=== PATIENT | male | born 1955 | race Caucasian/White ===

== ENCOUNTER → 2019-11-27 13:52 | Outpatient (BNVA) | payer MEDICARE, MEDICAID, SELFPAY | PROVIDERS: PCP Internal Medicine; Referring Provider Internal Medicine; Visit Provider Student in an Organized Health Care Education/Training Program | DX: M70.62 Trochanteric bursitis, left hip (principal); M70.61 Trochanteric bursitis, right hip; M47.812 Spondylosis without myelopathy or radiculopathy, cervical region; Z79.899 Other long term (current) drug therapy | CPT/HCPCS: 20610; 99213 ==

== ENCOUNTER 2019-11-30 10:07 | Outpatient (REF) | payer MEDICARE, MEDICAID, SELFPAY ==
--- NOTE | 2019-11-30 10:01 | XR_ITS ---
EXAMINATION: XR CERVICAL SPINE CLINICAL INFORMATION: Spondylosis COMPARISON: None TECHNIQUE: 3 views of the cervical spine were obtained. FINDINGS: Bone alignment is normal. No fracture or dislocation is seen. There is multilevel degenerative spondylosis from C3-C4 to C6-C7. There is a disc space narrowing at C6-C7. The C7-T1 disc space is not well visualized. There is evidence of bilateral facet arthritis, left greater than right. Prevertebral soft tissues are normal. IMPRESSION: Multilevel degenerative changes.
--- NOTE | 2019-11-30 10:15 | CT_ITS ---
EXAMINATION: CT CHEST WITHOUT CONTRAST CLINICAL INFORMATION: Follow-up pulmonary nodules COMPARISON: Previous chest CT scans most recent November 2018 TECHNIQUE: Multidetector volumetric CT imaging of the chest was done. Axial MIP volume rendering provided. Sagittal and coronal reformatted images were obtained. This CT examination was performed using dose optimization techniques as appropriate, variously including the following: *Automated exposure control *Adjustment of mA and/or kV according to patient size (this includes techniques or standardized protocols for targeted exams where dose is matched to indication/reason for exam; i.e. extremities or head) *Use of iterative reconstruction technique DLP: 242 mGy-cm FINDINGS: LUNGS: There is evidence of paraseptal emphysema. There is biapical pleural and parenchymal scarring, right greater than left, which is unchanged. There is a curvilinear pleural thickening and calcification along the lateral left upper lobe for example axial image 23 series 4 that is unchanged. There are small calcified and noncalcified pulmonary nodules that are unchanged. No new pulmonary nodule is seen.. MEDIASTINUM: There are are small mediastinal lymph nodes. No enlarged lymph nodes are seen. The heart does not appear enlarged. There is no pericardial effusion. There is mild coronary artery calcification. The thoracic aorta is normal in caliber. The visualized thyroid gland is unremarkable. PLEURA: There is no pleural effusion. No pleural mass or thickening. AXILLA: No lymphadenopathy. UPPER ABDOMEN: There is fatty infiltration of the liver. OSSEOUS STRUCTURES: There are degenerative changes of the spine. IMPRESSION: Emphysema. Stable biapical pleural parenchymal scarring, right greater than left and small calcified and noncalcified pulmonary nodules.
== END 2019-11-30 10:08 | disposition home or self-care (01) ==
LOC: HO.CT 10:07
PROVIDERS: PCP Internal Medicine; Visit Provider Internal Medicine
DX: M47.812 Spondylosis without myelopathy or radiculopathy, cervical region (principal)
CPT/HCPCS: 71250; 72040

== ENCOUNTER 2019-12-04 12:01 | Outpatient (REF) | payer MEDICARE, MEDICAID, SELFPAY ==
[2019-12-04 13:28] LABS: Anion Gap 13 (12-20); Carbon Dioxide 27 mmol/L (22-29); Chloride 106 mmol/L (96-108); Potassium 4.3 mmol/l (3.3-5.1); Sodium 142 mmol/L (135-145)
== END 2019-12-04 12:02 | disposition home or self-care (01) ==
LOC: HO.LAB 12:01
PROVIDERS: PCP Internal Medicine; Visit Provider Internal Medicine
DX: E87.6 Hypokalemia (principal)
CPT/HCPCS: 80051

== ENCOUNTER → 2019-12-14 09:35 | Outpatient (BNVA) | payer MEDICARE, MEDICAID, SELFPAY | PROVIDERS: PCP Internal Medicine; Visit Provider Internal Medicine | DX: I26.99 Other pulmonary embolism without acute cor pulmonale (principal); Z51.81 Encounter for therapeutic drug level monitoring; Z79.01 Long term (current) use of anticoagulants | CPT/HCPCS: 85610; 99211 ==

== ENCOUNTER 2020-01-02 13:18 | Outpatient (REF) | payer MEDICARE, MEDICAID, SELFPAY | END 2020-01-02 13:19 | disposition home or self-care (01) | LOC: HO.LAB 13:18 | PROVIDERS: Visit Provider Internal Medicine | DX: Z20.828 Contact with and (suspected) exposure to other viral communicable diseases (principal) | CPT/HCPCS: C9803; U0003 ==

== ENCOUNTER → 2020-01-11 09:04 | Outpatient (BNVA) | payer MEDICARE, MEDICAID, SELFPAY | PROVIDERS: PCP Internal Medicine; Visit Provider Internal Medicine | DX: I26.99 Other pulmonary embolism without acute cor pulmonale (principal); Z51.81 Encounter for therapeutic drug level monitoring; Z79.01 Long term (current) use of anticoagulants | CPT/HCPCS: 85610; 99211 ==

== ENCOUNTER 2020-01-21 09:42 | Emergency (ER) | payer MEDICARE, MEDICAID, SELFPAY ==
[2020-01-21 10:05] VITALS: BP 130/89; PULSE 96; RESP 16; TEMP 37.2; O2SAT 95; BMI 37.6
--- NOTE | 2020-01-21 10:11 | ED.GENADULT ---
HPI - General Adult General Chief complaint: General Medical Stated complaint: DIARRHEA, SORETHROAT Time Seen by Provider: 01/21/20 10:11 Source: patient Mode of arrival: ambulatory Limitations: no limitations History of Present Illness HPI narrative: patient having diarrhea for last 10 days 4-5 bowel movements loose every day last night patient was sweating and today he woke up with sore throat feels lump in his throat able to eat no stridor Related Data Home Medications Medication Instructions Recorded Confirmed acetaminophen 650 mg 650 mg PO Q12H 11/24/19 12/28/19 tablet,extended release albuterol sulfate 90 mcg/actuation 2 puff INHALATION Q4-6H PRN 11/24/19 12/28/19 aerosol inhaler atorvastatin 40 mg tablet 40 mg PO DAILY 11/24/19 12/28/19 brimonidine 0.2 % eye drops 1 drp OPHTHALMIC (EYE) TID 11/24/19 12/28/19 budesonide-formoterol HFA 160 2 puff INHALATION BID 11/24/19 12/28/19 mcg-4.5 mcg/actuation aerosol inhaler docusate sodium 100 mg capsule 100 mg PO DAILY 11/24/19 12/14/19 finasteride 5 mg tablet 5 mg PO DAILY 11/24/19 12/28/19 latanoprost 0.005 % eye drops 1 drp OPHTHALMIC (EYE) DAILY 11/24/19 12/28/19 meclizine 25 mg tablet 25 mg PO DAILY 11/24/19 12/28/19 modafinil 100 mg tablet 100 mg PO DAILY 11/24/19 12/14/19 modafinil 100 mg tablet 100 mg PO DAILY 11/24/19 12/28/19 montelukast 10 mg tablet 10 mg PO DAILY 11/24/19 12/28/19 omeprazole 20 mg capsule,delayed 20 mg PO DAILY 11/24/19 12/28/19 release potassium citrate 15 mEq (1,620 15 meq PO BID 11/24/19 12/28/19 mg) tablet,extended release sertraline 25 mg tablet 25 mg PO DAILY 11/24/19 12/28/19 tamsulosin 0.4 mg capsule 0.4 mg PO DAILY 11/24/19 12/28/19 tiotropium bromide 2.5 2 puff INHALATION DAILY 11/24/19 12/28/19 mcg/actuation mist for inhalation tizanidine 2 mg tablet 2 mg PO BEDTIME 11/24/19 12/28/19 warfarin 3 mg tablet 3 mg PO DAILY 11/24/19 01/11/20 gabapentin 100 mg capsule 200 mg PO BID cap 11/27/19 12/28/19 gabapentin 300 mg capsule 600 mg PO BEDTIME cap 11/27/19 12/28/19 Previous Rx's Medication Instructions Recorded ipratropium 0.5 mg-albuterol 3 mg 3 ml INHALATION QID #120 ml 12/21/19 (2.5 mg base)/3 mL nebulization soln fluticasone propionate 50 2 spray INTRANASAL DAILY #16 g 12/28/19 mcg/actuation nasal spray,suspension dexamethasone [Decadron] 4 mg PO BID #14 tab 01/21/20 diltiazem HCl 300 mg 300 mg PO DAILY #30 cap 01/21/20 capsule,extended release 24 hr Allergies Allergy/AdvReac Type Severity Reaction Status Date / Time bupropion [From WELLBUTRIN] Allergy Unknown HALLUCINATI Verified 12/28/19 11:15 ONS pseudoephedrine Allergy Unknown JITTERY Verified 12/28/19 11:15 [From SUDAFED] Review of Systems Review of Systems: REVIEW OF SYSTEMS: Pertinent positives and negatives are stated above in the history. GEN: no fevers, chills, fatigue HEENT: no nasal congestion, sore throat, ear pain feeling of the throat mass++ NEURO: no headache, dizziness, focal weakness PULM: no cough, shortness of breath CV: no chest pain, palpitations, LE edema ABD: no abdominal pain, nausea, vomiting, : no dysuria, urgency, frequency SKIN: no rash ROS otherwise negative x 10 PMFSH Past Medical History Medical History COPD (chronic obstructive pulmonary disease) Social History Social History Alcohol intake: never Smoking Status: Former smoker Use of substances other than those prescribed or required for medical reasons: No Advance Directives: Yes Advance Directives on File: Yes Advance Directives Date on File: 11/30/19 Physical Exam Vital Signs: Vital Signs: Last Vital Signs Temp 98.9 F 01/21/20 10:05 Pulse 90 01/21/20 13:46 Resp 16 01/21/20 13:46 BP 127/77 01/21/20 13:46 Pulse Ox 94 01/21/20 13:46 Body Mass Index 37.6 Appearance: Alert. Oriented X3. No acute distress. Eyes: Pupils equal, round and reactive to light. ENT: Pharynx normal. Neck: slight swollen neck? mass especially on the right side no stridor Neck supple. CVS: Normal heart rate and rhythm. Pulses normal. Respiratory: No respiratory distress. Breath sounds normal. Abdomen: Soft and nontender. no hepatosplenomegaly bowel sounds present no mass palpable Skin: Skin warm and dry. Normal skin color. Normal skin turgor. Extremities: No lower extremity edema. Good range of movement Neuro: Oriented X 3. No motor deficit. No sensory deficit. Medical Decision Making MDM Narrative Medical decision making narrative: patient with diarrhea which is stable complaining of feeling a mass in the throat for last [address] scan of the neck done which showed a mass is pressing on glottis area but is still open and patient is able to eat and breathe IV Decadron was given case discussed with Dr. wick the ENT specialist advised to refer to [facility] ENT at this time there is no airway compromise significant enough for acute intervention Lab Data Result diagrams: 01/21/20 10:27 01/21/20 10:27 Labs: Lab Results 01/21/20 01/21/20 01/21/20 Range/Units 10:27 10:27 10:27 WBC 10.4 (4.8-10.8) X10*3/uL RBC 5.09 (4.60-5.80) X10*6/uL Hgb 14.7 (14.0-18.0) g/dl Hct 44.9 (42-52) % MCV 88.2 (80-98) fL MCH 28.9 (27.0-33.0) pg MCHC 32.7 (31.0-36.0) g/dl RDW 13.8 (11.0-16.0) % Plt Count 216 (160-400) X10*3/uL MPV 9.8 (9.4-12.4) fL Immature Gran % (Auto) 1.2 H (0.0-0.4) % Neut % (Auto) 69.7 (45-73) % Lymph % (Auto) 17.4 L (20-40) % [place] % (Auto) 9.7 (2-11) % Eos % (Auto) 1.6 (0-4) % Baso % (Auto) 0.4 (0-2) % Lymph # (Auto) 1.8 (1.2-4.9) X10*3/uL [place] # (Auto) 1.0 (0.1-1.2) X10*3/uL Eos # (Auto) 0.2 (0.0-0.4) X10*3/uL Baso # (Auto) 0.0 (0.0-0.2) X10*3/uL Abs Immat Gran (auto) 0.13 H (0.00-0.03) X10*3/uL Absolute Neuts (auto) 7.3 (2.0-8.3) X10*3/uL Absolute Nucleated RBC 0.000 (0.0-0.012) X10*3/uL Nucleated RBC % (auto) 0.0 (0.0-0.2) /100WBC PT 27.9 H (10.8-13.0) SEC INR 2.3 H (0.9-1.1) Sodium 142 (135-145) mmol/L Potassium 4.2 (3.3-5.1) mmol/l Chloride 107 (96-108) mmol/L Carbon Dioxide 24 (22-29) mmol/L Anion Gap 15 (12-20) BUN 15 (9-16) mg/dL Creatinine 1.15 (0.5-1.4) mg/dL Estim Creat Clear Calc 80.3 Estimated GFR > 60 Random Glucose 107 (60-115) mg/dL Calcium 8.5 (8.4-10.2) mg/dL Total Bilirubin 0.7 (0.0-1.0) mg/dL AST 22 (5-37) U/L ALT 28 (0-40) U/L Alkaline Phosphatase 94 (39-117) U/L Total Protein 6.4 L (6.5-8.0) g/dL Albumin 3.9 (3.5-5.0) g/dL Lipase 13 (8-78) U/L COVID-19 ([facility]) (Negative) COVID-19 Clin Com 01/21/20 Range/Units 10:27 WBC (4.8-10.8) X10*3/uL RBC (4.60-5.80) X10*6/uL Hgb (14.0-18.0) g/dl Hct (42-52) % MCV (80-98) fL MCH (27.0-33.0) pg MCHC (31.0-36.0) g/dl RDW (11.0-16.0) % Plt Count (160-400) X10*3/uL MPV (9.4-12.4) fL Immature Gran % (Auto) (0.0-0.4) % Neut % (Auto) (45-73) % Lymph % (Auto) (20-40) % Huntington % (Auto) (2-11) % Eos % (Auto) (0-4) % Baso % (Auto) (0-2) % Lymph # (Auto) (1.2-4.9) X10*3/uL Huntington # (Auto) (0.1-1.2) X10*3/uL Eos # (Auto) (0.0-0.4) X10*3/uL Baso # (Auto) (0.0-0.2) X10*3/uL Abs Immat Gran (auto) (0.00-0.03) X10*3/uL Absolute Neuts (auto) (2.0-8.3) X10*3/uL Absolute Nucleated RBC (0.0-0.012) X10*3/uL Nucleated RBC % (auto) (0.0-0.2) /100WBC PT (10.8-13.0) SEC INR (0.9-1.1) Sodium (135-145) mmol/L Potassium (3.3-5.1) mmol/l Chloride (96-108) mmol/L Carbon Dioxide (22-29) mmol/L Anion Gap (12-20) BUN (9-16) mg/dL Creatinine (0.5-1.4) mg/dL Estim Creat Clear Calc Estimated GFR Random Glucose (60-115) mg/dL Calcium (8.4-10.2) mg/dL Total Bilirubin (0.0-1.0) mg/dL AST (5-37) U/L ALT (0-40) U/L Alkaline Phosphatase (39-117) U/L Total Protein (6.5-8.0) g/dL Albumin (3.5-5.0) g/dL Lipase (8-78) U/L COVID-19 ([facility]) Negative (Negative) COVID-19 Clin Com See Note Discharge Plan Discharge Clinical Impression: Cancer of neck Patient Disposition: Home, Self-Care Instructions: Mouth Cancer (DC) Additional Instructions: Dr. Aaron Vaughn MD [facility] N[facility], [facility] [address] [address] Make an Appointment Kendrick Falk MD [facility] [address] [place] [id number] ([facility]) [phone] [facility], [address] [place] [address], [facility] [address], [place] [address] ([facility]) [phone] DRINK PLENTY OF FLUIDS. REPORT TO THE ER IF DIFFICULTY BREATHING. FOLLOW-UP WITH ENT SPECIALIST ADVISED Prescriptions: New dexamethasone [Decadron] 4 mg tablet 4 mg PO BID Qty: 14 RF: 0 No Action ipratropium-albuterol 0.5 mg-3 mg(2.5 mg base)/3 mL solution for nebulization 3 ml inhalation QID Qty: 120 RF: 11 fluticasone propionate 50 mcg/actuation spray,suspension 2 spray intranasal DAILY Qty: 16 RF: 0 diltiazem HCl [Cartia XT] 300 mg capsule,extended release 24hr 300 mg PO DAILY Qty: 30 RF: 0 modafinil 100 mg tablet 100 mg PO DAILY RF: 0 modafinil [Provigil] 100 mg tablet 100 mg PO DAILY RF: 0 Spiriva Respimat 2.5 mcg/actuation mist 2 puff inhalation DAILY RF: 0 albuterol sulfate [ProAir HFA] 90 mcg/actuation HFA aerosol inhaler 2 puff inhalation Q4-6H PRNRF: 0 montelukast 10 mg tablet 10 mg PO DAILY RF: 0 potassium citrate 15 mEq tablet extended release 15 meq PO BID RF: 0 tizanidine 2 mg tablet 2 mg PO BEDTIME RF: 0 budesonide-formoterol [Symbicort] 160-4.5 mcg/actuation HFA aerosol inhaler 2 puff inhalation BID RF: 0 atorvastatin 40 mg tablet 40 mg PO DAILY RF: 0 finasteride 5 mg tablet 5 mg PO DAILY RF: 0 acetaminophen [Tylenol 8 Hour] 650 mg tablet extended release 650 mg PO Q12H RF: 0 sertraline 25 mg tablet 25 mg PO DAILY RF: 0 warfarin 3 mg tablet 3 mg PO DAILY RF: 0 latanoprost 0.005 % drops 1 drp ophthalmic (eye) DAILY RF: 0 brimonidine 0.2 % drops 1 drp ophthalmic (eye) TID RF: 0 tamsulosin 0.4 mg capsule 0.4 mg PO DAILY RF: 0 omeprazole 20 mg capsule,delayed release(DR/EC) 20 mg PO DAILY RF: 0 docusate sodium [Colace] 100 mg capsule 100 mg PO DAILY RF: 0 meclizine 25 mg tablet 25 mg PO DAILY RF: 0 gabapentin 300 mg capsule 600 mg PO BEDTIME RF: 0 gabapentin 100 mg capsule 200 mg PO BID RF: 0 Interventions: ED Discharge Assessment Last Done: 01/21/20 15:35 Discharge Date/Time: 01/21/20 15:36
--- NOTE | 2020-01-21 10:20 | XR_ITS ---
EXAMINATION: XR CHEST CLINICAL INFORMATION: Cough COMPARISON: Chest radiographs 11/20/2018, 11/13/2013 TECHNIQUE: Portable upright AP view of the chest was obtained. FINDINGS: The lungs are clear. The vascularity is normal. The heart is normal in size. There is no airspace consolidation or definite groundglass opacity. The costophrenic sulci are clear. The hilar and mediastinal contours are normal. There are mild degenerative changes again noted thoracic spine and acromioclavicular joints. XR/XR chest 1V IMPRESSION: Unremarkable examination.
[2020-01-21] MEDS: 0.9 % Sodium Chloride 1,000 ML 999 ML IVCONT (10:34)
[2020-01-21] MEDS: ondansetron HCL 4 MG/2 ML VIAL IVPUSH (10:34)
[2020-01-21 10:35] LABS: Basophils Percent Auto 0.4 % (0-2); Eosinophils Absolute Auto 0.2 X10*3/uL (0.0-0.4); Eosinophils Percent Auto 1.6 % (0-4); Hematocrit 44.9 % (42-52); Hemoglobin 14.7 g/dl (14.0-18.0); Imm Gran Abs Auto 0.13 X10*3/uL (0.00-0.03); Imm Gran Pct Auto 1.2 % (0.0-0.4); Lymphocytes Absolute Auto 1.8 X10*3/uL (1.2-4.9); Lymphocytes Percent Auto 17.4 % (20-40); MANUAL DIFF FLAG NO; Mean Corpuscular HGB Conc 32.7 g/dl (31.0-36.0); Mean Corpuscular Hemoglobin 28.9 pg (27.0-33.0); Mean Corpuscular Volume 88.2 fL (80-98); Mean Platelet Volume 9.8 fL (9.4-12.4); Monocytes Percent Auto 9.7 % (2-11); Neutrophils Absolute Auto 7.3 X10*3/uL (2.0-8.3); Neutrophils Percent Auto 69.7 % (45-73); Platelet Count 216 X10*3/uL (160-400); Red Blood Count 5.09 X10*6/uL (4.60-5.80); Red Cell Distribution Width 13.8 % (11.0-16.0); White Blood Count 10.4 X10*3/uL (4.8-10.8)
[2020-01-21 10:51] LABS: INTERNATIONAL NORM RATIO 2.3 (0.9-1.1); Prothrombin Time 27.9 SEC (10.8-13.0)
[2020-01-21 10:58] LABS: Alanine Aminotransferase 28 U/L (0-40); Albumin Level 3.9 g/dL (3.5-5.0); Alkaline Phosphatase 94 U/L (39-117); Anion Gap 15 (12-20); Aspartate Amino Transferase 22 U/L (5-37); Bilirubin Total 0.7 mg/dL (0.0-1.0); Blood Urea Nitrogen 15 mg/dL (9-16); Calcium 8.5 mg/dL (8.4-10.2); Carbon Dioxide 24 mmol/L (22-29); Chloride 107 mmol/L (96-108); Creatinine Clr Calc Pharmacy 80.3; Estimated Glomerular Filt Rate > 60; Glucose Random 107 mg/dL (60-115); Lipase 13 U/L (8-78); Potassium 4.2 mmol/l (3.3-5.1); Sodium 142 mmol/L (135-145); Total Protein 6.4 g/dL (6.5-8.0)
[2020-01-21 11:02] LABS: COVID-19 Test Negative (Negative); IDNOW Serial# 9DD0AD1C
[2020-01-21 12:00] VITALS: BP 115/99; PULSE 93; RESP 18; O2SAT 92
--- NOTE | 2020-01-21 12:17 | PC.NURSE ---
Pt reports feeling in throat is worse, sore and difficult to swallow. No visual periorbital edema noted, managing secretions, no visual SOB/distress. Dr Martinez notified.
--- NOTE | 2020-01-21 12:28 | CT_ITS ---
EXAMINATION: CT SOFT TISSUE NECK WITH CONTRAST CLINICAL INFORMATION: Throat pain COMPARISON: None TECHNIQUE: Following the intravenous administration of 100 mL of Omnipaque 350 intravenous contrast, helical imaging was performed in the axial plane with generation of coronal and sagittal reformatted images. This CT examination was performed using dose optimization techniques as appropriate, variously including the following: *Automated exposure control *Adjustment of mA and/or kV according to patient size (this includes techniques or standardized protocols for targeted exams where dose is matched to indication/reason for exam; i.e. extremities or head) *Use of iterative reconstruction technique DLP: 753 mGy-cm FINDINGS: There are small shotty lymph nodes in the neck and left para-aortic region and middle mediastinum with a short axis dimension of 6 mm and less in the middle mediastinum The parotid glands are homogeneous in attenuation. The submandibular glands are normal. No contour abnormality or pathologic enhancement is seen within the oral cavity or pharyngeal mucosal space. There is a soft tissue mass extending from the supraglottic, glottic and subglottic region and deviating the laryngeal airway to left of midline. It measures approximately 5.9 cm in craniocaudad length on sagittal image 34/5 and involves the aryepiglottic fold. In the widest section the mass is approximately 2.2 cm on axial image 91/2 an approximately 2.9 cm in AP dimension. Bilateral laryngeal ventricles are visualized. The preepiglottic, the left laryngeal wall is normal. The parapharyngeal fat is preserved. The carotid sheath vasculature opacify normally. No extra mucosal soft tissue mass or fluid collection is seen. No retropharyngeal fluid collection is seen. The thyroid gland is normal. The superior mediastinum is unremarkable. There is centrilobular and paraseptal emphysema with bilateral apical pleural thickening and parenchymal scarring and bullous changes in both lung apices. The mastoid air cells and visualized portions of the paranasal sinuses are well-aerated. The temporomandibular joints are normal. No periapical disease is identified. No osseous abnormalities are seen. The imaged portions of the brain parenchyma are unremarkable. CT/CT soft tissue neck w con IMPRESSION: Large soft tissue mass likely centered in the right glottic region into of the lateral laryngeal wall extending superiorly into the supraglottic space and inferiorly and the infraglottic space. Moderately deviates laryngeal elevated the left of midline.. There are small shotty lymph nodes in para-aortic space and the neck. Recommend MRI neck with contrast and ENT consult Emphysema with bilateral apical pleural and parenchymal thickening and scarring.
[2020-01-21] MEDS: iohexoL 350 MG/ML 100 ML INFUS..BTL 60 ML IV (12:58)
[2020-01-21 13:46] VITALS: BP 127/77; PULSE 90; RESP 16; O2SAT 94
[2020-01-21] MEDS: dexAMETHasone sod phosphate 4 MG/ML VIAL 10 MG IVPUSH (14:08)
--- NOTE | 2020-01-21 14:11 | PC.NURSE ---
Dr Martinez to bedside discussing CT of neck results and plan for potential outpatient treatment after consult with ENT Pt mediated with waqas as charted, will continue to monitor
--- NOTE | 2020-01-21 14:56 | PC.NURSE ---
Pt given jello for PO challenge, toelrating well at this time
--- NOTE | 2020-01-21 15:35 | PC.NURSE ---
Pt feeling better s/p decadron, able to tolerate jello. No diff breathing, less flushed than prior.
== END 2020-01-21 15:36 | disposition home or self-care (01) ==
PROVIDERS: Emergency Provider Internal Medicine; PCP Internal Medicine
DX: C76.0 Malignant neoplasm of head, face and neck (principal); R19.7 Diarrhea, unspecified; Z87.891 Personal history of nicotine dependence; Z20.828 Contact with and (suspected) exposure to other viral communicable diseases; Z79.899 Other long term (current) drug therapy
CPT/HCPCS: 36415; 70491; 71045; 80053; 83690; 85025; 85610; 87071; 87635; 87880; 96361; 96374; 96375; 99284; J1100; J2405; Q9967

== ENCOUNTER → 2020-01-25 09:36 | Outpatient (BNVA) | payer MEDICARE, MEDICAID, SELFPAY | PROVIDERS: PCP Internal Medicine; Visit Provider Internal Medicine | DX: I26.99 Other pulmonary embolism without acute cor pulmonale (principal); Z51.81 Encounter for therapeutic drug level monitoring; Z79.01 Long term (current) use of anticoagulants | CPT/HCPCS: 85610; 99211 ==

== ENCOUNTER 2020-01-25 10:00 | Outpatient (RCR) | payer MEDICARE, MEDICAID, SELFPAY ==
--- NOTE | 2019-12-21 12:30 | MHC.PT.EP ---
[facility] [place] Office [place] Office [place] Office [address] Paxton Carver [address] [phone] F: [phone] F: [phone] F: [phone] F: [phone] Physical Therapy Plan of Care Date of Evaluation: 12/21/19 Date of Surgery: NA Diagnosis: SPONDYLOSIS WITHOUT MYELOPATHY OR RADICULOPATHY CERVICAL REGION Assessment: Pt IS 64 YO M REFERRED TO PT FROM RHEUMATOLOGY WITH CERVICAL SPONDYLOSIS. PRESENTS WITH POOR POSTURE, UPPER BODY WEAKNESS AND LIMITED CERVICAL AND SHLDER ROM. Pt REPORTS INCREASE IN UPPER BACK PAIN WITH VACUUMING AND WASHING DISHES. REPORTS SOME TROUBLE WITH RUBBER TUBING BACKER. Pt WITH DIFFICULTY SHLDER MVMNT AND NECK MOVEMENT WITH UT COMPENSATION NOTED. REPORTS SOME L FOREARM AND R THUMB PARESTHESIA AT TIMES (NOT CONSISTENT). SHOULD BENEFIT FROM PT TO ADDRESS THESE ISSUES Frequency and Duration: The patient will be seen [id number] Short Term Goals: 1. INCREASED POSTURE AWARENESS AND AWARENESS NECK CARE 2. IMPROVED ABILITY TO WASH DISHES/VACUUM WITH LESS UPPER BACK PAIN Senior Care Goals: 1. I HEP WITH DC EX PLAN 2.IMPROVED NPDI 3. DECREASED NECK PAIN AT LEAST 50% WITH ADLS Treatment Plan: Modalities to reduce pain, spasms and effusion. Manual therapy to restore motion and function. Therapeutic exercise to improve strength and flexibility. Neuromuscular re-education for posture and balance. Therapeutic activities to return to functional activities of daily living. Please sign and return to therapist. Thank you for your referral.
--- NOTE | 2020-03-19 10:07 | MHC.PT.DC ---
[facility] Office [place] Office [place] Office [address] Paxton Carver [address] [phone] F: [phone] F: [phone] F: [phone] F: [phone] Physical Therapy Discharge Report Diagnosis: SPONDYLOSIS WITHOUT MYELOPATHY OR RADICULOPATHY CERVICAL REGION Date of Surgery: NA Date of Evaluation: 12/21/19 Date of Discharge: Treatments to Date: 7 Cancellations to Date: 3 No Shows to Date: 0 Discharge Status: Discharge Summary: WILL DC Pt AT THIS TIME WITH HOME PROGRAM HE DEALS WITH NEW DX OF THROAT CA. REPORTS OVERALL R UT FEELING BETTER BUT ANT NECK STILL SORE. GOOD PERF HOME PROG WITH MIN CUES (ED RE PAINFREE STRETCH VANI IF GOING THROUGH SURGERY/RX, ED TO LET US KNOW WHEN WOULD LIKE TO RETURN TO PT (DEPENDING ON TIME FRAME, MAY NEED TO GET A NEW SCRIPT) Electronically signed by: SUSANA HOLLIS PT Please sign and return to therapist. Thank you for your referral.
== END 2020-03-19 10:10 | disposition other institution (70) ==
LOC: HO.PT 10:00
PROVIDERS: Visit Provider Student in an Organized Health Care Education/Training Program
DX: M47.812 Spondylosis without myelopathy or radiculopathy, cervical region (principal)
CPT/HCPCS: 85610; 97110; 97162

== ENCOUNTER 2020-01-28 08:19 | Outpatient (REF) | payer MEDICARE, MEDICAID, SELFPAY ==
[2020-01-28 10:23] LABS: Hematocrit 47.8 % (42-52); Hemoglobin 15.8 g/dl (14.0-18.0); Mean Corpuscular HGB Conc 33.1 g/dl (31.0-36.0); Mean Corpuscular Hemoglobin 29.3 pg (27.0-33.0); Mean Corpuscular Volume 88.5 fL (80-98); Mean Platelet Volume 10.5 fL (9.4-12.4); Platelet Count 287 X10*3/uL (160-400); Red Cell Distribution Width 13.9 % (11.0-16.0)
[2020-01-28 10:27] LABS: Glucose Urine UA NEG (NEG); Leukocyte Esterase Urine NEG (NEG); Nitrite Urine NEG (NEG); Specific Gravity - Urine 1.015 (1.005-1.025); Urine Blood NEG (NEG); Urine Ketones NEG (NEG); Urine Protein NEG (NEG-TRACE)
[2020-01-28 10:28] LABS: Alanine Aminotransferase 56 U/L (0-40); Albumin Level 3.8 g/dL (3.5-5.0); Alkaline Phosphatase 74 U/L (39-117); Anion Gap 19 (12-20); Aspartate Amino Transferase 29 U/L (5-37); Bilirubin Total 0.6 mg/dL (0.0-1.0); Blood Urea Nitrogen 36 mg/dL (9-16); Calcium 8.6 mg/dL (8.4-10.2); Carbon Dioxide 25 mmol/L (22-29); Chloride 100 mmol/L (96-108); Cholesterol 162 mg/dL; Estimated Glomerular Filt Rate 52; Glucose Fasting 136 mg/dL (60-99); HDL Cholesterol 51 mg/dL; LDL Cholesterol Calculated 74 mg/dl; Potassium 4.7 mmol/l (3.3-5.1); Sodium 139 mmol/L (135-145); Total Protein 6.3 g/dL (6.5-8.0); Triglycerides 185 mg/dL
[2020-01-28 10:29] LABS: Appearance Urine CLEAR; Color Urine STRAW
[2020-01-28 10:45] LABS: WBC ABN SCTR FOR CBC 1
[2020-01-28 11:25] LABS: Band Neutrophils Percent 9 % (3-5); Lymphocytes Percent Manual 11 % (20-40); Metamyelocytes Percent 4 %; Monocytes Percent Manual 5 % (2-11); Myelocytes Percent 2 %; Neutrophils Percent Manual 69 % (45-73); Platelet Estimate NORMAL (NORMAL); Platelet Morphology Comment NORMAL; RBC Morphology NORMAL
[2020-01-28 11:26] LABS: Lymphocytes Absolute Manual 2.3 X10*3/uL (0.6-4.8); Metamyelocytes Absolute 0.9 X10*3/uL; Monocytes Absolute Manual 1.1 X10*3/uL (0.0-1.2); Myelocytes Absolute 0.4 X10*/uL; Neutrophils Absolute Manual 16.6 X10*3/uL (2.2-7.9); White Blood Count 21.3 X10*3/uL (4.8-10.8)
== END 2020-01-28 08:20 | disposition home or self-care (01) ==
LOC: HO.LAB 08:19
PROVIDERS: PCP Internal Medicine; Visit Provider Internal Medicine
DX: J43.1 Panlobular emphysema (principal); E78.00 Pure hypercholesterolemia, unspecified; N40.0 Benign prostatic hyperplasia without lower urinary tract symptoms; K21.00 Gastro-esophageal reflux disease with esophagitis, without bleeding; N20.0 Calculus of kidney; R79.9 Abnormal finding of blood chemistry, unspecified
CPT/HCPCS: 36415; 80053; 80061; 81003; 84153; 85007; 85025; 85027

== ENCOUNTER 2020-02-08 11:35 | Outpatient (REF) | payer MEDICARE, MEDICAID, SELFPAY ==
[2020-02-08 10:50] LABS: Prothrombin Time 62.3 SEC (10.8-13.0)
[2020-02-08 10:52] LABS: INTERNATIONAL NORM RATIO 5.2 (0.9-1.1)
--- NOTE | 2020-02-08 11:37 | MR_ITS ---
EXAMINATION: MRI NECK WITHOUT AND WITH CONTRAST CLINICAL INFORMATION: Neck mass. COMPARISON: CT neck from 01/21/2020. TECHNIQUE: MRI of the neck was obtained using routine sequences without and with contrast. Intravenous contrast: Gadavist 10 mL. FINDINGS: Normal mucosal contours of the pharynx and larynx without abnormal enhancement. Specifically, the previously demonstrated soft tissue thickening of the right supraglottic/gliotic mucosa appears to have resolved without abnormal enhancement. The prelaryngeal adipose tissue is maintained. There is a nonenhancing, ovoid T2 hyperintense nodule along the left glossotonsillar sulcus suggestive of a small benign cyst. Otherwise, no demonstrated focal lesion or abnormal enhancement within the floor of mouth. Normal appearance of the parotid, submandibular, and thyroid glands. Scattered subcentimeter lymph nodes bilaterally, none of which are pathologically enlarged or abnormally enhancing. The parapharyngeal adipose tissue is maintained. No significant cutaneous thickening or subcutaneous inflammation. No discrete fluid collection within the deep tissues of the neck. Left dominant vertebral artery. Otherwise, the major vascular flow voids of the neck are maintained. MR/MR orbits face neck wo/w con IMPRESSION: 1. Apparent interval resolution of the right supraglottic/glottic mucosa. Findings are suggestive of resolved laryngeal edema. This may be further evaluated with endoscopic visualization if clinically indicated. 2. There is a 1 cm ovoid nonenhancing cyst along the glossotonsillar sulcus that is likely benign in nature. This may also be examined with direct visualization. 3. No cervical lymphadenopathy.
== END 2020-02-08 11:36 | disposition home or self-care (01) ==
LOC: HO.MRI 11:35
PROVIDERS: Visit Provider Internal Medicine
DX: Z51.81 Encounter for therapeutic drug level monitoring (principal); Z79.01 Long term (current) use of anticoagulants; R22.1 Localized swelling, mass and lump, neck
CPT/HCPCS: 36415; 70543; 85610; 99212; A9585

== ENCOUNTER → 2020-02-12 08:18 | Outpatient (BNVA) | payer MEDICARE, MEDICAID, SELFPAY | PROVIDERS: PCP Internal Medicine; Visit Provider Internal Medicine | DX: I26.99 Other pulmonary embolism without acute cor pulmonale (principal); Z79.01 Long term (current) use of anticoagulants; Z51.81 Encounter for therapeutic drug level monitoring | CPT/HCPCS: 85610; 99211 ==

== ENCOUNTER 2020-02-18 08:52 | Outpatient (REF) | payer MEDICARE, MEDICAID, SELFPAY ==
[2020-02-18 10:02] LABS: Hematocrit 46.5 % (42-52); Hemoglobin 15.1 g/dl (14.0-18.0); Mean Corpuscular HGB Conc 32.5 g/dl (31.0-36.0); Mean Corpuscular Hemoglobin 28.8 pg (27.0-33.0); Mean Corpuscular Volume 88.7 fL (80-98); Mean Platelet Volume 9.2 fL (9.4-12.4); Platelet Count 300 X10*3/uL (160-400); Red Blood Count 5.24 X10*6/uL (4.60-5.80); Red Cell Distribution Width 14.6 % (11.0-16.0); White Blood Count 7.8 X10*3/uL (4.8-10.8)
[2020-02-18 10:30] LABS: Blood Urea Nitrogen 16 mg/dL (9-16); Estimated Glomerular Filt Rate 55
[2020-02-18 11:43] LABS: Band Neutrophils Percent 0 % (3-5); Eosinophils Absolute Manual 0.1 X10*3/UL (0.0-0.8); Eosinophils Percent Manual 1 % (0-4); Lymphocytes Absolute Manual 2.3 X10*3/uL (0.6-4.8); Lymphocytes Percent Manual 29 % (20-40); Monocytes Absolute Manual 0.9 X10*3/uL (0.0-1.2); Monocytes Percent Manual 12 % (2-11); Neutrophils Absolute Manual 4.5 X10*3/uL (2.2-7.9); Neutrophils Percent Manual 58 % (45-73); RBC Morphology NORMAL
[2020-02-18 11:44] LABS: Platelet Estimate NORMAL (NORMAL); Platelet Morphology Comment NORMAL
== END 2020-02-18 08:53 | disposition home or self-care (01) ==
LOC: HO.LAB 08:52
PROVIDERS: PCP Internal Medicine; Visit Provider Internal Medicine
DX: R79.9 Abnormal finding of blood chemistry, unspecified (principal); D72.825 Bandemia
CPT/HCPCS: 36415; 82565; 84520; 85007; 85025; 85027; 99212

== ENCOUNTER → 2020-02-26 10:32 | Outpatient (BNVA) | payer MEDICARE, MEDICAID, SELFPAY | PROVIDERS: PCP Internal Medicine; Visit Provider Internal Medicine | DX: I26.99 Other pulmonary embolism without acute cor pulmonale (principal); Z51.81 Encounter for therapeutic drug level monitoring; Z79.01 Long term (current) use of anticoagulants | CPT/HCPCS: 85610; 99211 ==

== ENCOUNTER 2020-03-04 10:42 | Outpatient (REF) | payer MEDICARE, MEDICAID, SELFPAY ==
--- NOTE | 2020-03-04 11:46 | XR_ITS ---
EXAMINATION: XR HIP, RIGHT CLINICAL INFORMATION: Avascular necrosis hip. COMPARISON: CT pelvis 05/13/2019, 04/08/2016. TECHNIQUE: Frontal view pelvis is performed along with AP and frog-lateral projections of the right hip. FINDINGS: The right hip shows no fracture or dislocation. There is mild hip joint narrowing. Some spurring is also noted greater tuberosity both proximal and distally. There are no visible erosive changes or periostitis or chondrocalcinosis. The bony pelvis shows no fracture or destructive process. There are degenerative changes also seen contralateral left hip. There is a stable sclerotic bone island at the superior medial right acetabulum similar to prior CT studies dating back to 2017. Some contrast is present in left colon diverticula and the appendix. Bowel gas unremarkable. XR/XR hip RT min 2V IMPRESSION: 1. Mild bilateral hip osteoarthritis. 2. If there is concern for underlying avascular necrosis, then MRI hip with be recommended for further assessment.
== END 2020-03-04 10:43 | disposition home or self-care (01) ==
LOC: HO.LAB 10:42
PROVIDERS: Absent Provider Internal Medicine; PCP Internal Medicine; Visit Provider Hospitalist
DX: G47.33 Obstructive sleep apnea (adult) (pediatric) (principal); J04.0 Acute laryngitis; J44.9 Chronic obstructive pulmonary disease, unspecified; Z99.89 Dependence on other enabling machines and devices; M87.052 Idiopathic aseptic necrosis of left femur
CPT/HCPCS: 73502; 99212

== ENCOUNTER 2020-03-07 18:28 | Outpatient (REF) | payer MEDICARE, MEDICAID, SELFPAY ==
--- NOTE | 2020-03-07 18:30 | MR_ITS ---
EXAMINATION: MR HIP WITHOUT CONTRAST, RIGHT CLINICAL INFORMATION: Avascular necrosis of bone. Patient reports lumbosacral pain radiating to right gluteal done to groin with symptoms for one week. COMPARISON: XR right hip 03/04/2020. TECHNIQUE: MRI of the right hip was obtained using routine sequences on a high-field strength magnet. FINDINGS: ACETABULAR LABRUM: Limited evaluation. Grossly intact. ARTICULAR CARTILAGE/BONE: There is a subtle curvilinear region of low T1 and low T2 signal intensity in the superior aspect of the right femoral head suspicious for subtle low-grade avascular necrosis. There is minor patchy bone marrow edema. There is no evidence of femoral head collapse. There is narrowing of the right hip joints, likely representing infarct cartilage thinning. There is a smaller more subtle curvilinear region of low T1 signal in the left femoral head on the T1 coronal sequence which includes both hips, suspicious for low-grade avascular necrosis. MUSCLES/TENDONS: Intact. JOINT FLUID/BURSA: Within normal limits. INTRAPELVIC STRUCTURES: Unremarkable. MR/MR hip RT wo con IMPRESSION: 1. 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 2. Mild arthrosis of the right hip joint.
== END 2020-03-07 18:29 | disposition home or self-care (01) ==
LOC: HO.MRI 18:28
PROVIDERS: Visit Provider Internal Medicine
DX: M87.051 Idiopathic aseptic necrosis of right femur (principal)
CPT/HCPCS: 73721

== ENCOUNTER → 2020-03-11 14:48 | Outpatient (BNVA) | payer MEDICARE, MEDICAID, SELFPAY | PROVIDERS: PCP Internal Medicine; Visit Provider Internal Medicine | DX: I26.99 Other pulmonary embolism without acute cor pulmonale (principal); Z51.81 Encounter for therapeutic drug level monitoring; Z79.01 Long term (current) use of anticoagulants | CPT/HCPCS: 85610; 99211 ==

== ENCOUNTER 2020-03-20 08:15 | Outpatient (REF) | payer MEDICARE, MEDICAID, SELFPAY ==
[2020-03-20 09:05] LABS: MANUAL DIFF FLAG NO
[2020-03-20 09:10] LABS: Basophils Absolute Auto 0.1 X10*3/uL (0.0-0.2); Basophils Percent Auto 0.5 % (0-2); Eosinophils Absolute Auto 0.2 X10*3/uL (0.0-0.4); Hematocrit 45.4 % (42-52); Hemoglobin 14.5 g/dl (14.0-18.0); Imm Gran Abs Auto 0.25 X10*3/uL (0.00-0.03); Imm Gran Pct Auto 2.3 % (0.0-0.4); Lymphocytes Absolute Auto 2.7 X10*3/uL (1.2-4.9); Mean Corpuscular HGB Conc 31.9 g/dl (31.0-36.0); Mean Corpuscular Hemoglobin 28.7 pg (27.0-33.0); Mean Corpuscular Volume 89.7 fL (80-98); Mean Platelet Volume 10.3 fL (9.4-12.4); Monocytes Absolute Auto 0.9 X10*3/uL (0.1-1.2); Monocytes Percent Auto 8.7 % (2-11); Neutrophils Absolute Auto 6.6 X10*3/uL (2.0-8.3); Neutrophils Percent Auto 61.5 % (45-73); Platelet Count 230 X10*3/uL (160-400); Red Blood Count 5.06 X10*6/uL (4.60-5.80); Red Cell Distribution Width 14.8 % (11.0-16.0); White Blood Count 10.8 X10*3/uL (4.8-10.8)
[2020-03-20 09:17] LABS: Glucose Urine UA NEG (NEG); Leukocyte Esterase Urine NEG (NEG); Nitrite Urine NEG (NEG); PH 8.5 (5.0-8.0); Specific Gravity - Urine 1.015 (1.005-1.025); Urine Blood NEG (NEG); Urine Ketones NEG (NEG); Urine Protein NEG (NEG-TRACE)
[2020-03-20 09:19] LABS: Appearance Urine HAZY; Color Urine YELLOW
[2020-03-20 09:20] LABS: Renal w Reflex-LAB USE ONLY Order Verified
[2020-03-20 09:38] LABS: Mucus Urine TRACE /LPF; RBC Urine 0 /HPF (0); Squamous Epithelial Cell Urine TRACE /LPF; UACC CULT YES
[2020-03-20 09:44] LABS: Anion Gap 13 (12-20); Blood Urea Nitrogen 17 mg/dL (9-16); Carbon Dioxide 26 mmol/L (22-29); Chloride 110 mmol/L (96-108); Estimated Glomerular Filt Rate 59; Phosphorus 2.9 mg/dL (2.7-4.5); Potassium 4.7 mmol/l (3.3-5.1); Sodium 144 mmol/L (135-145)
[2020-03-20 10:01] LABS: Creatinine Urine 170.54 mg/dL; Microalbum/Creatinine Ratio Ur 27.5 ug/mg cr
[2020-03-20 10:06] LABS: Vitamin D 25-OH Total 15.6 ng/mL (>30)
[2020-03-20 10:39] LABS: Protein/Creatinine Ratio, Ur 0.12 (<0.2); Total Protein Urine Random 21 mg/dL (<12)
[2020-03-20 11:18] LABS: Renal w Reflex Lab Use Only Order verified
[2020-03-21 15:42] LABS: Calcium (PTHI) 9.4 mg/dL (8.6-10.3); PTHI 77 pg/mL (14-64)
[2020-03-21 18:08] LABS: Calcium, Random Urine 5.7 mg/dL
== END 2020-03-20 08:16 | disposition home or self-care (01) ==
LOC: HO.LAB 08:15
PROVIDERS: PCP Internal Medicine; Visit Provider Internal Medicine Nephrology
DX: R79.9 Abnormal finding of blood chemistry, unspecified (principal); N20.0 Calculus of kidney; I48.0 Paroxysmal atrial fibrillation; F41.9 Anxiety disorder, unspecified
CPT/HCPCS: 36415; 80051; 81001; 82040; 82043; 82306; 82310; 82565; 83970; 84100; 84156; 84520; 85025; 87086

== ENCOUNTER → 2020-04-08 10:04 | Outpatient (BNVA) | payer MEDICARE, MEDICAID, SELFPAY | PROVIDERS: PCP Internal Medicine; Visit Provider Internal Medicine | DX: I26.99 Other pulmonary embolism without acute cor pulmonale (principal); Z51.81 Encounter for therapeutic drug level monitoring; Z79.01 Long term (current) use of anticoagulants | CPT/HCPCS: 85610; 99211 ==

== ENCOUNTER → 2020-05-06 10:46 | Outpatient (BNVA) | payer MEDICARE, MEDICAID, SELFPAY | PROVIDERS: PCP Internal Medicine; Visit Provider Internal Medicine | DX: I26.99 Other pulmonary embolism without acute cor pulmonale (principal); Z51.81 Encounter for therapeutic drug level monitoring; Z79.01 Long term (current) use of anticoagulants | CPT/HCPCS: 85610; 99211 ==

== ENCOUNTER 2020-05-16 15:36 | Outpatient (REF) | payer MEDICARE, MEDICAID, SELFPAY ==
--- NOTE | ~2020-05-16 | MR_ITS ---
EXAMINATION: MR ABDOMEN WITHOUT AND WITH CONTRAST CLINICAL INFORMATION: Liver lesion COMPARISON: Previous CT of the abdomen and pelvis April 2019 abdominal ultrasound February 2017 and renal ultrasound May 2018 TECHNIQUE: MR abdomen was performed without and with use of 10 mL intravenous Gadavist gadolinium contrast. Postcontrast images are performed in multiphase dynamic sequences. Imaging was performed in 3 planes. FINDINGS: LUNG BASES: The visualized lung bases are unremarkable. LIVER, GALLBLADDER, AND BILIARY TREE: The liver is slightly enlarged, right lobe measuring 18 cm in length. The liver is normal in contour. The liver is low in attenuation suggestive of fatty infiltration. There is a 1.6 x 1.4 cm lesion in the posterior segment of the right lobe of the liver. This does is low signal on T1-weighted sequences, high signal on T2-weighted sequences and demonstrates delayed peripheral puddling enhancement suggestive of a benign hemangioma. No suspicious liver lesion is seen. The gallbladder is normal-appearing. There is no biliary duct dilatation. PANCREAS: Unremarkable. SPLEEN: There is a small 5 mm lesion in the spleen probably representing a small cyst. ADRENAL GLANDS: Normal. KIDNEYS AND URETERS: There are bilateral renal cysts. Some cysts are high attenuation on T1-weighted and low attenuation on T2 weighted sequences and demonstrate fluid fluid levels suggestive of complex cysts. There is an area of irregularly shaped abnormal signal exophytic to the medial upper pole of the left kidney. This is heterogeneous in signal on T1 and T2-weighted sequences and demonstrates no evidence of enhancement. This is likely related to previous large exophytic cyst seen on previous exams, and probably represents post surgical change/resection versus spontaneous cyst rupture. Axial images following contrast do not extend completely through the kidneys. There is no evidence of hydronephrosis. GASTROINTESTINAL TRACT: There is diverticulosis of the colon. No bowel obstruction. No ascites or fluid collection. ABDOMINAL WALL: No significant hernia is appreciated. LYMPH NODES: There are small retroperitoneal lymph nodes. No enlarged lymph nodes are seen. VASCULAR: Unremarkable. OSSEOUS STRUCTURES: Marrow signal normal. There are degenerative changes of the spine. MR/MR abdomen wo/w con IMPRESSION: Fatty liver. 1.4 x 1.6 cm hemangioma in the liver. Probable small cyst in the spleen. The previously identified large complex cyst exophytic to the upper pole of the left kidney is no longer seen. There is heterogeneous irregularly-shaped nonenhancing signal seen in this region probably representing postsurgical change. There are bilateral simple and complex renal cysts. Kidneys are not completely evaluated on this exam. Diverticulosis of the colon.
[2020-05-16 16:18] LABS: Blood Urea Nitrogen 23 mg/dL (9-16); Estimated Glomerular Filt Rate 50
== END 2020-05-16 15:37 | disposition home or self-care (01) ==
LOC: HO.MRI 15:36
PROVIDERS: Visit Provider Internal Medicine
DX: K76.9 Liver disease, unspecified (principal)
CPT/HCPCS: 36415; 74183; 82565; 84520; A9585

== ENCOUNTER → 2020-05-19 09:59 | Outpatient (BNVA) | payer MEDICARE, MEDICAID, SELFPAY | PROVIDERS: PCP Internal Medicine; Visit Provider Internal Medicine | DX: I26.99 Other pulmonary embolism without acute cor pulmonale (principal); Z51.81 Encounter for therapeutic drug level monitoring; Z79.01 Long term (current) use of anticoagulants | CPT/HCPCS: 85610; 99211 ==

== ENCOUNTER → 2020-06-16 09:43 | Outpatient (BNVA) | payer MEDICARE, MEDICAID, SELFPAY | PROVIDERS: PCP Internal Medicine; Visit Provider Internal Medicine | DX: I26.99 Other pulmonary embolism without acute cor pulmonale (principal); Z79.01 Long term (current) use of anticoagulants; Z51.81 Encounter for therapeutic drug level monitoring | CPT/HCPCS: 85610; 99211 ==

== ENCOUNTER 2020-06-24 13:56 | Outpatient (REF) | payer MEDICARE, MEDICAID, SELFPAY ==
[2020-06-24 15:31] LABS: Anion Gap 14 (12-20); Blood Urea Nitrogen 22 mg/dL (9-16); Calcium 9.2 mg/dL (8.4-10.2); Carbon Dioxide 29 mmol/L (22-29); Chloride 100 mmol/L (96-108); Estimated Glomerular Filt Rate 59; Magnesium 1.5 mg/dL (1.6-2.6); Phosphorus 2.5 mg/dL (2.7-4.5); Potassium 3.3 mmol/L (3.3-5.1); Sodium 140 mmol/L (135-145)
[2020-06-24 15:59] LABS: Renal w Reflex Lab Use Only Order verified
== END 2020-06-24 13:57 | disposition home or self-care (01) ==
LOC: HO.LAB 13:56
PROVIDERS: PCP Internal Medicine; Visit Provider Internal Medicine Nephrology
DX: N20.0 Calculus of kidney (principal); I48.0 Paroxysmal atrial fibrillation; F41.9 Anxiety disorder, unspecified; R79.89 Other specified abnormal findings of blood chemistry
CPT/HCPCS: 36415; 80051; 82040; 82310; 82565; 83735; 84100; 84520

== ENCOUNTER → 2020-07-14 10:14 | Outpatient (BNVA) | payer MEDICARE, MEDICAID, SELFPAY | PROVIDERS: PCP Internal Medicine; Visit Provider Internal Medicine | DX: I26.99 Other pulmonary embolism without acute cor pulmonale (principal); Z51.81 Encounter for therapeutic drug level monitoring; Z79.01 Long term (current) use of anticoagulants | CPT/HCPCS: 85610; 99211 ==

== ENCOUNTER → 2020-08-11 09:45 | Outpatient (BNVA) | payer MEDICARE, MEDICAID, SELFPAY | PROVIDERS: PCP Internal Medicine; Visit Provider Internal Medicine | DX: I26.99 Other pulmonary embolism without acute cor pulmonale (principal); Z51.81 Encounter for therapeutic drug level monitoring; Z79.01 Long term (current) use of anticoagulants | CPT/HCPCS: 85610; 99211 ==

== ENCOUNTER → 2020-09-03 09:16 | Outpatient (BNVA) | payer MEDICARE, MEDICAID, SELFPAY | PROVIDERS: PCP Internal Medicine; Visit Provider Internal Medicine | DX: J41.0 Simple chronic bronchitis (principal); G47.33 Obstructive sleep apnea (adult) (pediatric); I27.82 Chronic pulmonary embolism; Z79.899 Other long term (current) drug therapy; Z99.89 Dependence on other enabling machines and devices; Z51.81 Encounter for therapeutic drug level monitoring; Z79.01 Long term (current) use of anticoagulants | CPT/HCPCS: 85610; 99211; 99212 ==

== ENCOUNTER → 2020-10-01 09:35 | Outpatient (BNVA) | payer MEDICARE, MEDICAID, SELFPAY | PROVIDERS: PCP Internal Medicine; Visit Provider Internal Medicine | DX: I26.99 Other pulmonary embolism without acute cor pulmonale (principal); Z51.81 Encounter for therapeutic drug level monitoring; Z79.01 Long term (current) use of anticoagulants | CPT/HCPCS: 85610; 99211 ==

== ENCOUNTER 2020-10-17 09:13 | Outpatient (REF) | payer MEDICARE, MEDICAID, SELFPAY ==
[2020-10-17 09:45] LABS: MANUAL DIFF FLAG NO
[2020-10-17 09:50] LABS: Basophils Percent Auto 0.3 % (0-2); Eosinophils Absolute Auto 0.2 X10*3/uL (0.0-0.4); Eosinophils Percent Auto 1.7 % (0-4); Hematocrit 44.3 % (42-52); Hemoglobin 15.2 g/dl (14.0-18.0); Imm Gran Abs Auto 0.15 X10*3/uL (0.00-0.03); Imm Gran Pct Auto 1.3 % (0.0-0.4); Lymphocytes Absolute Auto 2.2 X10*3/uL (1.2-4.9); Lymphocytes Percent Auto 19.2 % (20-40); Mean Corpuscular HGB Conc 34.3 g/dl (31.0-36.0); Mean Corpuscular Hemoglobin 29.2 pg (27.0-33.0); Monocytes Absolute Auto 1.2 X10*3/uL (0.1-1.2); Monocytes Percent Auto 10.1 % (2-11); Neutrophils Absolute Auto 7.7 X10*3/uL (2.0-8.3); Neutrophils Percent Auto 67.4 % (45-73); Platelet Count 260 X10*3/uL (160-400); Red Blood Count 5.21 X10*6/uL (4.60-5.80); Red Cell Distribution Width 13.6 % (11.0-16.0); White Blood Count 11.4 X10*3/uL (4.8-10.8)
[2020-10-17 10:26] LABS: Total Volume 24 Hour Urine 1850 mL
[2020-10-17 10:31] LABS: Albumin Level 4.1 g/dL (3.5-5.0); Anion Gap 13 (12-20); Blood Urea Nitrogen 21 mg/dL (9-16); Calcium 9.7 mg/dL (8.4-10.2); Carbon Dioxide 28 mmol/L (22-29); Chloride 102 mmol/L (96-108); Estimated Glomerular Filt Rate > 60; Magnesium 1.6 mg/dL (1.6-2.6); Phosphorus 2.5 mg/dL (2.7-4.5); Potassium 3.1 mmol/L (3.3-5.1); Sodium 140 mmol/L (135-145)
[2020-10-17 10:35] LABS: Appearance Urine CLEAR; Color Urine YELLOW; Glucose Urine UA NEG (NEG); Leukocyte Esterase Urine NEG (NEG); Nitrite Urine NEG (NEG); PH 7.5 (5.0-8.0); Urine Blood NEG (NEG); Urine Ketones NEG (NEG); Urine Protein TRACE MG/DL (NEG-TRACE)
[2020-10-17 10:51] LABS: Vitamin D 25-OH Total 26.5 ng/mL (>30)
[2020-10-17 10:55] LABS: Creatinine Urine 198.95 mg/dL; Protein/Creatinine Ratio, Ur 0.09 (<0.2); Total Protein Urine Random 17 mg/dL (<12)
[2020-10-17 10:55] LABS: Creatinine, mg/dL 93.57; Phosphorus mg/dL 49.9 mg/dL
[2020-10-17 11:04] LABS: Creatinine, 24Hr Urine 1.7 G/Day (1.0-2.0); Uric Acid, 24 Hr Urine 691.9 mg/Day (250-750); Uric Acid, mg/dL 37.4 mg/dL
[2020-10-17 11:39] LABS: Creatinine, 24Hr Urine 1.7 G/Day (1.0-2.0); Phosphorus, 24 Hr Urine 0.9 G/Day (0.4-1.3); Sodium 24 Hr Urine 266.4 mmol/Day (40-220); Total Volume 24 Hour Urine 1850 mL
[2020-10-20 13:12] LABS: Calcium (PTHI) 9.7 mg/dL (8.6-10.3); PTHI 52 pg/mL (14-64)
[2020-10-22 07:12] LABS: 24hr Urine Total Volume 1850 mL/24 h; Oxalic Acid 24 Urine 27.8 mg/24 h (3.6-38.0)
[2020-10-22 09:31] LABS: Citric Acid, 24hr Urine 142 mg/24 h (100-1300); Citric Acid/Creat Ratio 24U 84 mg/g creat (60-660); Creatinine, 24U 1.71 g/24 h (0.50-2.15)
[2020-10-23 23:21] LABS: Cystine 24Hr Urine - Cystine 160 umol/24 h (24-184)
[2020-10-24 12:55] LABS: Cystine 24Hr Urine - Total Vol 1850
== END 2020-10-17 09:14 | disposition home or self-care (01) ==
LOC: HO.LAB 09:13
PROVIDERS: PCP Internal Medicine; Visit Provider Internal Medicine Nephrology
DX: N18.31 Chronic kidney disease, stage 3a (principal); N20.0 Calculus of kidney; N25.0 Renal osteodystrophy; I26.99 Other pulmonary embolism without acute cor pulmonale; Z51.81 Encounter for therapeutic drug level monitoring; Z79.01 Long term (current) use of anticoagulants
CPT/HCPCS: 36415; 80051; 81003; 82040; 82043; 82131; 82306; 82310; 82507; 82565; 83735; 83945; 83970; 84100; 84105; 84156; 84300; 84520; 84560; 85025; 85610; 87086; 87147; 99211

== ENCOUNTER → 2020-11-14 09:35 | Outpatient (BNVA) | payer MEDICARE, MEDICAID, SELFPAY | PROVIDERS: PCP Internal Medicine; Visit Provider Internal Medicine | DX: I26.99 Other pulmonary embolism without acute cor pulmonale (principal); Z51.81 Encounter for therapeutic drug level monitoring; Z79.01 Long term (current) use of anticoagulants | CPT/HCPCS: 85610; 99211 ==

== ENCOUNTER 2020-12-04 09:28 | Outpatient (REF) | payer MEDICARE, MEDICAID, SELFPAY ==
--- NOTE | ~2020-12-04 | CT_ITS ---
EXAMINATION: CT CHEST WITHOUT CONTRAST CLINICAL INFORMATION: Pulmonary nodule. COMPARISON: Chest radiograph dated 01/21/2020. CT chest dated 11/30/2019. TECHNIQUE: Multidetector volumetric CT imaging of the chest was done. Axial MIP volume rendering provided. Sagittal and coronal reformatted images were obtained. This CT examination was performed using dose optimization techniques as appropriate, variously including the following: *Automated exposure control *Adjustment of mA and/or kV according to patient size (this includes techniques or standardized protocols for targeted exams where dose is matched to indication/reason for exam; i.e. 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 LUNGS: Prominent emphysematous changes. Biapical subpleural nodular thickening, most prominent on the right with adjacent ground-glass airspace opacity, unchanged when compared to the prior examination. Focal pleural thickening and calcification along the lateral aspect of the left upper lobe is unchanged. Stable tiny bilateral calcified granulomas. No new pulmonary nodule, mass, or airspace consolidation. MEDIASTINUM: No cardiomegaly. No pericardial effusion. No thoracic aortic dilatation. Atherosclerotic calcifications. No superior mediastinal or hilar lymphadenopathy. Atrophic thyroid. PLEURA: No pleural effusion or pneumothorax. AXILLA: No lymphadenopathy. UPPER ABDOMEN: Hepatic steatosis. Otherwise, the visualized upper abdominal structures are unremarkable. OSSEOUS STRUCTURES: Unremarkable. CT/CT chest wo con IMPRESSION: 1. Prominent emphysematous changes are redemonstrated with biapical nodular pleural thickening, similar when compared to the prior examination. Pleural thickening and calcification along the lateral aspect of the left upper lobe is unchanged. 2. No new pulmonary nodule, mass, or airspace consolidation. 3. No new lymphadenopathy.
== END 2020-12-04 09:29 | disposition home or self-care (01) ==
LOC: HO.CT 09:28
PROVIDERS: Visit Provider Internal Medicine
DX: R91.1 Solitary pulmonary nodule (principal)
CPT/HCPCS: 71250

== ENCOUNTER 2020-12-08 10:55 | Outpatient (REF) | payer MEDICARE, MEDICAID, SELFPAY ==
[2020-12-08 12:20] LABS: Anion Gap 14 (12-20); Blood Urea Nitrogen 20 mg/dL (9-16); Calcium 9.4 mg/dL (8.4-10.2); Carbon Dioxide 28 mmol/L (22-29); Chloride 101 mmol/L (96-108); Estimated Glomerular Filt Rate 59; Potassium 3.9 mmol/L (3.3-5.1); Sodium 139 mmol/L (135-145)
[2020-12-08 13:21] LABS: Appearance Urine CLEAR; Color Urine YELLOW; Glucose Urine UA NEG (NEG); Leukocyte Esterase Urine NEG (NEG); Nitrite Urine NEG (NEG); PH 8.5 (5.0-8.0); Urine Blood NEG (NEG); Urine Ketones NEG (NEG); Urine Protein NEG (NEG-TRACE)
[2020-12-08 13:53] LABS: Creatinine Urine 150.33 mg/dL; Total Protein Urine Random 15 mg/dL (<12)
[2020-12-08 14:35] LABS: RBC Urine 0-2 /HPF (0); WBC Urine 0-2 /HPF (0-4)
[2020-12-08 14:36] LABS: Amorphous Sediment Urine 2+ /LPF; Mucus Urine 2+ /LPF
== END 2020-12-08 10:56 | disposition home or self-care (01) ==
LOC: HO.LAB 10:55
PROVIDERS: PCP Internal Medicine; Visit Provider Internal Medicine Nephrology
DX: N20.0 Calculus of kidney (principal); N25.0 Renal osteodystrophy
CPT/HCPCS: 36415; 80051; 81001; 82310; 82565; 84156; 84520

== ENCOUNTER → 2020-12-12 09:52 | Outpatient (BNVA) | payer MEDICARE, MEDICAID, SELFPAY | PROVIDERS: PCP Internal Medicine; Visit Provider Internal Medicine | DX: I26.99 Other pulmonary embolism without acute cor pulmonale (principal); Z51.81 Encounter for therapeutic drug level monitoring; Z79.01 Long term (current) use of anticoagulants | CPT/HCPCS: 85610; 99211 ==

== ENCOUNTER → 2020-12-26 09:54 | Outpatient (BNVA) | payer MEDICARE, MEDICAID, SELFPAY | PROVIDERS: PCP Internal Medicine; Visit Provider Internal Medicine | DX: I26.99 Other pulmonary embolism without acute cor pulmonale (principal); Z51.81 Encounter for therapeutic drug level monitoring; Z79.01 Long term (current) use of anticoagulants | CPT/HCPCS: 85610; 99211 ==

== ENCOUNTER → 2021-01-09 10:14 | Outpatient (BNVA) | payer MEDICARE, MEDICAID, SELFPAY | PROVIDERS: PCP Internal Medicine; Visit Provider Internal Medicine | DX: I26.99 Other pulmonary embolism without acute cor pulmonale (principal); Z51.81 Encounter for therapeutic drug level monitoring; Z79.01 Long term (current) use of anticoagulants | CPT/HCPCS: 85610; 99211; 99212 ==

== ENCOUNTER → 2021-02-02 13:24 | Outpatient (BNVA) | payer MEDICARE, MEDICAID, SELFPAY | PROVIDERS: PCP Internal Medicine; Referring Provider Internal Medicine; Visit Provider Internal Medicine Cardiovascular Disease | DX: I48.0 Paroxysmal atrial fibrillation (principal); R07.9 Chest pain, unspecified | CPT/HCPCS: 93005; 99212 ==

== ENCOUNTER → 2021-02-03 07:43 | Outpatient (REF) | payer MEDICARE, MEDICAID, SELFPAY ==
--- NOTE | ~2021-02-03 | NM_ITS ---
Myocardial perfusion study Indication: Chest pain to evaluate for myocardial ischemia Technique: The patient was brought in for a Lexiscan perfusion study on 02/03/2021. Patient performed low-level exercise and was injected 0.4 mg of Lexiscan intravenously. Within a minute of injection, 30 mCi of sestamibi was given intravenously. Images were obtained using the SPECT gamma camera interlaced with the gating device. Images were obtained in supine position. Resting perfusion study was performed on 02/04/2021. Patient was administered 30 mCi of sestamibi intravenously at rest. Images were then obtained in supine position. Images obtained with and without CT attenuation. Total DLP 98 mGy-cm. Images were processed with the software and compared side to side in short axis, horizontal long axis and vertical long axis views. Findings: The stress perfusion study showed non attenuated images show some thinning of the inferolateral wall of the LV myocardium otherwise normal uptake. Attenuation corrected images show normal uptake of radiotracer in all segments of LV myocardium.. The gated study shows normal LV systolic function with calculated LVEF of 57%. LV cavity is normal in size. The gated study shows normal systolic wall thickening and contraction of segments. Resting study shows no change in perfusion pattern compared to stress perfusion study. Gating at rest reveals normal systolic wall motion with ejection fraction at 72%. The findings are consistent with normal myocardial perfusion. NM/NM cardiolite stress test Impression: 1. Myocardial perfusion imaging study shows normal myocardial perfusion 2. Gated LVEF is 57% 3. Transient ischemic dilatation not present EKG is nondiagnostic for ischemia
--- NOTE | 2021-02-03 07:51 | CA_ITS ---
Acquisition Time: 2021-02-03 08:02:26 Total Exercise Time: 00:01:53 Test Indications: Dyspnea Medications: SEE H Protocol: NICHOLE Max HR: 129 BPM 83% of Pred: 154 BPM Max BP: 110/058 mmHG Max Work Load: 4.3 METS Exercise stress test with exercise 1 min 53 sec of Nichole protocol with moderate shortness of breath, no chest discomfort, with hip pains and request to stop exercise. Treadmill placed in recovery and patient assisted to sitting position. Once breathing normalized test was changed to a pharmacological stress test with Lexiscan injection, while sitting and kicking his legs, without anginal symptoms, with isolated PACs, with mild hypotension at baseline and post injection, with nondiagnostic EKG for ischemia. In recovery he was treated with Aminophylline 75mg IVP to reverse Lexiscan with improvement in BP to baseline. Nuclear images pending. Test reviewed with Dr Hutton. Referred By: Jagjit Hutton Overread By: SAMANTA FUENTES
== END ==
LOC: HO.CARD 07:43
PROVIDERS: Visit Provider Internal Medicine Cardiovascular Disease
DX: R07.9 Chest pain, unspecified (principal)
CPT/HCPCS: 78452; 93017; A9500; J0280; J2785

== ENCOUNTER → 2021-02-04 08:41 | Outpatient (BNVA) | payer MEDICARE, MEDICAID, SELFPAY | PROVIDERS: PCP Internal Medicine; Visit Provider Internal Medicine | DX: I26.99 Other pulmonary embolism without acute cor pulmonale (principal); Z51.81 Encounter for therapeutic drug level monitoring; Z79.01 Long term (current) use of anticoagulants | CPT/HCPCS: 85610; 99211 ==

== ENCOUNTER 2021-02-10 10:24 | Outpatient (REF) | payer MEDICARE, MEDICAID, SELFPAY ==
[2021-02-10 10:27] LABS: MANUAL DIFF FLAG NO
[2021-02-10 10:40] LABS: Basophils Percent Auto 0.4 % (0-2); Eosinophils Absolute Auto 0.3 X10*3/uL (0.0-0.4); Eosinophils Percent Auto 2.5 % (0-4); Hematocrit 47.1 % (42.0-52.0); Hemoglobin 15.7 g/dl (14.0-18.0); Imm Gran Abs Auto 0.07 X10*3/uL (0.00-0.03); Imm Gran Pct Auto 0.7 % (0.0-0.4); Lymphocytes Absolute Auto 2.8 X10*3/uL (1.2-4.9); Lymphocytes Percent Auto 27.7 % (20-40); Mean Corpuscular HGB Conc 33.3 g/dl (31.0-36.0); Mean Corpuscular Hemoglobin 28.4 pg (27.0-33.0); Mean Corpuscular Volume 85.3 fL (80.0-98.0); Mean Platelet Volume 10.3 fL (9.4-12.4); Monocytes Absolute Auto 1.2 X10*3/uL (0.1-1.2); Monocytes Percent Auto 11.7 % (2-11); Neutrophils Absolute Auto 5.7 x10*3/uL (2.0-8.3); Platelet Count 307 X10*3/uL (160-400); Red Blood Count 5.52 X10*6/uL (4.60-5.80); Red Cell Distribution Width 13.2 % (11.0-16.0)
[2021-02-10 11:01] LABS: Alanine Aminotransferase 28 U/L (0-40); Albumin Level 4.1 g/dL (3.5-5.0); Alkaline Phosphatase 90 U/L (39-117); Anion Gap 13 (12-20); Aspartate Amino Transferase 26 U/L (5-37); Bilirubin Total 0.7 mg/dL (0.0-1.0); Blood Urea Nitrogen 21 mg/dL (9-16); Calcium 9.5 mg/dL (8.4-10.2); Carbon Dioxide 31 mmol/L (22-29); Chloride 100 mmol/L (96-108); Cholesterol 143 mg/dL; Estimated Glomerular Filt Rate 55; Glucose Fasting 110 mg/dL (60-99); HDL Cholesterol 33 mg/dL; LDL Cholesterol Calculated 78 mg/dl; Sodium 140 mmol/L (135-145); Total Protein 7.2 g/dL (6.5-8.0); Triglycerides 161 mg/dL
[2021-02-10 11:07] LABS: Appearance Urine CLOUDY; Color Urine YELLOW; Glucose Urine UA NEG (NEG); Leukocyte Esterase Urine NEG (NEG); Nitrite Urine POS (NEG); PH 7.5 (5.0-8.0); Urine Blood NEG (NEG); Urine Ketones NEG (NEG); Urine Protein TRACE MG/DL (NEG-TRACE)
[2021-02-10 11:21] LABS: Reflex LDLD? No
[2021-02-10 11:23] LABS: PSA,Total (Free>4and<10) 0.35 ng/mL (0.00-4.00)
[2021-02-10 11:25] LABS: Amorphous Sediment Urine 2+ /LPF; Bacteria Urine 2+ /LPF
== END 2021-02-10 10:25 | disposition home or self-care (01) ==
LOC: HO.LNP 10:24
PROVIDERS: Visit Provider Internal Medicine
DX: Z12.5 Encounter for screening for malignant neoplasm of prostate (principal); E78.00 Pure hypercholesterolemia, unspecified; R79.9 Abnormal finding of blood chemistry, unspecified; N40.0 Benign prostatic hyperplasia without lower urinary tract symptoms; E87.6 Hypokalemia; R97.20 Elevated prostate specific antigen [PSA]
CPT/HCPCS: 80053; 80061; 81001; 81003; 84153; 85025

== ENCOUNTER → 2021-03-06 10:06 | Outpatient (BNVA) | payer MEDICARE, MEDICAID, SELFPAY | PROVIDERS: PCP Internal Medicine; Visit Provider Internal Medicine | DX: I26.99 Other pulmonary embolism without acute cor pulmonale (principal); Z51.81 Encounter for therapeutic drug level monitoring; Z79.01 Long term (current) use of anticoagulants | CPT/HCPCS: 85610; 99211 ==

== ENCOUNTER → 2021-03-18 09:47 | Outpatient (REF) | payer MEDICARE, MEDICAID, SELFPAY ==
--- NOTE | 2021-03-18 09:56 | CA_ITS ---
Transthoracic Echocardiogram Patient (Last, First, Middle): Shakeel Flores K Gender: Male Date of : 1955 Age: 65 Procedure Date: 03/18/2021 Procedure Type: Transthoracic Echocardiogram Location: OP Height: 175.26 cm Weight: 96.16 kg BSA: 2.12 m2 Heart Rate: bpm BP: 104 / 65 mmHg Pumper Gager: NAIDA Referring MD: Jagjit Hutton MD Press Room Supervisor: Jagjit Hutton MD Symptoms: I48.0 - Paroxysmal atrial fibrillation Study Quality: Technically Difficult ECG Rhythm: Sinus Conclusions: - 1. Normal LV systolic function with grade 1 diastolic dysfunction 2. Limited visualization of cardiac valves with normal cardiac valvular Doppler 3. Normal RV systolic pressure 4. No gross pericardial effusion Findings Left Ventricle Normal left ventricular size, thickness, and systolic function. The visually estimated ejection fraction is between 55-60%. Spectral Doppler is indicative of an impaired relaxation filling pattern. E/E prime ratio is <8, consistent with normal filling pressures. Evidence suggests grade I (mild) diastolic dysfunction. Right Ventricle Normal right ventricular cavity size and systolic function. Atria The left atrium is normal in size. Interatrial shunt cannot be excluded. The right atrium is normal in size. Aortic Valve The aortic valve was not well visualized. There is no aortic valve stenosis. There is no aortic valve regurgitation. Mitral Valve The mitral valve was not well visualized. There is trace mitral valve regurgitation. There is no mitral valve stenosis. Pulmonic Valve The pulmonic valve was not well visualized. Tricuspid Valve Likely normal tricuspid valve structure and function. There is trace tricuspid valve regurgitation. The right ventricular systolic pressure is normal. There is no evidence of pulmonary hypertension. Great Vessels All visible segments of the aorta are normal in size. The pulmonary artery was not well visualized. Venous The inferior vena cava is normal in size and collapses greater than 50% with inspiration. Pericardium/Pleural There is no evidence of pericardial effusion. Prior Study Comparison No significant change compared to prior study dated: 05/14/2019. Measurements 2D Linear Measurements IVSd: 1.18 0.6-0.9/0.6-1.0 cm LVIDd: 4.65 3.9-5.3/4.2-5.9 cm LVIDd Index: 2.19 2.4-3.2/2.2-3.1 cm/m2 LVIDs: 3.50 2.0-3.6 cm LVPWd: 0.79 0.7-1.1 cm Ao Root: 3.70 2.1-3.5 cm LA Diam: 3.30 2.7-3.8/3.0-4.0 cm LAIDs Index: 1.56 1.5-2.3 cm/m2 LV Mass: 196.88 67-162/88-224 g LV Mass Index: 92.87 43-95/49-115 g/m2 LVOT Diam: 2.20 3.0+(-)1.3 cm 2D Systolic Function EF 4C: 51.40 >55% EF 2C: 61.10 >55% EF BiP: 56.60 >55% Mitral Valve MV Pk E: 0.49 MV PK A: 0.64 MV Decel Time: 271.00 E/A: 0.80 E'Lateral: 8.16 E'Medial: 5.55 E/E' Med: 8.80 E/E' Lat: 6.00 PHT: 79.00 MVA PHT: 2.78 Decel Castro: 1.81 Aortic Valve AoV Pk Jamin: 1.12 AoV Mn Jamin: 0.79 AoV VTI: 0.19 AoV Pk Grad: 5.00 Aov Mn Grad: 3.00 TRUMAN Cont.VTI: 3.45 LVOT LVOT Pk Jamin: 0.97 LVOT Mn Jamin: 0.68 LVOT VTI: 0.18 LVOT Pk Grad: 4.00 LVOT Mn Grad: 2.00 LVOT Diam: 2.20 LVOT Area: 3.80 Diastolic Function MV Pk E: 0.49 MV Pk A: 0.64 E/A: 0.80 E'Medial: 5.55 E/E' Med: 8.80 E' Laterial: 8.16 E/E' Lat: 6.00 Right Ventricle TAPSE (mm): 17.80 TVS' Jamin: 13.80 Tricuspid Valve TR Pk Jamin: 2.25 TR Pk Grad: 20.00 RA Press: 3.00 RVSP: 23.00 Great Vessels Aorta Ao Root-2D: 3.70 2.0-3.7 cm Ao Asc: 3.60 2.1-3.4 cm Ao Arch: 3.30 Updated in Other Vendor System with Status of Final Jagjit Anni MD electronically signed on 03/19/2021 5:09:04 PM with status of Final
== END ==
LOC: HO.CARD 09:47
PROVIDERS: Visit Provider Internal Medicine Cardiovascular Disease
DX: R07.9 Chest pain, unspecified (principal); I48.0 Paroxysmal atrial fibrillation
CPT/HCPCS: 93306

== ENCOUNTER → 2021-04-03 10:00 | Outpatient (BNVA) | payer MEDICARE, MEDICAID, SELFPAY | PROVIDERS: PCP Internal Medicine; Visit Provider Internal Medicine | DX: I26.99 Other pulmonary embolism without acute cor pulmonale (principal); Z51.81 Encounter for therapeutic drug level monitoring; Z79.01 Long term (current) use of anticoagulants | CPT/HCPCS: 85610; 99211 ==

== ENCOUNTER → 2021-04-08 09:27 | Outpatient (BNVA) | payer MEDICARE, MEDICAID, SELFPAY | PROVIDERS: PCP Internal Medicine; Visit Provider Hospitalist | DX: G47.33 Obstructive sleep apnea (adult) (pediatric) (principal); J41.0 Simple chronic bronchitis; I27.82 Chronic pulmonary embolism; Z99.89 Dependence on other enabling machines and devices | CPT/HCPCS: 99212 ==

== ENCOUNTER → 2021-04-09 13:40 | Outpatient (BNVA) | payer MEDICARE, MEDICAID, SELFPAY | PROVIDERS: PCP Internal Medicine; Referring Provider Internal Medicine; Visit Provider Nurse Practitioner Family | DX: Z13.89 Encounter for screening for other disorder (principal) ==

== ENCOUNTER → 2021-04-14 09:46 | Outpatient (BNVA) | payer MEDICARE, MEDICAID, SELFPAY | PROVIDERS: PCP Internal Medicine; Visit Provider Internal Medicine | DX: I26.99 Other pulmonary embolism without acute cor pulmonale (principal); Z51.81 Encounter for therapeutic drug level monitoring; Z79.01 Long term (current) use of anticoagulants | CPT/HCPCS: 85610; 99211 ==

== ENCOUNTER → 2021-05-12 09:43 | Outpatient (BNVA) | payer MEDICARE, MEDICAID, SELFPAY | PROVIDERS: PCP Internal Medicine; Visit Provider Internal Medicine | DX: I26.99 Other pulmonary embolism without acute cor pulmonale (principal); Z51.81 Encounter for therapeutic drug level monitoring; Z79.01 Long term (current) use of anticoagulants | CPT/HCPCS: 85610; 99211 ==

== ENCOUNTER → 2021-06-15 09:46 | Outpatient (BNVA) | payer MEDICARE, MEDICAID, SELFPAY | PROVIDERS: PCP Internal Medicine; Visit Provider Internal Medicine | DX: I26.99 Other pulmonary embolism without acute cor pulmonale (principal); Z79.01 Long term (current) use of anticoagulants; Z51.81 Encounter for therapeutic drug level monitoring | CPT/HCPCS: 85610; 99211 ==

== ENCOUNTER → 2021-06-24 13:12 | Outpatient (BNVA) | payer MEDICARE, MEDICAID, SELFPAY | PROVIDERS: PCP Internal Medicine; Referring Provider Internal Medicine; Visit Provider Nurse Practitioner Family | DX: I48.0 Paroxysmal atrial fibrillation (principal); M79.622 Pain in left upper arm; G47.33 Obstructive sleep apnea (adult) (pediatric); R63.4 Abnormal weight loss; R25.1 Tremor, unspecified; Z99.89 Dependence on other enabling machines and devices; Z79.01 Long term (current) use of anticoagulants | CPT/HCPCS: 93005; Q3014 ==

== ENCOUNTER 2021-06-30 11:08 | Outpatient (REF) | payer MEDICARE, MEDICAID, SELFPAY ==
[2021-06-30 12:02] LABS: TSH reflex Free T4 5.66 uIU/mL (0.32-4.0)
[2021-06-30 12:39] LABS: Free T4 (Free Thyroxine) 1.01 ng/dL (0.71-1.85)
== END 2021-06-30 11:09 | disposition home or self-care (01) ==
LOC: HO.LNP 11:08
PROVIDERS: Visit Provider Internal Medicine
DX: Z13.89 Encounter for screening for other disorder (principal)
CPT/HCPCS: 84439; 84443

== ENCOUNTER 2021-07-09 13:16 | Outpatient (REF) | payer MEDICARE, MEDICAID, SELFPAY ==
--- NOTE | ~2021-07-09 | US_ITS ---
EXAMINATION: US RETROPERITONEAL LIMITED (RENAL ONLY) CLINICAL INFORMATION: Complex renal cyst. COMPARISON: MR abdomen without and with contrast 05/16/2020. CT abdomen and pelvis without contrast 05/13/2019. US retroperitoneal limited (renal only) 06/08/2018. Ultrasound abdomen complete 03/14/2017. TECHNIQUE: Real-time imaging of the kidneys. FINDINGS: RIGHT KIDNEY: 11.2 x 5.3 x 4.2 cm (SAG x AP x TRV). The kidney is normal in size, contour, and echogenicity. Renal cortical thickness is normal. There are multiple small cysts. Some cysts appear to represent either a milk of calcium cysts or cyst with wall calcification. Largest cyst measures 1 cm. No renal calculi or hydronephrosis. LEFT KIDNEY: 10.4 x 6.7 x 4.0 cm (SAG x AP x TRV). The kidney is normal in size, contour, and echogenicity. Renal cortical thickness is normal. There are multiple small cysts. Some cysts appear to have echogenic wall or milk of calcium. There is a 1 x 0.8 x 0.9 cm hypoechoic lesion in the upper pole probably representing the complex cyst that was decreased in size on previous MRI. There is mild caliectasis/pelviectasis in the lower pole. No renal calculi or hydronephrosis. US/US renal BI IMPRESSION: Bilateral renal cysts. Many cysts demonstrate echogenic wall questionable for no of calcium cysts. 1 cm hypoechoic lesion in the upper pole of the left kidney, question corresponding to residual complex cyst that was decreased in size on previous MRI. Mild pelviectasis/caliectasis in the lower pole of the left kidney.
== END 2021-07-09 13:17 | disposition home or self-care (01) ==
LOC: HO.US 13:16
PROVIDERS: PCP Internal Medicine; Visit Provider Internal Medicine
DX: N28.1 Cyst of kidney, acquired (principal)
CPT/HCPCS: 76775

== ENCOUNTER → 2021-07-13 09:41 | Outpatient (BNVA) | payer MEDICARE, MEDICAID, SELFPAY | PROVIDERS: PCP Internal Medicine; Visit Provider Internal Medicine | DX: I26.99 Other pulmonary embolism without acute cor pulmonale (principal); Z79.01 Long term (current) use of anticoagulants; Z51.81 Encounter for therapeutic drug level monitoring | CPT/HCPCS: 85610; 99211 ==

== ENCOUNTER → 2021-07-17 09:56 | Outpatient (BNVA) | payer MEDICARE, MEDICAID, SELFPAY | PROVIDERS: PCP Internal Medicine; Visit Provider Internal Medicine | DX: I26.99 Other pulmonary embolism without acute cor pulmonale (principal); Z79.01 Long term (current) use of anticoagulants; Z51.81 Encounter for therapeutic drug level monitoring | CPT/HCPCS: 85610; 99211 ==

== ENCOUNTER → 2021-07-31 09:56 | Outpatient (BNVA) | payer MEDICARE, MEDICAID, SELFPAY | PROVIDERS: PCP Internal Medicine; Visit Provider Internal Medicine | DX: I26.99 Other pulmonary embolism without acute cor pulmonale (principal); Z79.01 Long term (current) use of anticoagulants; Z51.81 Encounter for therapeutic drug level monitoring | CPT/HCPCS: 85610; 99211 ==

== ENCOUNTER → 2021-08-21 09:34 | Outpatient (BNVA) | payer MEDICARE, MEDICAID, SELFPAY | PROVIDERS: PCP Internal Medicine; Visit Provider Internal Medicine | DX: I26.99 Other pulmonary embolism without acute cor pulmonale (principal); Z51.81 Encounter for therapeutic drug level monitoring; Z79.01 Long term (current) use of anticoagulants | CPT/HCPCS: 85610; 99211 ==

== ENCOUNTER → 2021-09-11 09:50 | Outpatient (BNVA) | payer MEDICARE, MEDICAID, SELFPAY | PROVIDERS: PCP Internal Medicine; Visit Provider Internal Medicine | DX: I26.99 Other pulmonary embolism without acute cor pulmonale (principal); Z51.81 Encounter for therapeutic drug level monitoring; Z79.01 Long term (current) use of anticoagulants | CPT/HCPCS: 85610; 99211 ==

== ENCOUNTER → 2021-09-16 08:44 | Outpatient (BNVA) | payer MEDICARE, MEDICAID, SELFPAY | PROVIDERS: PCP Internal Medicine; Visit Provider Internal Medicine | DX: Z79.01 Long term (current) use of anticoagulants (principal) | CPT/HCPCS: 85610; 99211 ==

== ENCOUNTER 2021-09-16 13:56 | Emergency (ER) | payer MEDICARE, MEDICAID, SELFPAY ==
[2021-09-16] VITALS (7 sets, daily range): BP systolic 90–118; BP diastolic 48–76; PULSE 75–93; RESP 22; TEMP 36.7; O2SAT 95–99; BMI 31.5
--- NOTE | 2021-09-16 13:56 | ED.SYNCOPE ---
HPI - Syncope General Chief Complaint: General Medical Stated Complaint: Near syncope Time Seen by Provider: 09/16/21 14:10 Source: patient and EMS Mode of arrival: EMS Limitations: no limitations History of Present Illness HPI narrative: Patient is 65 years old with history of paroxysmal AFib, on Coumadin, COPD, DANNY on CPAP had normal nuclear stress test on 02/10 with normal echocardiogram comes here as while coming home from groceries while walking he fell lightheaded almost passed out but did not lose his consciousness no chest pain or palpitation patient states he does not feel AFib about palpitations even if it is there. EMS noticed drop in blood pressure on standing with lightheadedness. Related Data Home Medications Medication Instructions Recorded Confirmed acetaminophen 650 mg 650 mg PO Q12H 11/24/19 07/31/21 tablet,extended release (Tylenol 8 Hour) brimonidine 0.2 % eye drops 1 drp ophthalmic (eye) TID 11/24/19 07/31/21 docusate sodium 100 mg capsule 100 mg PO DAILY 11/24/19 07/31/21 (Colace) finasteride 5 mg tablet 5 mg PO DAILY 11/24/19 07/31/21 latanoprost 0.005 % eye drops 1 drp ophthalmic (eye) DAILY 11/24/19 07/31/21 meclizine 25 mg tablet 25 mg PO DAILY 11/24/19 07/31/21 modafinil 100 mg tablet (Provigil) 100 mg PO DAILY 11/24/19 07/31/21 montelukast 10 mg tablet 10 mg PO DAILY 11/24/19 07/31/21 omeprazole 20 mg capsule,delayed 20 mg PO DAILY 11/24/19 07/31/21 release potassium citrate 15 mEq (1,620 15 meq PO BID 11/24/19 07/31/21 mg) tablet,extended release tamsulosin 0.4 mg capsule 0.4 mg PO DAILY 11/24/19 07/31/21 tiotropium bromide 2.5 2 puff inhalation DAILY 11/24/19 07/31/21 mcg/actuation mist for inhalation (Spiriva Respimat) warfarin 3 mg tablet 3 mg PO DAILY 11/24/19 09/16/21 gabapentin 100 mg capsule 200 mg PO BID 11/27/19 07/31/21 furosemide 40 mg tablet 40 mg PO DAILY 02/18/20 07/31/21 sertraline 100 mg tablet 100 mg PO DAILY 02/18/20 07/31/21 gabapentin 600 mg tablet 600 mg PO BEDTIME 05/19/20 07/31/21 levocetirizine 5 mg tablet (Xyzal) 5 mg PO DAILY 10/17/20 07/31/21 sertraline 25 mg tablet 25 mg PO DAILY 12/26/20 07/31/21 oxybutynin chloride 10 mg 20 mg PO DAILY 04/08/21 07/31/21 tablet,extended release 24 hr chlorthalidone 25 mg tablet 25 mg PO DAILY 06/24/21 07/31/21 Previous Rx's Medication Instructions Recorded budesonide 160 mcg-glycopyr 9 2 inh inhalation BID 30 days #10.7 03/04/20 mcg-formot 4.8 mcg/actuation HFA grams inhaler (Breztri Aerosphere) albuterol sulfate 90 mcg/actuation 2 puff inhalation Q4-6H PRN 03/05/20 aerosol inhaler (ProAir HFA) shortness of breath or wheezing #8.5 grams albuterol sulfate 2.5 mg/3 mL 2.5 mg (3 mL) inhalation QID 30 09/03/20 (0.083 %) solution for nebulization days #360 mL sodium chloride 0.9 % for 3 ml inhalation BID 30 days #300 mL 09/05/20 nebulization fluticasone propionate 50 2 spray intranasal DAILY #16 grams 11/04/20 mcg/actuation nasal spray,suspension diltiazem HCl 300 mg 300 mg PO DAILY #90 caps 02/02/21 capsule,extended release 24 hr armodafinil 150 mg tablet 150 mg PO DAILY 30 days #30 tabs 08/10/21 atorvastatin 40 mg tablet 40 mg PO DAILY #90 tabs 09/02/21 Allergies Allergy/AdvReac Type Severity Reaction Status Date / Time bupropion [From WELLBUTRIN] Allergy Severe HALLUCINATI Verified 09/16/21 08:50 ON pseudoephedrine Allergy Severe JITTERY Verified 09/16/21 08:50 [From SUDAFED] Review of Systems Review of Systems: Yes all other systems are reviewed and are negative PMFSH Past Medical History Medical History COPD (chronic obstructive pulmonary disease) Laryngitis DANNY on CPAP Paroxysmal atrial fibrillation Surgical History History of ankle surgery Hx of colonoscopy Hx of elbow surgery Family History Family History Father No problems noted. Mother CVD (cardiovascular disease) Social History Social History Alcohol intake: never Patient Tobacco Use Status: Former Tobacco user Tobacco use type: Cigarette Years Smoked: 20 years Use of substances other than those prescribed or required for medical reasons: No Advance Directives: No Advance Directives Information Provided: No Advance Directives Date on File: 11/30/19 Physical Exam Vital Signs: Vital Signs: Last Vital Signs Temp 98.1 F 09/16/21 14:16 Pulse 93 09/16/21 17:48 Resp 22 H 09/16/21 17:45 BP 100/65 09/16/21 17:48 Pulse Ox 99 09/16/21 17:45 O2 Del Method 09/16/21 17:45 BMI result Body Mass Index 31.5 Appearance: Alert. Oriented X3. No acute distress. Eyes: PERRLA, No Nystagmus ENT: Pharynx normal. Oral Mucosa moist Neck: Normal inspection. Neck supple. CVS: Normal heart rate and rhythm. Pulses normal. Respiratory: No respiratory distress. Equal air entry bilateral, no wheezing/rales/rhonchi Abdomen: Soft and nontender. Bowel sounds are present, no mass palpable, no CVA tenderness Skin: Skin warm and dry. Normal skin color. Normal skin turgor. Extremities: No lower extremity edema. No calf tenderness Neuro: Oriented X 3. No motor deficit. No sensory deficit.No cerebellar signs , cranial nerves II-XII intact MDM - Syncope MDM Narrative Medical decision making narrative: Patient with orthostatic hypotension with dizziness on furosemide chlorthalidone diltiazem likely the cause for transient hypotension before he came during stay in the ER patient continued to be orthostatic hypotension was given IV fluids and improved will advise patient to stop chlorthalidone and furosemide for now and follow with embedded firmware developer Medical Records Attestation: I reviewed the patient's medical records. Lab Data Attestation: I reviewed the patient's lab results. Result diagrams: 09/16/21 14:33 09/16/21 14:34 Labs: Lab Results 09/16/21 09/16/21 09/16/21 Range/Units 14:33 14:34 14:34 WBC 8.6 (4.8-10.8) X10*3/uL RBC 4.78 (4.60-5.80) X10*6/uL Hgb 13.7 L (14.0-18.0) g/dl Hct 40.0 L (42.0-52.0) % MCV 83.7 (80.0-98.0) fL MCH 28.7 (27.0-33.0) pg MCHC 34.3 (31.0-36.0) g/dl RDW 13.3 (11.0-16.0) % Plt Count 215 D (160-400) X10*3/uL MPV 9.9 (9.4-12.4) fL Immature Gran % (Auto) 1.0 H (0.0-0.4) % Neut % (Auto) 59.2 (45-73) % Lymph % (Auto) 26.2 (20-40) % Dade % (Auto) 11.4 H (2-11) % Eos % (Auto) 2.0 (0-4) % Baso % (Auto) 0.2 (0-2) % Lymph # (Auto) 2.3 (1.2-4.9) X10*3/uL Dade # (Auto) 1.0 (0.1-1.2) X10*3/uL Eos # (Auto) 0.2 (0.0-0.4) X10*3/uL Baso # (Auto) 0.0 (0.0-0.2) X10*3/uL Abs Immat Gran (auto) 0.09 H (0.00-0.03) X10*3/uL Absolute Neuts (auto) 5.1 (2.0-8.3) x10*3/uL Absolute Nucleated RBC 0.000 (0.0-0.012) X10*3/uL Nucleated RBC % (auto) 0.0 (0.0-0.2) /100WBC PT 30.6 H (10.0-13.1) SEC INR 2.6 H (0.9-1.1) Sodium 142 (135-145) mmol/L Potassium 3.5 (3.3-5.1) mmol/L Chloride 107 (96-108) mmol/L Carbon Dioxide 26 (22-29) mmol/L Anion Gap 13 (12-20) BUN 21 H (9-16) mg/dL Creatinine 1.18 (0.5-1.4) mg/dL Estim Creat Clear Calc 72.8 Estimated GFR > 60 Random Glucose 115 (60-115) mg/dL Calcium 8.5 D (8.4-10.2) mg/dL Total Bilirubin 0.4 (0.0-1.0) mg/dL AST 20 (5-37) U/L ALT 22 (0-40) U/L Alkaline Phosphatase 85 (39-117) U/L Troponin I High Sens (<3.5-35.0) ng/L Total Protein 6.5 (6.5-8.0) g/dL Albumin 3.8 (3.5-5.0) g/dL COVID-19 ([facility]) (Negative) COVID-19 Clin Com 09/16/21 09/16/21 Range/Units 14:34 14:34 WBC (4.8-10.8) X10*3/uL RBC (4.60-5.80) X10*6/uL Hgb (14.0-18.0) g/dl Hct (42.0-52.0) % MCV (80.0-98.0) fL MCH (27.0-33.0) pg MCHC (31.0-36.0) g/dl RDW (11.0-16.0) % Plt Count (160-400) X10*3/uL MPV (9.4-12.4) fL Immature Gran % (Auto) (0.0-0.4) % Neut % (Auto) (45-73) % Lymph % (Auto) (20-40) % Dade % (Auto) (2-11) % Eos % (Auto) (0-4) % Baso % (Auto) (0-2) % Lymph # (Auto) (1.2-4.9) X10*3/uL Dade # (Auto) (0.1-1.2) X10*3/uL Eos # (Auto) (0.0-0.4) X10*3/uL Baso # (Auto) (0.0-0.2) X10*3/uL Abs Immat Gran (auto) (0.00-0.03) X10*3/uL Absolute Neuts (auto) (2.0-8.3) x10*3/uL Absolute Nucleated RBC (0.0-0.012) X10*3/uL Nucleated RBC % (auto) (0.0-0.2) /100WBC PT (10.0-13.1) SEC INR (0.9-1.1) Sodium (135-145) mmol/L Potassium (3.3-5.1) mmol/L Chloride (96-108) mmol/L Carbon Dioxide (22-29) mmol/L Anion Gap (12-20) BUN (9-16) mg/dL Creatinine (0.5-1.4) mg/dL Estim Creat Clear Calc Estimated GFR Random Glucose (60-115) mg/dL Calcium (8.4-10.2) mg/dL Total Bilirubin (0.0-1.0) mg/dL AST (5-37) U/L ALT (0-40) U/L Alkaline Phosphatase (39-117) U/L Troponin I High Sens < 3.5 (<3.5-35.0) ng/L Total Protein (6.5-8.0) g/dL Albumin (3.5-5.0) g/dL COVID-19 ([facility]) Negative (Negative) COVID-19 Clin Com See Note ECG Data Attestation: I personally reviewed and interpreted this ECG as follows: Interpretation: Normal sinus rhythm heart rate 76 beats per minute normal interval normal axis no acute ST-T changes no acute ischemia Discharge Plan Discharge Clinical Impression: Orthostatic hypotension Patient Disposition: Home, Self-Care Instructions: Hypotension (ED) Additional Instructions: Do not take chlorthalidone and furosemide for now check blood pressure daily Follow-up with your embedded firmware developer/PCP for further management Prescriptions: No Action sodium chloride 0.9 % solution for nebulization 3 ml inhalation BID 30 Days Qty: 300 11RF fluticasone propionate 50 mcg/actuation spray,suspension 2 spray intranasal DAILY Qty: 16 3RF diltiazem HCl 300 mg capsule,extended release 24hr 300 mg PO DAILY Qty: 90 3RF armodafinil 150 mg tablet 150 mg PO DAILY 30 Days Qty: 30 3RF atorvastatin 40 mg tablet 40 mg PO DAILY Qty: 90 0RF modafinil [Provigil] 100 mg tablet 100 mg PO DAILY Spiriva Respimat 2.5 mcg/actuation mist 2 puff inhalation DAILY montelukast 10 mg tablet 10 mg PO DAILY potassium citrate 15 mEq tablet extended release 15 meq PO BID finasteride 5 mg tablet 5 mg PO DAILY acetaminophen [Tylenol 8 Hour] 650 mg tablet extended release 650 mg PO Q12H warfarin 3 mg tablet 3 mg PO DAILY Protocol: Dose Management Condition: Tuesday (Week One) Dose/Route: 3 mg Instruction: 1 x 3 mg tablet Condition: Tuesday Dose/Route: 3 mg Instruction: 1 x 3 mg tablet Condition: Tuesday Dose/Route: 1.5 mg Instruction: 0.5 x 3 mg tablets Condition: Tuesday Dose/Route: 3 mg Instruction: 1 x 3 mg tablet Condition: Dose/Route: 3 mg Instruction: 1 x 3 mg tablet Condition: Tuesday Dose/Route: 1.5 mg Instruction: 0.5 x 3 mg tablets Condition: Tuesday Dose/Route: 3 mg Instruction: 1 x 3 mg tablet Condition: Tuesday (Week Two) Dose/Route: 3 mg Instruction: 1 x 3 mg tablet Condition: Tuesday Dose/Route: 3 mg Instruction: 1 x 3 mg tablet Condition: Tuesday Dose/Route: 1.5 mg Instruction: 0.5 x 3 mg tablets Condition: Tuesday Dose/Route: 3 mg Instruction: 1 x 3 mg tablet Condition: Dose/Route: 3 mg Instruction: 1 x 3 mg tablet Condition: Tuesday Dose/Route: 1.5 mg Instruction: 0.5 x 3 mg tablets Condition: Tuesday Dose/Route: 3 mg Instruction: 1 x 3 mg tablet Protocol Text: Adjustment Start Date: Tuesday09/16/21 INR Value: 2.4 INR Date: 09/16/21 Recheck Date: 10/14/21 latanoprost 0.005 % drops 1 drp ophthalmic (eye) DAILY brimonidine 0.2 % drops 1 drp ophthalmic (eye) TID Rx Instructions: administer approximately 8 hours apart tamsulosin 0.4 mg capsule 0.4 mg PO DAILY omeprazole 20 mg capsule,delayed release(DR/EC) 20 mg PO DAILY docusate sodium [Colace] 100 mg capsule 100 mg PO DAILY meclizine 25 mg tablet 25 mg PO DAILY furosemide 40 mg tablet 40 mg PO DAILY sertraline 100 mg tablet 100 mg PO DAILY Breztri Aerosphere 160-9-4.8 mcg/actuation HFA aerosol inhaler 2 inh inhalation BID 30 Days Qty: 10.7 11RF albuterol sulfate [ProAir HFA] 90 mcg/actuation HFA aerosol inhaler 2 puff inhalation Q4-6H PRN (Reason: shortness of breath or wheezing) Qty: 8.5 2RF albuterol sulfate 2.5 mg /3 mL (0.083 %) solution for nebulization 2.5 mg inhalation QID 30 Days Qty: 360 6RF gabapentin 100 mg capsule 200 mg PO BID gabapentin 600 mg tablet 600 mg PO BEDTIME levocetirizine [Xyzal] 5 mg tablet 5 mg PO DAILY sertraline 25 mg tablet 25 mg PO DAILY oxybutynin chloride 10 mg tablet extended release 24hr 20 mg PO DAILY chlorthalidone 25 mg tablet 25 mg PO DAILY Interventions: ED Discharge Assessment Last Done: 09/16/21 19:02
--- NOTE | 2021-09-16 14:11 | ECG_ITS ---
Test Reason : syncope Blood Pressure : / mmHG Vent. Rate : 076 BPM Atrial Rate : 076 BPM P-R Int : 164 ms QRS Dur : 086 ms QT Int : 416 ms P-R-T Axes : 096 087 041 degrees QTc Int : 468 ms Normal sinus rhythm Normal ECG When compared with ECG of 14-MAY-2019 15:24, Nonspecific T wave abnormality no longer evident in Anterior leads Referred By: Herb Bob Electronically Signed By:ROSA BURDICK
[2021-09-16 14:39] LABS: MANUAL DIFF FLAG NO
[2021-09-16 14:46] LABS: Basophils Percent Auto 0.2 % (0-2); Eosinophils Absolute Auto 0.2 X10*3/uL (0.0-0.4); Hemoglobin 13.7 g/dl (14.0-18.0); Imm Gran Abs Auto 0.09 X10*3/uL (0.00-0.03); Lymphocytes Absolute Auto 2.3 X10*3/uL (1.2-4.9); Lymphocytes Percent Auto 26.2 % (20-40); Mean Corpuscular HGB Conc 34.3 g/dl (31.0-36.0); Mean Corpuscular Hemoglobin 28.7 pg (27.0-33.0); Mean Corpuscular Volume 83.7 fL (80.0-98.0); Mean Platelet Volume 9.9 fL (9.4-12.4); Monocytes Percent Auto 11.4 % (2-11); Neutrophils Absolute Auto 5.1 x10*3/uL (2.0-8.3); Neutrophils Percent Auto 59.2 % (45-73); Platelet Count 215 X10*3/uL (160-400); Red Blood Count 4.78 X10*6/uL (4.60-5.80); Red Cell Distribution Width 13.3 % (11.0-16.0); White Blood Count 8.6 X10*3/uL (4.8-10.8)
[2021-09-16 14:56] LABS: INTERNATIONAL NORM RATIO 2.6 (0.9-1.1); Prothrombin Time 30.6 SEC (10.0-13.1)
[2021-09-16 15:00] LABS: Alanine Aminotransferase 22 U/L (0-40); Albumin Level 3.8 g/dL (3.5-5.0); Alkaline Phosphatase 85 U/L (39-117); Anion Gap 13 (12-20); Aspartate Amino Transferase 20 U/L (5-37); Bilirubin Total 0.4 mg/dL (0.0-1.0); Blood Urea Nitrogen 21 mg/dL (9-16); Calcium 8.5 mg/dL (8.4-10.2); Carbon Dioxide 26 mmol/L (22-29); Chloride 107 mmol/L (96-108); Creatinine Clr Calc Pharmacy 72.8; Estimated Glomerular Filt Rate > 60; Glucose Random 115 mg/dL (60-115); Potassium 3.5 mmol/L (3.3-5.1); Sodium 142 mmol/L (135-145); Total Protein 6.5 g/dL (6.5-8.0)
[2021-09-16 15:01] LABS: Troponin-I High Sensitivity < 3.5 ng/L (<3.5-35.0)
[2021-09-16 15:05] LABS: COVID-19 Test Negative (Negative)
[2021-09-16] MEDS: 0.9 % Sodium Chloride 1,000 ML 999 ML IV (15:30)
== END 2021-09-16 19:02 | disposition home or self-care (01) ==
PROVIDERS: Emergency Provider Internal Medicine; PCP Internal Medicine
DX: I95.1 Orthostatic hypotension (principal); R42 Dizziness and giddiness; I48.0 Paroxysmal atrial fibrillation; Z79.01 Long term (current) use of anticoagulants; Z87.891 Personal history of nicotine dependence; Z20.822 Contact with and (suspected) exposure to COVID-19; Z79.02 Long term (current) use of antithrombotics/antiplatelets
CPT/HCPCS: 36415; 80053; 84484; 85025; 85610; 87635; 93005; 96360; 99211; 99284

== ENCOUNTER 2021-10-01 11:13 | Outpatient (REF) | payer MEDICARE, MEDICAID, SELFPAY ==
[2021-10-01 12:16] LABS: Alanine Aminotransferase 17 U/L (0-40); Albumin Level 3.8 g/dL (3.5-5.0); Alkaline Phosphatase 79 U/L (39-117); Aspartate Amino Transferase 19 U/L (5-37); Bilirubin Direct 0.2 mg/dL (0.0-0.5); Bilirubin Total 0.5 mg/dL (0.0-1.0); Cholesterol 157 mg/dL; HDL Cholesterol 32 mg/dL; LDL Cholesterol Calculated 77 mg/dl; Total Protein 6.5 g/dL (6.5-8.0); Triglycerides 240 mg/dL
== END 2021-10-01 11:14 | disposition home or self-care (01) ==
LOC: HO.LNP 11:13
PROVIDERS: Visit Provider Internal Medicine
DX: E78.00 Pure hypercholesterolemia, unspecified (principal)
CPT/HCPCS: 80061; 80076

== ENCOUNTER → 2021-10-07 09:44 | Outpatient (BNVA) | payer MEDICARE, MEDICAID, SELFPAY | PROVIDERS: PCP Internal Medicine; Referring Provider Internal Medicine; Visit Provider Internal Medicine Cardiovascular Disease | DX: R42 Dizziness and giddiness (principal); I48.0 Paroxysmal atrial fibrillation; Z79.01 Long term (current) use of anticoagulants; Z79.899 Other long term (current) drug therapy | CPT/HCPCS: 99212 ==

== ENCOUNTER → 2021-10-14 08:43 | Outpatient (BNVA) | payer MEDICARE, MEDICAID, SELFPAY | PROVIDERS: PCP Internal Medicine; Visit Provider Internal Medicine | DX: I26.99 Other pulmonary embolism without acute cor pulmonale (principal); Z79.01 Long term (current) use of anticoagulants; Z51.81 Encounter for therapeutic drug level monitoring | CPT/HCPCS: 85610; 99211 ==

== ENCOUNTER 2021-10-16 07:37 | Outpatient (REF) | payer MEDICARE, MEDICAID, SELFPAY ==
--- NOTE | 2021-10-16 07:42 | EEG_ITS ---
This is a 16-channel EEG with an EKG lead. The patient is reported awake during the tracing. Background EEG rhythm is 10 to 12 hertz 5 to 30 microvolt posteriorly, and lower amplitude fast anteriorly. Photic stimulation does not produce any significant abnormality. Hyperventilation is not performed. Cardiac lead does not reveal any significant abnormality. No definite sharp wave spikes or paroxysmal tendency noted. IMPRESSION: Unremarkable EEG. MD NILSON Garza/PRAMOD / [id number]
== END 2021-10-16 07:38 | disposition home or self-care (01) ==
LOC: HO.NEURO 07:37
PROVIDERS: PCP Internal Medicine; Visit Provider Internal Medicine
DX: R25.1 Tremor, unspecified (principal); G98.8 Other disorders of nervous system
CPT/HCPCS: 95816

== ENCOUNTER → 2021-10-20 15:42 | Outpatient (BNVA) | payer MEDICARE, MEDICAID, SELFPAY | PROVIDERS: PCP Internal Medicine; Visit Provider Internal Medicine | DX: I26.99 Other pulmonary embolism without acute cor pulmonale (principal); Z79.01 Long term (current) use of anticoagulants; Z51.81 Encounter for therapeutic drug level monitoring | CPT/HCPCS: Q3014 ==

== ENCOUNTER → 2021-10-30 09:48 | Outpatient (BNVA) | payer MEDICARE, MEDICAID, SELFPAY | PROVIDERS: PCP Internal Medicine; Visit Provider Internal Medicine | DX: I26.99 Other pulmonary embolism without acute cor pulmonale (principal); Z79.01 Long term (current) use of anticoagulants; Z51.81 Encounter for therapeutic drug level monitoring | CPT/HCPCS: 85610; 99211 ==

== ENCOUNTER → 2021-11-03 11:35 | Outpatient (BNVA) | payer MEDICARE, MEDICAID, SELFPAY | PROVIDERS: PCP Internal Medicine; Visit Provider Internal Medicine | DX: I26.99 Other pulmonary embolism without acute cor pulmonale (principal); Z79.01 Long term (current) use of anticoagulants; Z51.81 Encounter for therapeutic drug level monitoring | CPT/HCPCS: 85610; 99211 ==

== ENCOUNTER → 2021-11-09 08:48 | Outpatient (BNVA) | payer MEDICARE, MEDICAID, SELFPAY | PROVIDERS: PCP Internal Medicine; Visit Provider Internal Medicine | DX: I26.99 Other pulmonary embolism without acute cor pulmonale (principal); Z51.81 Encounter for therapeutic drug level monitoring; Z79.01 Long term (current) use of anticoagulants | CPT/HCPCS: 85610; 99211 ==

== ENCOUNTER → 2021-11-20 08:51 | Outpatient (BNVA) | payer MEDICARE, MEDICAID, SELFPAY | PROVIDERS: PCP Internal Medicine; Visit Provider Internal Medicine | DX: I26.99 Other pulmonary embolism without acute cor pulmonale (principal); Z79.01 Long term (current) use of anticoagulants; Z51.81 Encounter for therapeutic drug level monitoring | CPT/HCPCS: 85610; 99211 ==

== ENCOUNTER → 2021-12-04 08:32 | Outpatient (BNVA) | payer MEDICARE, MEDICAID, SELFPAY | PROVIDERS: PCP Internal Medicine; Visit Provider Internal Medicine | DX: I26.99 Other pulmonary embolism without acute cor pulmonale (principal); Z79.01 Long term (current) use of anticoagulants; Z51.81 Encounter for therapeutic drug level monitoring | CPT/HCPCS: 85610; 99211 ==

== ENCOUNTER → 2021-12-09 09:09 | Outpatient (BNVA) | payer MEDICARE, MEDICAID, SELFPAY | PROVIDERS: PCP Internal Medicine; Visit Provider Student in an Organized Health Care Education/Training Program | DX: M25.552 Pain in left hip (principal) | CPT/HCPCS: 99202 ==

== ENCOUNTER → 2021-12-18 09:27 | Outpatient (BNVA) | payer MEDICARE, MEDICAID, SELFPAY | PROVIDERS: PCP Internal Medicine; Visit Provider Internal Medicine | DX: I26.99 Other pulmonary embolism without acute cor pulmonale (principal); Z79.01 Long term (current) use of anticoagulants; Z51.81 Encounter for therapeutic drug level monitoring | CPT/HCPCS: 85610; 99211 ==

== ENCOUNTER 2022-01-06 10:54 | Outpatient (REF) | payer MEDICARE, MEDICAID, SELFPAY ==
[2022-01-06 11:20] LABS: MANUAL DIFF FLAG NO
[2022-01-06 12:05] LABS: Appearance Urine Clear; Color Urine Yellow; Glucose Urine UA Negative (Negative); Leukocyte Esterase Urine Negative (Negative); Nitrite Urine Negative (Negative); PH 5.5 (5.0-9.0); Specific Gravity - Urine 1.025 (1.005-1.025); Urine Blood Negative (Negative); Urine Ketones Negative (Negative); Urine Protein Trace mg/dL (Neg-Trace)
[2022-01-06 12:07] LABS: Basophils Absolute Auto 0.1 X10*3/uL (0.0-0.2); Basophils Percent Auto 0.6 % (0-2); Eosinophils Absolute Auto 0.2 X10*3/uL (0.0-0.4); Eosinophils Percent Auto 2.7 % (0-4); Hematocrit 47.5 % (42.0-52.0); Hemoglobin 15.7 g/dl (14.0-18.0); Imm Gran Abs Auto 0.07 X10*3/uL (0.00-0.03); Imm Gran Pct Auto 0.8 % (0.0-0.4); Lymphocytes Absolute Auto 2.3 X10*3/uL (1.2-4.9); Lymphocytes Percent Auto 25.7 % (20-40); Mean Corpuscular HGB Conc 33.1 g/dl (31.0-36.0); Mean Corpuscular Hemoglobin 28.3 pg (27.0-33.0); Mean Corpuscular Volume 85.6 fL (80.0-98.0); Mean Platelet Volume 10.2 fL (9.4-12.4); Monocytes Absolute Auto 0.9 X10*3/uL (0.1-1.2); Monocytes Percent Auto 9.9 % (2-11); Neutrophils Absolute Auto 5.3 x10*3/uL (2.0-8.3); Neutrophils Percent Auto 60.3 % (45-73); Platelet Count 218 X10*3/uL (160-400); Red Blood Count 5.55 X10*6/uL (4.60-5.80); Red Cell Distribution Width 13.5 % (11.0-16.0); White Blood Count 8.8 X10*3/uL (4.8-10.8)
[2022-01-06 12:09] LABS: Bacteria Urine None Seen (None Seen); Hyaline Casts Urine 0-2 /LPF (0-2); RBC Urine 0-2 /HPF (0-2); Squamous Epithelial Cell Urine 0-2 /HPF (0-2); WBC Urine 0-5 /HPF (0-5)
[2022-01-06 12:36] LABS: Creatinine Urine 189.05 mg/dL; Microalbum/Creatinine Ratio Ur 10.5 ug/mg cr; Protein/Creatinine Ratio, Ur 0.12 (<0.2); Total Protein Urine Random 23 mg/dL (<12)
[2022-01-06 13:02] LABS: Albumin Level 4.5 g/dL (3.5-5.0); Anion Gap 13 (12-20); Blood Urea Nitrogen 17 mg/dL (9-16); Calcium 9.4 mg/dL (8.4-10.2); Carbon Dioxide 25 mmol/L (22-29); Chloride 107 mmol/L (96-108); Estimated Glomerular Filt Rate > 60; Magnesium 2.2 mg/dL (1.6-2.6); Potassium 4.3 mmol/L (3.3-5.1); Sodium 141 mmol/L (135-145)
[2022-01-07 14:16] LABS: Calcium (PTHI) 9.1 mg/dL (8.6-10.3); PTHI 88 pg/mL (16-77)
== END 2022-01-06 10:55 | disposition home or self-care (01) ==
LOC: HO.LAB 10:54
PROVIDERS: PCP Internal Medicine; Visit Provider Internal Medicine Nephrology
DX: N18.31 Chronic kidney disease, stage 3a (principal); R82.71 Bacteriuria; B95.7 Other staphylococcus as the cause of diseases classified elsewhere
CPT/HCPCS: 36415; 80051; 81001; 82040; 82043; 82306; 82310; 82565; 83735; 83970; 84100; 84156; 84520; 85025; 87086; 87088

== ENCOUNTER → 2022-01-11 09:36 | Outpatient (BNVA) | payer MEDICARE, MEDICAID, SELFPAY | PROVIDERS: PCP Internal Medicine; Referring Provider Internal Medicine; Visit Provider Internal Medicine Cardiovascular Disease | DX: I48.0 Paroxysmal atrial fibrillation (principal); R42 Dizziness and giddiness | CPT/HCPCS: 99212 ==

== ENCOUNTER → 2022-01-12 10:28 | Outpatient (BNVA) | payer MEDICARE, MEDICAID, SELFPAY | PROVIDERS: PCP Internal Medicine; Visit Provider Internal Medicine | DX: I26.99 Other pulmonary embolism without acute cor pulmonale (principal); Z79.01 Long term (current) use of anticoagulants; Z51.81 Encounter for therapeutic drug level monitoring | CPT/HCPCS: 85610; 99211 ==

== ENCOUNTER 2022-01-19 11:36 | Outpatient (REF) | payer MEDICARE, MEDICAID, SELFPAY ==
--- NOTE | ~2022-01-19 | XR_ITS ---
EXAMINATION: XR CERVICAL SPINE CLINICAL INFORMATION: Radiculopathy COMPARISON: 07/15/2017 TECHNIQUE: 6 views of the cervical spine, inclusive of flexion and extension views, were obtained. FINDINGS: No acute fracture or traumatic malalignment. Vertebral body heights maintained. Endplate osteophytes present throughout the cervical spine. Mild loss of disc space height at C6-C7 and C7-T1. Facet arthropathy throughout cervical spine. Oblique views demonstrate at least mild osseous neural foraminal encroachment on the right at C4-C5 and mild narrowing of the left at C6-C7. Paraspinal soft tissues unremarkable. XR/XR cervical spine min 6V IMPRESSION: No acute findings. Cervical spondylosis as described.
== END 2022-01-19 11:37 | disposition home or self-care (01) ==
LOC: HO.XRAY 11:36
PROVIDERS: PCP Internal Medicine; Visit Provider Psychiatry & Neurology Neurology
DX: M54.12 Radiculopathy, cervical region (principal)
CPT/HCPCS: 72052

== ENCOUNTER → 2022-02-09 13:04 | Outpatient (BNVA) | payer MEDICARE, MEDICAID, SELFPAY | PROVIDERS: PCP Internal Medicine; Visit Provider Internal Medicine | DX: I26.99 Other pulmonary embolism without acute cor pulmonale (principal); Z79.01 Long term (current) use of anticoagulants; Z51.81 Encounter for therapeutic drug level monitoring | CPT/HCPCS: 85610; 99211 ==

== ENCOUNTER → 2022-02-11 14:17 | Outpatient (BNVA) | payer MEDICARE, MEDICAID, SELFPAY | PROVIDERS: PCP Internal Medicine; Visit Provider Internal Medicine | DX: I26.99 Other pulmonary embolism without acute cor pulmonale (principal); Z79.01 Long term (current) use of anticoagulants; Z51.81 Encounter for therapeutic drug level monitoring | CPT/HCPCS: 85610; 99211 ==

== ENCOUNTER → 2022-03-11 10:01 | Outpatient (BNVA) | payer MEDICARE, MEDICAID, SELFPAY | PROVIDERS: PCP Internal Medicine; Visit Provider Internal Medicine | DX: I26.99 Other pulmonary embolism without acute cor pulmonale (principal); Z79.01 Long term (current) use of anticoagulants; Z51.81 Encounter for therapeutic drug level monitoring | CPT/HCPCS: 85610; 99211 ==

== ENCOUNTER 2022-03-12 08:01 | Outpatient (REF) | payer MEDICARE, MEDICAID, SELFPAY ==
--- NOTE | ~2022-03-12 | CT_ITS ---
EXAMINATION: CT CHEST WITHOUT CONTRAST CLINICAL INFORMATION: Pulmonary nodule COMPARISON: 12/04/2020 TECHNIQUE: Multidetector volumetric CT imaging of the chest was done. Axial MIP volume rendering provided. Sagittal and coronal reformatted images were obtained. This CT examination was performed using dose optimization techniques as appropriate, variously including the following: *Automated exposure control *Adjustment of mA and/or kV according to patient size (this includes techniques or standardized protocols for targeted exams where dose is matched to indication/reason for exam; i.e. extremities or head) *Use of iterative reconstruction technique DLP: 214 FINDINGS: LUNGS: Moderate background emphysema. Biapical subpleural nodule is again noted upper lobes, prominent in the right upper lobe with adjacent groundglass airspace opacity. No new or enlarging pulmonary nodule. MEDIASTINUM: Coronary artery atherosclerotic calcifications. Subcentimeter mediastinal nodes are again noted. PLEURA: Focal pleural thickening with calcification along the lateral aspect of the left upper lobe is unchanged. AXILLA: No lymphadenopathy. UPPER ABDOMEN: Unremarkable. OSSEOUS STRUCTURES/SOFT TISSUES: There are mildly prominent paraesophageal node, unchanged from prior study, including one measuring 6 mm in short axis (3:48) degenerative changes of thoracic spine. CT/CT chest wo IV con IMPRESSION: 1. No new or enlarging pulmonary nodule. Redemonstration of biapical subpleural nodules, prominent in the right upper lobe with adjacent groundglass airspace opacity, unchanged. 2. Mildly prominent paraesophageal node, unchanged from prior study.
== END 2022-03-12 08:02 | disposition home or self-care (01) ==
LOC: HO.CT 08:01
PROVIDERS: PCP Internal Medicine; Visit Provider Internal Medicine
DX: R91.1 Solitary pulmonary nodule (principal)
CPT/HCPCS: 71250

== ENCOUNTER → 2022-03-31 11:01 | Outpatient (BNVA) | payer MEDICARE, MEDICAID, SELFPAY | PROVIDERS: PCP Internal Medicine; Visit Provider Hospitalist | DX: J41.0 Simple chronic bronchitis (principal); R91.8 Other nonspecific abnormal finding of lung field; I27.82 Chronic pulmonary embolism; G47.33 Obstructive sleep apnea (adult) (pediatric); Z99.89 Dependence on other enabling machines and devices | CPT/HCPCS: 99212 ==

== ENCOUNTER 2022-04-01 10:54 | Outpatient (REF) | payer MEDICARE, MEDICAID, SELFPAY ==
[2022-04-01 11:00] LABS: MANUAL DIFF FLAG NO
[2022-04-01 12:06] LABS: Basophils Percent Auto 0.5 % (0-2); Eosinophils Absolute Auto 0.2 X10*3/uL (0.0-0.4); Hemoglobin 14.9 g/dl (14.0-18.0); Imm Gran Abs Auto 0.06 X10*3/uL (0.00-0.03); Imm Gran Pct Auto 0.8 % (0.0-0.4); Lymphocytes Absolute Auto 2.4 X10*3/uL (1.2-4.9); Lymphocytes Percent Auto 31.2 % (20-40); Mean Corpuscular HGB Conc 33.1 g/dl (31.0-36.0); Mean Corpuscular Volume 87.7 fL (80.0-98.0); Mean Platelet Volume 10.3 fL (9.4-12.4); Monocytes Percent Auto 12.8 % (2-11); Neutrophils Absolute Auto 4.1 x10*3/uL (2.0-8.3); Neutrophils Percent Auto 52.7 % (45-73); Platelet Count 214 X10*3/uL (160-400); Red Blood Count 5.13 X10*6/uL (4.60-5.80); Red Cell Distribution Width 14.2 % (11.0-16.0); White Blood Count 7.8 X10*3/uL (4.8-10.8)
[2022-04-01 12:25] LABS: Alanine Aminotransferase 18 U/L (0-40); Albumin Level 3.8 g/dL (3.5-5.0); Alkaline Phosphatase 108 U/L (39-117); Anion Gap 11 (12-20); Aspartate Amino Transferase 22 U/L (5-37); Bilirubin Total 0.5 mg/dL (0.0-1.0); Blood Urea Nitrogen 15 mg/dL (9-16); Carbon Dioxide 26 mmol/L (22-29); Chloride 108 mmol/L (96-108); Cholesterol 149 mg/dL; Estimated Glomerular Filt Rate > 60; Glucose Fasting 93 mg/dL (60-99); HDL Cholesterol 29 mg/dL; LDL Cholesterol Calculated 75 mg/dl; Potassium 3.9 mmol/L (3.3-5.1); Sodium 141 mmol/L (135-145); Total Protein 6.3 g/dL (6.5-8.0); Triglycerides 226 mg/dL
[2022-04-01 12:40] LABS: PSA,Total (Free>4and<10) 0.32 ng/mL (0.00-4.00)
[2022-04-01 12:44] LABS: Appearance Urine Clear; Color Urine Yellow; Glucose Urine UA Negative (Negative); Leukocyte Esterase Urine Negative (Negative); Nitrite Urine Positive (Negative); Specific Gravity - Urine 1.025 (1.005-1.025); UMIC TRIGGER UACC YES; Urine Blood Negative (Negative); Urine Ketones Negative (Negative); Urine Protein Negative (Neg-Trace)
[2022-04-01 12:50] LABS: Bacteria Urine Trace (None Seen); Hyaline Casts Urine 0-2 /LPF (0-2); RBC Urine 0-2 /HPF (0-2); Squamous Epithelial Cell Urine 0-2 /HPF (0-2); UACC Culture Trigger YES; WBC Urine 0-5 /HPF (0-5)
== END 2022-04-01 10:55 | disposition home or self-care (01) ==
LOC: HO.LNP 10:54
PROVIDERS: Visit Provider Internal Medicine
DX: Z12.5 Encounter for screening for malignant neoplasm of prostate (principal); E78.00 Pure hypercholesterolemia, unspecified; N40.0 Benign prostatic hyperplasia without lower urinary tract symptoms; R79.9 Abnormal finding of blood chemistry, unspecified; K76.9 Liver disease, unspecified
CPT/HCPCS: 80053; 80061; 81001; 84153; 85025; 87086; 87088; 87186

== ENCOUNTER → 2022-04-08 09:53 | Outpatient (BNVA) | payer MEDICARE, MEDICAID, SELFPAY | PROVIDERS: PCP Internal Medicine; Visit Provider Internal Medicine | DX: I26.99 Other pulmonary embolism without acute cor pulmonale (principal); Z51.81 Encounter for therapeutic drug level monitoring; Z79.01 Long term (current) use of anticoagulants; N39.0 Urinary tract infection, site not specified | CPT/HCPCS: 81003; 85610; 99211 ==

== ENCOUNTER 2022-04-08 15:14 | Outpatient (REF) | payer MEDICARE, MEDICAID, SELFPAY ==
[2022-04-08 15:32] LABS: Appearance Urine Clear; Color Urine Yellow; Glucose Urine UA Negative (Negative); Leukocyte Esterase Urine Negative (Negative); Nitrite Urine Negative (Negative); PH 5.5 (5.0-9.0); Specific Gravity - Urine 1.025 (1.005-1.025); Urine Blood Negative (Negative); Urine Ketones Negative (Negative); Urine Protein Trace mg/dL (Neg-Trace)
== END 2022-04-08 15:15 | disposition home or self-care (01) ==
LOC: HO.LNP 15:14
PROVIDERS: Visit Provider Internal Medicine
DX: Z13.89 Encounter for screening for other disorder (principal)
CPT/HCPCS: 81003

== ENCOUNTER → 2022-04-22 09:47 | Outpatient (BNVA) | payer MEDICARE, MEDICAID, SELFPAY | PROVIDERS: PCP Internal Medicine; Visit Provider Internal Medicine | DX: I26.99 Other pulmonary embolism without acute cor pulmonale (principal); Z79.01 Long term (current) use of anticoagulants; Z51.81 Encounter for therapeutic drug level monitoring | CPT/HCPCS: 85610; 99211 ==

== ENCOUNTER → 2022-05-06 10:04 | Outpatient (BNVA) | payer MEDICARE, MEDICAID, SELFPAY | PROVIDERS: PCP Internal Medicine; Visit Provider Internal Medicine | DX: I26.99 Other pulmonary embolism without acute cor pulmonale (principal); Z51.81 Encounter for therapeutic drug level monitoring; Z79.01 Long term (current) use of anticoagulants | CPT/HCPCS: 85610; 99211 ==

== ENCOUNTER → 2022-05-24 09:09 | Outpatient (BNVA) | payer MEDICARE, MEDICAID, SELFPAY | PROVIDERS: PCP Internal Medicine; Visit Provider Internal Medicine | DX: I26.99 Other pulmonary embolism without acute cor pulmonale (principal); Z79.01 Long term (current) use of anticoagulants; Z51.81 Encounter for therapeutic drug level monitoring | CPT/HCPCS: 85610; 99211 ==

== ENCOUNTER → 2022-06-09 09:49 | Outpatient (BNVA) | payer MEDICARE, MEDICAID, SELFPAY | PROVIDERS: PCP Internal Medicine; Visit Provider Student in an Organized Health Care Education/Training Program | DX: M25.552 Pain in left hip (principal); M65.352 Trigger finger, left little finger | CPT/HCPCS: 20550; 99212 ==

== ENCOUNTER → 2022-06-21 09:14 | Outpatient (BNVA) | payer MEDICARE, MEDICAID, SELFPAY | PROVIDERS: PCP Internal Medicine; Visit Provider Internal Medicine | DX: I26.99 Other pulmonary embolism without acute cor pulmonale (principal); Z79.01 Long term (current) use of anticoagulants; Z51.81 Encounter for therapeutic drug level monitoring | CPT/HCPCS: 85610; 99211 ==

== ENCOUNTER 2022-06-30 07:20 | Outpatient (REF) | payer MEDICARE, MEDICAID, SELFPAY ==
--- NOTE | ~2022-06-30 | US_ITS ---
EXAMINATION: US RETROPERITONEAL LIMITED (RENAL ONLY) CLINICAL INFORMATION: Renal cyst. COMPARISON: Renal ultrasound 07/09/2021 and 06/08/2018. MRI abdomen 05/16/2020. CT abdomen and pelvis 05/13/2019. TECHNIQUE: Real-time imaging of the kidneys. FINDINGS: RIGHT KIDNEY: 11.8 x 4.7 x 5.9 cm (SAG x AP x TRV). The kidney is normal in size, contour, and echogenicity. Renal cortical thickness is normal. No renal calculi or hydronephrosis. There are 2 anechoic cysts. The largest midpole cyst with septation measures 1.4 x 1.6 x 1.8 cm. There is a linear calcification in the upper midpole. LEFT KIDNEY: 11.2 x 4.5 x 3.7 cm (SAG x AP x TRV). The kidney is normal in size, contour, and echogenicity. Renal cortical thickness is normal. No hydronephrosis. There are multiple small anechoic cysts with the largest cyst with calcification in upper pole measuring 1.8 x 1.4 x 1.6 cm. This is likely a remnant of larger cyst seen previously There is an echogenic stone upper pole without caliectasis measuring 0.6 x 0.4 x 0.4 cm. There is mild pelvic fullness. US/US renal BI IMPRESSION: 1. Simple and complex bilateral renal cysts without hydronephrosis. There is mild pelvic fullness left kidney. 2. Upper pole left renal cyst is slightly increased in size to 1.8 cm from previous ultrasound 07/09/2021 exam (1.0 cm) which had decreased in size from the previous MRI abdomen 05/16/2020. 3. There is an echogenic nonobstructive stone upper pole left kidney. There are echogenic calcifications seen bilaterally.
== END 2022-06-30 07:21 | disposition home or self-care (01) ==
LOC: HO.US 07:20
PROVIDERS: PCP Internal Medicine; Visit Provider Internal Medicine
DX: N28.1 Cyst of kidney, acquired (principal)
CPT/HCPCS: 76775

== ENCOUNTER → 2022-07-26 09:43 | Outpatient (BNVA) | payer MEDICARE, MEDICAID, SELFPAY | PROVIDERS: PCP Internal Medicine; Visit Provider Internal Medicine | DX: I26.99 Other pulmonary embolism without acute cor pulmonale (principal); Z79.01 Long term (current) use of anticoagulants; Z51.81 Encounter for therapeutic drug level monitoring | CPT/HCPCS: 85610; 99211 ==

== ENCOUNTER → 2022-08-23 09:49 | Outpatient (BNVA) | payer MEDICARE, MEDICAID, SELFPAY | PROVIDERS: PCP Internal Medicine; Visit Provider Internal Medicine | DX: I26.99 Other pulmonary embolism without acute cor pulmonale (principal); Z79.01 Long term (current) use of anticoagulants; Z51.81 Encounter for therapeutic drug level monitoring | CPT/HCPCS: 85610; 99211 ==

== ENCOUNTER 2022-09-03 10:14 | Outpatient (REF) | payer MEDICARE, MEDICAID, SELFPAY ==
--- NOTE | ~2022-09-03 | CT_ITS ---
EXAMINATION: CT LUMBAR SPINE WITHOUT CONTRAST CLINICAL INFORMATION: Lumbosacral disc disease. COMPARISON: CT abdomen and pelvis from 05/13/2019. TECHNIQUE: Multidetector helical imaging of the lumbar spine was obtained without intravenous contrast. Multiple axial reformats and coronal/sagittal reconstructions were created the technologist workstation for review. This CT examination was performed using dose optimization techniques as appropriate, variously including the following: *Automated exposure control. *Adjustment of mA and/or kV according to patient size (this includes techniques or standardized protocols for targeted exams where dose is matched to indication/reason for exam; i.e. extremities or head). *Use of iterative reconstruction technique. DLP: 757 mGy-cm FINDINGS: Minimal left convex curvature of the lumbar spine. Otherwise, normal anatomic alignment. No evidence of acute fracture or traumatic subluxation. The vertebral body heights are maintained. Moderate degenerative disc disease from L2-L5. Mild degenerative disc disease at all additional levels. No suspicious lytic or sclerotic osseous lesions. Moderate subcutaneous edema within the posterior soft tissues of the back. No additional significant abnormalities of the paraspinal musculature. Irregular, amorphous fat stranding/edema is noted within the central mesentery, new compared to prior exams. There is a 1.6 cm partially calcified structure extrinsic to the upper pole the left kidney at the site of previously demonstrated lesion (suggestive of postsurgical change or remnant of a previous hemorrhagic cyst). Otherwise, limited evaluation of the intra-abdominal structures without significant abnormalities. The abdominal aorta is of normal contour and caliber with moderate calcific atherosclerotic disease. AXIAL SPINAL LEVELS: L1-L2: Normal annular contour. There is mild bilateral facet joint arthropathy. There is no neural foraminal stenosis. There is no demonstrated spinal canal stenosis. L2-L3: Mild diffuse disc bulge with posterior osseous ridging. There is mild bilateral facet joint arthropathy. There is no neural foraminal stenosis. There is no demonstrated spinal canal stenosis. L3-L4: Mild diffuse disc bulge with posterior osseous ridging. There is moderate right and mild left facet joint arthropathy. There is moderate right and mild left neural foraminal stenosis. There appears to be mild spinal canal stenosis. L4-L5: Moderate diffuse disc bulge with posterior osseous ridging. There is moderate to severe bilateral facet joint arthropathy. There is moderate bilateral neural foraminal stenosis. There appears to be moderate to severe spinal canal stenosis. L5-S1: Mild diffuse disc bulge. There is severe right and mild left facet joint arthropathy. There is no neural foraminal stenosis. There is no demonstrated spinal canal stenosis. CT/CT lumbar spine wo IV con IMPRESSION: 1. No evidence of acute fracture or traumatic subluxation of the lumbar spine. 2. Moderate multilevel degenerative spondyloarthropathy of the lumbar spine as described in detail above. Most notably on this limited exam without intrathecal contrast, there appears to be moderate to severe spinal canal stenosis at L4-L5. Mild spinal canal stenosis at L3-L4. Moderate neural foraminal stenoses from L3-L5. 3. Moderate amorphous edema within the central mesentery is new compared to prior exams at remains of indeterminate etiology. This can be seen in the setting of mesenteric panniculitis; however, other underlying etiologies are not excluded. 4. There is a 1.6 cm partially calcified structure extrinsic to the upper pole the left kidney at the site of previously demonstrated lesion (suggestive of postsurgical change or remnant of a previous hemorrhagic cyst).
== END 2022-09-03 10:15 | disposition home or self-care (01) ==
LOC: HO.CT 10:14
PROVIDERS: Visit Provider Internal Medicine
DX: M51.9 Unspecified thoracic, thoracolumbar and lumbosacral intervertebral disc disorder (principal)
CPT/HCPCS: 72131

== ENCOUNTER 2022-09-20 09:52 | Outpatient (AMB) | payer MEDICARE, MEDICAID, SELFPAY ==
[2022-09-20 10:14] LABS: Prothrombin Time Whole Bld POC 32.1 sec (11.1-13.5); ~PT, ~INR - Anti Coag Clinic 2.7 (0.9-1.1)
--- NOTE | 2022-09-20 10:16 | MHC.OFFVISCO ---
Intake Intake Visit Reasons: Anticoagulation Allergies bupropion [From WELLBUTRIN] Allergy (Severe, Verified 09/20/22 10:08) HALLUCINATION pseudoephedrine [From SUDAFED] Allergy (Severe, Verified 09/20/22 10:08) JITTERY Medication List - Last Reconciled 09/20/22 by Tori Vang RN acetaminophen ER (Tylenol 8 Hour) 650 mg PO Q12H albuterol sulfate 90 mcg/actuation (ProAir HFA) 2 puffs inhalation Q4-6H PRN albuterol sulfate 2.5 mg (3 mL) inhalation QID 30 days armodafinil 150 mg PO DAILY atorvastatin 40 mg PO DAILY cyclobenzaprine 10 mg PO BID PRN diltiazem HCl 180 mg PO DAILY 90 days docusate sodium (Colace) 100 mg PO DAILY PRN donepezil 10 mg PO DAILY finasteride 5 mg PO DAILY fluticasone propionate 50 mcg/actuation 2 sprays intranasal DAILY gabapentin 600 mg PO BEDTIME gabapentin 200 mg PO BID levocetirizine (Xyzal) 5 mg PO DAILY meclizine 25 mg PO BID memantine 10 mg PO BID modafinil (Provigil) 100 mg PO DAILY montelukast 10 mg PO DAILY 90 days omeprazole 20 mg PO DAILY oxybutynin chloride ER 10 mg PO DAILY primidone 100 mg PO BEDTIME sertraline 150 mg PO DAILY sodium chloride 0.9% 3 mL inhalation BID 30 days tamsulosin 0.4 mg PO DAILY warfarin 3 mg See Protocol PO DAILY Nursing Note INR: 2.7 in therapeutic range Medications and supplements reviewed No changes in health, diet, medications, or supplements, Denies any signs and symptoms of bleeding or bruising or clotting. Bleeding, bruising, clotting discussed Nutritional guidance given Dose: KEEP SAME DOSE 3MG X 3 DAYS/ 1.5MG X 4 DAYS F/U INR: 4 WEEKS Patient verbalizes understanding of instructions given Anti-Coag Initial Assessment Social Hx Patient Tobacco Use Status: Former Tobacco user Tobacco use type: Cigarette alcohol intake: never Alcohol intake frequency: does not drink Coding Level of Care Code Est Patient Level 1 Diagnoses Current use of anticoagulant therapy Z79.01 Assessment & Plan Assessment & Plan (1) Current use of anticoagulant therapy: Code(s): Z79.01 - senior living (current) use of anticoagulants Category: Medical
== END 2022-09-20 10:29 | disposition home or self-care (01) ==
LOC: HO.ACS 09:52
PROVIDERS: PCP Internal Medicine; Visit Provider Internal Medicine
DX: Z79.01 Long term (current) use of anticoagulants (principal)

== ENCOUNTER → 2022-09-20 09:52 | Outpatient (BNVA) | payer MEDICARE, MEDICAID, SELFPAY | PROVIDERS: PCP Internal Medicine; Visit Provider Internal Medicine | DX: I26.99 Other pulmonary embolism without acute cor pulmonale (principal); Z79.01 Long term (current) use of anticoagulants; Z51.81 Encounter for therapeutic drug level monitoring | CPT/HCPCS: 85610; 99211 ==

== ENCOUNTER 2022-10-01 11:58 | Outpatient (REF) | payer MEDICARE, MEDICAID, SELFPAY ==
[2022-10-01 14:43] LABS: Alanine Aminotransferase 21 U/L (0-40); Albumin Level 3.7 g/dL (3.5-5.0); Alkaline Phosphatase 94 U/L (39-117); Aspartate Amino Transferase 21 U/L (5-37); Bilirubin Direct 0.2 mg/dL (0.0-0.5); Bilirubin Total 0.4 mg/dL (0.0-1.0); Blood Urea Nitrogen 15 mg/dL (9-16); Estimated Glomerular Filt Rate > 60; Total Protein 6.7 g/dL (6.5-8.0)
[2022-10-01 14:54] LABS: Cholesterol 141 mg/dL; HDL Cholesterol 35 mg/dL; LDL Cholesterol Calculated 74 mg/dl; Triglycerides 161 mg/dL
[2022-10-01 15:16] LABS: Reflex LDLD? No
== END 2022-10-01 11:59 | disposition home or self-care (01) ==
LOC: HO.LNP 11:58
PROVIDERS: Visit Provider Internal Medicine
DX: Z01.812 Encounter for preprocedural laboratory examination (principal); E78.00 Pure hypercholesterolemia, unspecified
CPT/HCPCS: 80061; 80076; 82565; 84520

== ENCOUNTER 2022-10-14 08:08 | Outpatient (REF) | payer MEDICARE, MEDICAID, SELFPAY ==
--- NOTE | ~2022-10-14 | CT_ITS ---
EXAMINATION: CT ABDOMEN AND PELVIS WITH CONTRAST CLINICAL INFORMATION: Peritonitis. COMPARISON: MRI abdomen dated 05/16/2020; CT abdomen and pelvis dated 05/13/2019.. TECHNIQUE: Multidetector volumetric images were obtained from the superior aspect of the liver through the pubic symphysis following administration 85 mL of Omnipaque 350 intravenous contrast. Sagittal and coronal reformatted images were obtained on the technologist's workstation. Oral contrast: No This CT examination was performed using dose optimization techniques as appropriate, variously including the following: *Automated exposure control *Adjustment of mA and/or kV according to patient size (this includes techniques or standardized protocols for targeted exams where dose is matched to indication/reason for exam; i.e. extremities or head) *Use of iterative reconstruction technique DLP: 660 mGy-cm FINDINGS: LUNG BASES: There is mild posterior bibasilar linear atelectasis. LIVER, GALLBLADDER, AND BILIARY TREE: The liver is normal in size, shape, and mildly diminished in attenuation, consistent with previously documented hepatic steatosis. A small benign hemangioma is redemonstrated within the posterior segment of the right hepatic lobe. No new focal hepatic lesion or biliary ductal dilatation is present. The gallbladder is unremarkable with no evidence of radiopaque gallstones, gallbladder wall thickening, or obvious pericholecystic inflammatory changes. PANCREAS: Unremarkable. SPLEEN: Benign cysts are redemonstrated. Otherwise, unremarkable. ADRENAL GLANDS: Unremarkable. KIDNEYS AND URETERS: The kidneys are normal in size, shape, and attenuation. No hydronephrosis, hydroureter, or calculi seen. Benign, simple cysts are redemonstrated, for which no imaging follow-up is recommended. No perinephric stranding. BLADDER: Unremarkable. GASTROINTESTINAL TRACT: There is mild diverticulosis, without acute diverticulitis. No bowel obstruction, free intraperitoneal air or abscess is seen. There is no focal bowel wall thickening. The vermiform appendix appears normal. Within the mesenteric root, there is abnormal soft tissue density (3:46). This is poorly defined, with approximate measurements of 8.2 x 3.0 cm. The finding is new from prior CT and MRI imaging. ABDOMINAL WALL: There is a fat-containing umbilical hernia defect with neck measuring 1.6 cm (3:61). A small fat-containing left inguinal hernia is seen. LYMPH NODES: There is no sizable abdominopelvic lymphadenopathy. VASCULAR: There is moderate aortoiliac atherosclerotic calcification. No abdominal aortic aneurysm or dissection is seen. PELVIC VISCERA: The prostate and seminal vesicles are unremarkable. OSSEOUS STRUCTURES: There is multi-level marked lower thoracic and mild lumbar spondylosis. No acute or aggressive osseous abnormality is seen. CT/CT abdomen pelvis w IV con IMPRESSION: 1. There is interim appearance of an irregular soft tissue density of the mesenteric root. Differential considerations include sclerosing mesenteritis, mesenteric desmoid tumor, confluent mesenteric lymphadenopathy due malignancy (including lymphoma) or inflammation, and mesenteric carcinoid tumor. Further workup may be indicated, possibly to include biopsy. 2. There is mild diverticulosis, without evidence of colitis. 3. Mild hepatic steatosis is redemonstrated. 4. There are fat-containing umbilical and left inguinal hernias. 5. There are degenerative changes of the thoracolumbar spine. Fleischner guidelines were followed.
[2022-10-14] MEDS: iohexoL 350 MG/ML 100 ML INFUS..BTL 85 ML IV (10:57)
[2022-10-14] MEDS: Barium Sulfate Oral (Vanilla) 450 ML ORAL.SUSP 900 ML PO (10:57)
== END 2022-10-14 08:09 | disposition home or self-care (01) ==
LOC: HO.CT 08:08
PROVIDERS: PCP Internal Medicine; Visit Provider Internal Medicine
DX: K65.8 Other peritonitis (principal)
CPT/HCPCS: 74177; Q9967

== ENCOUNTER 2022-10-18 09:48 | Outpatient (AMB) | payer MEDICARE, MEDICAID, SELFPAY ==
[2022-10-18 10:08] LABS: Prothrombin Time Whole Bld POC 33.8 sec (11.1-13.5); ~PT, ~INR - Anti Coag Clinic 2.8 (0.9-1.1)
--- NOTE | 2022-10-18 10:13 | MHC.OFFVISCO ---
Intake Intake Visit Reasons: Anticoagulation Allergies bupropion [From WELLBUTRIN] Allergy (Severe, Verified 10/18/22 10:01) HALLUCINATION pseudoephedrine [From SUDAFED] Allergy (Severe, Verified 10/18/22 10:01) JITTERY Medication List - Last Reconciled 10/18/22 by Tori Vang RN acetaminophen ER (Tylenol 8 Hour) 650 mg PO Q12H albuterol sulfate 90 mcg/actuation (ProAir HFA) 2 puffs inhalation Q4-6H PRN albuterol sulfate 2.5 mg (3 mL) inhalation QID 30 days armodafinil 150 mg PO DAILY atorvastatin 40 mg PO DAILY cyclobenzaprine 10 mg PO BID PRN diltiazem HCl 180 mg PO DAILY 90 days docusate sodium (Colace) 100 mg PO DAILY PRN donepezil 10 mg PO DAILY finasteride 5 mg PO DAILY fluticasone propionate 50 mcg/actuation 2 sprays intranasal DAILY gabapentin 600 mg PO BEDTIME gabapentin 200 mg PO BID levocetirizine (Xyzal) 5 mg PO DAILY meclizine 25 mg PO BID memantine 10 mg PO BID modafinil (Provigil) 100 mg PO DAILY montelukast 10 mg PO DAILY 90 days omeprazole 20 mg PO DAILY oxybutynin chloride ER 10 mg PO DAILY primidone 100 mg PO BEDTIME sertraline 150 mg PO DAILY sodium chloride 0.9% 3 mL inhalation BID 30 days tamsulosin 0.4 mg PO DAILY warfarin 3 mg See Protocol PO DAILY Nursing Note INR: 2.8 in therapeutic range Medications and supplements reviewed No changes in health, diet, medications, or supplements, Denies any signs and symptoms of bleeding or bruising or clotting. 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
== END 2022-10-18 10:17 | disposition home or self-care (01) ==
LOC: HO.ACS 09:48
PROVIDERS: PCP Internal Medicine; Visit Provider Internal Medicine
DX: Z79.01 Long term (current) use of anticoagulants (principal)

== ENCOUNTER → 2022-10-18 09:48 | Outpatient (BNVA) | payer MEDICARE, MEDICAID, SELFPAY | PROVIDERS: PCP Internal Medicine; Visit Provider Internal Medicine | DX: I26.99 Other pulmonary embolism without acute cor pulmonale (principal); Z79.01 Long term (current) use of anticoagulants; Z51.81 Encounter for therapeutic drug level monitoring | CPT/HCPCS: 85610; 99211 ==

== ENCOUNTER 2022-10-27 08:59 | Outpatient (AMB) | payer MEDICARE, MEDICAID, SELFPAY ==
[2022-10-27 09:04] VITALS: BP 131/75; PULSE 100; BMI 35.3
--- NOTE | 2022-10-27 09:04 | A.OFFVIS_ITS ---
Intake Vital Signs 10/27/22 09:04 Height 5 ft 9 in Weight 239 lb BMI 35.3 BP 131/75 Blood Pressure Location Rt brachial Position Sitting Pulse 100 Intake Visit Reasons: Mass abd Intake Note: Patient was referred for mass on small intestine. Had Abd/ pelvis CT scan on 10-14-22. Denies pain or discomfort. 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 Patient self has no GI issues or complaints. He is tolerating a diet having normal bowel habits. His weight is been stable. He denies any fever, chills. Patient had colonoscopy approximately year and half ago which he states was within normal limits. Chart was reviewed patient evaluated. Most noteworthy for history of a prothrombotic state for which he is on Coumadin. Patient had DVT him multiple emboli several years ago. He is followed by Hematology/Dr. Arias. [facility] Medical History (Updated 10/27/22 @ 09:31 by Rajinder Casillas MD) COPD (chronic obstructive pulmonary disease) Kidney stones Laryngitis Orthostatic dizziness DANNY on CPAP Paroxysmal atrial fibrillation Pulmonary nodules Surgical History History of ankle surgery Hx of colonoscopy Hx of elbow surgery Family History Father No problems noted. Mother CVD (cardiovascular disease) Social History Alcohol intake: never Patient Tobacco Use Status: Former Tobacco user Tobacco use type: Cigarette Years Smoked: 20 years Advance Directives Date on File: 11/30/19 Physical Exam Vital Signs: Last Vital Signs Pulse 100 10/27/22 09:04 BP 131/75 10/27/22 09:04 BMI result Body Mass Index 35.3 Const Other: Heavy set male no acute distress. Chest Other: Chest breath sounds bilaterally, HS 1 in 2 GI Other: Corpulent, reducible umbilical hernia approximately 2 cm in size. Soft, benign Extrem Other: All 4 grossly intact. Assessment & Plan Assessment & Plan (1) Mesenteric mass: Code(s): K63.89 - Other specified diseases of intestine Plan I reviewed this CT scan of the patient yesterday with interventional radiologist Dr. Mike. Unfortunately, there is no clear window/plain for him to attempt biopsy. I reviewed this with the patient and the options for his current situation are continued observation with surveillance CT scan every 4-6 months, or diagnostic laparoscopy (possible open) biopsy. Risks, benefits, alternatives of the latter reviewed the patient and included but not limited to bleeding, infection, non diagnosis, numbness, pain, scarring, bowel injury or leak and the patient wishes to proceed. All questions were answered. Arrange will be made for this. We will also contact Dr. Connelly's office regarding the patient's Coumadin, either being held or bridged with heparin. Coding Level of Care Code New Pt Level 5 (51012) Diagnoses Mesenteric mass K63.89
== END 2022-10-27 09:30 | disposition home or self-care (01) ==
PROVIDERS: PCP Internal Medicine; Referring Provider Internal Medicine; Visit Provider Surgery
DX: K63.89 Other specified diseases of intestine (principal)
CPT/HCPCS: 99204

== ENCOUNTER → 2022-10-27 08:59 | Outpatient (BNVA) | payer MEDICARE, MEDICAID, SELFPAY | PROVIDERS: PCP Internal Medicine; Referring Provider Internal Medicine; Visit Provider Surgery | DX: K63.89 Other specified diseases of intestine (principal) | CPT/HCPCS: 99202 ==

== ENCOUNTER → 2022-11-11 06:21 | Outpatient (BNV) | payer MEDICARE, MEDICAID, SELFPAY | PROVIDERS: PCP Internal Medicine; Visit Provider Physician Assistant Surgical | DX: K63.89 Other specified diseases of intestine (principal); J41.0 Simple chronic bronchitis | CPT/HCPCS: 49592; 99024; 99232 ==

== ENCOUNTER 2022-11-12 11:45 | Inpatient (IN) | payer MEDICARE, MEDICAID, SELFPAY ==
[2022-11-08 16:22] VITALS: BMI 35.3
[2022-11-09 09:58] VITALS: BMI 35.3
--- NOTE | 2022-11-10 08:48 | P.CONAN_ITS ---
Documented by User: Cinthya Bailon NP 11/10/22 08:59 HPI - Anesthesia Eval Consult details Narrative: 66yo M for OPEN Hernia Repair Umbilical, Laparoscopy Diagnostic Warfarin for afib [facility] Pulmo 03/2022. COPD and DANNY stable [facility] Cardio 12/2021. PAF, dizziness stable with 1 year f/u. [facility] Active Problems Active Problems: All Active Problems (Updated 11/09/22 @ 10:02 by Mili Guzman RN) Mesenteric mass (Acute) Trigger finger, left little finger (Acute) Greater trochanteric pain syndrome of left lower extremity (Acute) Rotator cuff arthropathy of left shoulder (Acute) Tremor (Acute) Weight loss (Acute) Left upper arm pain (Acute) Chronic pulmonary embolism (Acute) Current use of anticoagulant therapy (Acute) Current use of anticoagulant therapy (Acute) Cervical spondylosis (Acute) Pulmonary nodules (Acute) Laryngitis (Acute) DANNY on CPAP (Acute) Paroxysmal atrial fibrillation (Acute) COPD (chronic obstructive pulmonary disease) (Acute) Past Medical History Medical History (Updated 11/09/22 @ 10:02 by Mili Guzman RN) Kidney stones Pulmonary nodules Orthostatic dizziness Laryngitis DANNY on CPAP Paroxysmal atrial fibrillation COPD (chronic obstructive pulmonary disease) Family History Family History Father No problems noted. 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 If so, by whom?: No Are you DNR?: No Advance Directives: Yes Advance Directives Information Provided: Yes Advance Directives on File: Yes Advance Directives Date on File: 11/30/19 Recently lost weight without trying: No Meds Allergies Allergy/AdvReac Type Severity Reaction Status Date / Time bupropion [From WELLBUTRIN] Allergy Severe HALLUCINATI Verified 10/27/22 09:07 ON pseudoephedrine Allergy Severe JITTERY Verified 10/27/22 09:07 [From [facility]] Home Medications Medication Instructions Recorded Confirmed Last Taken Type acetaminophen 650 mg 650 mg PO TID 11/24/19 11/09/22 Unknown History tablet,extended release (Tylenol 8 Hour) finasteride 5 mg tablet 5 mg PO DAILY 11/24/19 11/09/22 Unknown History modafinil 100 mg tablet (Provigil) 100 mg PO DAILY 11/24/19 10/18/22 Unknown History omeprazole 20 mg capsule,delayed 20 mg PO DAILY 11/24/19 11/09/22 Unknown History release warfarin 3 mg tablet 3 mg PO DAILY 11/24/19 11/09/22 11/04/22 08:00 History gabapentin 100 mg capsule 200 mg PO BID 11/27/19 11/09/22 Unknown History gabapentin 600 mg tablet 600 mg PO BEDTIME 05/19/20 11/09/22 Unknown History levocetirizine 5 mg tablet (Xyzal) 5 mg PO BEDTIME 10/17/20 11/09/22 Unknown History tamsulosin 0.4 mg capsule 0.4 mg PO DAILY@1700 12/18/21 11/09/22 Unknown History docusate sodium 100 mg capsule 100 mg PO DAILY PRN Constipation 06/09/22 11/09/22 Unknown History (Colace) cyclobenzaprine 10 mg tablet 10 mg PO BID PRN Muscle Spasm 06/21/22 11/09/22 Unk nown History donepezil 5 mg tablet 10 mg PO DAILY 07/26/22 11/09/22 Unknown History meclizine 25 mg tablet 25 mg PO DAILY 09/13/22 11/09/22 Unknown History memantine 10 mg tablet 10 mg PO DAILY 09/13/22 11/09/22 Unknown History oxybutynin chloride 10 mg 10 mg PO DAILY 09/13/22 11/09/22 Unknown History tablet,extended release 24 hr primidone 50 mg tablet 100 mg PO BEDTIME 09/13/22 11/09/22 Unknown History sertraline 100 mg tablet 150 mg PO DAILY 09/20/22 11/09/22 Unknown History albuterol sulfate 2.5 mg/3 mL 2.5 mg inhalation QID PRN 11/09/22 11/09/22 Unknown History (0.083 %) solution for nebulization Shortness Of Breath Or Wheezing atorvastatin 40 mg tablet 40 mg PO BEDTIME 11/09/22 11/09/22 Unknown History montelukast 10 mg tablet 10 mg PO BEDTIME 11/09/22 11/09/22 Unknown History Exam Exam Date and Time: November 10, 2022 0848 Height,Weight and Vital Signs: Height 5 ft 9 in Weight 108.409 kg Narrative Narrative: ECHO 2021 Conclusions: - 1. Normal LV systolic function with grade 1 diastolic dysfunction 2. Limited visualization of cardiac valves with normal cardiac valvular Doppler 3. Normal RV systolic pressure 4. No gross pericardial effusion NM cardiolite stress test 2020 Impression: 1. Myocardial perfusion imaging study shows normal myocardial perfusion 2. Gated LVEF is 57% 3. Transient ischemic dilatation not present EKG is nondiagnostic for ischemia Assessment and Plan Assessment Anesthesia Assessment: Chart Reviewed Documented by User: Jj Perez MD 11/11/22 08:47 [facility] Past Medical History Medical History (Updated 11/09/22 @ 10:02 by Mili Guzman RN) Kidney stones Pulmonary nodules Orthostatic dizziness Laryngitis DANNY on CPAP Paroxysmal atrial fibrillation COPD (chronic obstructive pulmonary disease) Functional capacity: uses cane/walker Narrative: on Provigil for daytime awakeness Family History Family History Father No problems noted. 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 If so, by whom?: No Are you DNR?: No Advance Directives: Yes Advance Directives Information Provided: Yes Advance Directives on File: Yes Advance Directives Date on File: 11/30/19 Recently lost weight without trying: No Meds Allergies Allergy/AdvReac Type Severity Reaction Status Date / Time bupropion [From WELLBUTRIN] Allergy Severe HALLUCINATI Verified 10/27/22 09:07 ON pseudoephedrine Allergy Severe JITTERY Verified 10/27/22 09:07 [From SUDAFED] Home Medications Medication Instructions Recorded Confirmed Last Taken Type acetaminophen 650 mg 650 mg PO TID 11/24/19 11/09/22 Unknown History tablet,extended release (Tylenol 8 Hour) finasteride 5 mg tablet 5 mg PO DAILY 11/24/19 11/09/22 Unknown History modafinil 100 mg tablet (Provigil) 100 mg PO DAILY 11/24/19 10/18/22 Unknown History omeprazole 20 mg capsule,delayed 20 mg PO DAILY 11/24/19 11/09/22 Unknown History release warfarin 3 mg tablet 3 mg PO DAILY 11/24/19 11/09/22 11/04/22 08:00 History gabapentin 100 mg capsule 200 mg PO BID 11/27/19 11/09/22 Unknown History gabapentin 600 mg tablet 600 mg PO BEDTIME 05/19/20 11/09/22 Unknown History levocetirizine 5 mg tablet (Xyzal) 5 mg PO BEDTIME 10/17/20 11/09/22 Unknown History tamsulosin 0.4 mg capsule 0.4 mg PO DAILY@1700 12/18/21 11/09/22 Unknown History docusate sodium 100 mg capsule 100 mg PO DAILY PRN Constipation 06/09/22 11/09/22 Unknown History (Colace) cyclobenzaprine 10 mg tablet 10 mg PO BID PRN Muscle Spasm 06/21/22 11/09/22 Unknown History donepezil 5 mg tablet 10 mg PO DAILY 07/26/22 11/09/22 Unknown History meclizine 25 mg tablet 25 mg PO DAILY 09/13/22 11/09/22 Unknown History memantine 10 mg tablet 10 mg PO DAILY 09/13/22 11/09/22 Unknown History oxybutynin chloride 10 mg 10 mg PO DAILY 09/13/22 11/09/22 Unknown History tablet,extended release 24 hr primidone 50 mg tablet 100 mg PO BEDTIME 09/13/22 11/09/22 Unknown History sertraline 100 mg tablet 150 mg PO DAILY 09/20/22 11/09/22 Unknown History albuterol sulfate 2.5 mg/3 mL 2.5 mg inhalation QID PRN 11/09/22 11/09/22 Unknown History (0.083 %) solution for nebulization Shortness Of Breath Or Wheezing atorvastatin 40 mg tablet 40 mg PO BEDTIME 11/09/22 11/09/22 Unknown History montelukast 10 mg tablet 10 mg PO BEDTIME 11/09/22 11/09/22 Unknown History Exam Airway Mallampati Class: II TM Dist: <=3cm Neck ROM: Full Denture: Upper Partial: Lower Heart: ok Lungs: ok. see above. SpO2 95% on RA. Assessment and Plan Assessment Anesthesia Assessment: Anesthesia Plan Discussed Final Anesthetic Review Family History of Problems with Anesthesia: No History of Problems with Anesthesia: No NPO: Yes ASA Class: IV Final Preanesthetic Review: No Changes in Pt Med Stat, Meds/Allgs Chart Reviewed, Consent Obtained/Reviewed and Anes Risks/Benef Reviewed Patient Risk: High Procedure Risk: Intermediate Anesthetic Plan Anesthetic Plan: GA and Agree w/ Assess. and Plan Disposition: Standard PACU
[2022-11-11] VITALS (21 sets, daily range): BP systolic 95–153; BP diastolic 51–92; PULSE 73–89; RESP 16–20; TEMP 36.1–36.6; O2SAT 92–100
--- NOTE | 2022-11-11 05:02 | MHC.SHP ---
Pre-Procedural Eval Section A Date of Service: 11/11/22 The patient is an INPATIENT: No Changes since office visit: No Cold of Flu in the past 2 weeks, No New Medical Problems, No Changes in Medication and No Patient answered all questions The History & Physical has been completed within 30 days and I have reviewed it.: Yes Section B Chief Complaint: Other specified diseases of intestine Allergies: Allergies Allergy/AdvReac Type Severity Reaction Status Date / Time bupropion [From WELLBUTRIN] Allergy Severe HALLUCINATI Verified 10/27/22 09:07 ON pseudoephedrine Allergy Severe JITTERY Verified 10/27/22 09:07 [From SUDAFED] Plan I have reviewed the history and physical and performed a pertinent physical examination on my patient. No changes have occurred unless specified. Time Spent With Patient Time: Total time managing care of this patient today ____ minutes.
--- NOTE | 2022-11-11 06:47 | ECG_ITS ---
Test Reason : afib copd preop Blood Pressure : / mmHG Vent. Rate : 080 BPM Atrial Rate : 080 BPM P-R Int : 164 ms QRS Dur : 086 ms QT Int : 412 ms P-R-T Axes : 054 079 053 degrees QTc Int : 475 ms Normal sinus rhythm Nonspecific T wave abnormality Prolonged QT Abnormal ECG When compared with ECG of 16-SEP-2021 13:54, No significant change was found Referred By: Cinthya Bailon Electronically Signed By:DALIA HEAD
[2022-11-11 07:17] LABS: Hematocrit 46.4 % (42.0-52.0); Hemoglobin 15.3 g/dl (14.0-18.0); Mean Corpuscular Hemoglobin 29.3 pg (27.0-33.0); Mean Corpuscular Volume 88.9 fL (80.0-98.0); Mean Platelet Volume 9.4 fL (9.4-12.4); Platelet Count 196 X10*3/uL (160-400); Red Blood Count 5.22 X10*6/uL (4.60-5.80); Red Cell Distribution Width 13.6 % (11.0-16.0); White Blood Count 9.4 X10*3/uL (4.8-10.8)
[2022-11-11 07:23] LABS: INTERNATIONAL NORM RATIO 1.1 (0.9-1.1); Prothrombin Time 12.9 SEC (11.1-13.3)
[2022-11-11 07:38] LABS: Anion Gap 11 (12-20); Blood Urea Nitrogen 14 mg/dL (9-16); Calcium 9.5 mg/dL (8.4-10.2); Carbon Dioxide 26 mmol/L (22-29); Chloride 110 mmol/L (96-108); Creatinine Clr Calc Pharmacy 89.6; Estimated Glomerular Filt Rate > 60; Glucose Fasting 94 mg/dL (60-99); Potassium 3.7 mmol/L (3.3-5.1); Sodium 143 mmol/L (135-145)
[2022-11-11] MEDS: Lactated Ringers 1,000 ML 100 ML IVCONT ×2 (07:50→15:04)
[2022-11-11] MEDS: HYDROmorphone HCl 1 MG/ML SYRINGE IVPUSH (11:10)
[2022-11-11] MEDS: fentaNYL citrate/PF 100 MCG/2 ML VIAL 50 MCG IVPUSH ×3 (11:25→13:13)
[2022-11-11] MEDS: ondansetron HCL 4 MG/2 ML VIAL IVPUSH (11:28)
[2022-11-11] MEDS: oxyCODONE HCl Immed Release 5 MG TABLET PO (11:43)
--- NOTE | 2022-11-11 13:40 | W.PM.OPN ---
Operative Note Operative Note Date of Service: 11/11/22 Narrative: Preoperative diagnosis: [] incarcerated umbilical hernia, proximal small bowel mesenteric mass Postop diagnosis: [] same Procedure [] diagnostic laparoscopy, mini-laparotomy, primary repair incarcerated umbilical hernia, biopsy of mesenteric mass Surgeon: [] Vinny Dog Obedience Instructor: [] Miquel Type of Anesthesia: [] general Findings: []Intraoperative findings demonstrated isolated proximal small bowel mesenteric process/mass. Approximately 2 cm incarcerated umbilical hernia with omental contents Procedure: Patient brought to the operating room, placed on operative table in supine position, after adequate level of general anesthesia was induced, the patient's abdomen prepped and draped in usual sterile fashion. Using an infraumbilical curvilinear incision, this was used to carry down through skin, subcutaneous tissue, with hernia sac was identified and for the posterior aspect of the umbilicus. Dissection was carried down to the fascia with the sac was opened where incarcerated omentum and hernia sac were both amputated and specimen sent to pathology. Fascia margins were circumferentially cleared and using Hennessy technique to insufflate the abdominal cavity to 15 mm of CO2. Right and left lower abdominal ports were placed under direct vision, and small bowel was evaluated. No other gross intra-abdominal pathology was demonstrated. Small bowel appeared edematous and mesentery was very friable. Commencing the ligament of Treitz, the mesentery of the small bowel was followed/run all way down to the terminal ileum. A portion of Proximal small bowel mesentery demonstrated area that was thickened/ masslike. This area of the mesentery was opened and dissection of what appeared to be lymph type tissue which was carefully and uneventfully excised and sent pathology of the specimen taken, with care to avoid any mesenteric vessels. The mesenteric Wound was secured hemostasis and Surgicel placed over this field. During mobilization of the bowel, there was 1 spot where the grasper which was used to run the bowel appear to create a small small-bowel transmural defect. To evaluate this more thoroughly, right mid abdomen transverse mini laparotomy incision was made carried down through skin, subcutaneous tissue, anterior fascia, posterior fascia and perineum which were all opened and the involved segment of bowel was brought out . This area of Bowel was thoroughly evaluated and the area of concern was oversewn using interrupted seromuscular 3-0 silk sutures. The Bowel proximal and distal this area was run and no other transmural defect was demonstrated. Abdominal cavity was very copiously irrigated, and secured hemostasis. Access incision was closed using a running number 0 Maxon suture to re approximate the posterior fascia and perineum. Anterior fascia was closed using running 1. Maxon. Interrupted inverted dermal 3-0 Vicryl sutures were then placed. Abdominal cavity was once again insufflated with CO2, and abdominal cavity was irrigated and secured hemostasis, and Ports were removed under direct laparoscopic view and wounds were closed in the following manner; umbilical wound which was the site of the umbilical hernia was closed primarily using interrupted 0 Vicryl sutures. Skin wounds were closed using subcuticular 4-0 Vicryl sutures followed by Steri-Strips and sterile dressings. The wounds were infiltrated with 0.5% Marcaine at completion. Sponge, needle, instrument counts reported correct. Patient tolerated the procedure well emerged anesthesia stable condition. EBL minimal
[2022-11-11] MEDS: Acetaminophen 1,000 MG/100 ML PIGGYBACK 400 MG IV ×2 (15:05→21:14)
[2022-11-11] MEDS: Gabapentin 100 MG CAPSULE 200 MG PO (15:06)
--- NOTE | 2022-11-11 15:23 | PHA.MEDREC ---
Pharmacy Consult ? Medication Reconciliation Pharmacy has completed the medication reconciliation.Spoke to patient and verified medication list.
[2022-11-11] MEDS: Morphine Sulfate 4 MG/ML CARTRIDGE IVPUSH ×2 (17:02→21:15)
[2022-11-11] MEDS: Tamsulosin HCL 0.4 MG CAPSULE PO (17:02)
[2022-11-11] MEDS: Primidone 50 MG TABLET 100 MG PO (21:15)
[2022-11-11] MEDS: Docusate Sodium 100 MG CAPSULE PO (21:15)
[2022-11-11] MEDS: Atorvastatin Calcium 40 MG TABLET PO (21:15)
[2022-11-11] MEDS: Gabapentin 600 MG TABLET PO (21:16)
--- NOTE | ~2022-11-12 | XR_ITS ---
EXAMINATION: XR CHEST CLINICAL INFORMATION: Shortness of breath COMPARISON: Machine Cementer film from CT dated 03/12/2022 TECHNIQUE: Frontal view of the chest was obtained. FINDINGS: Mildly increased density in the right upper lung could represent an area of infiltrate. There is increasing elevation of the right hemidiaphragm. There is adjacent atelectasis or infiltrate. Mildly prominent infrahilar region may be due to low lung volumes due to elevated hemidiaphragm. Left lung is grossly clear and comparable to previous. There is no failure or effusion. XR/XR chest 1V IMPRESSION: Findings the right as described. Increasing elevation the right hemidiaphragm with right basilar atelectasis and focal opacity in the right upper lung could well represent an area of acute infiltrate. Consider CT to fully evaluate at this time. Otherwise recommendation is for 4-6 week PA and lateral film after treatment when the patient is able
--- NOTE | ~2022-11-12 | XR_ITS ---
EXAMINATION: XR CHEST CLINICAL INFORMATION: Left CVL placement COMPARISON: 11/15/2022 TECHNIQUE: Frontal view of the chest was obtained. FINDINGS: Endotracheal tube tip lies 4.4 cm above the david. Enteric tube courses into the stomach. Left IJ central line tip in the region of the distal SVC. The lungs are hypoinflated. Redemonstrated regions of bibasilar opacity which may be slightly worsened on the left. Small pleural effusions are suspected. No appreciable pneumothorax. Central vasculature remains prominent. The cardiomediastinal silhouette is stable. No acute osseous findings are seen. XR/XR chest 1V IMPRESSION: 1. Left IJ central line tip in the region of the distal SVC. 2. Persistent bibasilar opacities which may be slightly worsened on the left, as well as small pleural effusions. 3. Prominent central vasculature suggesting a degree of congestion.
--- NOTE | ~2022-11-12 | XR_ITS ---
EXAMINATION: XR CHEST CLINICAL INFORMATION: Status post intubation COMPARISON: AP upright portable chest 10:17 AM, TECHNIQUE: AP upright portable view of the chest was obtained. 11:50 AM FINDINGS: The tip of the endotracheal tube is 3.6 cm superior to the david. Lung volumes are low Increased bibasilar opacities. Small amount of bilateral pleural effusion. Stable prominence of the cardiac silhouette. No acute osseous abnormalities. Partially imaged abnormal small bowel dilatation pneumoperitoneum best visualized on CT from 11/14/2022. XR/XR chest 1V IMPRESSION: 1. The tip of the endotracheal tube is 3.6 cm superior to the david. 2. Worsening pulmonary aeration with increased bibasilar airspace opacities and small amount of bilateral pleural fluid. 3. Partially imaged abnormal small bowel dilatation.
--- NOTE | ~2022-11-12 | CT_ITS ---
EXAMINATION: CT ABDOMEN AND PELVIS WITH CONTRAST CLINICAL INFORMATION: Evaluate for small bowel obstruction/small bowel leak. COMPARISON: 10/14/2022 TECHNIQUE: Multidetector volumetric images were obtained from the superior aspect of the liver through the pubic symphysis following administration 85 mL of Omnipaque 350 intravenous contrast. Sagittal and coronal reformatted images were obtained on the technologist's workstation. Oral contrast: No This CT examination was performed using dose optimization techniques as appropriate, variously including the following: *Automated exposure control *Adjustment of mA and/or kV according to patient size (this includes techniques or standardized protocols for targeted exams where dose is matched to indication/reason for exam; i.e. extremities or head) *Use of iterative reconstruction technique DLP: 1408 mGy-cm FINDINGS: LUNG BASES: There is new bibasilar airspace consolidation, left side greater than right, most pronounced in the posterior aspect of the lower lobes, associated with atelectasis. There is reflux of oral contrast material into the esophagus. Evaluation of the lung bases is somewhat limited by and respiratory motion. LIVER, GALLBLADDER, AND BILIARY TREE: The liver is normal in size, shape, and attenuation. No focal hepatic lesion or biliary ductal dilatation is present. The gallbladder is unremarkable with no evidence of radiopaque gallstones, gallbladder wall thickening, or obvious pericholecystic inflammatory changes. PANCREAS: Generalized fatty atrophy of the pancreas. No ductal dilatation. SPLEEN: Unremarkable. ADRENAL GLANDS: Unremarkable. KIDNEYS AND URETERS: There is atrophy of the left upper renal pole with associated calcifications which could correspond to chronic postsurgical change or scarring at a previously seen complex cyst. Small subcentimeter foci of cortical hypoattenuation kidneys are too small to characterize, though statistically favored to correspond to simple cysts. No recommended imaging follow-up. No hydronephrosis or nephrolithiasis. BLADDER: Unremarkable. GASTROINTESTINAL TRACT: Small volume of intraperitoneal free air is noted layering anteriorly along the anterior abdominal wall. There is a relatively small volume peritoneal free fluid present in the perisplenic and perihepatic regions and bilateral paracolic gutters, right greater than left, as well as the central pelvis. Gastric decompression tube tip terminates in the body of the stomach. Stomach is distended and contains oral contrast material. The common femoral contrast extends into the dilated loops of small bowel in the midabdomen. The dilated loops slowly taper at the level of the mid to distal ileum without a discrete transition point, most typical of ileus. Bowel obstruction is less likely in the absence of a clear transition point. There is marked mesenteric fat stranding with, most pronounced around the mesenteric root with a previously seen focus of soft tissue attenuation is again noted, measuring approximately 8 x 3.3 x 6 cm . A few punctate foci of gas noted within this region of abnormal attenuation. The posterior wall of a segment of dilated small bowel appears tethered in this region (see schwab image), though a clear site of bowel perforation is not identified. There is mild to moderate colonic diverticulosis. No appreciable sites of acute diverticulitis. ABDOMINAL WALL: No significant hernia is appreciated. Fat stranding is evident in the ventral abdominal subcutaneous fat. LYMPH NODES: No significant adenopathy. VASCULAR: Calcific atherosclerosis is present in the abdominal aorta and iliac arteries. PELVIC VISCERA: Unremarkable. OSSEOUS STRUCTURES: Diffuse hepatocellular hyperostosis in the thoracic spine. No acute fracture or malalignment. Marked facet arthropathy in the lower lumbar spine with more mild degenerative disc disease. 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 Small volume of intraperitoneal free air and free fluid, concerning for bowel perforation. A clear site of perforation is not identified, however. 2. New punctate foci of gas within the region of mesenteric soft tissue attenuation and surrounding mesenteric fat stranding this could potentially corresponding to the origin of the suspected perforation as a segment of bowel tethering is suspected and a traversing small bowel, though this is not definitive. As previously noted on the prior report, the differential for this small bowel soft tissue attenuation includes sclerosing mesenteritis, desmoid tumor, carcinoid tumor, or inflammation, amongst other possibilities. 3. Dilated loops of small bowel slowly tapering at the level of the mid to distal ileum, most typical of ileus. Bowel obstruction is less likely in the absence of a clear transition point. 4. New bibasilar airspace consolidation, left side greater than right, concerning for pneumonia. Fleischner guidelines were followed.
--- NOTE | ~2022-11-12 | XR_ITS ---
EXAMINATION: XR CHEST CLINICAL INFORMATION: Persistent hypoxia. COMPARISON: Chest radiograph 11/16/2022. TECHNIQUE: AP view of the chest was obtained. FINDINGS: Endotracheal tube terminates at 3.6 cm above the david. An enteric tube terminates at the level of the proximal stomach, similar to prior. Left IJ CVC tip projects at the level of the cavoatrial junction. Esophageal temperature probe is noted. Multiple EKG leads overlie the chest. Stable prominence of the cardiomediastinal silhouette. Multifocal airspace opacities are again noted, increased on the right mid and lower lung compared to 11/16/2022. Small right-sided pleural effusion is redemonstrated. No pneumothorax. No acute osseous findings. XR/XR chest 1V IMPRESSION: 1. Endotracheal tube terminates at 3.6 cm above the david. 2. Worsening pulmonary aeration with increased airspace opacities in the right lung.
--- NOTE | ~2022-11-12 | XR_ITS ---
EXAMINATION: XR CHEST CLINICAL INFORMATION: Status-post nasogastric tube placement. COMPARISON: Chest radiograph and CTA chest dated 11/12/2022. TECHNIQUE: 2 frontal views of the chest were obtained. FINDINGS: Heart, great vessels, pulmonary vasculature and mediastinum are stable. A nasogastric tube is seen with tip positioned in the vicinity of the distal gastric body. There is stable elevation of the right hemidiaphragm. There is again mild bibasilar atelectasis. No significant pleural effusion or pneumothorax is seen. There is no acute osseous abnormality. XR/XR chest 1V IMPRESSION: A nasogastric tube is seen with tip positioned in the vicinity of the distal gastric body.
--- NOTE | ~2022-11-12 | XR_ITS ---
EXAMINATION: XR CHEST CLINICAL INFORMATION: Hypoxia. COMPARISON: Chest radiograph 11/14/2022. TECHNIQUE: Frontal view of the chest was obtained. FINDINGS: Increased bibasilar airspace opacities. Small amount of bilateral pleural fluid. Stable prominence of the cardiomediastinal silhouette. No pneumothorax. No acute osseous findings. Partially imaged abnormal small bowel dilatation, best characterized on recent CT from 11/14/2022. Pneumoperitoneum is also best visualized on CT from 11/14/2022. XR/XR chest 1V IMPRESSION: 1. Worsening pulmonary aeration with increased bibasilar airspace opacities and small amount of bilateral pleural fluid. 2. Partially imaged abnormal small bowel dilatation and pneumoperitoneum, best visualized on recent CT.
--- NOTE | ~2022-11-12 | CT_ITS ---
EXAMINATION: CT ANGIOGRAM OF THE CHEST WITH AND WITHOUT CONTRAST (CT PULMONARY ANGIOGRAM FOR PE) CLINICAL INFORMATION: Reason for Exam hypoxia post surgery; eval for PE, ?pna on cxr COMPARISON: Chest x-ray same day, CT dated 03/12/2022,, CT dated 12/04/2020, 10/14/2022 abdomen study TECHNIQUE: Prior to contrast administration, noncontrast localization images were obtained. Subsequently, multidetector volumetric imaging was performed from the thoracic inlet to below the diaphragms following the administration of 65 mL Omnipaque 350 intravenous contrast. No contrast reaction reported Sagittal, coronal, and MIP oblique sagittal reformatted images were obtained on the CT workstation, uploaded to PACS, and reviewed. This CT examination was performed using dose optimization techniques as appropriate, variously including the following: *Automated exposure control *Adjustment of mA and/or kV according to patient size (this includes techniques or standardized protocols for targeted exams where dose is matched to indication/reason for exam; i.e. extremities or head) *Use of iterative reconstruction technique Total exam dose-length product 322 mGy-cm FINDINGS: QUALITY OF STUDY/CONTRAST BOLUS: Satisfactory. There is no evidence for bowing of the septum. There is no reflux of contrast in the liver. The thoracic inlet is within normal limits. The axillary regions are unremarkable. Free air under the hemidiaphragm. Area of mildly prominent nodes are once again noted in the gastrohepatic window unchanged. Also prominent node adjacent to the distal esophagus is felt to be unchanged Centrally there is adenopathy which is felt to be more prominent than previous of 03/12/2022. Some adenopathy inferior to the right parietal region image 28 appears increased. Possible mild hilar adenopathy. This is not bulky. Imaging lung urena. Right lung; There is evidence once again of COPD. Right basilar atelectasis/infiltrate with trace pleural fluid. Density in the right upper lung. Appearance is overall similar to previous exams but this there is some increasing AP dimension when compared to study from 2020. Previously 0.8 cm AP now 1.1 cm. The entire region is measuring 3 x 1.1 x 0.9 cm. Previously 2.9 x 0.8 x 0.7 cm Left lung; Mild left basilar atelectasis with trace pleural fluid. Density once again seen in the left apex which likely represents scarring. Review of the bone windows does not demonstrate evidence for bony lesion. CT/CT angio chest PE protocol IMPRESSION: There is free air under the right hemidiaphragm. We understand the patient has had recent laparoscopic surgery There is no filling defect to suggest a pulmonary embolism This exam does demonstrate right greater than left basilar atelectasis/infiltrate with trace effusions. There is underlying COPD here. There is some mildly increasing central adenopathy which could be reactive. Follow-up would be recommended. There is also an area concern in the right upper lung which show some mild increase when compared to study of 202. This may just be ongoing chronic change but an underlying malignancy associated with scar would need to be considered. Recommend PET scan to further evaluate at this time. Otherwise as stated mildly prominent nodes elsewhere are without change from most recent previous. Attention to follow-up. These could also be assessed on PET imaging
[2022-11-12] MEDS: Melatonin 3 MG TABLET 6 MG PO ×2 (02:15→21:23)
[2022-11-12] MEDS: Lactated Ringers 1,000 ML 100 ML IVCONT ×2 (02:15→10:57)
[2022-11-12] MEDS: Acetaminophen 1,000 MG/100 ML PIGGYBACK 400 MG IV ×4 (02:17→21:20)
[2022-11-12 04:00] VITALS: BP 115/71; PULSE 92; RESP 18; TEMP 36.1; O2SAT 98
[2022-11-12 06:25] LABS: MANUAL DIFF FLAG NO
[2022-11-12] MEDS: Omeprazole 20 MG CAPSULE.DR PO (06:27)
[2022-11-12 06:40] LABS: Basophils Percent Auto 0.2 % (0-2); Eosinophils Percent Auto 0.2 % (0-4); Hematocrit 41.6 % (42.0-52.0); Hemoglobin 13.7 g/dl (14.0-18.0); Imm Gran Abs Auto 0.05 X10*3/uL (0.00-0.03); Imm Gran Pct Auto 0.4 % (0.0-0.4); Lymphocytes Absolute Auto 1.3 X10*3/uL (1.2-4.9); Lymphocytes Percent Auto 10.1 % (20-40); Mean Corpuscular HGB Conc 32.9 g/dl (31.0-36.0); Mean Corpuscular Hemoglobin 29.7 pg (27.0-33.0); Mean Platelet Volume 9.9 fL (9.4-12.4); Monocytes Absolute Auto 1.3 X10*3/uL (0.1-1.2); Monocytes Percent Auto 9.8 % (2-11); Neutrophils Absolute Auto 10.2 x10*3/uL (2.0-8.3); Neutrophils Percent Auto 79.3 % (45-73); Platelet Count 192 X10*3/uL (160-400); Red Blood Count 4.62 X10*6/uL (4.60-5.80); Red Cell Distribution Width 13.9 % (11.0-16.0); White Blood Count 12.9 X10*3/uL (4.8-10.8)
[2022-11-12 06:46] LABS: Anion Gap 12 (12-20); Blood Urea Nitrogen 13 mg/dL (9-16); Carbon Dioxide 26 mmol/L (22-29); Chloride 107 mmol/L (96-108); Creatinine Clr Calc Pharmacy 82.8; Estimated Glomerular Filt Rate > 60; Glucose Random 133 mg/dL (60-115); Potassium 4.2 mmol/L (3.3-5.1); Sodium 141 mmol/L (135-145)
[2022-11-12 07:13] VITALS: BP 123/70; PULSE 100; RESP 18; TEMP 36.4; O2SAT 90
[2022-11-12] MEDS: Docusate Sodium 100 MG CAPSULE PO ×2 (08:08→21:24)
[2022-11-12] MEDS: oxyCODONE HCl Immed Release 5 MG TABLET 10 MG PO ×2 (08:08→21:23)
[2022-11-12] MEDS: Sertraline HCL 50 MG TABLET 150 MG PO (08:09)
[2022-11-12] MEDS: Finasteride 5 MG TABLET PO (08:09)
[2022-11-12] MEDS: Gabapentin 100 MG CAPSULE 200 MG PO ×2 (08:10→14:44)
[2022-11-12] MEDS: oxyBUTYnin chloride ER 5 MG TAB.ER.24 10 MG PO (08:10)
[2022-11-12] MEDS: Memantine HCl 10 MG TABLET PO (08:10)
[2022-11-12] MEDS: dilTIAZem HCL CD 180 MG CAP.ER.24H PO (08:10)
[2022-11-12] MEDS: Donepezil HCl 10 MG TABLET PO (08:10)
--- NOTE | 2022-11-12 08:53 | P.PNGS_ITS ---
Subjective Subjective Date of Service: 11/12/22 Interval history: Feels ok this morning, sore at incisions. Tolerating diet. Has some very mild nausea. Passing flatus. Has been OOB to bathroom. Physical Exam 2 Vital Signs: Vital Signs: Last Vital Signs Temp 97.5 F 11/12/22 07:13 Pulse 100 11/12/22 07:13 Resp 18 11/12/22 07:13 BP 123/70 11/12/22 07:13 Pulse Ox 90 L 11/12/22 07:13 O2 Del Method Nasal Cannula 11/12/22 07:13 O2 Flow Rate 2 11/12/22 07:13 BMI result Body Mass Index 35.3 Const: General: comfortable, no acute distress and alert O rientation/consciousness: patient oriented x3 Resp: Effort & Inspection: normal respiratory effort GI: Inspection: Yes distended (mild) and Yes incision (dressings c/d/i) P alpation (GI): Soft to palpation, Tenderness to palpation present (GI) (mild incisional), no guarding and not rigid Percussion: Yes tympanic to percussion Skin: General skin exam: no rashes or lesions noted Neuro: General: patient oriented x3 and moves all extremities Objective Data Active Medications Albuterol Sulfate (Albuterol Sulfate (0.083%) 2.5 Mg/3 Ml Vial.Neb) 2.5 mg INHALE ONCE PRN PRN Reason: Shortness of Breath/Wheezing Albuterol Sulfate (Albuterol Sulfate (0.083%) 2.5 Mg/3 Ml Vial.Neb) 2.5 mg INHALE QID PRN PRN Reason: Shortness Of Breath Or Wheezing Albuterol Sulfate (Albuterol Sulfate 90 Mcg 8 Gm Inhaler) 2 puff INHALE Q4H PRN PRN Reason: shortness of breath or wheezin Atorvastatin Calcium (Atorvastatin Calcium 40 Mg Tablet) 40 mg PO BEDTIME [facility] Last Admin: 11/11/22 21:15 Dose: 40 mg Documented By: KATIA Diltiazem HCl (Diltiazem Hcl Cd 180 Mg Cap.Er.24h) 180 mg PO DAILY [facility]; Protocol Last Admin: 11/12/22 08:10 Dose: 180 mg Documented By: SHERRI Docusate Sodium (Docusate Sodium 100 Mg Capsule) 100 mg PO BID [facility] Last Admin: 11/12/22 08:08 Dose: 100 mg Documented By: SHERRI Donepezil HCl (Donepezil Hcl 10 Mg Tablet) 10 mg PO DAILY [facility] Last Admin: 11/12/22 08:10 Dose: 10 mg Documented By: SHERRI Fentanyl (Fentanyl Citrate/Pf 100 Mcg/2 Ml Vial) 50 mcg IVPUSH Q5M PRN; Protocol PRN Reason: Pain, Severe (Pain Scale 7-10) Last Admin: 11/11/22 13:13 Dose: 50 mcg Documented By: BRADLEY Finasteride (Finasteride 5 Mg Tablet) 5 mg PO DAILY [facility] Last Admin: 11/12/22 08:09 Dose: 5 mg Documented By: SHERRI Fluticasone Propionate (Fluticasone Propionate Nasal 16 Gm [place]) 2 spray NOSTRIL-B DAILY [facility] Gabapentin (Gabapentin 100 Mg Capsule) 200 mg PO BID@0800,1500 [facility] Last Admin: 11/12/22 08:10 Dose: 200 mg Documented By: SHERRI Gabapentin (Gabapentin 600 Mg Tablet) 600 mg PO BEDTIME [facility] Last Admin: 11/11/22 21:16 Dose: 600 mg Documented By: KATIA Lactated Ringer's (Lr) 1,000 mls @ 100 mls/hr IVCONT .Q10H [facility] Last Admin: 11/12/22 02:15 Dose: 100 mls/hr Documented By: KATIA Acetaminophen (Ofirmev) 1,000 mg in 100 mls @ 400 mls/hr IV Q6H [facility] Last Infusion: 11/12/22 08:31 Dose: Infused Documented By: SHERRI Meclizine HCl (Meclizine Hcl 25 Mg Tablet) 25 mg PO DAILY PRN PRN Reason: DIZZINESS Melatonin (Melatonin 3 Mg Tablet) 6 mg PO BEDTIME PRN PRN Reason: Insomnia Last Admin: 11/12/22 02:15 Dose: 6 mg Documented By: KATIA Memantine (Memantine Hcl 10 Mg Tablet) 10 mg PO DAILY [facility] Last Admin: 11/12/22 08:10 Dose: 10 mg Documented By: SHERRI Morphine Sulfate (Morphine Sulfate 4 Mg/Ml Cartridge) 4 mg IVPUSH Q4H PRN; Protocol PRN Reason: Pain, Severe (Pain Scale 7-10) Last Admin: 11/11/22 21:15 Dose: 4 mg Documented By: KATIA Non-Formulary Medication (Armodafinil) 150 mg PO DAILY [facility] Omeprazole (Omeprazole 20 Mg Capsule.Dr) 20 mg PO DAILY@0630 [facility] Last Admin: 11/12/22 06:27 Dose: 20 mg Documented By: KATIA Ondansetron HCl (Ondansetron Hcl 4 Mg/2 Ml Vial) 4 mg IVPUSH Q8H PRN PRN Reason: Nausea and Vomiting Oxybutynin Chloride (Oxybutynin Chloride Er 5 Mg Tab.Er.24) 10 mg PO DAILY [facility] Last Admin: 11/12/22 08:10 Dose: 10 mg Documented By: SHERRI Oxycodone HCl (Oxycodone Hcl Immed Release 5 Mg Tablet) 5 mg PO Q4H PRN PRN Reason: Pain, Moderate(Pain Scale 4-6) Oxycodone HCl (Oxycodone Hcl Immed Release 5 Mg Tablet) 10 mg PO Q4H PRN PRN Reason: Pain, Severe (Pain Scale 7-10) Last Admin: 11/12/22 08:08 Dose: 10 mg Documented By: SHERRI Primidone (Primidone 50 Mg Tablet) 100 mg PO BEDTIME [facility] Last Admin: 11/11/22 21:15 Dose: 100 mg Documented By: KATIA Sertraline HCl (Sertraline Hcl 50 Mg Tablet) 150 mg PO DAILY [facility] Last Admin: 11/12/22 08:09 Dose: 150 mg Documented By: SHERRI Sodium Chloride (0.9 % Sodium Chloride Flush 3 Ml Syringe) 3 ml IVFLUSH QSHIFT [facility] Last Admin: 11/12/22 07:03 Dose: Not Given Documented By: SHERRI Non-Admin Reason: IV Running Tamsulosin HCl (Tamsulosin Hcl 0.4 Mg Capsule) 0.4 mg PO DAILY@1700 [facility] Last Admin: 11/11/22 17:02 Dose: 0.4 mg Documented By: SHERRI Labs 11/12/22 05:45 11/12/22 05:45 Labs: Laboratory Results - last 24 hr 11/12/22 05:45 MCV 90.0 MCH 29.7 MCHC 32.9 RDW 13.9 Plt Count 192 MPV 9.9 Immature Gran % (Auto) 0.4 Neut % (Auto) 79.3 H Lymph % (Auto) 10.1 L [place] % (Auto) 9.8 Eos % (Auto) 0.2 Baso % (Auto) 0.2 Lymph # (Auto) 1.3 [place] # (Auto) 1.3 H Eos # (Auto) 0.0 Baso # (Auto) 0.0 Abs Immat Gran (auto) 0.05 H Absolute Neuts (auto) 10.2 H Absolute Nucleated RBC 0.000 Nucleated RBC % (auto) 0.0 Anion Gap 12 Estim Creat Clear Calc 82.8 Estimated GFR > 60 Random Glucose 133 H Calcium 9.0 Procedures Date of Service Date of Service: 11/12/22 Progress Note: A&P Assessment and plan (1) Mesenteric mass: Status: Acute (2) COPD (chronic obstructive pulmonary disease): Status: Acute Plan 66 year old male now POD #1 s/p diagnostic laparoscopy, mini-laparotomy, primary repair incarcerated umbilical hernia, biopsy of mesenteric mass. Doing fairly well post op. O2 low 90s but he states this is his baseline. Abd with appropriate post op tenderness, clean dressings. Wean O2. OOB/ambulation today. Will reassess later today for possible dc to home if tolerating diet, pain controlled and he remains hemodynamically stable. Pathology pending. Time Spent With Patient Time: Total time managing care of this patient today ____ minutes. Quality Stroke Does the patient have a stroke diagnosis?: No VTE Prior VTE?: No VTE Risk Level:: Surgical - high VTE Device Contraindication: N/A - Device Ordered VTE Drug Contraindication: N/A - Med Ordered
[2022-11-12] MEDS: Heparin Sodium,Porcine 5,000 UNIT/ML VIAL 5000 UNIT SUBCUT ×2 (10:56→21:24)
[2022-11-12] MEDS: Fluticasone Propionate Nasal 16 GM SPRAY 2 SPRAY NOSTRIL-B (10:56)
--- NOTE | 2022-11-12 11:27 | HO.POSTANES ---
Post Anesthesia Evaluation Post Anesthesia Evaluation Date of Service: 11/12/22 Vital Signs: Vital Signs Temp Pulse Resp BP Pulse Ox O2 Del Method O2 Flow Rate 11/12/22 07:13 97.5 F 100 18 123/70 90 L Nasal Cannula 2 11/12/22 04:00 97 F 92 18 115/71 98 Room Air Anesthesia: General Mental Status: Awake Pain Control: Satisfactory (incisional pain) Nausea/Vomiting: None Hydration: Adequate Anesthesia-Related Issues: No Anes. Related Issues
--- NOTE | 2022-11-12 15:04 | MHC.CM.PN ---
pt lives with son has her own ride home does not expect to need servcies when dcd
--- NOTE | 2022-11-12 15:17 | PM.IMCN ---
History of Present Illness Data of Consult Service Date: 11/12/22 Primary Care Provider: Dionicio Coe MD [facility] Reason for consult: s/p diagnostic laparoscopy, COPD, hypoxemia This is a 66 year old male with history of antithrombin 3 deficiency, h/o mesenteric & portal vein thrombosis, DVT, PE, atrial fibrillation, COPD, DANNY, recently identified mesenteric irregularity who presented for diagnostic laparoscopy found to have postoperative hypoxia. the hospitalists were asked to see him in consultation for assessment of hypoxia. patient states o2 sats are always borderline due to underlying COPD and home o2 has been discussed, but does not currently use home oxygen. he describes chronic shortness of breath which seems unchanged recently. he denies cough. he has history of clotting issue and is on lifelong anticoagulation with coumadin but he is unable to provide any details regarding this. His coumadin was stopped 5 days before the surgical procedure. Review of Systems Review of Systems: Yes all other systems are reviewed and are negative Constitutional: Constitutional: Denies chills and Denies fever(s) ENT: Denies dizziness Cardiovascular: Cardiovascular: Denies chest pain and Reports dyspnea Respiratory: Respiratory: Reports dyspnea Gastrointestinal: Gastrointestinal: Denies abdominal pain Neurologic: Denies dizziness [facility] Medical History (Updated 11/12/22 @ 16:51 by TAHIR Haro) Kidney stones Pulmonary nodules Orthostatic dizziness Laryngitis DANNY on CPAP Paroxysmal atrial fibrillation COPD (chronic obstructive pulmonary disease) Functional capacity: uses cane/walker Family History Father No problems noted. Mother CVD (cardiovascular disease) Surgical History Hx of colonoscopy History of ankle surgery Hx of elbow surgery Social History Household Members: Children Household Members Other:: son Housing: Apartment Are you a primary manager home healthcare to a significant other at home: No Do you presently have visiting nurse or other home services: Yes ([employer] 2hrs daily everyday for help with ADLS) Alcohol intake: never Patient Tobacco Use Status: Former Tobacco user Quit Date: 2002 Tobacco use type: Cigarette Years Smoked: 20 years Use of substances other than those prescribed or required for medical reasons: No Currently Displaying Signs/Symptoms of Drug Intoxication Withdrawal: No Have you been hit, kicked, punched, or otherwise hurt by someone within the past year? If so, by whom?: No Do you feel safe in your current relationship?: No Current Relationship Is there a partner from a previous relationship who is making you feel unsafe now?: No Are you made to feel afraid or neglected: No Are you DNR?: No Advance Directives: Yes Advance Directives Information Provided: Yes Advance Directives on File: Yes Advance Directives Date on File: 11/30/19 Do you have thoughts of harming others: None Do you have a plan to hurt others: No Plan Recently lost weight without trying: No Eating poorly because of decreased appetite: Yes Nutrition Risks: No Nutritional Risk Poor oral hygiene: No service: No Meds Allergies Allergy/AdvReac Type Severity Reaction Status Date / Time bupropion [From WELLBUTRIN] Allergy Severe HALLUCINATI Verified 10/27/22 09:07 ON pseudoephedrine Allergy Severe JITTERY Verified 10/27/22 09:07 [From SUDAFED] Active Medications: Current Medications Albuterol Sulfate (Albuterol Sulfate (0.083%) 2.5 Mg/3 Ml Vial.Neb) 2.5 mg INHALE ONCE PRN PRN Reason: Shortness of Breath/Wheezing Albuterol Sulfate (Albuterol Sulfate (0.083%) 2.5 Mg/3 Ml Vial.Neb) 2.5 mg INHALE QID PRN PRN Reason: Shortness Of Breath Or Wheezing Albuterol Sulfate (Albuterol Sulfate 90 Mcg 8 Gm Inhaler) 2 puff INHALE Q4H PRN PRN Reason: shortness of breath or wheezin Atorvastatin Calcium (Atorvastatin Calcium 40 Mg Tablet) 40 mg PO BEDTIME [facility] Last Admin: 11/11/22 21:15 Dose: 40 mg Diltiazem HCl (Diltiazem Hcl Cd 180 Mg Cap.Er.24h) 180 mg PO DAILY [facility]; Protocol Last Admin: 11/12/22 08:10 Dose: 180 mg Docusate Sodium (Docusate Sodium 100 Mg Capsule) 100 mg PO BID [facility] Last Admin: 11/12/22 08:08 Dose: 100 mg Donepezil HCl (Donepezil Hcl 10 Mg Tablet) 10 mg PO DAILY [facility] Last Admin: 11/12/22 08:10 Dose: 10 mg Finasteride (Finasteride 5 Mg Tablet) 5 mg PO DAILY [facility] Last Admin: 11/12/22 08:09 Dose: 5 mg Fluticasone Propionate (Fluticasone Propionate Nasal 16 Gm [place]) 2 spray NOSTRIL-B DAILY [facility] Last Admin: 11/12/22 10:56 Dose: 2 spray Gabapentin (Gabapentin 100 Mg Capsule) 200 mg PO BID@0800,1500 [facility] Last Admin: 11/12/22 14:44 Dose: 200 mg Gabapentin (Gabapentin 600 Mg Tablet) 600 mg PO BEDTIME [facility] Last Admin: 11/11/22 21:16 Dose: 600 mg Heparin Sodium (Porcine) (Heparin Sodium,Porcine 5,000 Unit/Ml Vial) 5,000 unit SUBCUT Q8H [facility] Last Admin: 11/12/22 10:56 Dose: 5,000 unit Acetaminophen (Ofirmev) 1,000 mg in 100 mls @ 400 mls/hr IV Q6H [facility] Last Infusion: 11/12/22 15:16 Dose: Infused Meclizine HCl (Meclizine Hcl 25 Mg Tablet) 25 mg PO DAILY PRN PRN Reason: DIZZINESS Melatonin (Melatonin 3 Mg Tablet) 6 mg PO BEDTIME PRN PRN Reason: Insomnia Last Admin: 11/12/22 02:15 Dose: 6 mg Memantine (Memantine Hcl 10 Mg Tablet) 10 mg PO DAILY [facility] Last Admin: 11/12/22 08:10 Dose: 10 mg Morphine Sulfate (Morphine Sulfate 4 Mg/Ml Cartridge) 4 mg IVPUSH Q4H PRN; Protocol PRN Reason: Pain, Severe (Pain Scale 7-10) Last Admin: 11/11/22 21:15 Dose: 4 mg Pt Own Armodafinil (150 Mg Tablet) 150 mg PO DAILY [facility] Last Admin: 11/12/22 10:56 Dose: 150 mg Omeprazole (Omeprazole 20 Mg Capsule.Dr) 20 mg PO DAILY@0630 [facility] Last Admin: 11/12/22 06:27 Dose: 20 mg Ondansetron HCl (Ondansetron Hcl 4 Mg/2 Ml Vial) 4 mg IVPUSH Q8H PRN PRN Reason: Nausea and Vomiting Oxybutynin Chloride (Oxybutynin Chloride Er 5 Mg Tab.Er.24) 10 mg PO DAILY [facility] Last Admin: 11/12/22 08:10 Dose: 10 mg Oxycodone HCl (Oxycodone Hcl Immed Release 5 Mg Tablet) 5 mg PO Q4H PRN PRN Reason: Pain, Moderate(Pain Scale 4-6) Oxycodone HCl (Oxycodone Hcl Immed Release 5 Mg Tablet) 10 mg PO Q4H PRN PRN Reason: Pain, Severe (Pain Scale 7-10) Last Admin: 11/12/22 08:08 Dose: 10 mg Primidone (Primidone 50 Mg Tablet) 100 mg PO BEDTIME [facility] Last Admin: 11/11/22 21:15 Dose: 100 mg Sertraline HCl (Sertraline Hcl 50 Mg Tablet) 150 mg PO DAILY [facility] Last Admin: 11/12/22 08:09 Dose: 150 mg Sodium Chloride (0.9 % Sodium Chloride Flush 3 Ml Syringe) 3 ml IVFLUSH [facility] Last Admin: 11/12/22 07:03 Dose: Not Given Tamsulosin HCl (Tamsulosin Hcl 0.4 Mg Capsule) 0.4 mg PO DAILY@1700 [facility] Last Admin: 11/11/22 17:02 Dose: 0.4 mg Home Medications Medication Instructions Recorded Confirmed Last Taken Type acetaminophen 650 mg 650 mg PO TID 11/24/19 11/11/22 11/10/22 History tablet,extended release (Tylenol 8 Hour) finasteride 5 mg tablet 5 mg PO DAILY 11/24/19 11/11/22 11/10/22 History omeprazole 20 mg capsule,delayed 20 mg PO DAILY 11/24/19 11/11/22 11/10/22 History release gabapentin 100 mg capsule 200 mg PO BID 11/27/19 11/11/22 11/10/22 History gabapentin 600 mg tablet 600 mg PO BEDTIME 05/19/20 11/11/22 11/10/22 History levocetirizine 5 mg tablet (Xyzal) 5 mg PO BEDTIME 10/17/20 11/09/22 Unknown History tamsulosin 0.4 mg capsule 0.4 mg PO DAILY@1700 12/18/21 11/11/22 11/10/22 History docusate sodium 100 mg capsule 100 mg PO DAILY PRN Constipation 06/09/22 11/09/22 Unknown History (Colace) cyclobenzaprine 10 mg tablet 10 mg PO BID PRN Muscle Spasm 06/21/22 11/11/22 Unknown History donepezil 5 mg tablet 10 mg PO DAILY 07/26/22 11/11/22 11/10/22 History meclizine 25 mg tablet 25 mg PO DAILY 09/13/22 11/11/22 11/10/22 History memantine 10 mg tablet 10 mg PO DAILY 09/13/22 11/11/22 11/10/22 History oxybutynin chloride 10 mg 10 mg PO DAILY 09/13/22 11/11/22 11/10/22 History tablet,extended release 24 hr primidone 50 mg tablet 100 mg PO BEDTIME 09/13/22 11/11/22 11/10/22 History sertraline 100 mg tablet 150 mg PO DAILY 09/20/22 11/11/22 11/10/22 History albuterol sulfate 2.5 mg/3 mL 2.5 mg inhalation QID PRN 11/09/22 11/09/22 Unknown History (0.083 %) solution for nebulization Shortness Of Breath Or Wheezing atorvastatin 40 mg tablet 40 mg PO BEDTIME 11/09/22 11/11/22 11/10/22 History montelukast 10 mg tablet 10 mg PO BEDTIME 11/09/22 11/11/22 11/10/22 History warfarin 3 mg tablet 1.5 mg PO SUTUFRSA@1800 11/11/22 11/11/22 Unknown History warfarin 3 mg tablet 3 mg PO MOWETH@1800 11/11/22 11/11/22 Unknown History Physical Exam Vital Signs and Narrative: Vital Signs: Last Vital Signs Temp 97.5 F 11/12/22 07:13 Pulse 100 11/12/22 07:13 Resp 18 11/12/22 07:13 BP 123/70 11/12/22 07:13 Pulse Ox 90 L 11/12/22 07:13 O2 Del Method Nasal Cannula 11/12/22 07:13 O2 Flow Rate 2 11/12/22 07:13 BMI result Body Mass Index 35.3 Const: General: cooperative, comfortable, alert and awake Nutritional Appearance: overweight Orientation/consciousness: patient oriented x3 Resp: Other: diminished breath sounds; no wheezing Effort & Inspection: normal respiratory effort, able to speak in complete sentences, no respiratory distress and no use of accessory muscles Cardio: Rate: regular rate Heart sounds: S1 normal heart sound present and S2 normal heart sound present GI: Other: abdominal incision c/d/i dressing Neuro: Other: grossly nonfocal General: patient oriented x3 and moves all extremities Extrem: General: Yes no pedal edema Results Labs 11/12/22 05:45 11/12/22 05:45 Labs: Laboratory Results - last 24 hr 11/12/22 05:45 MCV 90.0 MCH 29.7 MCHC 32.9 RDW 13.9 Plt Count 192 MPV 9.9 Immature Gran % (Auto) 0.4 Neut % (Auto) 79.3 H Lymph % (Auto) 10.1 L [place] % (Auto) 9.8 Eos % (Auto) 0.2 Baso % (Auto) 0.2 Lymph # (Auto) 1.3 [place] # (Auto) 1.3 H Eos # (Auto) 0.0 Baso # (Auto) 0.0 Abs Immat Gran (auto) 0.05 H Absolute Neuts (auto) 10.2 H Absolute Nucleated RBC 0.000 Nucleated RBC % (auto) 0.0 Anion Gap 12 Estim Creat Clear Calc 82.8 Estimated GFR > 60 Random Glucose 133 H Calcium 9.0 Assessment and Plan (1) Antithrombin 3 deficiency: Status: Acute (2) COPD (chronic obstructive pulmonary disease): Qualifiers: COPD type: chronic bronchitis Chronic bronchitis type: simple Qualified Code(s): J41.0 - Simple chronic bronchitis Status: Acute Plan This is a 66 year old male with history of h/o mesenteric & portal vein thrombosis, DVT, 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, atrial fibrillation, COPD, DANNY, recently identified mesenteric irregularity who presented for diagnostic laparoscopy found to have postoperative hypoxia acute respiratory failure with hypoxia pt states o2 sats are always borderline and home o2 has been discussed, but does not currently use home oxygen he describes chronic shortness of breath which seems unchanged recently h/o COPD but no acute exacerbation at this time, no wheezing on exam -will check CXR -prn breathing treatments -continue supplemental oxygen will goal o2 above 90% -if worsening hypoxia, low threshold for CTA given history of PE -may need home o2 eval prior to discharge antithrombin 3 deficiency discussed with hematology and surgery - will plan to resume coumadin tomorrow with lovenox bridge until INR therapeutic. last dose of subq heparin tonight follow INR s/p diagnostic laparascopy management per surgical team follow up pathology thank you for allowing us to participate in the care of this patient, we will follow along with you Time Spent With Patient Time: Total time managing care of this patient today ____ minutes.
[2022-11-12 16:09] VITALS: BP 133/77; PULSE 92; RESP 20; TEMP 36.3; O2SAT 94
[2022-11-12] MEDS: Tamsulosin HCL 0.4 MG CAPSULE PO (17:11)
[2022-11-12] MEDS: iohexoL 350 MG/ML 100 ML INFUS..BTL IV (18:58)
[2022-11-12 20:29] VITALS: BP 138/69; PULSE 94; RESP 22; TEMP 36.4; O2SAT 92
[2022-11-12] MEDS: Atorvastatin Calcium 40 MG TABLET PO (21:23)
[2022-11-12] MEDS: 0.9 % Sodium Chloride Flush 3 ML SYRINGE IVFLUSH (21:23)
[2022-11-12] MEDS: Primidone 50 MG TABLET 100 MG PO (21:23)
[2022-11-12] MEDS: Gabapentin 600 MG TABLET PO (21:24)
[2022-11-13] MEDS: Acetaminophen 1,000 MG/100 ML PIGGYBACK 400 MG IV ×4 (03:39→20:22)
[2022-11-13 04:00] VITALS: BP 119/74; PULSE 89; RESP 16; TEMP 36; O2SAT 92
[2022-11-13] MEDS: Omeprazole 20 MG CAPSULE.DR PO (06:20)
[2022-11-13 07:25] VITALS: BP 100/57; PULSE 97; RESP 18; TEMP 36.6; O2SAT 93
--- NOTE | 2022-11-13 08:08 | P.PNGS_ITS ---
Subjective Subjective Date of Service: 11/13/22 Interval history: Patient reports some incisional pain but generally feels well. Did not eat much for dinner yesterday because he did not like the food. He is requesting discharge to home Physical Exam 2 Vital Signs: Vital Signs: Last Vital Signs Temp 97.8 F 11/13/22 07:25 Pulse 97 11/13/22 07:25 Resp 18 11/13/22 07:25 BP 100/57 L 11/13/22 07:25 Pulse Ox 93 11/13/22 07:25 O2 Del Method Nasal Cannula 11/13/22 07:25 O2 Flow Rate 3 11/13/22 07:25 BMI result Body Mass Index 35.3 Const: General: no acute distress Nutritional Appearance: well nourished Orientation/consciousness: patient oriented x3 Limitations: no limitations Resp: Effort & Inspection: normal respiratory effort GI: Other: dressings removed, incisions clean, dry and intact without redness or discharge. Abdomen distended, positive bowel sounds. Skin: Other: Warm, dry, no rash Neuro: General: patient oriented x3 Extrem: Other: no peripheral edema Objective Data Active Medications Albuterol Sulfate (Albuterol Sulfate (0.083%) 2.5 Mg/3 Ml Vial.Neb) 2.5 mg INHALE ONCE PRN PRN Reason: Shortness of Breath/Wheezing Albuterol Sulfate (Albuterol Sulfate (0.083%) 2.5 Mg/3 Ml Vial.Neb) 2.5 mg INHALE QID PRN PRN Reason: Shortness Of Breath Or Wheezing Albuterol Sulfate (Albuterol Sulfate 90 Mcg 8 Gm Inhaler) 2 puff INHALE Q4H PRN PRN Reason: shortness of breath or wheezin Albuterol/Ipratropium (Albuterol/Iprat 2.5/0.5mg 3 Ml Ampul.Neb) 3 ml INHALE RQ6H WHILE AWAKE PRN PRN Reason: Shortness of Breath/Wheezing Atorvastatin Calcium (Atorvastatin Calcium 40 Mg Tablet) 40 mg PO BEDTIME DELFIN Last Admin: 11/12/22 21:23 Dose: 40 mg Documented By: AVIS Diltiazem HCl (Diltiazem Hcl Cd 180 Mg Cap.Er.24h) 180 mg PO DAILY [facility]; Protocol Last Admin: 11/12/22 08:10 Dose: 180 mg Documented By: SHERRI Docusate Sodium (Docusate Sodium 100 Mg Capsule) 100 mg PO BID [facility] Last Admin: 11/12/22 21:24 Dose: 100 mg Documented By: AVIS Donepezil HCl (Donepezil Hcl 10 Mg Tablet) 10 mg PO DAILY [facility] Last Admin: 11/12/22 08:10 Dose: 10 mg Documented By: SHERRI Enoxaparin Sodium (Enoxaparin Sodium 80 Mg/0.8 Ml Syringe) 160 mg 1.5 mg/kg (160 mg) SUBCUT Q24H [facility] Finasteride (Finasteride 5 Mg Tablet) 5 mg PO DAILY [facility] Last Admin: 11/12/22 08:09 Dose: 5 mg Documented By: SHERRI Fluticasone Propionate (Fluticasone Propionate Nasal 16 Gm [place]) 2 spray NOSTRIL-B DAILY [facility] Last Admin: 11/12/22 10:56 Dose: 2 spray Documented By: SHERRI Gabapentin (Gabapentin 100 Mg Capsule) 200 mg PO BID@0800,1500 [facility] Last Admin: 11/12/22 14:44 Dose: 200 mg Documented By: SHERRI Gabapentin (Gabapentin 600 Mg Tablet) 600 mg PO BEDTIME [facility] Last Admin: 11/12/22 21:24 Dose: 600 mg Documented By: AVIS Acetaminophen (Ofirmev) 1,000 mg in 100 mls @ 400 mls/hr IV Q6H [facility] Last Infusion: 11/13/22 03:57 Dose: Infused Documented By: AVIS Ampicillin Sodium/Sulbactam (Sodium 1.5 gm/ Sodium Chloride) 100 mls @ 200 mls/hr IV Q6H [facility] Meclizine HCl (Meclizine Hcl 25 Mg Tablet) 25 mg PO DAILY PRN PRN Reason: DIZZINESS Melatonin (Melatonin 3 Mg Tablet) 6 mg PO BEDTIME PRN PRN Reason: Insomnia Last Admin: 11/12/22 21:23 Dose: 6 mg Documented By: AVIS Memantine (Memantine Hcl 10 Mg Tablet) 10 mg PO DAILY [facility] Last Admin: 11/12/22 08:10 Dose: 10 mg Documented By: SHERRI Morphine Sulfate (Morphine Sulfate 4 Mg/Ml Cartridge) 4 mg IVPUSH Q4H PRN; Protocol PRN Reason: Pain, Severe (Pain Scale 7-10) Last Admin: 11/11/22 21:15 Dose: 4 mg Documented By: KATIA Pt Own Armodafinil (150 Mg Tablet) 150 mg PO DAILY [facility] Last Admin: 11/12/22 10:56 Dose: 150 mg Documented By: SHERRI Comments: pharmacy late to bring up med Omeprazole (Omeprazole 20 Mg Capsule.Dr) 20 mg PO DAILY@0630 [facility] Last Admin: 11/13/22 06:20 Dose: 20 mg Documented By: AVIS Ondansetron HCl (Ondansetron Hcl 4 Mg/2 Ml Vial) 4 mg IVPUSH Q8H PRN PRN Reason: Nausea and Vomiting Oxybutynin Chloride (Oxybutynin Chloride Er 5 Mg Tab.Er.24) 10 mg PO DAILY [facility] Last Admin: 11/12/22 08:10 Dose: 10 mg Documented By: SHERRI Oxycodone HCl (Oxycodone Hcl Immed Release 5 Mg Tablet) 5 mg PO Q4H PRN PRN Reason: Pain, Moderate(Pain Scale 4-6) Oxycodone HCl (Oxycodone Hcl Immed Release 5 Mg Tablet) 10 mg PO Q4H PRN PRN Reason: Pain, Severe (Pain Scale 7-10) Last Admin: 11/12/22 21:23 Dose: 10 mg Documented By: AVIS Primidone (Primidone 50 Mg Tablet) 100 mg PO BEDTIME [facility] Last Admin: 11/12/22 21:23 Dose: 100 mg Documented By: AVIS Sertraline HCl (Sertraline Hcl 50 Mg Tablet) 150 mg PO DAILY [facility] Last Admin: 11/12/22 08:09 Dose: 150 mg Documented By: SHERRI Sodium Chloride (0.9 % Sodium Chloride Flush 3 Ml Syringe) 3 ml IVFLUSH QSHIFT [facility] Last Admin: 11/12/22 21:23 Dose: 3 ml Documented By: AVIS Tamsulosin HCl (Tamsulosin Hcl 0.4 Mg Capsule) 0.4 mg PO DAILY@1700 [facility] Last Admin: 11/12/22 17:11 Dose: 0.4 mg Documented By: SHERRI Warfarin Sodium (Warfarin Sodium 3 Mg Tablet) 3 mg PO MOWETH@1800 [facility] Warfarin Sodium (Warfarin Sodium 0.5 Mg Halftab) 1.5 mg PO SUTUFRSA@1800 [facility] Labs 11/12/22 05:45 11/12/22 05:45 Procedures Date of Service Date of Service: 11/13/22 Progress Note: A&P Assessment and plan (1) Mesenteric mass: Status: Acute Plan 66-year-old male, pod 2 following mesenteric biopsy. Patient tolerating some solid food with no flatus or BM yet. Patient continues to use IV pain medications. Will switch to oral pain medication. 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 Encourage deep breathing exercises and ambulation. Time Spent With Patient Time: Total time managing care of this patient today ____ minutes. Quality Stroke Does the patient have a stroke diagnosis?: No VTE Prior VTE?: No VTE Risk Level:: Surgical - high VTE Device Contraindication: N/A - Device Ordered VTE Drug Contraindication: N/A - Med Ordered
[2022-11-13] MEDS: Ampicillin Sodium/Sulbactam Na 1.5 GM in 0.9 % Sodium Chloride 100 ML IV ×3 (08:30→20:52)
[2022-11-13] MEDS: dilTIAZem HCL CD 180 MG CAP.ER.24H PO (08:31)
[2022-11-13] MEDS: oxyBUTYnin chloride ER 5 MG TAB.ER.24 10 MG PO (08:31)
[2022-11-13] MEDS: Sertraline HCL 50 MG TABLET 150 MG PO (08:31)
[2022-11-13] MEDS: Docusate Sodium 100 MG CAPSULE PO ×2 (08:31→20:23)
[2022-11-13] MEDS: Memantine HCl 10 MG TABLET PO (08:31)
[2022-11-13] MEDS: Gabapentin 100 MG CAPSULE 200 MG PO ×2 (08:31→14:53)
[2022-11-13] MEDS: Finasteride 5 MG TABLET PO (08:31)
[2022-11-13] MEDS: Donepezil HCl 10 MG TABLET PO (08:31)
[2022-11-13] MEDS: Enoxaparin Sodium 80 MG/0.8 ML SYRINGE 160 MG SUBCUT (08:32)
[2022-11-13] MEDS: Fluticasone Propionate Nasal 16 GM SPRAY 2 SPRAY NOSTRIL-B (08:32)
[2022-11-13] MEDS: 0.9 % Sodium Chloride Flush 3 ML SYRINGE IVFLUSH ×3 (08:32→20:23)
[2022-11-13 08:42] LABS: Hematocrit 40.2 % (42.0-52.0); Hemoglobin 13.4 g/dl (14.0-18.0); Mean Corpuscular HGB Conc 33.3 g/dl (31.0-36.0); Mean Corpuscular Volume 89.9 fL (80.0-98.0); Mean Platelet Volume 10.3 fL (9.4-12.4); Platelet Count 187 X10*3/uL (160-400); Red Blood Count 4.47 X10*6/uL (4.60-5.80); Red Cell Distribution Width 14.2 % (11.0-16.0); White Blood Count 11.2 X10*3/uL (4.8-10.8)
[2022-11-13 08:53] LABS: INTERNATIONAL NORM RATIO 1.2 (0.9-1.1); Prothrombin Time 14.5 SEC (11.1-13.3)
[2022-11-13 09:25] LABS: Procalcitonin 1.24 ng/mL
[2022-11-13 13:02] VITALS: O2SAT 91
[2022-11-13] MEDS: oxyCODONE HCl Immed Release 5 MG TABLET PO (13:37)
[2022-11-13 15:35] VITALS: BP 120/58; PULSE 89; RESP 18; TEMP 36.3; O2SAT 91
--- NOTE | 2022-11-13 15:39 | HO.PM.IMPN ---
Subjective Subjective Date of Service: 11/13/22 Interval History: seen and examined this morning follow up for medical consultation, hypoxia this morning reporting cough, still with sob Review of Systems Review of Systems: Yes all other systems are reviewed and are negative Constitutional Constitutional: Denies chills and Denies fever(s) Cardiovascular Cardiovascular: Denies chest pain and Reports dyspnea Respiratory Respiratory: Reports cough and Reports dyspnea Gastrointestinal Gastrointestinal: Denies abdominal pain Physical Exam Vital Signs: Vital Signs: Last Vital Signs Temp 97.4 F 11/13/22 15:35 Pulse 89 11/13/22 15:35 Resp 18 11/13/22 15:35 BP 120/58 L 11/13/22 15:35 Pulse Ox 91 L 11/13/22 15:35 O2 Del Method Nasal Cannula 11/13/22 15:35 O2 Flow Rate 2 11/13/22 15:35 BMI result Body Mass Index 35.3 Const: General: cooperative, comfortable, alert and awake Nutritional Appearance: overweight Orientation/consciousness: patient oriented x3 Resp: Other: diminished breath sounds; no wheezing Effort & Inspection: normal respiratory effort, able to speak in complete sentences, no respiratory distress and no use of accessory muscles Cardio: Rate: regular rate Heart sounds: S1 normal heart sound present and S2 normal heart sound present GI: Other: incisions clean and dry; softly distended Neuro: Other: grossly nonfocal General: patient oriented x3 and moves all extremities Extrem: General: Yes no pedal edema Objective Data Active Medications Albuterol Sulfate (Albuterol Sulfate (0.083%) 2.5 Mg/3 Ml Vial.Neb) 2.5 mg INHALE ONCE PRN PRN Reason: Shortness of Breath/Wheezing Albuterol Sulfate (Albuterol Sulfate (0.083%) 2.5 Mg/3 Ml Vial.Neb) 2.5 mg INHALE QID PRN PRN Reason: Shortness Of Breath Or Wheezing Albuterol Sulfate (Albuterol Sulfate 90 Mcg 8 Gm Inhaler) 2 puff INHALE Q4H PRN PRN Reason: shortness of breath or wheezin Albuterol/Ipratropium (Albuterol/Iprat 2.5/0.5mg 3 Ml Ampul.Neb) 3 ml INHALE RQ6H WHILE AWAKE PRN PRN Reason: Shortness of Breath/Wheezing Atorvastatin Calcium (Atorvastatin Calcium 40 Mg Tablet) 40 mg PO BEDTIME [facility] Last Admin: 11/12/22 21:23 Dose: 40 mg Documented By: AVIS Diltiazem HCl (Diltiazem Hcl Cd 180 Mg Cap.Er.24h) 180 mg PO DAILY [facility]; Protocol Last Admin: 11/13/22 08:31 Dose: 180 mg Documented By: COTEMA Docusate Sodium (Docusate Sodium 100 Mg Capsule) 100 mg PO BID [facility] Last Admin: 11/13/22 08:31 Dose: 100 mg Documented By: COTEMA Donepezil HCl (Donepezil Hcl 10 Mg Tablet) 10 mg PO DAILY [facility] Last Admin: 11/13/22 08:31 Dose: 10 mg Documented By: COTEMA Enoxaparin Sodium (Enoxaparin Sodium 80 Mg/0.8 Ml Syringe) 160 mg 1.5 mg/kg (160 mg) SUBCUT Q24H [facility] Last Admin: 11/13/22 08:32 Dose: 160 mg Documented By: GABO Finasteride (Finasteride 5 Mg Tablet) 5 mg PO DAILY [facility] Last Admin: 11/13/22 08:31 Dose: 5 mg Documented By: COTEMA Fluticasone Propionate (Fluticasone Propionate Nasal 16 Gm [place]) 2 spray NOSTRIL-B DAILY [facility] Last Admin: 11/13/22 08:32 Dose: 2 spray Documented By: GABO Gabapentin (Gabapentin 100 Mg Capsule) 200 mg PO BID@0800,1500 [facility] Last Admin: 11/13/22 14:53 Dose: 200 mg Documented By: BROOKEEMA Gabapentin (Gabapentin 600 Mg Tablet) 600 mg PO BEDTIME [facility] Last Admin: 11/12/22 21:24 Dose: 600 mg Documented By: AVIS Acetaminophen (Ofirmev) 1,000 mg in 100 mls @ 400 mls/hr IV Q6H [facility] Last Infusion: 11/13/22 15:13 Dose: Infused Documented By: COTEMA Ampicillin Sodium/Sulbactam (Sodium 1.5 gm/ Sodium Chloride) 100 mls @ 200 mls/hr IV Q6H [facility] Last Infusion: 11/13/22 14:29 Dose: Infused Documented By: BROOKEEMA Meclizine HCl (Meclizine Hcl 25 Mg Tablet) 25 mg PO DAILY PRN PRN Reason: DIZZINESS Melatonin (Melatonin 3 Mg Tablet) 6 mg PO BEDTIME PRN PRN Reason: Insomnia Last Admin: 11/12/22 21:23 Dose: 6 mg Documented By: AVIS Memantine (Memantine Hcl 10 Mg Tablet) 10 mg PO DAILY [facility] Last Admin: 11/13/22 08:31 Dose: 10 mg Documented By: COTEMA Morphine Sulfate (Morphine Sulfate 4 Mg/Ml Cartridge) 4 mg IVPUSH Q4H PRN; Protocol PRN Reason: Pain, Severe (Pain Scale 7-10) Last Admin: 11/11/22 21:15 Dose: 4 mg Documented By: KATIA Pt Own Armodafinil (150 Mg Tablet) 150 mg PO DAILY [facility] Last Admin: 11/13/22 08:48 Dose: 150 mg Documented By: COTFRANCIS Omeprazole (Omeprazole 20 Mg Capsule.Dr) 20 mg PO DAILY@0630 [facility] Last Admin: 11/13/22 06:20 Dose: 20 mg Documented By: AVIS Ondansetron HCl (Ondansetron Hcl 4 Mg/2 Ml Vial) 4 mg IVPUSH Q8H PRN PRN Reason: Nausea and Vomiting Oxybutynin Chloride (Oxybutynin Chloride Er 5 Mg Tab.Er.24) 10 mg PO DAILY [facility] Last Admin: 11/13/22 08:31 Dose: 10 mg Documented By: COTFRANCIS Oxycodone HCl (Oxycodone Hcl Immed Release 5 Mg Tablet) 5 mg PO Q4H PRN PRN Reason: Pain, Moderate(Pain Scale 4-6) Last Admin: 11/13/22 13:37 Dose: 5 mg Documented By: COTEMA Oxycodone HCl (Oxycodone Hcl Immed Release 5 Mg Tablet) 10 mg PO Q4H PRN PRN Reason: Pain, Severe (Pain Scale 7-10) Last Admin: 11/12/22 21:23 Dose: 10 mg Documented By: AVIS Primidone (Primidone 50 Mg Tablet) 100 mg PO BEDTIME [facility] Last Admin: 11/12/22 21:23 Dose: 100 mg Documented By: AVIS Sertraline HCl (Sertraline Hcl 50 Mg Tablet) 150 mg PO DAILY [facility] Last Admin: 11/13/22 08:31 Dose: 150 mg Documented By: GABO Sodium Chloride (0.9 % Sodium Chloride Flush 3 Ml Syringe) 3 ml IVFLUSH QSHIFT [facility] Last Admin: 11/13/22 14:54 Dose: 3 ml Documented By: GABO Tamsulosin HCl (Tamsulosin Hcl 0.4 Mg Capsule) 0.4 mg PO DAILY@1700 [facility] Last Admin: 11/12/22 17:11 Dose: 0.4 mg Documented By: SHERRI Warfarin Sodium (Warfarin Sodium 3 Mg Tablet) 3 mg PO MOWETH@1800 [facility] Warfarin Sodium (Warfarin Sodium 0.5 Mg Halftab) 1.5 mg PO SUTUFRSA@1800 [facility] Labs 11/13/22 07:31 11/12/22 05:45 Labs: Laboratory Results - last 24 hr 11/13/22 07:31 MCV 89.9 MCH 30.0 MCHC 33.3 RDW 14.2 Plt Count 187 MPV 10.3 Absolute Nucleated RBC 0.000 Nucleated RBC % (auto) 0.0 PT 14.5 H INR 1.2 H Procalcitonin 1.24 Assessment and Plan (1) Acute respiratory failure with hypoxia: Status: Acute (2) Antithrombin 3 deficiency: Status: Acute (3) Mesenteric mass: Status: Acute Plan This is a 66 year old male with history of h/o mesenteric & portal vein thrombosis, DVT, 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, atrial fibrillation, COPD, DANNY, recently identified mesenteric irregularity who presented for diagnostic laparoscopy found to have postoperative hypoxia acute respiratory failure with hypoxia pt states o2 sats are always borderline and home o2 has been discussed, but does not currently use home oxygen he describes chronic shortness of breath which seems unchanged recently h/o COPD but no acute exacerbation at this time, no wheezing on exam CTA obtained - negative for PE but with right greater then left basilar atelectasis/infiltrate with trace effusions, underlying COPD, some increasing central adenopathy -continue supplemental oxygen will goal o2 above 90% -will start unasyn to cover for possible aspiration pneumonia -may need home o2 eval prior to discharge -will need outpatient follow up for RUL changes seen on imaging - possibly chronic vs underling malignancy - rec outpatient PET scan -continue IS, out of bed to chair, adequate pain control antithrombin 3 deficiency discussed with hematology and surgery - plan to resume coumadin 11/13 with lovenox bridge until INR therapeutic follow INR s/p diagnostic laparascopy management per surgical team follow up pathology thank you for allowing us to participate in the care of this patient, we will follow along with you Time Spent With Patient Time: Total time managing care of this patient today ____ minutes. Quality Stroke Does the patient have a stroke diagnosis?: No VTE Prior VTE?: No VTE Risk Level:: Surgical - high VTE Device Contraindication: N/A - Device Ordered VTE Drug Contraindication: N/A - Med Ordered
[2022-11-13] MEDS: Warfarin Sodium 0.5 MG HALFTAB 1.5 MG PO (17:44)
[2022-11-13] MEDS: Tamsulosin HCL 0.4 MG CAPSULE PO (17:44)
[2022-11-13 20:00] VITALS: BP 140/78; PULSE 86; RESP 18; TEMP 36.2; O2SAT 96
[2022-11-13] MEDS: Atorvastatin Calcium 40 MG TABLET PO (20:23)
[2022-11-13] MEDS: Gabapentin 600 MG TABLET PO (20:23)
[2022-11-13] MEDS: Primidone 50 MG TABLET 100 MG PO (20:23)
[2022-11-13] MEDS: Melatonin 3 MG TABLET 6 MG PO (20:27)
[2022-11-13] MEDS: Morphine Sulfate 4 MG/ML CARTRIDGE IVPUSH (23:50)
[2022-11-13] MEDS: ondansetron HCL 4 MG/2 ML VIAL IVPUSH (23:50)
[2022-11-14] VITALS (11 sets, daily range): BP systolic 94–130; BP diastolic 62–86; PULSE 83–160; RESP 16–24; TEMP 36.1–36.9; O2SAT 89–98
--- NOTE | 2022-11-14 00:04 | ECG_ITS ---
Test Reason : cp Blood Pressure : / mmHG Vent. Rate : 155 BPM Atrial Rate : 310 BPM P-R Int : 000 ms QRS Dur : 140 ms QT Int : 276 ms P-R-T Axes : 208 091 -55 degrees QTc Int : 443 ms Atrial flutter with 2:1 A-V conduction Possible Inferior infarct , age undetermined Abnormal ECG When compared with ECG of 11-NOV-2022 07:18, Atrial flutter has replaced Sinus rhythm Vent. rate has increased BY 75 BPM Borderline criteria for Inferior infarct are now Present Referred By: Rajinder Casillas Electronically Signed By:DALIA HEAD
--- NOTE | 2022-11-14 00:14 | PM.EVENT ---
Event Note Date of Service: 11/14/22 Event Note: Was informed by the nurse that patient's heart rate was in the 150s. Obtained EKG which showed atrial flutter with rapid ventricular rate. Patient's heart rate elevated after IV diltiazem. Initiating Cardizem drip. Consulting Cardiology, obtaining TSH and echo. Will place patient on cardiac monitoring Time Spent With Patient Time: Total time managing care of this patient today ____ minutes.
--- NOTE | 2022-11-14 00:15 | MHC.PIE ---
Addendum entered by Brea Love RN 11/14/22 04:59: p; pt c/o nausea - mf notified and given zofran early dose and iv pepcid with no result. pulse 110-130 now in 140's d/t n/v. i; dr hdez notified p; pt now c/o abd/chest pain i; dr hdez notified; [place] [facility] [place] trans[place] to room 457. report given. Addendum entered by Brea Love RN 11/14/22 02:18: p; pulse cont to be in 140's i; dr hdez notified; new order cardiem 20mg iv now e; will cont to moniotor Addendum entered by Brea Love RN 11/14/22 01:41: p; pulse 140-150 i; dr hdez notified; new order cardizem 20 mg iv now e; will cont to monitor Original Note: p; pt reports not feel right bp 132/74, p 155, o2 88 2l. pt c/o pain and nausea. prn morphine and zofran given, o2 increased to 3l with o2 sat 91 then back down to 89, O2 increased to 4l. i; dr hdez notified, new order ekg now. md in room e; will cont to monitor
[2022-11-14] MEDS: Metoprolol Tartrate 5 MG/5 ML VIAL IVPUSH (00:31)
[2022-11-14 01:19] LABS: Thyroid Stimulating Hormone 3.03 uIU/mL (0.32-4.0)
[2022-11-14] MEDS: Ampicillin Sodium/Sulbactam Na 1.5 GM in 0.9 % Sodium Chloride 100 ML IV ×4 (01:37→20:22)
[2022-11-14] MEDS: dilTIAZem HCL 50 MG/10 ML VIAL 20 MG IVPUSH ×2 (01:52→02:20)
[2022-11-14] MEDS: Famotidine/PF 20 MG/2 ML VIAL IVPUSH ×2 (02:11→15:06)
[2022-11-14] MEDS: Acetaminophen 1,000 MG/100 ML PIGGYBACK 400 MG IV ×3 (02:12→21:59)
[2022-11-14] MEDS: ondansetron HCL 4 MG/2 ML VIAL IVPUSH ×2 (02:52→14:20)
[2022-11-14 03:54] LABS: Troponin-I High Sensitivity < 2.7 ng/L (<3.5-35.0)
[2022-11-14] MEDS: Metoclopramide HCl 10 MG/2 ML VIAL IVPUSH (04:34)
[2022-11-14] MEDS: Albumin Human 25 % 100 ML IV (04:36)
[2022-11-14] MEDS: dilTIAZem HCL 125 MG in 0.9 % Sodium Chloride 100 ML 10 MG IVCONT (05:38)
[2022-11-14] MEDS: Omeprazole 20 MG CAPSULE.DR PO (06:08)
--- NOTE | 2022-11-14 07:09 | PC.NURSE ---
Pt to [facility] at approx 0400. BP 94/57 on arrival to unit - made aware, ordered 25g/100mL of albumin, medicated per APR. When albumin dose completed, BP 100/67 HR 147. approved initiating cardizem gtt per APR - started @ 0538. BP remained stable at 0610 with reading of 106/70. Cardizem gtt still running at starting dose of 10mg/hr with a heart rate of 108. Plan of care ongoing.
[2022-11-14] MEDS: Enoxaparin Sodium 80 MG/0.8 ML SYRINGE 160 MG SUBCUT (07:58)
[2022-11-14] MEDS: Sertraline HCL 50 MG TABLET 150 MG PO (07:59)
[2022-11-14] MEDS: Donepezil HCl 10 MG TABLET PO (07:59)
[2022-11-14] MEDS: Docusate Sodium 100 MG CAPSULE PO (07:59)
[2022-11-14] MEDS: oxyBUTYnin chloride ER 5 MG TAB.ER.24 10 MG PO (07:59)
[2022-11-14] MEDS: Finasteride 5 MG TABLET PO (08:00)
[2022-11-14] MEDS: Gabapentin 100 MG CAPSULE 200 MG PO ×2 (08:00→14:32)
[2022-11-14] MEDS: Memantine HCl 10 MG TABLET PO (08:00)
[2022-11-14] MEDS: 0.9 % Sodium Chloride Flush 3 ML SYRINGE IVFLUSH ×2 (08:01→15:06)
[2022-11-14 08:13] LABS: MANUAL DIFF FLAG NO
[2022-11-14 08:19] LABS: Basophils Percent Auto 0.2 % (0-2); Eosinophils Absolute Auto 0.1 X10*3/uL (0.0-0.4); Eosinophils Percent Auto 0.6 % (0-4); Hematocrit 41.2 % (42.0-52.0); Hemoglobin 13.4 g/dl (14.0-18.0); Imm Gran Abs Auto 0.08 X10*3/uL (0.00-0.03); Lymphocytes Absolute Auto 0.7 X10*3/uL (1.2-4.9); Lymphocytes Percent Auto 8.7 % (20-40); Mean Corpuscular HGB Conc 32.5 g/dl (31.0-36.0); Mean Corpuscular Hemoglobin 29.3 pg (27.0-33.0); Monocytes Absolute Auto 1.1 X10*3/uL (0.1-1.2); Neutrophils Absolute Auto 6.3 x10*3/uL (2.0-8.3); Neutrophils Percent Auto 76.5 % (45-73); Platelet Count 211 X10*3/uL (160-400); Red Blood Count 4.58 X10*6/uL (4.60-5.80); White Blood Count 8.2 X10*3/uL (4.8-10.8)
[2022-11-14 08:24] LABS: INTERNATIONAL NORM RATIO 1.1 (0.9-1.1); Prothrombin Time 13.9 SEC (11.1-13.3)
[2022-11-14 08:42] LABS: Anion Gap 14 (12-20); Blood Urea Nitrogen 13 mg/dL (9-16); Calcium 9.2 mg/dL (8.4-10.2); Carbon Dioxide 22 mmol/L (22-29); Chloride 107 mmol/L (96-108); Creatinine Clr Calc Pharmacy 101.1; Estimated Glomerular Filt Rate > 60; Glucose Random 133 mg/dL (60-115); Potassium 3.4 mmol/L (3.3-5.1); Sodium 140 mmol/L (135-145)
--- NOTE | 2022-11-14 09:04 | PM.PNGS ---
Subjective Subjective Date of Service: 11/14/22 Interval history: Patient with increased heart rate during the night, subsequently transferred to telemetry. EKG this morning revealed a flutter with 2-1 conduction. Diltiazem drip started for rate control. Patient denies any chest symptoms at this time. Does report heartburn but is tolerating small amount of his diet. He denies nausea or vomiting. No BM or flatus yet. Physical Exam Vital Signs: Vital Signs: Last Vital Signs Temp 98.1 F 11/14/22 07:34 Pulse 130 H 11/14/22 07:34 Resp 20 11/14/22 07:34 BP 106/69 11/14/22 07:34 Pulse Ox 93 11/14/22 07:34 O2 Del Method Oxymask 11/14/22 07:34 O2 Flow Rate 4 11/14/22 07:34 BMI result Body Mass Index 35.3 Const: General: no acute distress Nutritional Appearance: well nourished Orientation/consciousness: patient oriented x3 Limitations: no limitations Resp: Effort & Inspection: normal respiratory effort GI: Other: Incision is clean, dry and intact without redness or discharge. Abdomen distended, positive bowel sounds. Tympany to percussion. Inspection: Yes Abdominal panniculus present Skin: Other: Warm, dry, no rash Neuro: General: patient oriented x3 Extrem: Other: no peripheral edema Objective Data Active Medications Albuterol Sulfate (Albuterol Sulfate (0.083%) 2.5 Mg/3 Ml Vial.Neb) 2.5 mg INHALE ONCE PRN PRN Reason: Shortness of Breath/Wheezing Albuterol Sulfate (Albuterol Sulfate (0.083%) 2.5 Mg/3 Ml Vial.Neb) 2.5 mg INHALE QID PRN PRN Reason: Shortness Of Breath Or Wheezing Albuterol Sulfate (Albuterol Sulfate 90 Mcg 8 Gm Inhaler) 2 puff INHALE Q4H PRN PRN Reason: shortness of breath or wheezin Albuterol/Ipratropium (Albuterol/Iprat 2.5/0.5mg 3 Ml Ampul.Neb) 3 ml INHALE RQ6H WHILE AWAKE PRN PRN Reason: Shortness of Breath/Wheezing Atorvastatin Calcium (Atorvastatin Calcium 40 Mg Tablet) 40 mg PO BEDTIME [facility] Last Admin: 11/13/22 20:23 Dose: 40 mg Documented By: AVIS Diltiazem HCl (Diltiazem Hcl Cd 180 Mg Cap.Er.24h) 180 mg PO DAILY [facility]; Protocol Last Admin: 11/14/22 08:01 Dose: Not Given Documented By: HARJEET Non-Admin Reason: IV cardizem running Docusate Sodium (Docusate Sodium 100 Mg Capsule) 100 mg PO BID [facility] Last Admin: 11/14/22 07:59 Dose: 100 mg Documented By: HARJEET Donepezil HCl (Donepezil Hcl 10 Mg Tablet) 10 mg PO DAILY [facility] Last Admin: 11/14/22 07:59 Dose: 10 mg Documented By: HARJEET Enoxaparin Sodium (Enoxaparin Sodium 80 Mg/0.8 Ml Syringe) 160 mg 1.5 mg/kg (160 mg) SUBCUT Q24H [facility] Last Admin: 11/14/22 07:58 Dose: 160 mg Documented By: HARJEET Finasteride (Finasteride 5 Mg Tablet) 5 mg PO DAILY [facility] Last Admin: 11/14/22 08:00 Dose: 5 mg Documented By: HARJEET Fluticasone Propionate (Fluticasone Propionate Nasal 16 Gm [place]) 2 spray NOSTRIL-B DAILY [facility] Last Admin: 11/13/22 08:32 Dose: 2 spray Documented By: GABO Gabapentin (Gabapentin 100 Mg Capsule) 200 mg PO BID@0800,1500 [facility] Last Admin: 11/14/22 08:00 Dose: 200 mg Documented By: HARJEET Gabapentin (Gabapentin 600 Mg Tablet) 600 mg PO BEDTIME [facility] Last Admin: 11/13/22 20:23 Dose: 600 mg Documented By: AVIS Acetaminophen (Ofirmev) 1,000 mg in 100 mls @ 400 mls/hr IV Q6H [facility] Last Infusion: 11/14/22 08:19 Dose: Infused Documented By: HARJEET Ampicillin Sodium/Sulbactam (Sodium 1.5 gm/ Sodium Chloride) 100 mls @ 200 mls/hr IV Q6H [facility] Last Admin: 11/14/22 08:01 Dose: 200 mls/hr Documented By: HARJEET Diltiazem HCl 125 mg/ Sodium (Chloride) 125 mls @ 0 mls/hr IVCONT .Q0M [facility]; Protocol Last Admin: 11/14/22 05:38 Dose: 10 mg/hr, 10 mls/hr Documented By: BARBER Meclizine HCl (Meclizine Hcl 25 Mg Tablet) 25 mg PO DAILY PRN PRN Reason: DIZZINESS Melatonin (Melatonin 3 Mg Tablet) 6 mg PO BEDTIME PRN PRN Reason: Insomnia Last Admin: 11/13/22 20:27 Dose: 6 mg Documented By: AVIS Memantine (Memantine Hcl 10 Mg Tablet) 10 mg PO DAILY [facility] Last Admin: 11/14/22 08:00 Dose: 10 mg Documented By: HARJEET Morphine Sulfate (Morphine Sulfate 4 Mg/Ml Cartridge) 4 mg IVPUSH Q4H PRN; Protocol PRN Reason: Pain, Severe (Pain Scale 7-10) Last Admin: 11/13/22 23:50 Dose: 4 mg Documented By: AVIS Pt Own Armodafinil (150 Mg Tablet) 150 mg PO DAILY [facility] Last Admin: 11/13/22 08:48 Dose: 150 mg Documented By: GABO Omeprazole (Omeprazole 20 Mg Capsule.) 20 mg PO DAILY@0630 [facility] Last Admin: 11/14/22 06:08 Dose: 20 mg Documented By: BARBER Ondansetron HCl (Ondansetron Hcl 4 Mg/2 Ml Vial) 4 mg IVPUSH Q8H PRN PRN Reason: Nausea and Vomiting Last Admin: 11/14/22 02:52 Dose: 4 mg Documented By: AVIS Comments: ok early dose per dr hdez Oxybutynin Chloride (Oxybutynin Chloride Er 5 Mg Tab.Er.24) 10 mg PO DAILY [facility] Last Admin: 11/14/22 07:59 Dose: 10 mg Documented By: HARJEET Oxycodone HCl (Oxycodone Hcl Immed Release 5 Mg Tablet) 5 mg PO Q4H PRN PRN Reason: Pain, Moderate(Pain Scale 4-6) Last Admin: 11/13/22 13:37 Dose: 5 mg Documented By: COTEMA Oxycodone HCl (Oxycodone Hcl Immed Release 5 Mg Tablet) 10 mg PO Q4H PRN PRN Reason: Pain, Severe (Pain Scale 7-10) Last Admin: 11/12/22 21:23 Dose: 10 mg Documented By: AVIS Primidone (Primidone 50 Mg Tablet) 100 mg PO BEDTIME [facility] Last Admin: 11/13/22 20:23 Dose: 100 mg Documented By: AVIS Sertraline HCl (Sertraline Hcl 50 Mg Tablet) 150 mg PO DAILY [facility] Last Admin: 11/14/22 07:59 Dose: 150 mg Documented By: HARJEET Sodium Chloride (0.9 % Sodium Chloride Flush 3 Ml Syringe) 3 ml IVFLUSH QSHIFT [facility] Last Admin: 11/14/22 08:01 Dose: 3 ml Documented By: HARJEET Tamsulosin HCl (Tamsulosin Hcl 0.4 Mg Capsule) 0.4 mg PO DAILY@1700 [facility] Last Admin: 11/13/22 17:44 Dose: 0.4 mg Documented By: GABO Warfarin Sodium (Warfarin Sodium 3 Mg Tablet) 3 mg PO MOWETH@1800 [facility] Warfarin Sodium (Warfarin Sodium 0.5 Mg Halftab) 1.5 mg PO SUTUFRSA@1800 [facility] Last Admin: 11/13/22 17:44 Dose: 1.5 mg Documented By: GABO Labs 11/14/22 07:54 11/14/22 07:54 Labs: Laboratory Results - last 24 hr 11/13/22 11/14/22 11/14/22 07:31 00:31 07:12 MCV MCH MCHC RDW Plt Count MPV Immature Gran % (Auto) Neut % (Auto) Lymph % (Auto) [place] % (Auto) Eos % (Auto) Baso % (Auto) Lymph # (Auto) [place] # (Auto) Eos # (Auto) Baso # (Auto) Abs Immat Gran (auto) Absolute Neuts (auto) Absolute Nucleated RBC Nucleated RBC % (auto) Hold Purple Top PT 13.9 H INR 1.1 Anion Gap Estim Creat Clear Calc Estimated GFR Random Glucose Calcium Magnesium Procalcitonin 1.24 TSH 3.03 11/14/22 11/14/22 07:54 Unknown MCV 90.0 MCH 29.3 MCHC 32.5 RDW 14.0 Plt Count 211 MPV 10.0 Immature Gran % (Auto) 1.0 H Neut % (Auto) 76.5 H Lymph % (Auto) 8.7 L [place] % (Auto) 13.0 H Eos % (Auto) 0.6 Baso % (Auto) 0.2 Lymph # (Auto) 0.7 L [place] # (Auto) 1.1 Eos # (Auto) 0.1 Baso # (Auto) 0.0 Abs Immat Gran (auto) 0.08 H Absolute Neuts (auto) 6.3 Absolute Nucleated RBC 0.000 Nucleated RBC % (auto) 0.0 Hold Purple Top SEE NOTE PT INR Anion Gap 14 Estim Creat Clear Calc 101.1 Estimated GFR > 60 Random Glucose 133 H Calcium 9.2 Magnesium 2.0 Procalcitonin TSH Procedures Date of Service Date of Service: 11/14/22 Progress Note: A&P Assessment and plan (1) Mesenteric mass: Status: Acute Plan 66-year-old male, POD #3 following mesenteric biopsy. Patient still tolerating some solid food with no flatus or BM yet. He does report heartburn. Patient developed tachycardia during the night and was subsequently transferred to a monitored bed. Further management of tachycardia as per hospitalist team. Time Spent With Patient Time: Total time managing care of this patient today ____ minutes. Quality Stroke Does the patient have a stroke diagnosis?: No VTE Prior VTE?: No VTE Risk Level:: Surgical - high VTE Device Contraindication: N/A - Device Ordered VTE Drug Contraindication: N/A - Med Ordered
--- NOTE | 2022-11-14 09:50 | ECG_ITS ---
Test Reason : aflutter Blood Pressure : / mmHG Vent. Rate : 112 BPM Atrial Rate : 298 BPM P-R Int : 000 ms QRS Dur : 088 ms QT Int : 352 ms P-R-T Axes : 118 077 -26 degrees QTc Int : 480 ms Atrial flutter with variable A-V block Possible Inferior infarct (cited on or before 14-NOV-2022) Abnormal ECG When compared with ECG of 14-NOV-2022 00:04, Vent. rate has decreased Referred By: Rajinder Casillas Electronically Signed By:DALIA HEAD
--- NOTE | 2022-11-14 10:21 | HO.PM.IMPN ---
Subjective Subjective Date of Service: 11/14/22 Interval History: seen and examined this morning follow up for medical consultation, pneumonia atrial flutter overnight and was started on cardizm drip; transferred to [facility] pt feels tired, but denies chest pain, palpitations, dizziness Review of Systems Review of Systems: Yes all other systems are reviewed and are negative Constitutional Constitutional: Denies chills and Denies fever(s) ENT Ears, Nose, Mouth, and Throat: Denies dizziness Cardiovascular Cardiovascular: Denies chest pain, Denies palpitations and Reports dyspnea Respiratory Respiratory: Reports cough and Reports dyspnea Gastrointestinal Gastrointestinal: Reports abdominal pain Neurologic Neurologic: Denies dizziness Endocrine Endocrine: Denies palpitations Physical Exam Vital Signs: Vital Signs: Last Vital Signs Temp 98.1 F 11/14/22 07:34 Pulse 142 H 11/14/22 09:05 Resp 20 11/14/22 07:34 BP 130/80 11/14/22 09:05 Pulse Ox 93 11/14/22 07:34 O2 Del Method Oxymask 11/14/22 07:34 O2 Flow Rate 4 11/14/22 07:34 BMI result Body Mass Index 35.3 Const: General: cooperative, comfortable, alert and awake Nutritional Appearance: overweight Orientation/consciousness: patient oriented x3 Resp: Other: diminished breath sounds; no wheezing Effort & Inspection: normal respiratory effort, able to speak in complete sentences, no respiratory distress and no use of accessory muscles Cardio: Rate: tachycardic GI: Other: incisions clean and dry; softly distended Neuro: Other: grossly nonfocal General: patient oriented x3 and moves all extremities Extrem: General: Yes no pedal edema Objective Data Active Medications Albuterol Sulfate (Albuterol Sulfate (0.083%) 2.5 Mg/3 Ml Vial.Neb) 2.5 mg INHALE ONCE PRN PRN Reason: Shortness of Breath/Wheezing Albuterol Sulfate (Albuterol Sulfate (0.083%) 2.5 Mg/3 Ml Vial.Neb) 2.5 mg INHALE QID PRN PRN Reason: Shortness Of Breath Or Wheezing Albuterol Sulfate (Albuterol Sulfate 90 Mcg 8 Gm Inhaler) 2 puff INHALE Q4H PRN PRN Reason: shortness of breath or wheezin Albuterol/Ipratropium (Albuterol/Iprat 2.5/0.5mg 3 Ml Ampul.Neb) 3 ml INHALE RQ6H WHILE AWAKE PRN PRN Reason: Shortness of Breath/Wheezing Atorvastatin Calcium (Atorvastatin Calcium 40 Mg Tablet) 40 mg PO BEDTIME [facility] Last Admin: 11/13/22 20:23 Dose: 40 mg Documented By: AVIS Diltiazem HCl (Diltiazem Hcl Cd 180 Mg Cap.Er.24h) 180 mg PO DAILY [facility]; Protocol Last Admin: 11/14/22 08:01 Dose: Not Given Documented By: HARJEET Non-Admin Reason: IV cardizem running Docusate Sodium (Docusate Sodium 100 Mg Capsule) 100 mg PO BID [facility] Last Admin: 11/14/22 07:59 Dose: 100 mg Documented By: HARJEET Donepezil HCl (Donepezil Hcl 10 Mg Tablet) 10 mg PO DAILY [facility] Last Admin: 11/14/22 07:59 Dose: 10 mg Documented By: HARJEET Enoxaparin Sodium (Enoxaparin Sodium 80 Mg/0.8 Ml Syringe) 160 mg 1.5 mg/kg (160 mg) SUBCUT Q24H [facility] Last Admin: 11/14/22 07:58 Dose: 160 mg Documented By: HARJEET Finasteride (Finasteride 5 Mg Tablet) 5 mg PO DAILY [facility] Last Admin: 11/14/22 08:00 Dose: 5 mg Documented By: HARJEET Fluticasone Propionate (Fluticasone Propionate Nasal 16 Gm [place]) 2 spray NOSTRIL-B DAILY [facility] Last Admin: 11/13/22 08:32 Dose: 2 spray Documented By: GABO Gabapentin (Gabapentin 100 Mg Capsule) 200 mg PO BID@0800,1500 [facility] Last Admin: 11/14/22 08:00 Dose: 200 mg Documented By: HARJEET Gabapentin (Gabapentin 600 Mg Tablet) 600 mg PO BEDTIME [facility] Last Admin: 11/13/22 20:23 Dose: 600 mg Documented By: AVIS Acetaminophen (Ofirmev) 1,000 mg in 100 mls @ 400 mls/hr IV Q6H [facility] Last Infusion: 11/14/22 08:19 Dose: Infused Documented By: HARJEET Ampicillin Sodium/Sulbactam (Sodium 1.5 gm/ Sodium Chloride) 100 mls @ 200 mls/hr IV Q6H [facility] Last Infusion: 11/14/22 09:16 Dose: Infused Documented By: HARJEET Diltiazem HCl 125 mg/ Sodium (Chloride) 125 mls @ 0 mls/hr IVCONT .Q0M [facility]; Protocol Last Titration: 11/14/22 09:16 Dose: 15 mg/hr, 15 mls/hr Documented By: HARJEET Meclizine HCl (Meclizine Hcl 25 Mg Tablet) 25 mg PO DAILY PRN PRN Reason: DIZZINESS Melatonin (Melatonin 3 Mg Tablet) 6 mg PO BEDTIME PRN PRN Reason: Insomnia Last Admin: 11/13/22 20:27 Dose: 6 mg Documented By: AVIS Memantine (Memantine Hcl 10 Mg Tablet) 10 mg PO DAILY [facility] Last Admin: 11/14/22 08:00 Dose: 10 mg Documented By: HARJEET Morphine Sulfate (Morphine Sulfate 4 Mg/Ml Cartridge) 4 mg IVPUSH Q4H PRN; Protocol PRN Reason: Pain, Severe (Pain Scale 7-10) Last Admin: 11/13/22 23:50 Dose: 4 mg Documented By: AVIS Pt Own Armodafinil (150 Mg Tablet) 150 mg PO DAILY [facility] Last Admin: 11/13/22 08:48 Dose: 150 mg Documented By: COTFRANCIS Omeprazole (Omeprazole 20 Mg Capsule.) 20 mg PO DAILY@0630 [facility] Last Admin: 11/14/22 06:08 Dose: 20 mg Documented By: BARBER Ondansetron HCl (Ondansetron Hcl 4 Mg/2 Ml Vial) 4 mg IVPUSH Q8H PRN PRN Reason: Nausea and Vomiting Last Admin: 11/14/22 02:52 Dose: 4 mg Documented By: AVIS Comments: ok early dose per dr hdez Oxybutynin Chloride (Oxybutynin Chloride Er 5 Mg Tab.Er.24) 10 mg PO DAILY [facility] Last Admin: 11/14/22 07:59 Dose: 10 mg Documented By: HARJEET Oxycodone HCl (Oxycodone Hcl Immed Release 5 Mg Tablet) 5 mg PO Q4H PRN PRN Reason: Pain, Moderate(Pain Scale 4-6) Last Admin: 11/13/22 13:37 Dose: 5 mg Documented By: GABO Oxycodone HCl (Oxycodone Hcl Immed Release 5 Mg Tablet) 10 mg PO Q4H PRN PRN Reason: Pain, Severe (Pain Scale 7-10) Last Admin: 11/12/22 21:23 Dose: 10 mg Documented By: AVIS Primidone (Primidone 50 Mg Tablet) 100 mg PO BEDTIME [facility] Last Admin: 11/13/22 20:23 Dose: 100 mg Documented By: AVIS Sertraline HCl (Sertraline Hcl 50 Mg Tablet) 150 mg PO DAILY [facility] Last Admin: 11/14/22 07:59 Dose: 150 mg Documented By: HARJEET Sodium Chloride (0.9 % Sodium Chloride Flush 3 Ml Syringe) 3 ml IVFLUSH QSHIFT [facility] Last Admin: 11/14/22 08:01 Dose: 3 ml Documented By: HARJEET Tamsulosin HCl (Tamsulosin Hcl 0.4 Mg Capsule) 0.4 mg PO DAILY@1700 [facility] Last Admin: 11/13/22 17:44 Dose: 0.4 mg Documented By: GABO Warfarin Sodium (Warfarin Sodium 3 Mg Tablet) 3 mg PO MOWETH@1800 [facility] Warfarin Sodium (Warfarin Sodium 0.5 Mg Halftab) 1.5 mg PO SUTUFRSA@1800 [facility] Last Admin: 11/13/22 17:44 Dose: 1.5 mg Documented By: GABO Labs 11/14/22 07:54 11/14/22 07:54 Labs: Laboratory Results - last 24 hr 11/14/22 11/14/22 11/14/22 00:31 07:12 07:54 MCV 90.0 MCH 29.3 MCHC 32.5 RDW 14.0 Plt Count 211 MPV 10.0 Immature Gran % (Auto) 1.0 H Neut % (Auto) 76.5 H Lymph % (Auto) 8.7 L [place] % (Auto) 13.0 H Eos % (Auto) 0.6 Baso % (Auto) 0.2 Lymph # (Auto) 0.7 L [place] # (Auto) 1.1 Eos # (Auto) 0.1 Baso # (Auto) 0.0 Abs Immat Gran (auto) 0.08 H Absolute Neuts (auto) 6.3 Absolute Nucleated RBC 0.000 Nucleated RBC % (auto) 0.0 Hold Purple Top PT 13.9 H INR 1.1 Anion Gap 14 Estim Creat Clear Calc 101.1 Estimated GFR > 60 Random Glucose 133 H Calcium 9.2 Magnesium 2.0 TSH 3.03 11/14/22 Unknown MCV MCH MCHC RDW Plt Count MPV Immature Gran % (Auto) Neut % (Auto) Lymph % (Auto) [place] % (Auto) Eos % (Auto) Baso % (Auto) Lymph # (Auto) [place] # (Auto) Eos # (Auto) Baso # (Auto) Abs Immat Gran (auto) Absolute Neuts (auto) Absolute Nucleated RBC Nucleated RBC % (auto) Hold Purple Top SEE NOTE PT INR Anion Gap Estim Creat Clear Calc Estimated GFR Random Glucose Calcium Magnesium TSH Assessment and Plan (1) Acute respiratory failure with hypoxia: Status: Acute (2) Antithrombin 3 deficiency: Status: Acute (3) Mesenteric mass: Status: Acute (4) Atrial flutter: Status: Acute Plan This is a 66 year old male with history of h/o mesenteric & portal vein thrombosis, DVT, 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, atrial fibrillation, COPD, DANNY, recently identified mesenteric irregularity who presented for diagnostic laparoscopy found to have postoperative hypoxia acute respiratory failure with hypoxia does not currently use home oxygen some degree of chronic sob CTA obtained - negative for PE but with right greater then left basilar atelectasis/infiltrate with trace effusions, underlying COPD, some increasing central adenopathy -continue supplemental oxygen will goal o2 above 90% -continue unasyn to cover for possible aspiration pneumonia -may need home o2 eval prior to discharge -will need outpatient follow up for RUL changes seen on imaging - possibly chronic vs underling malignancy - rec outpatient PET scan -continue IS, out of bed to chair, adequate pain control atrial flutter has h/o paraoxysmal atrial fibrillation, went into aflutter with uncontrolled rate overnight currently on diltiazem drip cardiology consult pending echo pending trop, TSH wnl follow lytes antithrombin 3 deficiency discussed with hematology and surgery - coumadin resumed 11/13 with lovenox bridge until INR therapeutic follow INR s/p diagnostic laparascopy management per surgical team follow up pathology morbid obesity bmi 35.3 may be contributing to sob weight loss encouraged thank you for allowing us to participate in the care of this patient, we will follow along with you Time Spent With Patient Time: Total time managing care of this patient today ____ minutes. Quality Stroke Does the patient have a stroke diagnosis?: No VTE Prior VTE?: No VTE Risk Level:: Surgical - high VTE Device Contraindication: N/A - Device Ordered VTE Drug Contraindication: N/A - Med Ordered
[2022-11-14] MEDS: Fluticasone Propionate Nasal 16 GM SPRAY 2 SPRAY NOSTRIL-B (11:28)
[2022-11-14] MEDS: Potassium Chloride Packet 20 MEQ PACKET PO (11:28)
--- NOTE | 2022-11-14 12:22 | PM.CNCAR ---
History of Present Illness History of Present Illness Date of Service: 11/14/22 Requesting physician: Viv Guallpa Chief complaint: Atrial flutter Narrative: [age] gentleman with background history of hypertension and atrial fibrillation for which he was on anticoagulation in the past and was taking diltiazem. He also has history of antithrombin 3 deficiency and previous history of mesenteric and portal vein thrombosis, DVT, PE. He originally presented for diagnostic laparoscopy for mesenteric irregularity and mass. Postprocedure he developed hypoxia and was admitted to the hospital. The medicine service was consulted. He was noticed to be in atrial flutter and was started on Cardizem drip with reasonable rate control at this point. He is denying any chest discomfort currently. But was looking extremely red and sweaty. He said he started feeling hot suddenly and this has happened to him previously too. His temperature was normal. Blood pressure was also stable. He has abdominal distension and some areas present. He is currently NPO. [facility] Past Medical History Medical History Kidney stones Pulmonary nodules Orthostatic dizziness Laryngitis DANNY on CPAP Paroxysmal atrial fibrillation COPD (chronic obstructive pulmonary disease) Functional capacity: uses cane/walker Family History Family History Father No problems noted. Mother CVD (cardiovascular disease) Surgical History Surgical History Hx of colonoscopy History of ankle surgery Hx of elbow surgery Social History Social History Household Members: Children Household Members Other:: son Housing: Apartment Are you a primary home health care social worker to a significant other at home: No Do you presently have visiting nurse or other home services: Yes ([employer] 2hrs daily everyday for help with ADLS) Alcohol intake: never Patient Tobacco Use Status: Former Tobacco user Quit Date: 2002 Tobacco use type: Cigarette Years Smoked: 20 years Use of substances other than those prescribed or required for medical reasons: No Currently Displaying Signs/Symptoms of Drug Intoxication Withdrawal: No Have you been hit, kicked, punched, or otherwise hurt by someone within the past year? If so, by whom?: No Do you feel safe in your current relationship?: No Current Relationship Is there a partner from a previous relationship who is making you feel unsafe now?: No Are you made to feel afraid or neglected: No Are you DNR?: No Advance Directives: Yes Advance Directives Information Provided: Yes Advance Directives on File: Yes Advance Directives Date on File: 11/30/19 Do you have thoughts of harming others: None Do you have a plan to hurt others: No Plan Recently lost weight without trying: No Eating poorly because of decreased appetite: Yes Nutrition Risks: No Nutritional Risk Poor oral hygiene: No service: No Meds Allergies Allergy/AdvReac Type Severity Reaction Status Date / Time bupropion [From WELLBUTRIN] Allergy Severe HALLUCINATI Verified 10/27/22 09:07 ON pseudoephedrine Allergy Severe JITTERY Verified 10/27/22 09:07 [From SUDAFED] Active Medications: Current Medications Albuterol Sulfate (Albuterol Sulfate (0.083%) 2.5 Mg/3 Ml Vial.Neb) 2.5 mg INHALE ONCE PRN PRN Reason: Shortness of Breath/Wheezing Albuterol Sulfate (Albuterol Sulfate (0.083%) 2.5 Mg/3 Ml Vial.Neb) 2.5 mg INHALE QID PRN PRN Reason: Shortness Of Breath Or Wheezing Albuterol Sulfate (Albuterol Sulfate 90 Mcg 8 Gm Inhaler) 2 puff INHALE Q4H PRN PRN Reason: shortness of breath or wheezin Albuterol/Ipratropium (Albuterol/Iprat 2.5/0.5mg 3 Ml Ampul.Neb) 3 ml INHALE RQ6H WHILE AWAKE PRN PRN Reason: Shortness of Breath/Wheezing Atorvastatin Calcium (Atorvastatin Calcium 40 Mg Tablet) 40 mg PO BEDTIME [facility] Last Admin: 11/13/22 20:23 Dose: 40 mg Diltiazem HCl (Diltiazem Hcl Cd 180 Mg Cap.Er.24h) 180 mg PO DAILY [facility]; Protocol Last Admin: 11/14/22 08:01 Dose: Not Given Docusate Sodium (Docusate Sodium 100 Mg Capsule) 100 mg PO BID [facility] Last Admin: 11/14/22 07:59 Dose: 100 mg Donepezil HCl (Donepezil Hcl 10 Mg Tablet) 10 mg PO DAILY [facility] Last Admin: 11/14/22 07:59 Dose: 10 mg Enoxaparin Sodium (Enoxaparin Sodium 80 Mg/0.8 Ml Syringe) 160 mg 1.5 mg/kg (160 mg) SUBCUT Q24H [facility] Last Admin: 11/14/22 07:58 Dose: 160 mg Finasteride (Finasteride 5 Mg Tablet) 5 mg PO DAILY [facility] Last Admin: 11/14/22 08:00 Dose: 5 mg Fluticasone Propionate (Fluticasone Propionate Nasal 16 Gm [place]) 2 spray NOSTRIL-B DAILY [facility] Last Admin: 11/14/22 11:28 Dose: 2 spray Gabapentin (Gabapentin 100 Mg Capsule) 200 mg PO BID@0800,1500 [facility] Last Admin: 11/14/22 08:00 Dose: 200 mg Gabapentin (Gabapentin 600 Mg Tablet) 600 mg PO BEDTIME [facility] Last Admin: 11/13/22 20:23 Dose: 600 mg Acetaminophen (Ofirmev) 1,000 mg in 100 mls @ 400 mls/hr IV Q6H [facility] Last Infusion: 11/14/22 08:19 Dose: Infused Ampicillin Sodium/Sulbactam (Sodium 1.5 gm/ Sodium Chloride) 100 mls @ 200 mls/hr IV Q6H [facility] Last Infusion: 11/14/22 09:16 Dose: Infused Diltiazem HCl 125 mg/ Sodium (Chloride) 125 mls @ 0 mls/hr IVCONT .Q0M [facility]; Protocol Last Titration: 11/14/22 09:16 Dose: 15 mg/hr, 15 mls/hr Meclizine HCl (Meclizine Hcl 25 Mg Tablet) 25 mg PO DAILY PRN PRN Reason: DIZZINESS Melatonin (Melatonin 3 Mg Tablet) 6 mg PO BEDTIME PRN PRN Reason: Insomnia Last Admin: 11/13/22 20:27 Dose: 6 mg Memantine (Memantine Hcl 10 Mg Tablet) 10 mg PO DAILY [facility] Last Admin: 11/14/22 08:00 Dose: 10 mg Morphine Sulfate (Morphine Sulfate 4 Mg/Ml Cartridge) 4 mg IVPUSH Q4H PRN; Protocol PRN Reason: Pain, Severe (Pain Scale 7-10) Last Admin: 11/13/22 23:50 Dose: 4 mg Pt Own Armodafinil (150 Mg Tablet) 150 mg PO DAILY [facility] Last Admin: 11/14/22 11:28 Dose: 150 mg Omeprazole (Omeprazole 20 Mg Capsule.Dr) 20 mg PO DAILY@0630 [facility] Last Admin: 11/14/22 06:08 Dose: 20 mg Ondansetron HCl (Ondansetron Hcl 4 Mg/2 Ml Vial) 4 mg IVPUSH Q8H PRN PRN Reason: Nausea and Vomiting Last Admin: 11/14/22 02:52 Dose: 4 mg Oxybutynin Chloride (Oxybutynin Chloride Er 5 Mg Tab.Er.24) 10 mg PO DAILY [facility] Last Admin: 11/14/22 07:59 Dose: 10 mg Oxycodone HCl (Oxycodone Hcl Immed Release 5 Mg Tablet) 5 mg PO Q4H PRN PRN Reason: Pain, Moderate(Pain Scale 4-6) Last Admin: 11/13/22 13:37 Dose: 5 mg Oxycodone HCl (Oxycodone Hcl Immed Release 5 Mg Tablet) 10 mg PO Q4H PRN PRN Reason: Pain, Severe (Pain Scale 7-10) Last Admin: 11/12/22 21:23 Dose: 10 mg Primidone (Primidone 50 Mg Tablet) 100 mg PO BEDTIME [facility] Last Admin: 11/13/22 20:23 Dose: 100 mg Sertraline HCl (Sertraline Hcl 50 Mg Tablet) 150 mg PO DAILY [facility] Last Admin: 11/14/22 07:59 Dose: 150 mg Sodium Chloride (0.9 % Sodium Chloride Flush 3 Ml Syringe) 3 ml IVFLUSH QSHIFT [facility] Last Admin: 11/14/22 08:01 Dose: 3 ml Tamsulosin HCl (Tamsulosin Hcl 0.4 Mg Capsule) 0.4 mg PO DAILY@1700 [facility] Last Admin: 11/13/22 17:44 Dose: 0.4 mg Warfarin Sodium (Warfarin Sodium 3 Mg Tablet) 3 mg PO MOWETH@1800 [facility] Warfarin Sodium (Warfarin Sodium 0.5 Mg Halftab) 1.5 mg PO SUTUFRSA@1800 [facility] Last Admin: 11/13/22 17:44 Dose: 1.5 mg Home Medications Medication Instructions Recorded Confirmed Last Taken Type acetaminophen 650 mg 650 mg PO TID 11/24/19 11/11/22 11/10/22 History tablet,extended release (Tylenol 8 Hour) finasteride 5 mg tablet 5 mg PO DAILY 11/24/19 11/11/22 11/10/22 History omeprazole 20 mg capsule,delayed 20 mg PO DAILY 11/24/19 11/11/22 11/10/22 History release gabapentin 100 mg capsule 200 mg PO BID 11/27/19 11/11/22 11/10/22 History gabapentin 600 mg tablet 600 mg PO BEDTIME 05/19/20 11/11/22 11/10/22 History levocetirizine 5 mg tablet (Xyzal) 5 mg PO BEDTIME 10/17/20 11/09/22 Unknown History tamsulosin 0.4 mg capsule 0.4 mg PO DAILY@1700 12/18/21 11/11/22 11/10/22 History docusate sodium 100 mg capsule 100 mg PO DAILY PRN Constipation 06/09/22 11/09/22 Unknown History (Colace) cyclobenzaprine 10 mg tablet 10 mg PO BID PRN Muscle Spasm 06/21/22 11/11/22 Unknown History donepezil 5 mg tablet 10 mg PO DAILY 07/26/22 11/11/22 11/10/22 History meclizine 25 mg tablet 25 mg PO DAILY 09/13/22 11/11/22 11/10/22 History memantine 10 mg tablet 10 mg PO DAILY 09/13/22 11/11/22 11/10/22 History oxybutynin chloride 10 mg 10 mg PO DAILY 09/13/22 11/11/22 11/10/22 History tablet,extended release 24 hr primidone 50 mg tablet 100 mg PO BEDTIME 09/13/22 11/11/22 11/10/22 History sertraline 100 mg tablet 150 mg PO DAILY 09/20/22 11/11/22 11/10/22 History albuterol sulfate 2.5 mg/3 mL 2.5 mg inhalation QID PRN 11/09/22 11/09/22 Unknown History (0.083 %) solution for nebulization Shortness Of Breath Or Wheezing atorvastatin 40 mg tablet 40 mg PO BEDTIME 11/09/22 11/11/22 11/10/22 History montelukast 10 mg tablet 10 mg PO BEDTIME 11/09/22 11/11/22 11/10/22 History warfarin 3 mg tablet 1.5 mg PO SUTUFRSA@1800 11/11/22 11/11/22 Unknown History warfarin 3 mg tablet 3 mg PO ELIDA@1800 11/11/22 11/11/22 Unknown History Physical Exam Vital Signs: Vital Signs: Last Vital Signs Temp 98 F 11/14/22 11:11 Pulse 107 H 11/14/22 11:11 Resp 20 11/14/22 11:11 BP 110/69 11/14/22 11:11 Pulse Ox 92 11/14/22 11:11 O2 Del Method Oxymask 11/14/22 11:11 O2 Flow Rate 4 11/14/22 11:11 BMI result Body Mass Index 35.3 GENERAL APPEARANCE: Redness of face, sweaty. Saying he is feeling quite hot right now. NECK: no carotid bruit, no jugular venous distention. SKIN: no suspicious lesions, warm and dry. HEART: no murmurs, regular rate and rhythm. Tachycardic. LUNGS: clear to auscultation bilaterally. ABDOMEN: soft, mildly distended. Wounds from recent laparoscopy. PERIPHERAL PULSES: equal. NEUROLOGIC: No gross deficits, AAO X 3 Objective Labs and Meds 11/14/22 07:54 11/14/22 07:54 Lab results: Laboratory Results - last 24 hr 11/14/22 11/14/22 11/14/22 00:31 02:26 07:12 WBC RBC Hgb Hct MCV MCH MCHC RDW Plt Count MPV Immature Gran % (Auto) Neut % (Auto) Lymph % (Auto) [place] % (Auto) Eos % (Auto) Baso % (Auto) Lymph # (Auto) [place] # (Auto) Eos # (Auto) Baso # (Auto) Abs Immat Gran (auto) Absolute Neuts (auto) Absolute Nucleated RBC Nucleated RBC % (auto) Hold Purple Top PT 13.9 H INR 1.1 Sodium Potassium Chloride Carbon Dioxide Anion Gap BUN Creatinine Estim Creat Clear Calc Estimated GFR Random Glucose Calcium Magnesium Troponin I High Sens < 2.7 TSH 3.03 11/14/22 11/14/22 07:54 Unknown WBC 8.2 RBC 4.58 L Hgb 13.4 L Hct 41.2 L MCV 90.0 MCH 29.3 MCHC 32.5 RDW 14.0 Plt Count 211 MPV 10.0 Immature Gran % (Auto) 1.0 H Neut % (Auto) 76.5 H Lymph % (Auto) 8.7 L [place] % (Auto) 13.0 H Eos % (Auto) 0.6 Baso % (Auto) 0.2 Lymph # (Auto) 0.7 L [place] # (Auto) 1.1 Eos # (Auto) 0.1 Baso # (Auto) 0.0 Abs Immat Gran (auto) 0.08 H Absolute Neuts (auto) 6.3 Absolute Nucleated RBC 0.000 Nucleated RBC % (auto) 0.0 Hold Purple Top SEE NOTE PT INR Sodium 140 Potassium 3.4 Chloride 107 Carbon Dioxide 22 Anion Gap 14 BUN 13 Creatinine 0.86 Estim Creat Clear Calc 101.1 Estimated GFR > 60 Random Glucose 133 H Calcium 9.2 Magnesium 2.0 Troponin I High Sens TSH Assessment and Plan (1) Atrial flutter: Status: Acute (2) Acute respiratory failure with hypoxia: Status: Acute (3) Mesenteric mass: Status: Acute Plan [age] gentleman presented for diagnostic laparoscopy and developed hypoxic respiratory failure and was admitted. He was noticed to be in atrial flutter. Clinically not in heart failure though. Continue Cardizem drip. He is on enoxaparin for anticoagulation at this point. He will be transitioned to Coumadin eventually. Abdominal distention due to ileus. He has episodes where he becomes very hot and plethoric. One of the differentials for his mass was carcinoid and I think he should have plasma 5-HIAA level sent. Thank you for allowing me to participate in the care of your patient. Please feel free to contact me if you have any questions. Time Spent With Patient Time: Total time managing care of this patient today ____ minutes. Procedures Date of Service Date of Service: 11/14/22
[2022-11-14] MEDS: dilTIAZem HCL 125 MG in 0.9 % Sodium Chloride 100 ML 15 MG IVCONT (14:21)
--- NOTE | 2022-11-14 14:51 | ECG_ITS ---
Test Reason : chest tightness Blood Pressure : / mmHG Vent. Rate : 116 BPM Atrial Rate : 300 BPM P-R Int : 000 ms QRS Dur : 082 ms QT Int : 308 ms P-R-T Axes : 092 070 -67 degrees QTc Int : 428 ms Atrial flutter with variable A-V block Inferior infarct (cited on or before 14-NOV-2022) Abnormal ECG When compared with ECG of 14-NOV-2022 09:50, No significant change was found Referred By: Rajinder Casillas Electronically Signed By:DALIA HEAD
[2022-11-14] MEDS: Morphine Sulfate 4 MG/ML CARTRIDGE IVPUSH (15:05)
[2022-11-14] MEDS: Tamsulosin HCL 0.4 MG CAPSULE PO (15:05)
[2022-11-14 15:59] LABS: Troponin-I High Sensitivity < 2.7 ng/L (<3.5-35.0)
[2022-11-14] MEDS: Digoxin 0.5 MG/2 ML AMPUL 0.25 MG IVPUSH ×2 (16:00→21:58)
[2022-11-14] MEDS: Warfarin Sodium 0.5 MG HALFTAB 1.5 MG PO (18:06)
[2022-11-14] MEDS: LORazepam 2 MG/ML VIAL 1 MG IVPUSH (20:19)
[2022-11-14] MEDS: iohexoL 350 MG/ML 100 ML INFUS..BTL IV (21:15)
[2022-11-14] MEDS: Diatrizoate Meglumine, Sodium 30 ML SOLUTION PO (21:16)
--- NOTE | 2022-11-14 21:32 | PC.NURSE ---
ASSUMED CARE OF PT AT 1900. PT ANXIOUS. HEART RATE 120'S-150'S AFIB/FLUTTER. ON CARDIZEM DRIP 15 MG/HR. BP STABLE 117/86. OGT IN PLACE. PT C/O NAUSEA. OGT TO INTERMITTENT SUCTION WITH 150 ML BROWN FLUID RETURNED. NOTIFIED. PT TO CT SCAN FOR CT OF ABD. RECEIVED ATIVAN 1 MG IV WITH GOOD EFFECT. BACK TO ROOM AT THIS TIME. AFIB/ FLUTTER WITH A RATE OF110'S-120'S ON RETURN.
--- NOTE | 2022-11-14 22:23 | PC.NURSE ---
DR PEREA UPDATED. PT'S HEART RATE CONTINUES TO BE HIGH DESPITE CARDIZEM DRIP AT 15 MG/HR. RECEIVED SCHEDULED DIGOXIN 0.25 MG IVP. BP STABLE 124/57. NO ACUTE RESP DISTRESS. O2 SAT 87-89% ON 4L NC. LUNGS CLEAR, DIM IN BASES. ABD DISTENDED. NGT PUT TO INTERMITTENT WALL SUCTION. 50 ML OUT SINCE 1930. CT OF ABD PENDING. MD AWARE OF THIS INFO. WILL WAIT FOR CT RESULTS FOR FURTHER ORDERS PER .
--- NOTE | 2022-11-14 23:39 | PM.EVENT ---
Event Note Date of Service: 11/14/22 Event Note: Discussed CT Abdomen findings with Dr. Jacobsen. New consolidation noted on imaging. Will broaden antibiotics. Time Spent With Patient Time: Total time managing care of this patient today ____ minutes.
[2022-11-15] VITALS (45 sets, daily range): BP systolic 77–143; BP diastolic 41–85; PULSE 73–148; RESP 14–110; TEMP 31–38.9; O2SAT 79–95
[2022-11-15] MEDS: OLANZapine 10 MG VIAL IM (00:03)
[2022-11-15] MEDS: dilTIAZem HCL 125 MG in 0.9 % Sodium Chloride 100 ML 15 MG IVCONT ×2 (00:05→08:08)
[2022-11-15] MEDS: 0.9 % Sodium Chloride Flush 3 ML SYRINGE IVFLUSH ×3 (00:06→23:48)
[2022-11-15] MEDS: Piperacillin Sodium/Tazobactam 4.5 GM in 0.9 % Sodium Chloride 100 ML IV ×4 (00:12→17:31)
--- NOTE | 2022-11-15 00:15 | PC.NURSE ---
[id number] dr sweeney notified of ct scan of abd report. report also texted to dr bell. pt more confused and pulled out NGT. Atempted to reinsert but pt resisting. Dr Sweeney ordered zyprexa and 10 mg im given. Attempted again to reinsert. pt resisting and coughing up blood. Dr Sweeney notified and will come see pt.
--- NOTE | 2022-11-15 00:35 | PC.NURSE ---
WHILE ATTEMPTING TO INSERT NGT, PT STARTED SPITTING UP BLOOD. IS RETCHING WITH NAUSEA BUT NOT VOMITTING. PT KEEPS STATING SOMETHING IS WRONG. HE IS CONFUSED. STATES HE IS ON THE [place] ST[place] TO COMPLETE A FAILED [place]. BUT KNOWS HE LIVES IN [place] WITH HIS BROTHER. KNOWS HIS . FOLLOWS SIMPLE COMMANDS. NO RESP DISTRESS. O2 SAT 92% ON 4L NC.
--- NOTE | 2022-11-15 00:44 | PC.NURSE ---
DR PEREA AT BEDSIDE EVALUATING PT
[2022-11-15] MEDS: Haloperidol Lactate 5 MG/ML VIAL IM (01:29)
[2022-11-15] MEDS: LORazepam 2 MG/ML VIAL IVPUSH (02:24)
[2022-11-15] MEDS: vancomycin/NS 2,000 MG/500 ML PLAST..BAG 250 MG IV (02:27)
[2022-11-15 02:46] LABS: Venous Blood Gas Refer to POC result
[2022-11-15 02:48] LABS: VBG Base Excess -0.3 mmol/L; VBG HCO3 21 mmol/L (22-26); VBG pCO2 27 mmHg; VBG pH 7.49 (7.32-7.43); VBG pO2 75 mmHg
--- NOTE | 2022-11-15 03:01 | PC.NURSE ---
COULD NOT GET NGT IN. PT VERY RESISTANT AND FIGHTING WITH HEART RATE UP TO 170'S. ATTEMPTS STOPPED. PT DID RECEIVE ZYREXA IM AND THEN HALDOL IM. LATER, 223, PT RECEIVED ATIVAN 2MG IV. HE IS TIRED AND WANTS TO SLEEP. REMAINS CONFUSED. O2 N VIA NC AT 4L. O2 SATS 87-89%. DR PEREA AWARE AND ABG'S ORDERED BUT ATTEMPTS UNSUCCESSFUL BY RESP THERAPY. VBG'S ORDERED AND DRAWN. RESULTS: PH 7.49, PCO2 27, PO2 75. RESULTS REPORTED TO DR PEREA.
[2022-11-15] MEDS: Acetaminophen 1,000 MG/100 ML PIGGYBACK 400 MG IV ×3 (03:30→15:07)
[2022-11-15] MEDS: Digoxin 0.5 MG/2 ML AMPUL 0.25 MG IVPUSH (04:34)
--- NOTE | 2022-11-15 04:44 | PC.NURSE ---
UPDATE: PT REMAINS CONFUSED. TELESITTER IN ROOM. NGT INSERTION UNSUCCESSFUL PT WAS RESISTANT AND FIGHTING AND HR WENT UP TO 170'S AFIB/FLUTTER. PT ALSO RESISTED [facility]SON CATH INSERTION DESPITE RECEIVING ZYPREXA, HALDOL AND ATIVAN. WHEN LEFT ALONE, HE WAS RESTFUL. LAST DOSE OF DIGOXIN 0.25 MG IV GIVEN AT THIS TIME. HR IS 90'S-110'S. CARDIZEM CONTINUES 15 MG/HR. PT IS SPITTING UP BROWN COLORED FLUID OCCASSIONALLY. NO VOMITTING.
--- NOTE | 2022-11-15 05:50 | PC.NURSE ---
PT VOMITTING. ATTEMPTED TO INSERT NGT AGAIN. PT AGITATED, FIGHTING. VERY CONGESTED SOUNDING. ? ASPIRATION. DR PEREA SUMMONED TO ROOM. MD AT BEDSIDE AT THIS TIME. PT PUT ON 100%NRB MASK. O2 SATS LOW 83%. SATS CAME UP TO LOW 90'S AND OXYMASK APPLIED AT 15L. DR VELASQUEZ NOTIFIED AND IS ON HIS WAY IN.
--- NOTE | 2022-11-15 06:05 | PM.EVENT ---
Event Note Date of Service: 11/15/22 Event Note: I was called by the nurse as patient vomited and likely aspirated. Upon examination, patient with bilateral crackles. He was satting in the low 80s with heart rate in the 160s. Called RT to suction. Oxygenation improved with OxyMask on top of nasal cannula. Nurse reported that patient pulled out his NG tube earlier and has been agitated all night even after Ativan, Haldol and Zyprexa. Unable to place NG tube. Currently satting in the low 90s with OxyMask and nasal cannula. Heart rate improved with improvement in oxygenation. RN notified the surgeon regarding vomiting and distended abdomen. Low threshold to escalate care. On appropriate antibiotics for aspiration. Time Spent With Patient Time: Total time managing care of this patient today ____ minutes.
--- NOTE | 2022-11-15 06:14 | PC.NURSE ---
UPDATE: DR VELASQUEZ WAS NOTIFIED AT THE SAME TIME DR PEREA WAS NOTIFIED LAST NIGHT ABOUT THE RESULTS OF THE ABD CT SCAN. HE STATED THE FREE AIR AND FLUID IN THE ABD WAS NOT NEW AND RELATED TO THE PREVIOUS SURGERY.
--- NOTE | 2022-11-15 06:38 | PC.NURSE ---
WAITING FOR DR VELASQUEZ. VITAL SIGNS STABLE. BP IS 118/62. MONITOR CONTINUES AFIB/FLUTTER, HR IS 120'S. RESP RATE 24-26. O2 SAT 89-90% ON OXYMASK 15L AND NC 6L. PT LETHARGIC, MOSTLY SLEEPING BUT WAKES UP IMMEDIATELY AND FIGHTS TO RESIST ANY ATTEMPT TO INSERT NGT. ATTEMPTS STOPPED AT THIS TIME WHILE WAITING FOR SURGEON. HR GOES UP TO 170'S WITH AGITATION. WAS ABLE TO INSERT HENDRICKSON CATH #16 FR. 24 HOUR URINE STARTED AT 0600.
--- NOTE | 2022-11-15 06:40 | PC.RT ---
RT called several times for pt assessment due to pt becoming more hypoxic due to SBO? Perf Bowel per CT Scan, post NG tube removal by pt, RN has attempted several times to pass NG Tube, pt becoming aggressive on every attempt. STAT VBG done with non critical results reported, RT called again this morning, pt in restraints, RN attempted with MD to pass NG Tube again and unsuccessful due to pt becoming aggressive again, pt vomited brown thin several times, Pt is currently on 6L N/C under 15L Oxymask w/ SPO2 above 88%, MD/RN are aware of pt's SPO2 status and delivery of O2 needs. RN/MD are waiting for Surgeon to assess patient for further interventions. RN stated she will call RT if further interventions are needed.
--- NOTE | 2022-11-15 07:00 | CA_ITS ---
Transthoracic Echocardiogram Patient (Last, First, Middle): Shakeel Flores K Gender: Male Date of : 1955 Age: 67 Procedure Date: 11/15/2022 Procedure Type: Transthoracic Echocardiogram Location: ICU Height: 175.26 cm Weight: 108.41 kg BSA: 2.23 m2 Heart Rate: 107 bpm BP: 95 / 54 mmHg [employer] Consultant: Referring MD: Jose Sweeney MD Switchboard Operator Supervisor: Jagjit Hutton MD Symptoms: atrial flutter Study Quality: Technically Difficult due to limited window ECG Rhythm: Atrial flutter with rapid ventricular response Conclusions: - 1. Technically limited study despite use of contrast agent 2. LV systolic function appears to be preserved with LVEF of 60 65% with mild LVH 3. Limited visualization cardiac valves with normal cardiac valvular Doppler Findings Procedure Information Contrast agent, definity, is being given per protocol without apparent complications. Left Ventricle Normal left ventricular size and systolic function. There is mildly increased left ventricular wall thickness. The visually estimated ejection fraction is between 60-65%. Diastolic function is indeterminate on the basis of available data. Right Ventricle The right ventricle was not well visualized. on some off axis views RV seems to be enlarged although this is difficult to assess on this study Atria The left atrium was not well visualized. Interatrial shunt cannot be excluded. The right atrium was not well visualized. Aortic Valve The aortic valve structure and function is likely normal. There is no aortic valve stenosis. There is no aortic valve regurgitation. Mitral Valve The mitral valve was not well visualized. There is no mitral valve regurgitation. There is no mitral valve stenosis. Pulmonic Valve The pulmonic valve was not well visualized. Tricuspid Valve The tricuspid valve was not well visualized. Tricuspid regurgitation envelope is inadequate for calculation of right ventricular systolic pressure. Great Vessels The aorta was not well visualized. The pulmonary artery was not well visualized. Venous The inferior vena cava was not well visualized. Pericardium/Pleural The pericardium was not well visualized. Prior Study Comparison No significant change compared to prior study dated: 03/18/2021. in LV systolic function Measurements 2D Linear Measurements IVSd: 1.27 0.6-0.9/0.6-1.0 cm LVIDd: 3.77 3.9-5.3/4.2-5.9 cm LVIDd Index: 1.69 2.4-3.2/2.2-3.1 cm/m2 LVIDs: 2.38 2.0-3.6 cm LVPWd: 1.28 0.7-1.1 cm Ao Root: 3.70 2.1-3.5 cm LA Diam: 3.10 2.7-3.8/3.0-4.0 cm LAIDs Index: 1.39 1.5-2.3 cm/m2 LV Mass: 206.81 67-162/88-224 g LV Mass Index: 92.74 43-95/49-115 g/m2 LVOT Diam: 2.30 3.0+(-)1.3 cm Mitral Valve MV Pk E: 0.82 MV Decel Time: 147.00 E'Lateral: 12.70 E'Medial: 11.70 E/E' Med: 7.00 E/E' Lat: 6.40 PHT: 43.00 MVA PHT: 5.12 Decel Tripp: 5.56 Aortic Valve AoV Pk Jamin: 1.25 AoV Mn Jamin: 0.86 AoV VTI: 0.16 AoV Pk Grad: 6.00 Aov Mn Grad: 3.00 TRUMAN Cont.VTI: 3.75 LVOT LVOT Pk Jamin: 0.94 LVOT Mn Jamin: 0.61 LVOT VTI: 0.14 LVOT Pk Grad: 4.00 LVOT Mn Grad: 2.00 LVOT Diam: 2.30 LVOT Area: 4.15 Diastolic Function MV Pk E: 0.82 E'Medial: 11.70 E/E' Med: 7.00 E' Laterial: 12.70 E/E' Lat: 6.40 Tricuspid Valve TR Pk Jamin: 2.25 TR Pk Grad: 20.00 Great Vessels Aorta Ao Root-2D: 3.70 2.0-3.7 cm Ao Asc: 3.40 2.1-3.4 cm Pulmonary Valve PV Pk Jamin: 1.07 Peak PV Grad: 5.00 Updated in Other Vendor System with Status of Final Jagjit Hutton MD electronically signed on 11/15/2022 4:23:16 PM with status of Final
[2022-11-15 07:44] LABS: INTERNATIONAL NORM RATIO 1.1 (0.9-1.1); Prothrombin Time 13.3 SEC (11.1-13.3)
--- NOTE | 2022-11-15 08:45 | P.PNGS_ITS ---
Subjective Subjective Date of Service: 11/15/22 <Ana Cristina Lafleur PA-C - Last Filed: 11/15/22 09:01> 11/15/22 <Rajinder Casillas MD - Last Filed: 11/15/22 09:02> Interval history: Began vomiting yesterday and there was concern for aspiration. NGT therefore inserted and was pulled out by patient. He continues to vomit and multiple attempts at NGT insertion have been attempted. Patient becomes increasingly agitated with attempts. <Ana Cristina Lafleur PA-C - Last Filed: 11/15/22 09:01> Physical Exam 2 Vital Signs: Vital Signs: Last Vital Signs Temp 98.3 F 11/15/22 08:00 Pulse 114 H 11/15/22 08:00 Resp 24 H 11/15/22 08:00 BP 120/70 11/15/22 08:00 Pulse Ox 79 L 11/15/22 08:00 O2 Del Method Oxymask 11/15/22 08:00 O2 Flow Rate 15 11/15/22 08:00 BMI result Body Mass Index 35.3 <Ana Cristina Lafleur PA-C - Last Filed: 11/15/22 09:01> Const: General: lethargic <COLE Hopkins Last Filed: 11/15/22 09:01> Orientation/consciousness: oriented to person and lethargic <COLE Hopkins Last Filed: 11/15/22 09:01> Resp: Other: audible crackles <COLE Hopkins Last Filed: 11/15/22 09:01> Effort & Inspection: not able to speak in complete sentences and uses accessory muscles <COLE Hopkins Last Filed: 11/15/22 09:01> GI: Inspection: Yes distended and Yes incision (clean) <COLE Hopkins Last Filed: 11/15/22 09:01> Palpation (GI): Soft to palpation, Tenderness to palpation present (GI) (mild incisional), no guarding and not rigid <COLE Hopkins Last Filed: 11/15/22 09:01> Percussion: Yes tympanic to percussion <Ana Cristina Lafleur PA-C - Last Filed: 11/15/22 09:01> Skin: General skin exam: no rashes or lesions noted <Ana Cristina Lafleur PA-C - Last Filed: 11/15/22 09:01> Neuro: General: oriented to person <Ana Cristina Lafleur PA-C - Last Filed: 11/15/22 09:01> Objective Data Active Medications Albuterol Sulfate (Albuterol Sulfate (0.083%) 2.5 Mg/3 Ml Vial.Neb) 2.5 mg INHALE ONCE PRN PRN Reason: Shortness of Breath/Wheezing Albuterol Sulfate (Albuterol Sulfate (0.083%) 2.5 Mg/3 Ml Vial.Neb) 2.5 mg INHALE QID PRN PRN Reason: Shortness Of Breath Or Wheezing Albuterol Sulfate (Albuterol Sulfate 90 Mcg 8 Gm Inhaler) 2 puff INHALE Q4H PRN PRN Reason: shortness of breath or wheezin Albuterol/Ipratropium (Albuterol/Iprat 2.5/0.5mg 3 Ml Ampul.Neb) 3 ml INHALE RQ6H WHILE AWAKE PRN PRN Reason: Shortness of Breath/Wheezing Atorvastatin Calcium (Atorvastatin Calcium 40 Mg Tablet) 40 mg PO BEDTIME [facility] Last Admin: 11/14/22 22:55 Dose: Not Given Documented By: RAMIRO Non-Admin Reason: NPO Diltiazem HCl (Diltiazem Hcl Cd 180 Mg Cap.Er.24h) 180 mg PO DAILY [facility]; Protocol Last Admin: 11/14/22 08:01 Dose: Not Given Documented By: HARJEET Non-Admin Reason: IV cardizem running Docusate Sodium (Docusate Sodium 100 Mg Capsule) 100 mg PO BID [facility] Last Admin: 11/14/22 22:55 Dose: Not Given Documented By: RAMIRO Non-Admin Reason: NPO Donepezil HCl (Donepezil Hcl 10 Mg Tablet) 10 mg PO DAILY [facility] Last Admin: 11/14/22 07:59 Dose: 10 mg Documented By: HARJEET Enoxaparin Sodium (Enoxaparin Sodium 80 Mg/0.8 Ml Syringe) 160 mg 1.5 mg/kg (160 mg) SUBCUT Q24H [facility] Last Admin: 11/14/22 07:58 Dose: 160 mg Documented By: HARJEET Finasteride (Finasteride 5 Mg Tablet) 5 mg PO DAILY [facility] Last Admin: 11/14/22 08:00 Dose: 5 mg Documented By: HARJEET Fluticasone Propionate (Fluticasone Propionate Nasal 16 Gm [place]) 2 spray NOSTRIL-B DAILY [facility] Last Admin: 11/14/22 11:28 Dose: 2 spray Documented By: HARJEET Gabapentin (Gabapentin 100 Mg Capsule) 200 mg PO BID@0800,1500 [facility] Last Admin: 11/14/22 14:32 Dose: 200 mg Documented By: HARJEET Gabapentin (Gabapentin 600 Mg Tablet) 600 mg PO BEDTIME [facility] Last Admin: 11/14/22 22:55 Dose: Not Given Documented By: RAMIRO Non-Admin Reason: NPO Acetaminophen (Ofirmev) 1,000 mg in 100 mls @ 400 mls/hr IV Q6H [facility] Last Infusion: 11/15/22 08:40 Dose: Infused Documented By: MAR Diltiazem HCl 125 mg/ Sodium (Chloride) 125 mls @ 0 mls/hr IVCONT .Q0M [facility]; Protocol Last Admin: 11/15/22 08:08 Dose: 15 mg/hr, 15 mls/hr Documented By: MAR Piperacillin Sod/Tazobactam (Sod 4.5 gm/ Sodium Chloride) 100 mls @ 200 mls/hr IV Q6H [facility] Last Infusion: 11/15/22 07:01 Dose: Infused Documented By: RAMIRO Meclizine HCl (Meclizine Hcl 25 Mg Tablet) 25 mg PO DAILY PRN PRN Reason: DIZZINESS Melatonin (Melatonin 3 Mg Tablet) 6 mg PO BEDTIME PRN PRN Reason: Insomnia Last Admin: 11/13/22 20:27 Dose: 6 mg Documented By: AVIS Memantine (Memantine Hcl 10 Mg Tablet) 10 mg PO DAILY [facility] Last Admin: 11/14/22 08:00 Dose: 10 mg Documented By: HARJEET Morphine Sulfate (Morphine Sulfate 4 Mg/Ml Cartridge) 4 mg IVPUSH Q4H PRN; Protocol PRN Reason: Pain, Severe (Pain Scale 7-10) Last Admin: 11/14/22 15:05 Dose: 4 mg Documented By: HARJEET Pt Own Armodafinil (150 Mg Tablet) 150 mg PO DAILY [facility] Last Admin: 11/14/22 11:28 Dose: 150 mg Documented By: HARJEET Omeprazole (Omeprazole 20 Mg Capsule.Dr) 20 mg PO DAILY@0630 [facility] Last Admin: 11/15/22 05:58 Dose: Not Given Documented By: RAMIRO Non-Admin Reason: NPO Ondansetron HCl (Ondansetron Hcl 4 Mg/2 Ml Vial) 4 mg IVPUSH Q8H PRN PRN Reason: Nausea and Vomiting Last Admin: 11/14/22 14:20 Dose: 4 mg Documented By: LYRIC Oxybutynin Chloride (Oxybutynin Chloride Er 5 Mg Tab.Er.24) 10 mg PO DAILY [facility] Last Admin: 11/14/22 07:59 Dose: 10 mg Documented By: HARJEET Oxycodone HCl (Oxycodone Hcl Immed Release 5 Mg Tablet) 5 mg PO Q4H PRN PRN Reason: Pain, Moderate(Pain Scale 4-6) Last Admin: 11/13/22 13:37 Dose: 5 mg Documented By: COTFRANCIS Oxycodone HCl (Oxycodone Hcl Immed Release 5 Mg Tablet) 10 mg PO Q4H PRN PRN Reason: Pain, Severe (Pain Scale 7-10) Last Admin: 11/12/22 21:23 Dose: 10 mg Documented By: AVIS Pharmacy Consult (Consult Rx Vancomycin Dosing) 1 each MISCELLANE DAILY PRN PRN Reason: Consult order Primidone (Primidone 50 Mg Tablet) 100 mg PO BEDTIME [facility] Last Admin: 11/14/22 22:55 Dose: Not Given Documented By: RAMIRO Non-Admin Reason: NPO Sertraline HCl (Sertraline Hcl 50 Mg Tablet) 150 mg PO DAILY [facility] Last Admin: 11/14/22 07:59 Dose: 150 mg Documented By: HARJEET Sodium Chloride (0.9 % Sodium Chloride Flush 3 Ml Syringe) 3 ml IVFLUSH QSHIFT [facility] Last Admin: 11/15/22 08:09 Dose: Not Given Documented By: MAR Non-Admin Reason: IV Running Tamsulosin HCl (Tamsulosin Hcl 0.4 Mg Capsule) 0.4 mg PO DAILY@1700 [facility] Last Admin: 11/14/22 15:05 Dose: 0.4 mg Documented By: HARJEET Trazodone HCl (Trazodone Hcl 25 Mg Halftab) 25 mg PO BEDTIME PRN PRN Reason: sleep Warfarin Sodium (Warfarin Sodium 3 Mg Tablet) 3 mg PO MOWETH@1800 [facility] Warfarin Sodium (Warfarin Sodium 0.5 Mg Halftab) 1.5 mg PO SUTUFRSA@1800 [facility] Last Admin: 11/14/22 18:06 Dose: 1.5 mg Documented By: HARJEET <Ana Cristina Lafleur PA-C - Last Filed: 11/15/22 09:01> Labs CBC & Chem 7: 11/14/22 07:54 11/14/22 07:54 <Ana Cristina Lafleur PA-C - Last Filed: 11/15/22 09:01> Labs: Laboratory Results - last 24 hr 11/11/22 11/14/22 11/15/22 10:37 14:58 02:41 Hold Purple Top SEE NOTE PT INR VBG pH 7.49 H VBG pCO2 27 VBG pO2 75 VBG HCO3 21 L VBG O2 Saturation 96.0 VBG Base Excess -0.3 Hold Green Top See Note Leuk/Lym Interpretation See Note 11/15/22 07:24 Hold Purple Top SEE NOTE PT 13.3 INR 1.1 VBG pH VBG pCO2 VBG pO2 VBG HCO3 VBG O2 Saturation VBG Base Excess Hold Green Top Leuk/Lym Interpretation <Ana Cristina Lafleur PA-C - Last Filed: 11/15/22 09:01> Procedures Date of Service Date of Service: 11/15/22 <Ana Cristina Lafleur PA-C - Last Filed: 11/15/22 09:01> 11/15/22 <Rajinder Casillas MD - Last Filed: 11/15/22 09:02> Progress Note: A&P Assessment and plan (1) Mesenteric mass: Status: Acute <Ana Cristina Lafleur PA-C - Last Filed: 11/15/22 09:01> (2) S/P laparoscopy: Status: Acute <Ana Cristina Lafleur PA-C - Last Filed: 11/15/22 09:01> (3) Acute respiratory failure with hypoxia: Status: Acute <Ana Cristina Lafleur PA-C - Last Filed: 11/15/22 09:01> (4) COPD (chronic obstructive pulmonary disease): Status: Acute <Ana Cristina Lafleur PA-C - Last Filed: 11/15/22 09:01> Assessment and Plan: 67 year old male POD #4 s/p diagnostic laparoscopy, biopsy of mesenteric mass admitted following for observation now with vomiting and abdominal distention. CT scan yesterday with post op changes, dilated small bowel. Likely with post op ileus and now with respiratory failure with hypoxia and concern for aspiration PNA. Being transferred to ICU for further care. Appreciate medical input. <Ana Cristina Lafleur PA-C - Last Filed: 11/15/22 09:01> 67 year old male POD #4 s/p diagnostic laparoscopy, biopsy of mesenteric mass admitted following for observation now with vomiting and abdominal distention. CT scan yesterday with post op changes, dilated small bowel. Likely with post op ileus and now with respiratory failure with hypoxia and concern for aspiration PNA. Being transferred to ICU for further care. Appreciate medical input. As noted <Rajinder Casillas MD - Last Filed: 11/15/22 09:02> Time Spent With Patient Time: Total time managing care of this patient today ____ minutes. <Ana Cristina Lafleur PA-C - Last Filed: 11/15/22 09:01> Quality Stroke Does the patient have a stroke diagnosis?: No <Ana Cristina Lafleur PA-C - Last Filed: 11/15/22 09:01> VTE Prior VTE?: No <Ana Cristina Lafleur PA-C - Last Filed: 11/15/22 09:01> VTE Risk Level:: Surgical - high <Ana Cristina Lafleur PA-C - Last Filed: 11/15/22 09:01> VTE Device Contraindication: N/A - Device Ordered <Ana Cristina Lafleur PA-C - Last Filed: 11/15/22 09:01> VTE Drug Contraindication: N/A - Med Ordered <Ana Cristina Lafleur PA-C - Last Filed: 11/15/22 09:01>
[2022-11-15 09:02] LABS: Anion Gap 17 (12-20); Blood Urea Nitrogen 19 mg/dL (9-16); Calcium 9.3 mg/dL (8.4-10.2); Carbon Dioxide 22 mmol/L (22-29); Chloride 108 mmol/L (96-108); Creatinine Clr Calc Pharmacy 77.2; Estimated Glomerular Filt Rate > 60; Glucose Random 156 mg/dL (60-115); Potassium 3.3 mmol/L (3.3-5.1); Sodium 144 mmol/L (135-145)
--- NOTE | 2022-11-15 09:18 | PM.EVENT ---
Event Note Date of Service: 11/15/22 Event Note: Patient hypoxic and encephalopathic, requiring NGT for vomiting secondary to ileus. NGT has been unsuccessful to place by nursing and gen surg. Discussed case with Dr. De La Cruz at bedside. plan for tx to ICU for higher level of care. Time Spent With Patient Time: Total time managing care of this patient today ____ minutes.
--- NOTE | 2022-11-15 09:29 | P.PNCC_ITS ---
Subjective Subjective Date of Service: 11/15/22 Interval History: patient self-discontinued NG tube; concern for aspiration; hypoxic on floor, requiring nasal cannula and face mask; decision to upgrade to ICU for further monitoring Critical Care Time (minutes): 120 Physical Exam 2 Vital Signs: Vital Signs: Last Vital Signs Temp 98.3 F 11/15/22 08:00 Pulse 114 H 11/15/22 08:00 Resp 24 H 11/15/22 08:00 BP 120/70 11/15/22 08:00 Pulse Ox 79 L 11/15/22 08:00 O2 Del Method Oxymask 11/15/22 08:00 O2 Flow Rate 15 11/15/22 08:00 BMI result Body Mass Index 35.3 Const: General: confusion and lethargic Orientation/consciousness: c onfusion and lethargic HEENT: Head: Yes normal to inspection, Yes normocephalic and Yes atraumatic Eyes: General: appearance normal, both eyes and all related structures Neck: Neck: Yes normal visual inspection and Yes full ROM Chest: Chest palpation & inspection: normal inspection of the chest Resp: Other: diffuse rhonchi throughout; no appreciable rales, wheezing Cardio: Rate: tachycardic Rhythm: abnormal rhythm GI: Other: distended, though compressible; surgical sites clean, dry, intact Skin: General skin exam: no rashes or lesions noted Neuro: Other: oriented to person only General: confusion Extrem: Other: 1+ pitting edema to bilateral knees General: Yes capillary refill normal Psych: Appearance: grossly normal Objective Data Labs 11/14/22 07:54 11/15/22 08:14 Labs: Laboratory Results - last 24 hr 11/11/22 11/14/22 11/15/22 10:37 14:58 02:41 Hold Purple Top SEE NOTE PT INR VBG pH 7.49 H VBG pCO2 27 VBG pO2 75 VBG HCO3 21 L VBG O2 Saturation 96.0 VBG Base Excess -0.3 Sodium Potassium Chloride Carbon Dioxide Anion Gap BUN Creatinine Estim Creat Clear Calc Estimated GFR Random Glucose Calcium Troponin I High Sens < 2.7 Hold Red Top Hold Green Top See Note Leuk/Lym Interpretation See Note 11/15/22 11/15/22 11/15/22 07:24 08:14 08:17 Hold Purple Top SEE NOTE SEE NOTE PT 13.3 INR 1.1 VBG pH VBG pCO2 VBG pO2 VBG HCO3 VBG O2 Saturation VBG Base Excess Sodium 144 Potassium 3.3 Chloride 108 Carbon Dioxide 22 Anion Gap 17 BUN 19 H Creatinine 1.11 Estim Creat Clear Calc 77.2 Estimated GFR > 60 Random Glucose 156 H Calcium 9.3 Troponin I High Sens Hold Red Top See Note Hold Green Top Leuk/Lym Interpretation Progress Note: A&P Assessment and plan (1) Atrial flutter: Status: Acute (2) Acute respiratory failure with hypoxia: Status: Acute (3) Antithrombin 3 deficiency: Status: Acute (4) S/P laparoscopy: Status: Acute Plan Assessment: Patient is a 66 Y M, antithrombin III deficiency, complicated by DVT, PE, portal vein thrombosis, on warfarin, as well as atrial fibrillation, DANNY, presenting on 11/11 for elective biopsy of mass on small intestine; hospital course complicated by ileus, acute hypoxic respiratory failure, and atrial flutter N: intermittent agitation, particularly surrounding NG tube; dexmedetomidine gtt; continue home regimen CV: atrial flutter; on diltiazem gtt; cardiology following; to consider transition to diltiazem PO with improvement of rate control and ileus R: acute hypoxic respiratory failure, likely due to aspiration; HFNC, titrate as appropriate GI: status post biopsy of mass on small intestine; ileus, to re-place NG tube : function: baseline creatinine 1.1; currently at baseline H: antithrombin III deficiency, complicated by prior DVT, PE; on enoxaparin SQ ID: concern for aspiration pneumonia, on empiric vancomycin, zosyn E: insulin sliding scale Quality Stroke Does the patient have a stroke diagnosis?: No VTE Prior VTE?: Yes VTE Risk Level:: Surgical - high VTE Device Contraindication: N/A - Device Ordered VTE Drug Contraindication: N/A - Med Ordered
--- NOTE | 2022-11-15 09:48 | PM.PNCARD ---
Subjective Subjective Date of Service: 11/15/22 Principal diagnosis: Atrial flutter with rapid ventricular response, hypoxic respiratory failure Interval history: Patient says he does not feel well, feels like his been run over by a truck. He continues to have abdominal pain. Overnight had vomiting and aspiration after removal of NG tube. He has hypoxic respiratory failure difficult to correct with high-flow oxygen. He does have atrial flutter with rapid ventricular response. Denies any palpitations. No lightheadedness, syncope. Review of Systems Constitutional: Reports body ache(s) and Reports weakness Cardiovascular: Reports no additional cardiovascular complaints and Reports dyspnea Respiratory: Reports dyspnea Gastrointestinal: Reports abdominal pain and Reports vomiting Reports weakness Physical Exam Vital Signs: Last Vital Signs Temp 98.3 F 11/15/22 08:00 Pulse 114 H 11/15/22 08:00 Resp 24 H 11/15/22 08:00 BP 120/70 11/15/22 08:00 Pulse Ox 79 L 11/15/22 08:00 O2 Del Method Oxymask 11/15/22 08:00 O2 Flow Rate 15 11/15/22 08:00 BMI result Body Mass Index 35.3 Const General: alert, awake and in distress moderate and respiratory Nutritional Appearance: obese Neck Neck: Yes trachea midline, Yes supple and Yes no JVD Resp Effort & Inspection: audible wheezes, labored and respiratory distress Auscultation: crackles and wheezes Cardio Jugular venous distension: no JVD Rate: tachycardic Heart sounds: S1 normal heart sound present and S2 normal heart sound present GI Inspection: Yes distended Auscultation: Absent bowel sounds Neuro General: moves all extremities Objective Labs and Meds 11/14/22 07:54 11/15/22 08:14 Lab results: Laboratory Results - last 24 hr 11/11/22 11/14/22 11/15/22 10:37 14:58 02:41 Hold Purple Top SEE NOTE PT INR VBG pH 7.49 H VBG pCO2 27 VBG pO2 75 VBG HCO3 21 L VBG O2 Saturation 96.0 VBG Base Excess -0.3 Sodium Potassium Chloride Carbon Dioxide Anion Gap BUN Creatinine Estim Creat Clear Calc Estimated GFR Random Glucose Calcium Troponin I High Sens < 2.7 Hold Red Top Hold Green Top See Note Leuk/Lym Interpretation See Note 11/15/22 11/15/22 11/15/22 07:24 08:14 08:17 Hold Purple Top SEE NOTE SEE NOTE PT 13.3 INR 1.1 VBG pH VBG pCO2 VBG pO2 VBG HCO3 VBG O2 Saturation VBG Base Excess Sodium 144 Potassium 3.3 Chloride 108 Carbon Dioxide 22 Anion Gap 17 BUN 19 H Creatinine 1.11 Estim Creat Clear Calc 77.2 Estimated GFR > 60 Random Glucose 156 H Calcium 9.3 Troponin I High Sens Hold Red Top See Note Hold Green Top Leuk/Lym Interpretation Imaging Radiologist's impression: Impressions Chest X-Ray 11/14/22 17:11 IMPRESSION: A nasogastric tube is seen with tip positioned in the vicinity of the distal gastric body. Abdomen/Pelvis CT 11/14/22 21:15 IMPRESSION: 1. Small volume of intraperitoneal free air and free fluid, concerning for bowel perforation. A clear site of perforation is not identified, however. 2. New punctate foci of gas within the region of mesenteric soft tissue attenuation and surrounding mesenteric fat stranding this could potentially corresponding to the origin of the suspected perforation as a segment of bowel tethering is suspected and a traversing small bowel, though this is not definitive. As previously noted on the prior report, the differential for this small bowel soft tissue attenuation includes sclerosing mesenteritis, desmoid tumor, carcinoid tumor, or inflammation, amongst other possibilities. 3. Dilated loops of small bowel slowly tapering at the level of the mid to distal ileum, most typical of ileus. Bowel obstruction is less likely in the absence of a clear transition point. 4. New bibasilar airspace consolidation, left side greater than right, concerning for pneumonia. Fleischner guidelines were followed. Progress Note: A&P Assessment and plan (1) Atrial flutter: Status: Acute Assessment and Plan: Atrial flutter with rapid ventricular response related underlying medical/surgical illness and acute hypoxic respiratory failure. Treatment of this condition should be pursued. Can continue with Cardizem drip. Can use IV digoxin loading for rate control if rate remains difficult control and contributes to his overall status. At this point time continue manage aggressively for his underlying condition. Patient being transferred to ICU for better respiratory support and better evaluation. Patient is closely being followed by surgery as well as by ICU team. Prognosis is guarded Will continue follow from cardiology perspective if need be. Thank you for allowing us to partake in his care Time Spent With Patient Time: Total time managing care of this patient today ____ minutes. Progress Note: Quality Stroke Does the patient have a stroke diagnosis?: No Procedures Date of Service Date of Service: 11/15/22
--- NOTE | 2022-11-15 10:12 | PHA.PROG ---
Admission Date/Time: November 12, 2022 11:45 Indication: RESPIRATORY INFECTION Weight in k.409 kg Adjusted body weight in K.7 [place] body weight in K.7 Obesity Dosing Indication % IBW: Serum Creatinine - Last 168 Hours 11/11/22 11/12/22 11/14/22 07:10 05:45 07:54 Creatinine 0.97 1.05 0.86 11/15/22 08:14 Creatinine 1.11 Estimated CrCl and GFR - Last 168 Hours 11/11/22 11/12/22 11/14/22 07:10 05:45 07:54 Estim Creat Clear Calc 89.6 82.8 101.1 Estimated GFR > 60 > 60 > 60 11/15/22 08:14 Estim Creat Clear Calc 77.2 Estimated GFR > 60 Vancomycin Loading Dose: 2000MG Current Vancomycin Dosing Regimen: 1000MG Q 12H Vancomycin Monitoring using AUC goal of 400 - 600 range with trough as surrogate marker: AUC 510MG/L HR, TROUGH 17.2MG/L Date and Time for next Vancomycin Level to be drawn: 11/16/22 at 1300 Pharmacist Comments on Vancomycin Plan: Vancomycin dosing will take advantage of langtaojin as a clinical decision support tool that uses Bayesian modeling to calculate individual patient's pharmacokinetic parameters and forecast the patient's drug concentration time course with the target goal AUC 24 range of 400 - 600 mg/L/hr.
[2022-11-15] MEDS: Enoxaparin Sodium 80 MG/0.8 ML SYRINGE 160 MG SUBCUT (10:26)
[2022-11-15] MEDS: dexmedeTOMIDidine HCL/NS 400 MCG/100 ML INFUS..BTL 27.1 MCG IVCONT (10:27)
[2022-11-15 10:55] LABS: Hematocrit 49.5 % (42.0-52.0); Hemoglobin 15.8 g/dl (14.0-18.0); Mean Corpuscular HGB Conc 31.9 g/dl (31.0-36.0); Mean Corpuscular Hemoglobin 29.2 pg (27.0-33.0); Mean Corpuscular Volume 91.5 fL (80.0-98.0); NRBC Pct Auto 0.4 /100WBC (0.0-0.2); PLT CLUMP 1; Red Blood Count 5.41 X10*6/uL (4.60-5.80); Red Cell Distribution Width 14.3 % (11.0-16.0)
[2022-11-15 10:56] LABS: WBC ABN SCTR FOR CBC 1
[2022-11-15] MEDS: Rocuronium Bromide 50 MG/5 ML VIAL 100 MG IVPUSH (11:00)
[2022-11-15] MEDS: Etomidate 20 MG/10 ML VIAL IVPUSH (11:00)
[2022-11-15] MEDS: propofoL 1,000 MG/100 ML VIAL 19.51 MG IVCONT ×2 (11:03→20:10)
--- NOTE | 2022-11-15 11:05 | W.PM.CCHP ---
Procedures Date of Service Date of Service: 11/15/22 Intubation Intubation Comments: pre-oxygenated with high flow nasal cannula; grade I view with copious gastric/feculent material within the posterior oropharynx Consent for Procedure: Elective - informed consent obtained Time out performed: Yes Sedative: etomidate Mg given: 10 Paralytic: rocuronium Mg given: 100 Laryngoscope: Vasu ET tube size: 7.5 ET tube uncuffed: Yes Tube secured depth (cm): 23 Tube secured location: teeth Tube placement confirmation: visualized tube passing through cords, equal breath sounds bilaterally and confirmation by capnometry Patient tolerated procedure: well and no complications Intubation complications: none
[2022-11-15 11:11] LABS: Alanine Aminotransferase 11 U/L (0-40); Albumin Level 3.6 g/dL (3.5-5.0); Alkaline Phosphatase 64 U/L (39-117); Anion Gap 18 (12-20); Aspartate Amino Transferase 17 U/L (5-37); Bilirubin Total 1.3 mg/dL (0.0-1.0); Blood Urea Nitrogen 21 mg/dL (9-16); Calcium 9.2 mg/dL (8.4-10.2); Carbon Dioxide 18 mmol/L (22-29); Chloride 110 mmol/L (96-108); Creatinine Clr Calc Pharmacy 78.7; Estimated Glomerular Filt Rate > 60; Glucose Random 143 mg/dL (60-115); Magnesium 2.1 mg/dL (1.6-2.6); Phosphorus 1.8 mg/dL (2.7-4.5); Potassium 3.3 mmol/L (3.3-5.1); Sodium 143 mmol/L (135-145); Total Protein 6.7 g/dL (6.5-8.0)
[2022-11-15 11:14] LABS: Lactic Acid 2.8 mmol/L (0.5-2.0)
[2022-11-15 11:34] LABS: Band Neutrophils Percent 12 % (3-5); Eosinophils Percent Manual 1 % (0-4); Lymphocytes Percent Manual 19 % (20-40); Monocytes Percent Manual 8 % (2-11); Neutrophils Percent Manual 60 % (45-73)
[2022-11-15 11:42] LABS: Burr Cells 1+ (0-2) /OIF; RBC Morphology NOTED; Toxic Vacuolation PRESENT
[2022-11-15 11:43] LABS: Eosinophils Absolute Manual 0.1 X10*3/uL (0.0-0.4); Monocytes Absolute Manual 0.4 X10*3/uL (0.1-1.2); Neutrophils Absolute Manual 3.9 X10*3/uL (2.0-8.3); Platelet Count 325 X10*3/uL (160-400); Platelet Estimate NORMAL (NORMAL); Platelet Morphology Comment NORMAL; White Blood Count 5.4 X10*3/uL (4.8-10.8)
[2022-11-15 11:59] LABS: VBG Base Excess -2.4 mmol/L; VBG HCO3 23 mmol/L (22-26); VBG pCO2 45 mmHg; VBG pH 7.32 (7.32-7.43); VBG pO2 72 mmHg
[2022-11-15 12:33] LABS: COVID-19 Test Negative (Negative); IDNOW Serial# BCCEAD1C
[2022-11-15] MEDS: Norepinephrine Bitartrate/D5W 8 MG/250 ML PLAST..BAG 10.16 MG IV (12:43)
[2022-11-15 12:46] LABS: Reflex Lactate? Lactic Acid Added
--- NOTE | 2022-11-15 13:36 | PC.NURSE ---
Patient transferred to ICU at 0945- this RN assumed care. Patient alert to self only, actively vomiting and coughing ineffectively, audible gurgling heard, rhonchi heard throughout. Patient HR sustaining 120s-130s continuing on diltizem gtt- see EMAR. O2 sats 78-86% on 15L NRB mask. SBPs 110s.RT and MD at bedside. Family at bedside, updated by this RN and MD. Decision made by MD to intubate. Patient given 10 mg etomidate IVP and 100 mg rocuronium IVP for intubation- see EMAR. Patient intubated by MD at 1101- ETT 7.5 24 cm at the lip. NGT inserted in L nare by this RN- NGT and ETT confirmed by CXR-see report. 700cc dark brown gastric output removed via NGT immediately after insertion- NGT then to IWS. Propofol gtt started per EMAR for sedation. patient tolerating AC settings 14/450/7.5/100%. Patient O2 sats sustaining 88-90%- MD and RT aware, VBG drawn per MD- see report. Pateint MAPs sustaining <65, peripheral levophed gtt started per MD- see EMAR, MAPS ow sustaining >65. Repositioning and oral care performed Q2 hours, hovermat system in place, bed locked in lowest position. Plan of care ongoing.
[2022-11-15 14:21] LABS: Venous Blood Gas Refer to POC result
[2022-11-15] MEDS: Potassium Phosphate/NS 15 MMOL/250 ML PLAST..BAG 62.5 MMOL IV (14:23)
[2022-11-15] MEDS: Lactated Ringers 500 ML 999 ML IV ×2 (14:24→15:09)
[2022-11-15] MEDS: vancomycin HCL 1,000 MG in 0.9 % Sodium Chloride 250 ML 270 MG IV (14:50)
[2022-11-15] MEDS: propofoL 1,000 MG/100 ML VIAL 13.01 MG IVCONT (15:04)
[2022-11-15] MEDS: dexmedeTOMIDidine HCL/NS 400 MCG/100 ML INFUS..BTL 40.65 MCG IVCONT ×4 (15:04→22:33)
[2022-11-15] MEDS: Lactated Ringers 1,000 ML 999 ML IV (17:04)
[2022-11-15] MEDS: Norepinephrine Bitartrate/D5W 8 MG/250 ML PLAST..BAG 16.26 MG IV (23:13)
[2022-11-15] MEDS: propofoL 1,000 MG/100 ML VIAL 26.02 MG IVCONT (23:18)
[2022-11-16] VITALS (45 sets, daily range): BP systolic 77–147; BP diastolic 49–93; PULSE 80–110; RESP 20–32; TEMP 3–40; O2SAT 89–96; BMI 37.6
[2022-11-16] MEDS: Piperacillin Sodium/Tazobactam 4.5 GM in 0.9 % Sodium Chloride 100 ML IV ×5 (00:12→23:28)
[2022-11-16] MEDS: Dextrose 5 % and Lactated Ring 1,000 ML 100 ML IVCONT ×3 (00:18→19:12)
--- NOTE | 2022-11-16 01:00 | W.PM.CCHP ---
Procedures Date of Service Date of Service: 11/16/22 Central Line Placement Left IJ: Central Line Comments: ?A quick time-out was made for clarification and proper patient identification, patient was positioned, landmarks were identified, US used to locate a? large compressible IJ.? The left neck was widely prepped and draped in a full sterile fashion.? Ultrasound was used to locate again the left IJ, the vein was cannulated on the 1st pass with an 18 gauge thin needle, dark nonpulsatile blood return was obtained.? The wire was threaded, a small incision was made at its base and dilator inserted.? A 16 cm triple-lumen central venous catheter was advanced into the vein up to the hub without problems, wired was removed. Ports had? good blood return and flushed x3.? The catheter was secured with 3 sutures at 3 sites, a Biopatch and dry sterile dressing were applied. Post procedure chest x-ray showed the line to be in good position without pneumothorax.? No bleeding or complications noted. Consent for Procedure: Elective - informed consent obtained (from patients son at bedside, signed consent on record )
[2022-11-16 01:01] LABS: Appearance Urine Clear; Color Urine Dark Yellow; Glucose Urine UA Negative (Negative); Leukocyte Esterase Urine Negative (Negative); Nitrite Urine Negative (Negative); Specific Gravity - Urine >= 1.030 (1.005-1.025); UMIC TRIGGER UA YES; Urine Blood Small (1+) (Negative); Urine Ketones Trace mg/dL (Negative); Urine Protein 100 (2+) mg/dL (Neg-Trace)
[2022-11-16] MEDS: dexmedeTOMIDidine HCL/NS 400 MCG/100 ML INFUS..BTL 40.65 MCG IVCONT ×7 (01:05→15:41)
[2022-11-16] MEDS: Albumin Human 25 % 100 ML IV ×2 (01:10→02:19)
[2022-11-16 01:13] LABS: Bacteria Urine None Seen (None Seen); Hyaline Casts Urine 0-2 /LPF (0-2); WBC Urine 0-5 /HPF (0-5)
[2022-11-16] MEDS: Acetaminophen 1,000 MG/100 ML PIGGYBACK 400 MG IV ×3 (03:04→14:51)
[2022-11-16] MEDS: propofoL 1,000 MG/100 ML VIAL 26.02 MG IVCONT ×5 (03:05→23:25)
[2022-11-16] MEDS: vancomycin HCL 1,000 MG in 0.9 % Sodium Chloride 250 ML 270 MG IV ×2 (03:31→14:50)
--- NOTE | 2022-11-16 04:45 | PC.NURSE ---
Addendum entered by Mandeep Dye RN 11/16/22 04:53: TLC PLACED BY [facility] DELIA HARO TO LEFT JUGULAR SITE W/O INCIDENT AT 00:30 Original Note: CARE ASSUMED 23:15...REMAINS TUBED/VCV VENT SUPPORT...AC14/TV400/FIO2 70%/PEEP6.....RR 32-34....PROPOFOL AND PRECIDEX DRIPS PER APR...SEDATE AT REST....(+) COUGH AND WEAKLY MARTIN WITH POSITIONING..DESATS TO MID 80'S WITH DYSYCHRONY OF VENT..GRADUAL RECOVERY TO 93-94% AT REST..NG-TUBE WITH BILIOUS DRAINAGE...HS ORAL TEMP 102.9 AND TEMPORAL TEMP 103.0...ORAL TEMP PROBE PLACED AND TEMP 104.0...ICU PA PRESENT...COOLING BLANKET ORDERED BUT UNAVAILABLE PER CARDIOLOGY MANAGER...ICE PACKS APPLIED...SCHEDULED 3AM IV TYLENOL GIVEN...CURRENT TEMP= 102.2 CORE...H[place]SON YELLOW URINE...URINE OUTPUT PREVIOUSLY EMPTIED AND DISCORDED PER REPORT...TO RESTART 24HOUR URINE COLLECTION IN AM...MONITOR ATRIAL FIB/FLUTTER.....HR 110'S WITH TEMP 104.0...CURRENT HR 80'S-90'S WITH TEMP 102.2.....D5LR 100 CC/HR STARTED AT HS AND ALBUMEN 25GRAMS X2 DOSES AT HS FOR MARGINAL URINE OUTPUT WITH IMPROVEMENT
[2022-11-16 04:51] LABS: VBG Base Excess 0.6 mmol/L; VBG HCO3 23 mmol/L (22-26); VBG pCO2 33 mmHg; VBG pH 7.46 (7.32-7.43); VBG pO2 41 mmHg
[2022-11-16 04:52] LABS: Venous Blood Gas Refer to POC result
[2022-11-16 05:12] LABS: Hematocrit 35.2 % (42.0-52.0); Hemoglobin 11.4 g/dl (14.0-18.0); Mean Corpuscular HGB Conc 32.4 g/dl (31.0-36.0); Mean Corpuscular Hemoglobin 29.8 pg (27.0-33.0); Mean Corpuscular Volume 91.9 fL (80.0-98.0); Platelet Count 217 X10*3/uL (160-400); Red Blood Count 3.83 X10*6/uL (4.60-5.80); Red Cell Distribution Width 14.4 % (11.0-16.0)
[2022-11-16 05:13] LABS: WBC ABN SCTR FOR CBC 1; White Blood Count 8.9 X10*3/uL (4.8-10.8)
[2022-11-16 05:18] LABS: INTERNATIONAL NORM RATIO 1.5 (0.9-1.1)
[2022-11-16 05:29] LABS: Anion Gap 15 (12-20); Blood Urea Nitrogen 20 mg/dL (9-16); Calcium 8.3 mg/dL (8.4-10.2); Carbon Dioxide 21 mmol/L (22-29); Chloride 112 mmol/L (96-108); Creatinine Clr Calc Pharmacy 62.3; Estimated Glomerular Filt Rate 50; Glucose Random 131 mg/dL (60-115); Magnesium 1.8 mg/dL (1.6-2.6); Phosphorus 1.7 mg/dL (2.7-4.5); Potassium 3.1 mmol/L (3.3-5.1); Sodium 145 mmol/L (135-145)
[2022-11-16] MEDS: Pantoprazole Sodium 40 MG/10 ML VIAL IVPUSH (05:38)
[2022-11-16 05:47] LABS: Band Neutrophils Percent 21 % (3-5); Basophilic Stippling 1+ (0-2) /OIF; Burr Cells 1+ (0-2) /OIF; Dohle Bodies PRESENT; Eosinophils Absolute Manual 0.1 X10*3/uL (0.0-0.4); Eosinophils Percent Manual 1 % (0-4); Howell Jolly Bodies PRESENT; Large Platelet PRESENT; Lymphocytes Absolute Manual 1.9 X10*3/uL (1.2-4.9); Lymphocytes Percent Manual 21 % (20-40); Macrocytosis 1+ (5-14) /OIF; Monocytes Absolute Manual 0.4 X10*3/uL (0.1-1.2); Monocytes Percent Manual 4 % (2-11); Neutrophils Absolute Manual 6.6 X10*3/uL (2.0-8.3); Neutrophils Percent Manual 53 % (45-73); Platelet Estimate NORMAL (NORMAL); Platelet Morphology Comment NORMAL; Polychromasia 1+ (0-2) /OIF; RBC Morphology NOTED
[2022-11-16 05:48] LABS: Smudge Cells PRESENT; Toxic Vacuolation PRESENT
[2022-11-16] MEDS: 0.9 % Sodium Chloride Flush 3 ML SYRINGE IVFLUSH ×2 (07:29→15:41)
[2022-11-16] MEDS: Magnesium Sulfate/H2O 2 GM/50 ML PIGGYBACK IV (07:31)
[2022-11-16] MEDS: Potassium Phosphate/NS 15 MMOL/250 ML PLAST..BAG 62.5 MMOL IV ×2 (07:31→12:03)
--- NOTE | 2022-11-16 08:37 | PM.CCPN ---
Subjective Subjective Date of Service: 11/16/22 Interval History: hemodynamically improved; some improvement in hypoxia Critical Care Time (minutes): 90 Physical Exam Vital Signs: Vital Signs: Last Vital Signs Temp 102.2 F H 11/16/22 08:00 Pulse 102 H 11/16/22 08:07 Resp 30 H 11/16/22 08:00 BP 119/75 11/16/22 08:07 Pulse Ox 93 11/16/22 08:00 O2 Del Method Mechanical Ventil ation 11/16/22 08:00 O2 Flow Rate 30 11/15/22 10:00 FiO2 70 11/16/22 08:00 BMI result Body Mass Index 37.6 Const: Other: intubated, sedated HEENT: Head: Yes normal to inspection, Yes normocephalic and Yes atraumatic Eyes: General: appearance normal, both eyes and all related structures Neck: Neck: Yes normal visual inspection and Yes full ROM Chest: Chest palpation & inspection: normal inspection of the chest Resp: Other: diffuse rhonchi anterior lung urena; no overt rales, wheezing Cardio: Rate: regular rate Rhythm: regular rhythm GI: Other: abdomen distended, though compressible; hypoactive bowel sounds; no appreciable guarding, rebound Palpation (GI): no guarding and not rigid Skin: General skin exam: no rashes or lesions noted Neuro: Other: intubated; unable to participate in neurological exam Extrem: General: Yes normal to inspection and Yes capillary refill normal Psych: Other: sedated; unable to assess Objective Data Labs 11/16/22 04:40 11/16/22 04:40 Labs: Laboratory Results - last 24 hr 11/15/22 11/15/22 11/15/22 08:14 08:17 10:38 WBC 5.4 RBC 5.41 Hgb 15.8 Hct 49.5 D MCV 91.5 MCH 29.2 MCHC 31.9 RDW 14.3 Plt Count 325 D MPV Not Reportable Immature Gran % (Auto) Cancelled Neut % (Auto) Cancelled Lymph % (Auto) Cancelled Bullock % (Auto) Cancelled Eos % (Auto) Cancelled Baso % (Auto) Cancelled Lymph # (Auto) Cancelled Bullock # (Auto) Cancelled Eos # (Auto) Cancelled Baso # (Auto) Cancelled Abs Immat Gran (auto) Cancelled Absolute Neuts (auto) Cancelled Absolute Nucleated RBC 0.020 H Nucleated RBC % (auto) 0.4 H Neutrophils % (Manual) 60 Band Neutrophils % 12 H Lymphocytes % (Manual) 19 L Monocytes % (Manual) 8 Eosinophils % (Manual) 1 Abs Neuts (Manual) 3.9 Lymphocytes # (Manual) 1.0 L Monocytes # (Manual) 0.4 Eosinophils # (Manual) 0.1 Smudge Cells Toxic Vacuolation PRESENT Dohle Bodies Platelet Estimate NORMAL Large Platelets Plt Morphology Comment NORMAL RBC Morphology NOTED Polychromasia Basophilic Stippling Macrocytosis Kennedy-Schlusser Bodies Bradley Cells 1+ (0-2) Hold Purple Top SEE NOTE PT INR VBG pH VBG pCO2 VBG pO2 VBG HCO3 VBG O2 Saturation VBG Base Excess Sodium 144 143 Potassium 3.3 3.3 Chloride 108 110 H Carbon Dioxide 22 18 L Anion Gap 17 18 BUN 19 H 21 H Creatinine 1.11 1.09 Estim Creat Clear Calc 77.2 78.7 Estimated GFR > 60 > 60 Random Glucose 156 H 143 H Lactic Acid 2.8 H* Lactic Acid F/U @ 2Hr Calcium 9.3 9.2 Phosphorus 1.8 L Magnesium 2.1 Total Bilirubin 1.3 H AST 17 ALT 11 Alkaline Phosphatase 64 Total Protein 6.7 Albumin 3.6 Hold Red Top See Note Urine Color Urine Appearance Urine pH Ur Specific Lindsay Urine Protein Urine Glucose (UA) Urine Ketones Urine Blood Urine Nitrite Ur Leukocyte Esterase Urine RBC Urine WBC Ur Squamous Epith Cells Urine Bacteria Hyaline Casts COVID-19 ([facility]) COVID-19 Clin Com 11/15/22 11/15/22 11/15/22 11:50 11:54 13:51 WBC RBC Hgb Hct MCV MCH MCHC RDW Plt Count MPV Immature Gran % (Auto) Neut % (Auto) Lymph % (Auto) Bullock % (Auto) Eos % (Auto) Baso % (Auto) Lymph # (Auto) Bullock # (Auto) Eos # (Auto) Baso # (Auto) Abs Immat Gran (auto) Absolute Neuts (auto) Absolute Nucleated RBC Nucleated RBC % (auto) Neutrophils % (Manual) Band Neutrophils % Lymphocytes % (Manual) Monocytes % (Manual) Eosinophils % (Manual) Abs Neuts (Manual) Lymphocytes # (Manual) Monocytes # (Manual) Eosinophils # (Manual) Smudge Cells Toxic Vacuolation Dohle Bodies Platelet Estimate Large Platelets Plt Morphology Comment RBC Morphology Polychromasia Basophilic Stippling Macrocytosis Kennedy-Schlusser Bodies Bradley Cells Hold Purple Top PT INR VBG pH 7.32 VBG pCO2 45 VBG pO2 72 VBG HCO3 23 VBG O2 Saturation 93.0 VBG Base Excess -2.4 Sodium Potassium Chloride Carbon Dioxide Anion Gap BUN Creatinine Estim Creat Clear Calc Estimated GFR Random Glucose Lactic Acid Lactic Acid F/U @ 2Hr 2.0 Calcium Phosphorus Magnesium Total Bilirubin AST ALT Alkaline Phosphatase Total Protein Albumin Hold Red Top Urine Color Urine Appearance Urine pH Ur Specific Lindsay Urine Protein Urine Glucose (UA) Urine Ketones Urine Blood Urine Nitrite Ur Leukocyte Esterase Urine RBC Urine WBC Ur Squamous Epith Cells Urine Bacteria Hyaline Casts COVID-19 ([facility]) Negative COVID-19 Clin Com See Note 11/16/22 11/16/22 11/16/22 00:30 04:40 04:46 WBC 8.9 RBC 3.83 L D Hgb 11.4 L D Hct 35.2 L D MCV 91.9 MCH 29.8 MCHC 32.4 RDW 14.4 Plt Count 217 D MPV 10.0 Immature Gran % (Auto) Cancelled Neut % (Auto) Cancelled Lymph % (Auto) Cancelled Bullock % (Auto) Cancelled Eos % (Auto) Cancelled Baso % (Auto) Cancelled Lymph # (Auto) Cancelled Bullock # (Auto) Cancelled Eos # (Auto) Cancelled Baso # (Auto) Cancelled Abs Immat Gran (auto) Cancelled Absolute Neuts (auto) Cancelled Absolute Nucleated RBC 0.000 Nucleated RBC % (auto) 0.0 Neutrophils % (Manual) 53 Band Neutrophils % 21 H Lymphocytes % (Manual) 21 Monocytes % (Manual) 4 Eosinophils % (Manual) 1 Abs Neuts (Manual) 6.6 Lymphocytes # (Manual) 1.9 Monocytes # (Manual) 0.4 Eosinophils # (Manual) 0.1 Smudge Cells PRESENT Toxic Vacuolation PRESENT Dohle Bodies PRESENT Platelet Estimate NORMAL Large Platelets PRESENT Plt Morphology Comment NORMAL RBC Morphology NOTED Polychromasia 1+ (0-2) Basophilic Stippling 1+ (0-2) Macrocytosis 1+ (5-14) Kennedy-Schlusser Bodies PRESENT Bradley Cells 1+ (0-2) Hold Purple Top PT 18.0 H D INR 1.5 H VBG pH 7.46 H VBG pCO2 33 VBG pO2 41 VBG HCO3 23 VBG O2 Saturation 68.0 VBG Base Excess 0.6 Sodium 145 Potassium 3.1 L Chloride 112 H Carbon Dioxide 21 L Anion Gap 15 BUN 20 H Creatinine 1.42 H Estim Creat Clear Calc 62.3 Estimated GFR 50 Random Glucose 131 H Lactic Acid Lactic Acid F/U @ 2Hr Calcium 8.3 L D Phosphorus 1.7 L Magnesium 1.8 Total Bilirubin AST ALT Alkaline Phosphatase Total Protein Albumin Hold Red Top Urine Color Dark Yellow Urine Appearance Clear Urine pH 6.0 Ur Specific Lindsay >= 1.030 H Urine Protein 100 (2+) H Urine Glucose (UA) Negative Urine Ketones Trace Urine Blood Small (1+) H Urine Nitrite Negative Ur Leukocyte Esterase Negative Urine RBC 3-5 H Urine WBC 0-5 Ur Squamous Epith Cells 11-20 Urine Bacteria None Seen Hyaline Casts 0-2 COVID-19 ([facility]) COVID-19 Clin Com Progress Note: A&P Assessment and plan (1) Acute respiratory failure with hypoxia: Status: Acute (2) Antithrombin 3 deficiency: Status: Acute (3) Chronic pulmonary embolism: Status: Acute (4) COPD (chronic obstructive pulmonary disease): Status: Acute (5) Ileus following gastrointestinal surgery: Status: Acute Plan Assessment: Patient is a 66 Y M, antithrombin III deficiency, complicated by DVT, PE, portal vein thrombosis, on warfarin, as well as atrial fibrillation, DANNY, presenting on 11/11 for elective biopsy of mass on small intestine; hospital course complicated by ileus, aspiration complicated by acute hypoxic respiratory failure, and atrial flutter with rapid ventricular response N: intubated, on propofol gtt; plan for sedation vacation for neurological exam; ideally dexmedetomidine gtt as tolerated; given improvement of gastric output, to continue home regimen CV: atrial flutter with rapid ventricular response, previously on diltiazem gtt, now on diltiazem PO R: acute hypoxic respiratory failure, due to aspiration pneumonia; intubated on high vent settings, though slowing improving; empiric antibiotics; to follow-up cultures GI: status post biopsy of mass on small intestine; ileus, NG tube in place with decreasing output; to resume PO meds as tolerated; to add docusate, enema; general surgery following : rising creatinine, likely pre-renal; to continue maintenance IVFs H: antithrombin III deficiency, complicated by prior DVT, PE; on enoxaparin SQ ID: concern for aspiration pneumonia, on empiric vancomycin, zosyn E: insulin sliding scale Quality Stroke Does the patient have a stroke diagnosis?: No VTE Prior VTE?: Yes VTE Risk Level:: Surgical - high VTE Device Contraindication: N/A - Device Ordered VTE Drug Contraindication: N/A - Med Ordered
--- NOTE | 2022-11-16 10:03 | P.PNCA_ITS ---
Subjective Subjective Date of Service: 11/16/22 Principal diagnosis: Atrial flutter with rapid ventricular response, hypoxic respiratory failure Interval history: Patient intubated yesterday for acute hypoxemic respiratory failure. Since then his heart rate has improved. He is currently off diltiazem drip. Heart remains in atrial flutter in the 80s. Blood pressure is stable. He however is continuing to require high levels of oxygen remains mildly hypoxic. Belly still distended without any bowel sounds. Still having gastric aspirates Review of Systems Review of Systems Yes unobtainable due to endotracheal tube Physical Exam Vital Signs: Last Vital Signs Temp 101.8 F H 11/16/22 09:58 Pulse 83 11/16/22 09:58 Resp 32 H 11/16/22 09:58 BP 110/70 11/16/22 09:58 Pulse Ox 89 L 11/16/22 09:58 O2 Del Method Mechanical Ventilation 11/16/22 09:58 O2 Flow Rate 30 11/15/22 10:00 FiO2 70 11/16/22 09:58 BMI result Body Mass Index 37.6 Const General: alert, awake and in distress moderate and respiratory Nutritional Appearance: obese Neck Neck: Yes trachea midline, Yes supple and Yes no JVD Resp Effort & Inspection: audible wheezes, labored and respiratory distress Auscultation: crackles and wheezes Cardio Jugular venous distension: no JVD Rate: regular rate Rhythm: abnormal rhythm regularly irregular Heart sounds: S1 normal heart sound present and S2 normal heart sound present GI Inspection: Yes distended Auscultation: Absent bowel sounds Neuro General: moves all extremities Objective Labs and Meds 11/16/22 04:40 11/16/22 04:40 Lab results: Laboratory Results - last 24 hr 11/15/22 11/15/22 11/15/22 10:38 11:50 11:54 WBC 5.4 RBC 5.41 Hgb 15.8 Hct 49.5 D MCV 91.5 MCH 29.2 MCHC 31.9 RDW 14.3 Plt Count 325 D MPV Not Reportable Immature Gran % (Auto) Cancelled Neut % (Auto) Cancelled Lymph % (Auto) Cancelled [place] % (Auto) Cancelled Eos % (Auto) Cancelled Baso % (Auto) Cancelled Lymph # (Auto) Cancelled [place] # (Auto) Cancelled Eos # (Auto) Cancelled Baso # (Auto) Cancelled Abs Immat Gran (auto) Cancelled Absolute Neuts (auto) Cancelled Absolute Nucleated RBC 0.020 H Nucleated RBC % (auto) 0.4 H Neutrophils % (Manual) 60 Band Neutrophils % 12 H Lymphocytes % (Manual) 19 L Monocytes % (Manual) 8 Eosinophils % (Manual) 1 Abs Neuts (Manual) 3.9 Lymphocytes # (Manual) 1.0 L Monocytes # (Manual) 0.4 Eosinophils # (Manual) 0.1 Smudge Cells Toxic Vacuolation PRESENT Dohle Bodies Platelet Estimate NORMAL Large Platelets Plt Morphology Comment NORMAL RBC Morphology NOTED Polychromasia Basophilic Stippling Macrocytosis [place] Bodies Bradley Cells 1+ (0-2) PT INR VBG pH 7.32 VBG pCO2 45 VBG pO2 72 VBG HCO3 23 VBG O2 Saturation 93.0 VBG Base Excess -2.4 Sodium 143 Potassium 3.3 Chloride 110 H Carbon Dioxide 18 L Anion Gap 18 BUN 21 H Creatinine 1.09 Estim Creat Clear Calc 78.7 Estimated GFR > 60 Random Glucose 143 H Lactic Acid 2.8 H* Lactic Acid F/U @ 2Hr Calcium 9.2 Phosphorus 1.8 L Magnesium 2.1 Total Bilirubin 1.3 H AST 17 ALT 11 Alkaline Phosphatase 64 Total Protein 6.7 Albumin 3.6 Urine Color Urine Appearance Urine pH Ur Specific [place] Urine Protein Urine Glucose (UA) Urine Ketones Urine Blood Urine Nitrite Ur Leukocyte Esterase Urine RBC Urine WBC Ur Squamous Epith Cells Urine Bacteria Hyaline Casts COVID-19 ([facility]) Negative COVID-19 Clin Com See Note 11/15/22 11/16/22 11/16/22 13:51 00:30 04:40 WBC 8.9 RBC 3.83 L D Hgb 11.4 L D Hct 35.2 L D MCV 91.9 MCH 29.8 MCHC 32.4 RDW 14.4 Plt Count 217 D MPV 10.0 Immature Gran % (Auto) Cancelled Neut % (Auto) Cancelled Lymph % (Auto) Cancelled [place] % (Auto) Cancelled Eos % (Auto) Cancelled Baso % (Auto) Cancelled Lymph # (Auto) Cancelled [place] # (Auto) Cancelled Eos # (Auto) Cancelled Baso # (Auto) Cancelled Abs Immat Gran (auto) Cancelled Absolute Neuts (auto) Cancelled Absolute Nucleated RBC 0.000 Nucleated RBC % (auto) 0.0 Neutrophils % (Manual) 53 Band Neutrophils % 21 H Lymphocytes % (Manual) 21 Monocytes % (Manual) 4 Eosinophils % (Manual) 1 Abs Neuts (Manual) 6.6 Lymphocytes # (Manual) 1.9 Monocytes # (Manual) 0.4 Eosinophils # (Manual) 0.1 Smudge Cells PRESENT Toxic Vacuolation PRESENT Dohle Bodies PRESENT Platelet Estimate NORMAL Large Platelets PRESENT Plt Morphology Comment NORMAL RBC Morphology NOTED Polychromasia 1+ (0-2) Basophilic Stippling 1+ (0-2) Macrocytosis 1+ (5-14) [place] Bodies PRESENT Bradley Cells 1+ (0-2) PT 18.0 H D INR 1.5 H VBG pH VBG pCO2 VBG pO2 VBG HCO3 VBG O2 Saturation VBG Base Excess Sodium 145 Potassium 3.1 L Chloride 112 H Carbon Dioxide 21 L Anion Gap 15 BUN 20 H Creatinine 1.42 H Estim Creat Clear Calc 62.3 Estimated GFR 50 Random Glucose 131 H Lactic Acid Lactic Acid F/U @ 2Hr 2.0 Calcium 8.3 L D Phosphorus 1.7 L Magnesium 1.8 Total Bilirubin AST ALT Alkaline Phosphatase Total Protein Albumin Urine Color Dark Yellow Urine Appearance Clear Urine pH 6.0 Ur Specific [place] >= 1.030 H Urine Protein 100 (2+) H Urine Glucose (UA) Negative Urine Ketones Trace Urine Blood Small (1+) H Urine Nitrite Negative Ur Leukocyte Esterase Negative Urine RBC 3-5 H Urine WBC 0-5 Ur Squamous Epith Cells 11-20 Urine Bacteria None Seen Hyaline Casts 0-2 COVID-19 ([facility]) COVID-19 Clin Com 11/16/22 04:46 WBC RBC Hgb Hct MCV MCH MCHC RDW Plt Count MPV Immature Gran % (Auto) Neut % (Auto) Lymph % (Auto) [place] % (Auto) Eos % (Auto) Baso % (Auto) Lymph # (Auto) [place] # (Auto) Eos # (Auto) Baso # (Auto) Abs Immat Gran (auto) Absolute Neuts (auto) Absolute Nucleated RBC Nucleated RBC % (auto) Neutrophils % (Manual) Band Neutrophils % Lymphocytes % (Manual) Monocytes % (Manual) Eosinophils % (Manual) Abs Neuts (Manual) Lymphocytes # (Manual) Monocytes # (Manual) Eosinophils # (Manual) Smudge Cells Toxic Vacuolation Dohle Bodies Platelet Estimate Large Platelets Plt Morphology Comment RBC Morphology Polychromasia Basophilic Stippling Macrocytosis [place] Bodies Bradley Cells PT INR VBG pH 7.46 H VBG pCO2 33 VBG pO2 41 VBG HCO3 23 VBG O2 Saturation 68.0 VBG Base Excess 0.6 Sodium Potassium Chloride Carbon Dioxide Anion Gap BUN Creatinine Estim Creat Clear Calc Estimated GFR Random Glucose Lactic Acid Lactic Acid F/U @ 2Hr Calcium Phosphorus Magnesium Total Bilirubin AST ALT Alkaline Phosphatase Total Protein Albumin Urine Color Urine Appearance Urine pH Ur Specific [place] Urine Protein Urine Glucose (UA) Urine Ketones Urine Blood Urine Nitrite Ur Leukocyte Esterase Urine RBC Urine WBC Ur Squamous Epith Cells Urine Bacteria Hyaline Casts COVID-19 ([facility]) COVID-19 Clin Com Imaging Radiologist's impression: Impressions Chest X-Ray 11/15/22 10:20 IMPRESSION: 1. Worsening pulmonary aeration with increased bibasilar airspace opacities and small amount of bilateral pleural fluid. 2. Partially imaged abnormal small bowel dilatation and pneumoperitoneum, best visualized on recent CT. Chest X-Ray 11/15/22 11:54 IMPRESSION: 1. The tip of the endotracheal tube is 3.6 cm superior to the david. 2. Worsening pulmonary aeration with increased bibasilar airspace opacities and small amount of bilateral pleural fluid. 3. Partially imaged abnormal small bowel dilatation. Chest X-Ray 11/16/22 01:11 IMPRESSION: 1. Left IJ central line tip in the region of the distal SVC. 2. Persistent bibasilar opacities which may be slightly worsened on the left, as well as small pleural effusions. 3. Prominent central vasculature suggesting a degree of congestion. Progress Note: A&P Assessment and plan (1) Atrial flutter: Status: Acute Assessment and Plan: Atrial flutter with controlled rate. Yesterday is uncontrolled rate was due to his acute medical/surgical illness. Patient since intubated and support his heart rate has remained controlled. If heart rate remains an issue to control can use p.r.n. IV metoprolol for the same. Continue supportive care. Overall prognosis is guarded. No further cardiac input at this point time. Will sign of the case at this point time. Thank you for allowing us to partake in his care Time Spent With Patient Time: Total time managing care of this patient today ____ minutes. Progress Note: Quality Stroke Does the patient have a stroke diagnosis?: No Procedures Date of Service Date of Service: 11/16/22
[2022-11-16] MEDS: Enoxaparin Sodium 80 MG/0.8 ML SYRINGE 160 MG SUBCUT (10:06)
[2022-11-16] MEDS: dilTIAZem HCL CD 180 MG CAP.ER.24H PO (10:06)
[2022-11-16] MEDS: Docusate Sodium 100 MG CAPSULE PO (10:07)
--- NOTE | 2022-11-16 11:09 | PM.PNGS ---
Subjective Subjective Date of Service: 11/16/22 Interval history: Intubated, on vent. NGT in place and output decreasing. Physical Exam Vital Signs: Vital Signs: Last Vital Signs Temp 101.8 F H 11/16/22 11:00 Pulse 84 11/16/22 11:00 Resp 32 H 11/16/22 11:00 BP 110/68 11/16/22 11:00 Pulse Ox 90 L 11/16/22 11:00 O2 Del Method Mechanical Ventil ation 11/16/22 11:00 O2 Flow Rate 30 11/15/22 10:00 FiO2 70 11/16/22 11:00 BMI result Body Mass Index 37.6 GI: Inspection: Yes distended and Yes incision (clean) Palpation (GI): Soft to palpation Percussion: Yes tympanic to percussion Skin: General skin exam: no rashes or lesions noted Objective Data Active Medications Albuterol Sulfate (Albuterol Sulfate (0.083%) 2.5 Mg/3 Ml Vial.Neb) 2.5 mg INHALE ONCE PRN PRN Reason: Shortness of Breath/Wheezing Albuterol Sulfate (Albuterol Sulfate (0.083%) 2.5 Mg/3 Ml Vial.Neb) 2.5 mg INHALE QID PRN PRN Reason: Shortness Of Breath Or Wheezing Albuterol Sulfate (Albuterol Sulfate 90 Mcg 8 Gm Inhaler) 2 puff INHALE Q4H PRN PRN Reason: shortness of breath or wheezin Albuterol/Ipratropium (Albuterol/Iprat 2.5/0.5mg 3 Ml Ampul.Neb) 3 ml INHALE RQ6H WHILE AWAKE PRN PRN Reason: Shortness of Breath/Wheezing Atorvastatin Calcium (Atorvastatin Calcium 40 Mg Tablet) 40 mg PO BEDTIME [facility] Last Admin: 11/14/22 22:55 Dose: Not Given Documented By: RAMIRO Non-Admin Reason: NPO Diltiazem HCl (Diltiazem Hcl Cd 180 Mg Cap.Er.24h) 180 mg PO DAILY [facility]; Protocol Last Admin: 11/16/22 10:06 Dose: 180 mg Documented By: ADAL Docusate Sodium (Docusate Sodium 100 Mg Capsule) 100 mg PO BID [facility] Last Admin: 11/16/22 10:07 Dose: 100 mg Documented By: ADAL Donepezil HCl (Donepezil Hcl 10 Mg Tablet) 10 mg PO DAILY [facility] Last Admin: 11/15/22 10:11 Dose: Not Given Documented By: ADAL Non-Admin Reason: Physician Held Med Enoxaparin Sodium (Enoxaparin Sodium 80 Mg/0.8 Ml Syringe) 160 mg 1.5 mg/kg (160 mg) SUBCUT Q24H [facility] Last Admin: 11/16/22 10:06 Dose: 160 mg Documented By: ADAL Finasteride (Finasteride 5 Mg Tablet) 5 mg PO DAILY [facility] Last Admin: 11/15/22 10:11 Dose: Not Given Documented By: ADAL Non-Admin Reason: Physician Held Med Fluticasone Propionate (Fluticasone Propionate Nasal 16 Gm [place]) 2 spray NOSTRIL-B DAILY [facility] Last Admin: 11/16/22 09:58 Dose: Not Given Documented By: ADAL Non-Admin Reason: intubated/sedated Gabapentin (Gabapentin 100 Mg Capsule) 200 mg PO BID@0800,1500 [facility] Last Admin: 11/15/22 10:09 Dose: Not Given Documented By: ADAL Non-Admin Reason: Physician Held Med Gabapentin (Gabapentin 600 Mg Tablet) 600 mg PO BEDTIME [facility] Last Admin: 11/14/22 22:55 Dose: Not Given Documented By: RAMIRO Non-Admin Reason: NPO Acetaminophen (Ofirmev) 1,000 mg in 100 mls @ 400 mls/hr IV Q6H [facility] Last Infusion: 11/16/22 10:23 Dose: Infused Documented By: ADAL Diltiazem HCl 125 mg/ Sodium (Chloride) 125 mls @ 0 mls/hr IVCONT .Q0M [facility]; Protocol Last Titration: 11/15/22 15:33 Dose: 0 mg/hr, 0 mls/hr Documented By: ADAL Piperacillin Sod/Tazobactam (Sod 4.5 gm/ Sodium Chloride) 100 mls @ 200 mls/hr IV Q6H [facility] Last Infusion: 11/16/22 06:12 Dose: Infused Documented By: DIONICIO Dexmedetomidine HCl (Precedex) 400 mcg in 100 mls @ 0 mls/hr IVCONT .Q0M [facility]; Protocol Last Admin: 11/16/22 10:45 Dose: 1.5 mcg/kg/hr, 40.65 mls/hr Documented By: ADAL Vancomycin HCl 1,000 mg/ (Sodium Chloride) 270 mls @ 270 mls/hr IV Q12H [facility] Last Infusion: 11/16/22 04:52 Dose: Infused Documented By: DIONICIO Propofol (Diprivan) 1,000 mg in 100 mls @ 0 mls/hr IVCONT .Q0M [facility]; Protocol Last Titration: 11/16/22 10:55 Dose: 10 mcg/kg/min, 6.51 mls/hr Documented By: ADAL Norepinephrine Bitartrate (Levophed) 8 mg in 250 mls @ 0 mls/hr IV .Q0M [facility]; Protocol Last Titration: 11/16/22 09:02 Dose: 0.02 mcg/kg/min, 4.07 mls/hr Documented By: ADAL Dextrose/Lactated Ringer's (D5lr) 1,000 mls @ 100 mls/hr IVCONT .Q10H [facility] Last Admin: 11/16/22 09:52 Dose: 100 mls/hr Documented By: ADAL Potassium Phosphate (Kphos) 15 mmol in 250 mls @ 62.5 mls/hr IV Q4H [facility] Stop: 11/16/22 15:59 Last Admin: 11/16/22 07:31 Dose: 62.5 mls/hr Documented By: NARAYAN Meclizine HCl (Meclizine Hcl 25 Mg Tablet) 25 mg PO DAILY PRN PRN Reason: DIZZINESS Memantine (Memantine Hcl 10 Mg Tablet) 10 mg PO DAILY [facility] Last Admin: 11/15/22 10:11 Dose: Not Given Documented By: ADAL Non-Admin Reason: Physician Held Med Morphine Sulfate (Morphine Sulfate 4 Mg/Ml Cartridge) 4 mg IVPUSH Q4H PRN; Protocol PRN Reason: Pain, Severe (Pain Scale 7-10) Last Admin: 11/14/22 15:05 Dose: 4 mg Documented By: HARJEET Pt Own Armodafinil (150 Mg Tablet) 150 mg PO DAILY [facility] Last Admin: 11/15/22 10:10 Dose: Not Given Documented By: ADAL Non-Admin Reason: Physician Held Med Omeprazole (Omeprazole 20 Mg Capsule.Dr) 20 mg PO DAILY@0630 [facility] Last Admin: 11/15/22 05:58 Dose: Not Given Documented By: RAMIRO Non-Admin Reason: NPO Ondansetron HCl (Ondansetron Hcl 4 Mg/2 Ml Vial) 4 mg IVPUSH Q8H PRN PRN Reason: Nausea and Vomiting Last Admin: 11/14/22 14:20 Dose: 4 mg Documented By: LYRIC Oxybutynin Chloride (Oxybutynin Chloride Er 5 Mg Tab.Er.24) 10 mg PO DAILY [facility] Last Admin: 11/15/22 10:11 Dose: Not Given Documented By: ADAL Non-Admin Reason: Physician Held Med Oxycodone HCl (Oxycodone Hcl Immed Release 5 Mg Tablet) 5 mg PO Q4H PRN PRN Reason: Pain, Moderate(Pain Scale 4-6) Last Admin: 11/13/22 13:37 Dose: 5 mg Documented By: GABO Oxycodone HCl (Oxycodone Hcl Immed Release 5 Mg Tablet) 10 mg PO Q4H PRN PRN Reason: Pain, Severe (Pain Scale 7-10) Last Admin: 11/12/22 21:23 Dose: 10 mg Documented By: AVIS Pantoprazole Sodium (Pantoprazole Sodium 40 Mg/10 Ml Vial) 40 mg IVPUSH DAILY@0630 [facility] Last Admin: 11/16/22 05:38 Dose: 40 mg Documented By: DIONICIO Pharmacy Consult (Consult Rx Vancomycin Dosing) 1 each MISCELLANE DAILY PRN PRN Reason: Consult order Primidone (Primidone 50 Mg Tablet) 100 mg PO BEDTIME [facility] Last Admin: 11/14/22 22:55 Dose: Not Given Documented By: RAMIRO Non-Admin Reason: NPO Sertraline HCl (Sertraline Hcl 50 Mg Tablet) 150 mg PO DAILY [facility] Last Admin: 11/15/22 10:11 Dose: Not Given Documented By: ADAL Non-Admin Reason: Physician Held Med Sodium Biphosphate/Sodium Phosphate (Sodium Phosphate,[place]-Dibasic 133 Ml Enema) 133 ml IA ONCE [facility] Sodium Chloride (0.9 % Sodium Chloride Flush 3 Ml Syringe) 3 ml IVFLUSH QSHIFT [facility] Last Admin: 11/16/22 07:29 Dose: 3 ml Documented By: NARAYAN Tamsulosin HCl (Tamsulosin Hcl 0.4 Mg Capsule) 0.4 mg PO DAILY@1700 [facility] Last Admin: 11/14/22 15:05 Dose: 0.4 mg Documented By: HARJEET Warfarin Sodium (Warfarin Sodium 3 Mg Tablet) 3 mg PO MOWETH@1800 [facility] Warfarin Sodium (Warfarin Sodium 0.5 Mg Halftab) 1.5 mg PO SUTUFRSA@1800 [facility] Last Admin: 11/14/22 18:06 Dose: 1.5 mg Documented By: HARJEET Labs 11/16/22 04:40 11/16/22 04:40 Labs: Laboratory Results - last 24 hr 11/15/22 11/15/22 11/15/22 10:38 11:50 11:54 MCV 91.5 MCH 29.2 MCHC 31.9 RDW 14.3 Plt Count 325 D MPV Immature Gran % (Auto) Cancelled Neut % (Auto) Cancelled Lymph % (Auto) Cancelled [place] % (Auto) Cancelled Eos % (Auto) Cancelled Baso % (Auto) Cancelled Lymph # (Auto) Cancelled [place] # (Auto) Cancelled Eos # (Auto) Cancelled Baso # (Auto) Cancelled Abs Immat Gran (auto) Cancelled Absolute Neuts (auto) Cancelled Absolute Nucleated RBC 0.020 H Nucleated RBC % (auto) 0.4 H Neutrophils % (Manual) 60 Band Neutrophils % 12 H Lymphocytes % (Manual) 19 L Monocytes % (Manual) 8 Eosinophils % (Manual) 1 Abs Neuts (Manual) 3.9 Lymphocytes # (Manual) 1.0 L Monocytes # (Manual) 0.4 Eosinophils # (Manual) 0.1 Smudge Cells Toxic Vacuolation PRESENT Dohle Bodies Platelet Estimate NORMAL Large Platelets Plt Morphology Comment NORMAL RBC Morphology NOTED Polychromasia Basophilic Stippling Macrocytosis [place] Bodies [place] Cells 1+ (0-2) PT INR VBG pH 7.32 VBG pCO2 45 VBG pO2 72 VBG HCO3 23 VBG O2 Saturation 93.0 VBG Base Excess -2.4 Anion Gap 18 Estim Creat Clear Calc 78.7 Estimated GFR > 60 Random Glucose 143 H Lactic Acid 2.8 H* Lactic Acid F/U @ 2Hr Calcium 9.2 Phosphorus 1.8 L Magnesium 2.1 Total Bilirubin 1.3 H AST 17 ALT 11 Alkaline Phosphatase 64 Total Protein 6.7 Albumin 3.6 Urine Color Urine Appearance Urine pH Ur Specific [place] Urine Protein Urine Glucose (UA) Urine Ketones Urine Blood Urine Nitrite Ur Leukocyte Esterase Urine RBC Urine WBC Ur Squamous Epith Cells Urine Bacteria Hyaline Casts COVID-19 ([facility]) Negative COVID-19 Clin Com See Note 11/15/22 11/16/22 11/16/22 13:51 00:30 04:40 MCV 91.9 MCH 29.8 MCHC 32.4 RDW 14.4 Plt Count 217 D MPV 10.0 Immature Gran % (Auto) Cancelled Neut % (Auto) Cancelled Lymph % (Auto) Cancelled [place] % (Auto) Cancelled Eos % (Auto) Cancelled Baso % (Auto) Cancelled Lymph # (Auto) Cancelled [place] # (Auto) Cancelled Eos # (Auto) Cancelled Baso # (Auto) Cancelled Abs Immat Gran (auto) Cancelled Absolute Neuts (auto) Cancelled Absolute Nucleated RBC 0.000 Nucleated RBC % (auto) 0.0 Neutrophils % (Manual) 53 Band Neutrophils % 21 H Lymphocytes % (Manual) 21 Monocytes % (Manual) 4 Eosinophils % (Manual) 1 Abs Neuts (Manual) 6.6 Lymphocytes # (Manual) 1.9 Monocytes # (Manual) 0.4 Eosinophils # (Manual) 0.1 Smudge Cells PRESENT Toxic Vacuolation PRESENT Dohle Bodies PRESENT Platelet Estimate NORMAL Large Platelets PRESENT Plt Morphology Comment NORMAL RBC Morphology NOTED Polychromasia 1+ (0-2) Basophilic Stippling 1+ (0-2) Macrocytosis 1+ (5-14) [place] Bodies PRESENT [place] Cells 1+ (0-2) PT 18.0 H D INR 1.5 H VBG pH VBG pCO2 VBG pO2 VBG HCO3 VBG O2 Saturation VBG Base Excess Anion Gap 15 Estim Creat Clear Calc 62.3 Estimated GFR 50 Random Glucose 131 H Lactic Acid Lactic Acid F/U @ 2Hr 2.0 Calcium 8.3 L D Phosphorus 1.7 L Magnesium 1.8 Total Bilirubin AST ALT Alkaline Phosphatase Total Protein Albumin Urine Color Dark Yellow Urine Appearance Clear Urine pH 6.0 Ur Specific [place] >= 1.030 H Urine Protein 100 (2+) H Urine Glucose (UA) Negative Urine Ketones Trace Urine Blood Small (1+) H Urine Nitrite Negative Ur Leukocyte Esterase Negative Urine RBC 3-5 H Urine WBC 0-5 Ur Squamous Epith Cells 11-20 Urine Bacteria None Seen Hyaline Casts 0-2 COVID-19 ([facility]) COVID-19 Clin Com 11/16/22 04:46 MCV MCH MCHC RDW Plt Count MPV Immature Gran % (Auto) Neut % (Auto) Lymph % (Auto) [place] % (Auto) Eos % (Auto) Baso % (Auto) Lymph # (Auto) [place] # (Auto) Eos # (Auto) Baso # (Auto) Abs Immat Gran (auto) Absolute Neuts (auto) Absolute Nucleated RBC Nucleated RBC % (auto) Neutrophils % (Manual) Band Neutrophils % Lymphocytes % (Manual) Monocytes % (Manual) Eosinophils % (Manual) Abs Neuts (Manual) Lymphocytes # (Manual) Monocytes # (Manual) Eosinophils # (Manual) Smudge Cells Toxic Vacuolation Dohle Bodies Platelet Estimate Large Platelets Plt Morphology Comment RBC Morphology Polychromasia Basophilic Stippling Macrocytosis [place] Bodies Bradley Cells PT INR VBG pH 7.46 H VBG pCO2 33 VBG pO2 41 VBG HCO3 23 VBG O2 Saturation 68.0 VBG Base Excess 0.6 Anion Gap Estim Creat Clear Calc Estimated GFR Random Glucose Lactic Acid Lactic Acid F/U @ 2Hr Calcium Phosphorus Magnesium Total Bilirubin AST ALT Alkaline Phosphatase Total Protein Albumin Urine Color Urine Appearance Urine pH Ur Specific [place] Urine Protein Urine Glucose (UA) Urine Ketones Urine Blood Urine Nitrite Ur Leukocyte Esterase Urine RBC Urine WBC Ur Squamous Epith Cells Urine Bacteria Hyaline Casts COVID-19 ([facility]) COVID-19 Clin Com Procedures Date of Service Date of Service: 11/16/22 Progress Note: A&P Assessment and plan (1) Ileus following gastrointestinal surgery: Status: Acute (2) S/P laparoscopy: Status: Acute (3) Acute respiratory failure with hypoxia: Status: Acute Plan Remains intubated, on vent for acute hypoxic respiratory failure, due to aspiration pneumonia. Hemodynamically improving. Abdomen remains distended but benign. Await GI function. Continue NGT decompression. Remainder of care per ICU team. Time Spent With Patient Time: Total time managing care of this patient today ____ minutes. Quality Stroke Does the patient have a stroke diagnosis?: No VTE Prior VTE?: Yes VTE Risk Level:: Surgical - high VTE Device Contraindication: N/A - Device Ordered VTE Drug Contraindication: N/A - Med Ordered
[2022-11-16 11:20] LABS: Procalcitonin 5.78 ng/mL
--- NOTE | 2022-11-16 12:25 | PM.SEPBOLA4 ---
Sepsis Bolus Exclusion Sepsis Bolus Exclusion Date of Occurrence: 11/15/22 This patient met severe sepsis criteria due to the following condition(s):: Hypotension and Documentation of septic shock In my clinical judgement the administration of 30 ml/kg of crystalloid would be detrimental to this patient due to the patient's following conditions:: Concern for fluid overload Replace the 30 mls/kg with (*zero amount not acceptable): *Note: One of the urena must be documented Crystalloids amount given in mls: (rate must be at least 150cc/hr): 1,000 At a rate of (must be > 125 cchr):: 1,000
--- NOTE | 2022-11-16 12:48 | MHC.CM.PN ---
Pt continues on vent support with slowing NGT output: IV ATB for + aspiration: Goals for today are to reduce sedation and assess neurological function. Pt likely to have prolonged hospital stay w/deconditioning and could possibly need a STR stay vs original plan of returning to home w/family support. CM to reassess once pt is able to participate in formal PT/OT assessments.
[2022-11-16 13:59] LABS: Vancomycin Trough 12.2 mcg/mL (10.0-20.0)
--- NOTE | 2022-11-16 14:11 | HE.PHANOTE ---
JOLANTA MATTHEWS CONTINUE CURRENT DOSE. SCR IS INCREASING AND WE ARE WORRIED ABOUT DOSE DUMPING, BUT PT BEING TREATED FOR RESP INFECTION. NEXT LEVEL DUE 11/17 @ 1300 MALIKA
[2022-11-16] MEDS: Gabapentin 100 MG CAPSULE 200 MG PO (14:53)
[2022-11-16] MEDS: Tamsulosin HCL 0.4 MG CAPSULE PO (17:01)
[2022-11-16 17:08] LABS: VBG Base Excess -0.2 mmol/L; VBG HCO3 23 mmol/L (22-26); VBG pCO2 36 mmHg; VBG pH 7.42 (7.32-7.43); VBG pO2 42 mmHg
[2022-11-16 17:14] LABS: Hematocrit 32.8 % (42.0-52.0); Hemoglobin 10.6 g/dl (14.0-18.0); Mean Corpuscular HGB Conc 32.3 g/dl (31.0-36.0); Mean Corpuscular Hemoglobin 29.4 pg (27.0-33.0); Mean Corpuscular Volume 90.9 fL (80.0-98.0); Mean Platelet Volume 9.9 fL (9.4-12.4); Platelet Count 184 X10*3/uL (160-400); Red Blood Count 3.61 X10*6/uL (4.60-5.80); Red Cell Distribution Width 14.5 % (11.0-16.0); White Blood Count 8.4 X10*3/uL (4.8-10.8)
[2022-11-16 18:59] LABS: Band Neutrophils Percent 28 % (3-5); Eosinophils Absolute Manual 0.1 X10*3/uL (0.0-0.4); Eosinophils Percent Manual 1 % (0-4); Lymphocytes Absolute Manual 1.2 X10*3/uL (1.2-4.9); Lymphocytes Percent Manual 14 % (20-40); Metamyelocytes Absolute 0.2 X10*3/uL; Metamyelocytes Percent 2 %; Monocytes Absolute Manual 0.6 X10*3/uL (0.1-1.2); Monocytes Percent Manual 7 % (2-11); Neutrophils Absolute Manual 6.4 X10*3/uL (2.0-8.3); Neutrophils Percent Manual 48 % (45-73)
[2022-11-16 19:00] LABS: RBC Morphology NOTED
[2022-11-16 19:01] LABS: Burr Cells 1+ (0-2) /OIF; Dohle Bodies PRESENT; Polychromasia 1+ (0-2) /OIF
[2022-11-16 19:02] LABS: Platelet Estimate NORMAL (NORMAL); Platelet Morphology Comment NOTED; Toxic Granulation PRESENT
[2022-11-16 19:03] LABS: Large Platelet PRESENT
[2022-11-16] MEDS: Furosemide 40 MG/4 ML VIAL IVPUSH (20:04)
[2022-11-16] MEDS: Gabapentin 600 MG TABLET PO (20:05)
[2022-11-16] MEDS: Atorvastatin Calcium 40 MG TABLET PO (20:05)
[2022-11-16] MEDS: propofoL 1,000 MG/100 ML VIAL 19.51 MG IVCONT (20:39)
[2022-11-16 20:42] LABS: Venous Blood Gas Refer to POC result
[2022-11-16 22:24] LABS: OBS Int Ctl Valid YES; OBS1 POSITIVE (NEGATIVE)
[2022-11-16 22:54] LABS: Hematocrit 38.9 % (42.0-52.0); Hemoglobin 12.8 g/dl (14.0-18.0); Mean Corpuscular HGB Conc 32.9 g/dl (31.0-36.0); Mean Corpuscular Hemoglobin 29.4 pg (27.0-33.0); Mean Corpuscular Volume 89.4 fL (80.0-98.0); Mean Platelet Volume 9.6 fL (9.4-12.4); Platelet Count 238 X10*3/uL (160-400); Red Blood Count 4.35 X10*6/uL (4.60-5.80); Red Cell Distribution Width 14.6 % (11.0-16.0); White Blood Count 14.7 X10*3/uL (4.8-10.8)
[2022-11-16 23:09] LABS: Alanine Aminotransferase 12 U/L (0-40); Albumin Level 3.3 g/dL (3.5-5.0); Alkaline Phosphatase 47 U/L (39-117); Anion Gap 15 (12-20); Aspartate Amino Transferase 34 U/L (5-37); Bilirubin Total 1.2 mg/dL (0.0-1.0); Blood Urea Nitrogen 18 mg/dL (9-16); Calcium 8.5 mg/dL (8.4-10.2); Carbon Dioxide 25 mmol/L (22-29); Chloride 111 mmol/L (96-108); Creatinine Clr Calc Pharmacy 79.8; Estimated Glomerular Filt Rate > 60; Glucose Random 111 mg/dL (60-115); Potassium 2.9 mmol/L (3.3-5.1); Sodium 148 mmol/L (135-145); Total Protein 6.4 g/dL (6.5-8.0)
[2022-11-16] MEDS: Pantoprazole Sodium 40 MG/10 ML VIAL 80 MG IVPUSH (23:12)
[2022-11-16] MEDS: Pantoprazole Sodium 80 MG in 0.9 % Sodium Chloride 80 ML 10 MG IV (23:21)
[2022-11-16] MEDS: Potassium Chloride/H20 40 MEQ/100 ML PIGGYBACK 100 MEQ IV (23:57)
[2022-11-17] VITALS (38 sets, daily range): BP systolic 88–143; BP diastolic 41–84; PULSE 85–128; RESP 18–33; TEMP 3–38.6; O2SAT 88–95; BMI 39.4
[2022-11-17] MEDS: 0.9 % Sodium Chloride Flush 3 ML SYRINGE IVFLUSH ×3 (00:13→23:36)
[2022-11-17] MEDS: Albumin Human 25 % 100 ML IV ×4 (00:13→09:05)
[2022-11-17] MEDS: vancomycin HCL 1,000 MG in 0.9 % Sodium Chloride 250 ML 270 MG IV (02:24)
[2022-11-17] MEDS: propofoL 1,000 MG/100 ML VIAL 26.02 MG IVCONT ×3 (02:25→09:04)
[2022-11-17] MEDS: Norepinephrine Bitartrate/D5W 8 MG/250 ML PLAST..BAG 18.29 MG IV (05:21)
[2022-11-17] MEDS: Piperacillin Sodium/Tazobactam 4.5 GM in 0.9 % Sodium Chloride 100 ML IV ×4 (05:24→23:49)
[2022-11-17 05:31] LABS: Venous Blood Gas Refer to POC result
[2022-11-17 05:36] LABS: Hematocrit 33.9 % (42.0-52.0); Hemoglobin 10.8 g/dl (14.0-18.0); Mean Corpuscular HGB Conc 31.9 g/dl (31.0-36.0); Mean Corpuscular Hemoglobin 29.3 pg (27.0-33.0); Mean Corpuscular Volume 91.9 fL (80.0-98.0); Mean Platelet Volume 10.2 fL (9.4-12.4); Platelet Count 219 X10*3/uL (160-400); Red Blood Count 3.69 X10*6/uL (4.60-5.80); Red Cell Distribution Width 14.6 % (11.0-16.0); White Blood Count 13.6 X10*3/uL (4.8-10.8)
[2022-11-17 05:43] LABS: INTERNATIONAL NORM RATIO 1.3 (0.9-1.1); Prothrombin Time 15.2 SEC (11.1-13.3)
[2022-11-17 05:44] LABS: VBG Base Excess 3.7 mmol/L; VBG HCO3 26 mmol/L (22-26); VBG pCO2 33 mmHg; VBG pH 7.51 (7.32-7.43); VBG pO2 46 mmHg
[2022-11-17 05:46] LABS: Partial Thromboplastin Time 25.9 SEC (26.0-36.4)
[2022-11-17 05:52] LABS: Anion Gap 16 (12-20); Blood Urea Nitrogen 18 mg/dL (9-16); Calcium 8.3 mg/dL (8.4-10.2); Carbon Dioxide 22 mmol/L (22-29); Chloride 113 mmol/L (96-108); Creatinine Clr Calc Pharmacy 78.3; Estimated Glomerular Filt Rate > 60; Glucose Random 111 mg/dL (60-115); Magnesium 2.1 mg/dL (1.6-2.6); Phosphorus 1.5 mg/dL (2.7-4.5); Potassium 2.9 mmol/L (3.3-5.1); Sodium 148 mmol/L (135-145)
[2022-11-17] MEDS: Pantoprazole Sodium 80 MG in 0.9 % Sodium Chloride 80 ML 10 MG IV (06:00)
--- NOTE | 2022-11-17 06:02 | HE.PHANOTE ---
re enoxaparin Spoke to provider, wanted 1.5mg/kg q24. Discussed that normally it is 0.7 to 1 mg/kg q12 for treatment dosing but can be 1.5. Provider says pt has been on QD dosing in past mikaela
[2022-11-17 06:06] LABS: Band Neutrophils Percent 19 % (3-5); Lymphocytes Absolute Manual 1.4 X10*3/uL (1.2-4.9); Lymphocytes Percent Manual 10 % (20-40); Neutrophils Absolute Manual 11.6 X10*3/uL (2.0-8.3); Neutrophils Percent Manual 66 % (45-73)
[2022-11-17 06:07] LABS: Basophilic Stippling 1+ (0-2) /OIF; Burr Cells 1+ (0-2) /OIF; Dohle Bodies PRESENT; Eosinophils Absolute Manual 0.3 X10*3/uL (0.0-0.4); Eosinophils Percent Manual 2 % (0-4); Howell Jolly Bodies PRESENT; Monocytes Absolute Manual 0.4 X10*3/uL (0.1-1.2); Monocytes Percent Manual 3 % (2-11); Platelet Estimate NORMAL (NORMAL); Platelet Morphology Comment NORMAL; Polychromasia 1+ (0-2) /OIF; RBC Morphology NOTED; Smudge Cells PRESENT; Toxic Vacuolation PRESENT
[2022-11-17] MEDS: fentaNYL citrate/PF 100 MCG/2 ML VIAL 50 MCG IVPUSH ×2 (06:46→22:38)
--- NOTE | 2022-11-17 08:19 | P.PNCC_ITS ---
Subjective Subjective Date of Service: 11/17/22 Interval History: no significant overnight events Critical Care Time (minutes): 90 Physical Exam 2 Vital Signs: Vital Signs: Last Vital Signs Temp 101.3 F H 11/17/22 08:00 Pulse 119 H 11/17/22 08:00 Resp 27 H 11/17/22 08:00 BP 118/54 L 11/17/22 08:00 Pulse Ox 92 11/17/22 08:00 O2 Del Method Mechanical Ventil ation 11/17/22 08:00 O2 Flow Rate 30 11/15/22 10:00 FiO2 70 11/17/22 08:00 BMI result Body Mass Index 39.4 Const: Other: intubated, sedated; grimaces to mild noxious stimulus General: no acute distress HEENT: Head: Yes normal to inspection, Yes normocephalic and Yes atraumatic Eyes: General: appearance normal, both eyes and all related structures P upils: Equal, round and reactive pupils present Neck: Neck: Yes normal visual inspection, Yes full ROM and Yes supple Chest: Chest palpation & inspection: normal inspection of the chest Resp: Other: anterior lung urena clear, no appreciable rales, rhonchi, wheezing Cardio: Rate: tachycardic Rhythm: abnormal rhythm GI: Other: increased bowel sounds today; distended, though compressible; no guarding, rebound Skin: General skin exam: no rashes or lesions noted Neuro: Other: sedated; unable to assess; moves all extremities; no focal motor deficits Cranial nerves: Yes Equal, round and reactive pupils present Extrem: General: Yes normal to inspection and Yes capillary refill normal Psych: Other: sedated; unable to assess Objective Data Labs 11/17/22 04:47 11/17/22 04:47 Labs: Laboratory Results - last 24 hr 11/16/22 11/16/22 11/16/22 10:34 13:20 16:57 WBC 8.4 RBC 3.61 L Hgb 10.6 L Hct 32.8 L MCV 90.9 MCH 29.4 MCHC 32.3 RDW 14.5 Plt Count 184 MPV 9.9 Immature Gran % (Auto) Cancelled Neut % (Auto) Cancelled Lymph % (Auto) Cancelled [place] % (Auto) Cancelled Eos % (Auto) Cancelled Baso % (Auto) Cancelled Lymph # (Auto) Cancelled [place] # (Auto) Cancelled Eos # (Auto) Cancelled Baso # (Auto) Cancelled Abs Immat Gran (auto) Cancelled Absolute Neuts (auto) Cancelled Absolute Nucleated RBC 0.000 Nucleated RBC % (auto) 0.0 Neutrophils % (Manual) 48 Band Neutrophils % 28 H Lymphocytes % (Manual) 14 L Monocytes % (Manual) 7 Eosinophils % (Manual) 1 Metamyelocytes % 2 Abs Neuts (Manual) 6.4 Lymphocytes # (Manual) 1.2 Monocytes # (Manual) 0.6 Eosinophils # (Manual) 0.1 Metamyelocytes # 0.2 Smudge Cells Toxic Granulation PRESENT Toxic Vacuolation Dohle Bodies PRESENT Platelet Estimate NORMAL Large Platelets PRESENT Plt Morphology Comment NOTED RBC Morphology NOTED Polychromasia 1+ (0-2) Basophilic Stippling [place] Bodies Bradley Cells 1+ (0-2) PT INR APTT O2 Saturation ABG pH at Pt Temp ABG pH (Temp Correct) ABG pCO2 at Pt Temp ABG pCO2 (Temp Corrct ABG pO2 at Pt Temp ABG pO2 (Temp Correct ABG HCO3 ABG Base Excess (Actual) VBG pH VBG pCO2 VBG pO2 VBG HCO3 VBG O2 Saturation VBG Base Excess Sodium Potassium Chloride Carbon Dioxide Anion Gap BUN Creatinine Estim Creat Clear Calc Estimated GFR Random Glucose Calcium Phosphorus Magnesium Total Bilirubin AST ALT Alkaline Phosphatase Total Protein Albumin Procalcitonin 5.78 Stool Occult Blood Vancomycin Trough 12.2 Blood Type Antibody Screen 11/16/22 11/16/22 11/16/22 17:00 18:33 21:58 WBC RBC Hgb Hct MCV MCH MCHC RDW Plt Count MPV Immature Gran % (Auto) Neut % (Auto) Lymph % (Auto) [place] % (Auto) Eos % (Auto) Baso % (Auto) Lymph # (Auto) [place] # (Auto) Eos # (Auto) Baso # (Auto) Abs Immat Gran (auto) Absolute Neuts (auto) Absolute Nucleated RBC Nucleated RBC % (auto) Neutrophils % (Manual) Band Neutrophils % Lymphocytes % (Manual) Monocytes % (Manual) Eosinophils % (Manual) Metamyelocytes % Abs Neuts (Manual) Lymphocytes # (Manual) Monocytes # (Manual) Eosinophils # (Manual) Metamyelocytes # Smudge Cells Toxic Granulation Toxic Vacuolation Dohle Bodies Platelet Estimate Large Platelets Plt Morphology Comment RBC Morphology Polychromasia Basophilic Stippling [place] Bodies Alanson Cells PT INR APTT O2 Saturation ABG pH at Pt Temp ABG pH (Temp Correct) ABG pCO2 at Pt Temp ABG pCO2 (Temp Corrct ABG pO2 at Pt Temp ABG pO2 (Temp Correct ABG HCO3 ABG Base Excess (Actual) VBG pH 7.42 VBG pCO2 36 VBG pO2 42 VBG HCO3 23 VBG O2 Saturation 67.0 VBG Base Excess -0.2 Sodium Potassium Chloride Carbon Dioxide Anion Gap BUN Creatinine Estim Creat Clear Calc Estimated GFR Random Glucose Calcium Phosphorus Magnesium Total Bilirubin AST ALT Alkaline Phosphatase Total Protein Albumin Procalcitonin Stool Occult Blood POSITIVE Vancomycin Trough Blood Type O Positive Antibody Screen NEGATIVE 11/16/22 11/17/22 11/17/22 22:45 04:46 04:47 WBC 14.7 H 13.6 H RBC 4.35 L D 3.69 L Hgb 12.8 L D 10.8 L Hct 38.9 L 33.9 L MCV 89.4 91.9 MCH 29.4 29.3 MCHC 32.9 31.9 RDW 14.6 14.6 Plt Count 238 D 219 MPV 9.6 10.2 Immature Gran % (Auto) Cancelled Neut % (Auto) Cancelled Lymph % (Auto) Cancelled [place] % (Auto) Cancelled Eos % (Auto) Cancelled Baso % (Auto) Cancelled Lymph # (Auto) Cancelled [place] # (Auto) Cancelled Eos # (Auto) Cancelled Baso # (Auto) Cancelled Abs Immat Gran (auto) Cancelled Absolute Neuts (auto) Cancelled Absolute Nucleated RBC 0.000 0.000 Nucleated RBC % (auto) 0.0 0.0 Neutrophils % (Manual) 66 Band Neutrophils % 19 H Lymphocytes % (Manual) 10 L Monocytes % (Manual) 3 Eosinophils % (Manual) 2 Metamyelocytes % Abs Neuts (Manual) 11.6 H Lymphocytes # (Manual) 1.4 Monocytes # (Manual) 0.4 Eosinophils # (Manual) 0.3 Metamyelocytes # Smudge Cells PRESENT Toxic Granulation Toxic Vacuolation PRESENT Dohle Bodies PRESENT Platelet Estimate NORMAL Large Platelets Plt Morphology Comment NORMAL RBC Morphology NOTED Polychromasia 1+ (0-2) Basophilic Stippling 1+ (0-2) [place] Bodies PRESENT Bradley Cells 1+ (0-2) PT 15.2 H INR 1.3 H APTT 25.9 L O2 Saturation ABG pH at Pt Temp ABG pH (Temp Correct) ABG pCO2 at Pt Temp ABG pCO2 (Temp Corrct ABG pO2 at Pt Temp ABG pO2 (Temp Correct ABG HCO3 ABG Base Excess (Actual) VBG pH 7.51 H VBG pCO2 33 VBG pO2 46 VBG HCO3 26 VBG O2 Saturation 80.0 VBG Base Excess 3.7 Sodium 148 H 148 H Potassium 2.9 L 2.9 L Chloride 111 H 113 H Carbon Dioxide 25 22 Anion Gap 15 16 BUN 18 H 18 H Creatinine 1.11 1.13 Estim Creat Clear Calc 79.8 78.3 Estimated GFR > 60 > 60 Random Glucose 111 111 Calcium 8.5 8.3 L Phosphorus 1.5 L Magnesium 2.1 Total Bilirubin 1.2 H AST 34 ALT 12 Alkaline Phosphatase 47 Total Protein 6.4 L Albumin 3.3 L Procalcitonin Stool Occult Blood Vancomycin Trough Blood Type Antibody Screen 11/17/22 04:55 WBC RBC Hgb Hct MCV MCH MCHC RDW Plt Count MPV Immature Gran % (Auto) Neut % (Auto) Lymph % (Auto) [place] % (Auto) Eos % (Auto) Baso % (Auto) Lymph # (Auto) [place] # (Auto) Eos # (Auto) Baso # (Auto) Abs Immat Gran (auto) Absolute Neuts (auto) Absolute Nucleated RBC Nucleated RBC % (auto) Neutrophils % (Manual) Band Neutrophils % Lymphocytes % (Manual) Monocytes % (Manual) Eosinophils % (Manual) Metamyelocytes % Abs Neuts (Manual) Lymphocytes # (Manual) Monocytes # (Manual) Eosinophils # (Manual) Metamyelocytes # Smudge Cells Toxic Granulation Toxic Vacuolation Dohle Bodies Platelet Estimate Large Platelets Plt Morphology Comment RBC Morphology Polychromasia Basophilic Stippling Kennedy-[place] Bodies Alanson Cells PT INR APTT O2 Saturation Cancelled ABG pH at Pt Temp Cancelled ABG pH (Temp Correct) Cancelled ABG pCO2 at Pt Temp Cancelled ABG pCO2 (Temp Corrct Cancelled ABG pO2 at Pt Temp Cancelled ABG pO2 (Temp Correct Cancelled ABG HCO3 Cancelled ABG Base Excess (Actual) Cancelled VBG pH VBG pCO2 VBG pO2 VBG HCO3 VBG O2 Saturation VBG Base Excess Sodium Potassium Chloride Carbon Dioxide Anion Gap BUN Creatinine Estim Creat Clear Calc Estimated GFR Random Glucose Calcium Phosphorus Magnesium Total Bilirubin AST ALT Alkaline Phosphatase Total Protein Albumin Procalcitonin Stool Occult Blood Vancomycin Trough Blood Type Antibody Screen Microbiology Microbiology Results: Microbiology 11/16/22 11:41 Sputum - Suctioned Gram Stain - Final 11/15/22 11:50 Blood - Venous Blood Culture - Preliminary No growth after 24 hours. 11/15/22 10:39 Blood - Venous Blood Culture - Preliminary No growth after 24 hours. Progress Note: A&P Assessment and plan (1) Ileus following gastrointestinal surgery: Status: Acute (2) Acute respiratory failure with hypoxia: Status: Acute (3) Atrial flutter: Status: Acute (4) Antithrombin 3 deficiency: Status: Acute (5) Chronic pulmonary embolism: Status: Acute Plan Assessment: Patient is a 66 Y M, antithrombin III deficiency, complicated by DVT, PE, portal vein thrombosis, on warfarin, as well as atrial fibrillation, DANNY, presenting on 11/11 for elective biopsy of mass on small intestine; hospital course complicated by ileus, aspiration complicated by acute hypoxic respiratory failure, and atrial flutter with rapid ventricular response N: intubated, on propofol gtt; plan for sedation vacation for neurological exam; ideally dexmedetomidine gtt as tolerated; given improvement of gastric output, to continue home regimen CV: atrial flutter with rapid ventricular response, previously on diltiazem gtt, now on diltiazem PO; to monitor electrolytes; hypotension, likely multifactorial including hypovolemia, sedation, and SIRS from aspiration pneumonia, norepinephrine gtt R: acute hypoxic respiratory failure, due to aspiration pneumonia; intubated on 11/15; hypoxia slowing improving; empiric antibiotics; to follow-up sputum cultures GI: status post biopsy of mass on small intestine; ileus, NG tube in place with minimal output; PO meds as tolerated; general surgery following : baseline creatinine 1; monitor electrolytes H: antithrombin III deficiency, complicated by prior DVT, PE; on enoxaparin SQ ID: concern for aspiration pneumonia, on empiric vancomycin, zosyn; follow-up MRSA swab, consider discontinuing vancomycin if negative E: insulin sliding scale Quality Stroke Does the patient have a stroke diagnosis?: No VTE Prior VTE?: Yes VTE Risk Level:: Surgical - high VTE Device Contraindication: N/A - Device Ordered VTE Drug Contraindication: N/A - Med Ordered
[2022-11-17] MEDS: Sertraline HCL 50 MG TABLET 150 MG PO (08:26)
[2022-11-17] MEDS: Gabapentin 100 MG CAPSULE 200 MG PO ×2 (08:26→16:52)
[2022-11-17] MEDS: Potassium Phosphate/NS 15 MMOL/250 ML PLAST..BAG 62.5 MMOL IV ×2 (08:26→12:59)
[2022-11-17] MEDS: dilTIAZem HCL CD 180 MG CAP.ER.24H PO (08:27)
[2022-11-17] MEDS: Donepezil HCl 10 MG TABLET PO (08:27)
[2022-11-17] MEDS: Finasteride 5 MG TABLET PO (08:27)
[2022-11-17] MEDS: Memantine HCl 10 MG TABLET PO (08:27)
--- NOTE | 2022-11-17 08:48 | P.PNGS_ITS ---
Subjective Subjective Date of Service: 11/17/22 Interval history: Uneventful evening. Being weaned on vent with decreasing FiO2. Physical Exam 2 Vital Signs: Vital Signs: Last Vital Signs Temp 101.3 F H 11/17/22 08:00 Pulse 119 H 11/17/22 08:00 Resp 27 H 11/17/22 08:00 BP 118/54 L 11/17/22 08:00 Pulse Ox 92 11/17/22 08:00 O2 Del Method Mechanical Ventil ation 11/17/22 08:00 O2 Flow Rate 30 11/15/22 10:00 FiO2 70 11/17/22 08:00 BMI result Body Mass Index 39.4 GI: Other: Abdomen much softer. Wounds clean dry and intact. Few bowel sounds Objective Data Active Medications Albuterol Sulfate (Albuterol Sulfate (0.083%) 2.5 Mg/3 Ml Vial.Neb) 2.5 mg INHALE ONCE PRN PRN Reason: Shortness of Breath/Wheezing Albuterol Sulfate (Albuterol Sulfate (0.083%) 2.5 Mg/3 Ml Vial.Neb) 2.5 mg INHALE QID PRN PRN Reason: Shortness Of Breath Or Wheezing Albuterol Sulfate (Albuterol Sulfate 90 Mcg 8 Gm Inhaler) 2 puff INHALE Q4H PRN PRN Reason: shortness of breath or wheezin Albuterol/Ipratropium (Albuterol/Iprat 2.5/0.5mg 3 Ml Ampul.Neb) 3 ml INHALE RQ6H WHILE AWAKE PRN PRN Reason: Shortness of Breath/Wheezing Atorvastatin Calcium (Atorvastatin Calcium 40 Mg Tablet) 40 mg PO BEDTIME [facility] Last Admin: 11/16/22 20:05 Dose: 40 mg Documented By: MILKA Diltiazem HCl (Diltiazem Hcl Cd 180 Mg Cap.Er.24h) 180 mg PO DAILY [facility]; Protocol Last Admin: 11/17/22 08:27 Dose: 180 mg Documented By: TRACYMA Docusate Sodium (Docusate Sodium 100 Mg Capsule) 100 mg PO BID [facility] Last Admin: 11/16/22 19:41 Dose: Not Given Documented By: MILKA Non-Admin Reason: Diarrhea Donepezil HCl (Donepezil Hcl 10 Mg Tablet) 10 mg PO DAILY [facility] Last Admin: 11/17/22 08:27 Dose: 10 mg Documented By: JACOB Enoxaparin Sodium (Enoxaparin Sodium 100 Mg/Ml Syringe) 170 mg 1.5 mg/kg (170 mg) SUBCUT Q24H [facility] Finasteride (Finasteride 5 Mg Tablet) 5 mg PO DAILY [facility] Last Admin: 11/17/22 08:27 Dose: 5 mg Documented By: JACOB Fluticasone Propionate (Fluticasone Propionate Nasal 16 Gm [place]) 2 spray NOSTRIL-B DAILY [facility] Last Admin: 11/16/22 09:58 Dose: Not Given Documented By: ADAL Non-Admin Reason: intubated/sedated Gabapentin (Gabapentin 100 Mg Capsule) 200 mg PO BID@0800,1500 [facility] Last Admin: 11/17/22 08:26 Dose: 200 mg Documented By: JACOB Gabapentin (Gabapentin 600 Mg Tablet) 600 mg PO BEDTIME [facility] Last Admin: 11/16/22 20:05 Dose: 600 mg Documented By: MILKA Diltiazem HCl 125 mg/ Sodium (Chloride) 125 mls @ 0 mls/hr IVCONT .Q0M [facility]; Protocol Last Titration: 11/16/22 12:29 Dose: Infused Documented By: ADAL Piperacillin Sod/Tazobactam (Sod 4.5 gm/ Sodium Chloride) 100 mls @ 200 mls/hr IV Q6H [facility] Last Infusion: 11/17/22 06:02 Dose: Infused Documented By: MILKA Dexmedetomidine HCl (Precedex) 400 mcg in 100 mls @ 0 mls/hr IVCONT .Q0M [facility]; Protocol Last Titration: 11/16/22 16:58 Dose: 0 mcg/kg/hr, 0 mls/hr Documented By: NARAYAN Vancomycin HCl 1,000 mg/ (Sodium Chloride) 270 mls @ 270 mls/hr IV Q12H [facility] Last Infusion: 11/17/22 04:03 Dose: Infused Documented By: MILKA Propofol (Diprivan) 1,000 mg in 100 mls @ 0 mls/hr IVCONT .Q0M [facility]; Protocol Last Admin: 11/17/22 05:26 Dose: 40 mcg/kg/min, 26.02 mls/hr Documented By: MILKA Norepinephrine Bitartrate (Levophed) 8 mg in 250 mls @ 0 mls/hr IV .Q0M [facility]; Protocol Last Admin: 11/17/22 05:21 Dose: 0.09 mcg/kg/min, 18.29 mls/hr Documented By: MILKA Dextrose/Lactated Ringer's (D5lr) 1,000 mls @ 100 mls/hr IVCONT .Q10H [facility] Last Admin: 11/17/22 06:41 Dose: Not Given Documented By: MILKA Non-Admin Reason: Medication Discontinued Potassium Phosphate (Kphos) 15 mmol in 250 mls @ 62.5 mls/hr IV Q4H [facility] Stop: 11/17/22 15:59 Last Admin: 11/17/22 08:26 Dose: 62.5 mls/hr Documented By: JACOB Albumin Human (Kedbumin 25 %) 100 mls @ 100 mls/hr IV Q1H [facility] Stop: 11/17/22 09:59 Last Admin: 11/17/22 08:26 Dose: 100 mls/hr Documented By: JACOB Acetaminophen (Ofirmev) 1,000 mg in 100 mls @ 400 mls/hr IV Q6H PRN PRN Reason: Fever Meclizine HCl (Meclizine Hcl 25 Mg Tablet) 25 mg PO DAILY PRN PRN Reason: DIZZINESS Memantine (Memantine Hcl 10 Mg Tablet) 10 mg PO DAILY [facility] Last Admin: 11/17/22 08:27 Dose: 10 mg Documented By: JACOB Pt Own Armodafinil (150 Mg Tablet) 150 mg PO DAILY [facility] Last Admin: 11/15/22 10:10 Dose: Not Given Documented By: ADAL Non-Admin Reason: Physician Held Med Ondansetron HCl (Ondansetron Hcl 4 Mg/2 Ml Vial) 4 mg IVPUSH Q8H PRN PRN Reason: Nausea and Vomiting Last Admin: 11/14/22 14:20 Dose: 4 mg Documented By: LYRIC Oxybutynin Chloride (Oxybutynin Chloride Er 5 Mg Tab.Er.24) 10 mg PO DAILY [facility] Last Admin: 11/15/22 10:11 Dose: Not Given Documented By: ADAL Non-Admin Reason: Physician Held Med Oxycodone HCl (Oxycodone Hcl Immed Release 5 Mg Tablet) 5 mg PO Q4H PRN PRN Reason: Pain, Moderate(Pain Scale 4-6) Last Admin: 11/13/22 13:37 Dose: 5 mg Documented By: COTFRANCIS Oxycodone HCl (Oxycodone Hcl Immed Release 5 Mg Tablet) 10 mg PO Q4H PRN PRN Reason: Pain, Severe (Pain Scale 7-10) Last Admin: 11/12/22 21:23 Dose: 10 mg Documented By: AVIS Pantoprazole Sodium (Pantoprazole Sodium 40 Mg/10 Ml Vial) 40 mg IVPUSH BID@0630,1630 [facility] Pharmacy Consult (Consult Rx Vancomycin Dosing) 1 each MISCELLANE DAILY PRN PRN Reason: Consult order Primidone (Primidone 50 Mg Tablet) 100 mg PO BEDTIME [facility] Last Admin: 11/14/22 22:55 Dose: Not Given Documented By: RAMIRO Non-Admin Reason: NPO Sertraline HCl (Sertraline Hcl 50 Mg Tablet) 150 mg PO DAILY [facility] Last Admin: 11/17/22 08:26 Dose: 150 mg Documented By: JACOB Sodium Biphosphate/Sodium Phosphate (Sodium Phosphate,[place]-Dibasic 133 Ml Enema) 133 ml CA ONCE [facility] Sodium Chloride (0.9 % Sodium Chloride Flush 3 Ml Syringe) 3 ml IVFLUSH QSHIFT [facility] Last Admin: 11/17/22 08:47 Dose: 3 ml Documented By: JACOB Tamsulosin HCl (Tamsulosin Hcl 0.4 Mg Capsule) 0.4 mg PO DAILY@1700 [facility] Last Admin: 11/16/22 17:01 Dose: 0.4 mg Documented By: SOLISPE Labs 11/17/22 04:47 11/17/22 04:47 Labs: Laboratory Results - last 24 hr 11/16/22 11/16/22 11/16/22 10:34 13:20 16:57 MCV 90.9 MCH 29.4 MCHC 32.3 RDW 14.5 Plt Count 184 MPV 9.9 Immature Gran % (Auto) Cancelled Neut % (Auto) Cancelled Lymph % (Auto) Cancelled [place] % (Auto) Cancelled Eos % (Auto) Cancelled Baso % (Auto) Cancelled Lymph # (Auto) Cancelled [place] # (Auto) Cancelled Eos # (Auto) Cancelled Baso # (Auto) Cancelled Abs Immat Gran (auto) Cancelled Absolute Neuts (auto) Cancelled Absolute Nucleated RBC 0.000 Nucleated RBC % (auto) 0.0 Neutrophils % (Manual) 48 Band Neutrophils % 28 H Lymphocytes % (Manual) 14 L Monocytes % (Manual) 7 Eosinophils % (Manual) 1 Metamyelocytes % 2 Abs Neuts (Manual) 6.4 Lymphocytes # (Manual) 1.2 Monocytes # (Manual) 0.6 Eosinophils # (Manual) 0.1 Metamyelocytes # 0.2 Smudge Cells Toxic Granulation PRESENT Toxic Vacuolation Dohle Bodies PRESENT Platelet Estimate NORMAL Large Platelets PRESENT Plt Morphology Comment NOTED RBC Morphology NOTED Polychromasia 1+ (0-2) Basophilic Stippling [place] Bodies Bradley Cells 1+ (0-2) PT INR APTT O2 Saturation ABG pH at Pt Temp ABG pH (Temp Correct) ABG pCO2 at Pt Temp ABG pCO2 (Temp Corrct ABG pO2 at Pt Temp ABG pO2 (Temp Correct ABG HCO3 ABG Base Excess (Actual) VBG pH VBG pCO2 VBG pO2 VBG HCO3 VBG O2 Saturation VBG Base Excess Anion Gap Estim Creat Clear Calc Estimated GFR Random Glucose Calcium Phosphorus Magnesium Total Bilirubin AST ALT Alkaline Phosphatase Total Protein Albumin Procalcitonin 5.78 Stool Occult Blood Vancomycin Trough 12.2 Blood Type Antibody Screen 11/16/22 11/16/22 11/16/22 17:00 18:33 21:58 MCV MCH MCHC RDW Plt Count MPV Immature Gran % (Auto) Neut % (Auto) Lymph % (Auto) [place] % (Auto) Eos % (Auto) Baso % (Auto) Lymph # (Auto) [place] # (Auto) Eos # (Auto) Baso # (Auto) Abs Immat Gran (auto) Absolute Neuts (auto) Absolute Nucleated RBC Nucleated RBC % (auto) Neutrophils % (Manual) Band Neutrophils % Lymphocytes % (Manual) Monocytes % (Manual) Eosinophils % (Manual) Metamyelocytes % Abs Neuts (Manual) Lymphocytes # (Manual) Monocytes # (Manual) Eosinophils # (Manual) Metamyelocytes # Smudge Cells Toxic Granulation Toxic Vacuolation Dohle Bodies Platelet Estimate Large Platelets Plt Morphology Comment RBC Morphology Polychromasia Basophilic Stippling [place] Bodies Dorothy Cells PT INR APTT O2 Saturation ABG pH at Pt Temp ABG pH (Temp Correct) ABG pCO2 at Pt Temp ABG pCO2 (Temp Corrct ABG pO2 at Pt Temp ABG pO2 (Temp Correct ABG HCO3 ABG Base Excess (Actual) VBG pH 7.42 VBG pCO2 36 VBG pO2 42 VBG HCO3 23 VBG O2 Saturation 67.0 VBG Base Excess -0.2 Anion Gap Estim Creat Clear Calc Estimated GFR Random Glucose Calcium Phosphorus Magnesium Total Bilirubin AST ALT Alkaline Phosphatase Total Protein Albumin Procalcitonin Stool Occult Blood POSITIVE Vancomycin Trough Blood Type O Positive Antibody Screen NEGATIVE 11/16/22 11/17/22 11/17/22 22:45 04:46 04:47 MCV 89.4 91.9 MCH 29.4 29.3 MCHC 32.9 31.9 RDW 14.6 14.6 Plt Count 238 D 219 MPV 9.6 10.2 Immature Gran % (Auto) Cancelled Neut % (Auto) Cancelled Lymph % (Auto) Cancelled [place] % (Auto) Cancelled Eos % (Auto) Cancelled Baso % (Auto) Cancelled Lymph # (Auto) Cancelled [place] # (Auto) Cancelled Eos # (Auto) Cancelled Baso # (Auto) Cancelled Abs Immat Gran (auto) Cancelled Absolute Neuts (auto) Cancelled Absolute Nucleated RBC 0.000 0.000 Nucleated RBC % (auto) 0.0 0.0 Neutrophils % (Manual) 66 Band Neutrophils % 19 H Lymphocytes % (Manual) 10 L Monocytes % (Manual) 3 Eosinophils % (Manual) 2 Metamyelocytes % Abs Neuts (Manual) 11.6 H Lymphocytes # (Manual) 1.4 Monocytes # (Manual) 0.4 Eosinophils # (Manual) 0.3 Metamyelocytes # Smudge Cells PRESENT Toxic Granulation Toxic Vacuolation PRESENT Dohle Bodies PRESENT Platelet Estimate NORMAL Large Platelets Plt Morphology Comment NORMAL RBC Morphology NOTED Polychromasia 1+ (0-2) Basophilic Stippling 1+ (0-2) [place] Bodies PRESENT Bradley Cells 1+ (0-2) PT 15.2 H INR 1.3 H APTT 25.9 L O2 Saturation ABG pH at Pt Temp ABG pH (Temp Correct) ABG pCO2 at Pt Temp ABG pCO2 (Temp Corrct ABG pO2 at Pt Temp ABG pO2 (Temp Correct ABG HCO3 ABG Base Excess (Actual) VBG pH 7.51 H VBG pCO2 33 VBG pO2 46 VBG HCO3 26 VBG O2 Saturation 80.0 VBG Base Excess 3.7 Anion Gap 15 16 Estim Creat Clear Calc 79.8 78.3 Estimated GFR > 60 > 60 Random Glucose 111 111 Calcium 8.5 8.3 L Phosphorus 1.5 L Magnesium 2.1 Total Bilirubin 1.2 H AST 34 ALT 12 Alkaline Phosphatase 47 Total Protein 6.4 L Albumin 3.3 L Procalcitonin Stool Occult Blood Vancomycin Trough Blood Type Antibody Screen 11/17/22 04:55 MCV MCH MCHC RDW Plt Count MPV Immature Gran % (Auto) Neut % (Auto) Lymph % (Auto) [place] % (Auto) Eos % (Auto) Baso % (Auto) Lymph # (Auto) [place] # (Auto) Eos # (Auto) Baso # (Auto) Abs Immat Gran (auto) Absolute Neuts (auto) Absolute Nucleated RBC Nucleated RBC % (auto) Neutrophils % (Manual) Band Neutrophils % Lymphocytes % (Manual) Monocytes % (Manual) Eosinophils % (Manual) Metamyelocytes % Abs Neuts (Manual) Lymphocytes # (Manual) Monocytes # (Manual) Eosinophils # (Manual) Metamyelocytes # Smudge Cells Toxic Granulation Toxic Vacuolation Dohle Bodies Platelet Estimate Large Platelets Plt Morphology Comment RBC Morphology Polychromasia Basophilic Stippling [place] Bodies Dorothy Cells PT INR APTT O2 Saturation Cancelled ABG pH at Pt Temp Cancelled ABG pH (Temp Correct) Cancelled ABG pCO2 at Pt Temp Cancelled ABG pCO2 (Temp Corrct Cancelled ABG pO2 at Pt Temp Cancelled ABG pO2 (Temp Correct Cancelled ABG HCO3 Cancelled ABG Base Excess (Actual) Cancelled VBG pH VBG pCO2 VBG pO2 VBG HCO3 VBG O2 Saturation VBG Base Excess Anion Gap Estim Creat Clear Calc Estimated GFR Random Glucose Calcium Phosphorus Magnesium Total Bilirubin AST ALT Alkaline Phosphatase Total Protein Albumin Procalcitonin Stool Occult Blood Vancomycin Trough Blood Type Antibody Screen Microbiology Microbiology Results: Microbiology 11/16/22 11:41 Gram Stain - Final Sputum - Suctioned 11/15/22 11:50 Blood Culture - Preliminary Blood - Venous No growth after 24 hours. 11/15/22 10:39 Blood Culture - Preliminary Blood - Venous No growth after 24 hours. Procedures Date of Service Date of Service: 11/17/22 Progress Note: A&P Assessment and plan (1) Ileus following gastrointestinal surgery: Status: Acute (2) S/P laparoscopy: Status: Acute (3) Acute respiratory failure with hypoxia: Status: Acute (4) Antithrombin 3 deficiency: Status: Acute Plan Continue supportive measures. Consider tube feeds as ileus improves. Time Spent With Patient Time: Total time managing care of this patient today ____ minutes. Quality Stroke Does the patient have a stroke diagnosis?: No VTE Prior VTE?: Yes VTE Risk Level:: Surgical - high VTE Device Contraindication: N/A - Device Ordered VTE Drug Contraindication: N/A - Med Ordered
[2022-11-17] MEDS: Enoxaparin Sodium 100 MG/ML SYRINGE 170 MG SUBCUT (09:07)
[2022-11-17] MEDS: Acetaminophen 1,000 MG/100 ML PIGGYBACK 400 MG IV ×2 (09:39→21:42)
--- NOTE | 2022-11-17 09:55 | MHC.CM.PN ---
EMR REVIEWED AND PER MD ROUNDS, PT REMAINS ON VENTILATORY SUPPORT WITH PLAN FOR SEDATION VACATION TODAY. CM WILL CONTINUE TO FOLLOW FOR DC NEEDS/PLAN.
--- NOTE | 2022-11-17 10:08 | MHC.CLN ---
F/U PT REMAINS INTUBATED AND SEDATED PT IS CURRENTLY NPO ON DAY 4 WITH NGT CLAMPED R/T ILEUS SEDATION VACATION PLANNED FOR TODAY PER NSG DISCUSSED AT ROUNDS WITH MD-TO START TF TOMORROW WHEN TF NEEDED; RECOMMEND PROMOTE AT MAX GOAL RATE 55ML/HR WITH 300ML FREE WATER FLUSHES Q 6 HRS TO PROVIDE 1320KCALS (2007KCALS WITH SEDATION; 23KCALS/KG), 82.5G PROTEIN (.9G/KG), 2307ML TOTAL WATER FROM FORMULA AND FLUSHES (26ML/KG) MONITOR TOLERANCE, RESIDUALS, AND LYTES FOLLOWING WITH TEAM
--- NOTE | 2022-11-17 11:59 | PC.RT ---
Pt sedation weaned and PSV 8cmh20 attempted. Pt initially yamilex well but post 15 min rr > 40, mild inc wob noted. PSV inc to 12 cmh20 with little change. Pt returned to PC, RN/MD aware. Pt in no distress at this time.
[2022-11-17 12:01] LABS: MRSA Nasal PCR NEGATIVE (Negative); SA Nasal PCR NEGATIVE (Negative)
[2022-11-17 14:22] LABS: Vancomycin Random 13.2 mcg/mL (15-20)
[2022-11-17] MEDS: dexmedeTOMIDidine HCL/NS 400 MCG/100 ML INFUS..BTL IVCONT (16:10)
[2022-11-17] MEDS: Pantoprazole Sodium 40 MG/10 ML VIAL IVPUSH (16:47)
[2022-11-17] MEDS: Dextrose 5 % and Lactated Ring 1,000 ML 100 ML IVCONT (16:52)
[2022-11-17] MEDS: vancomycin HCL 1,250 MG in 0.9 % Sodium Chloride 250 ML 166.67 MG IV (16:53)
[2022-11-17] MEDS: Tamsulosin HCL 0.4 MG CAPSULE PO (16:53)
[2022-11-17] MEDS: HYDROmorphone HCl 1 MG/ML SYRINGE IVPUSH (17:23)
[2022-11-17 18:23] LABS: Anion Gap 17 (12-20); Blood Urea Nitrogen 16 mg/dL (9-16); Calcium 8.4 mg/dL (8.4-10.2); Carbon Dioxide 24 mmol/L (22-29); Chloride 115 mmol/L (96-108); Creatinine Clr Calc Pharmacy 83.3; Estimated Glomerular Filt Rate > 60; Glucose Random 119 mg/dL (60-115); Phosphorus 3.7 mg/dL (2.7-4.5); Potassium 3.1 mmol/L (3.3-5.1); Sodium 153 mmol/L (135-145)
[2022-11-17 18:35] LABS: Hematocrit 33.3 % (42.0-52.0); Hemoglobin 10.5 g/dl (14.0-18.0)
[2022-11-17] MEDS: Atorvastatin Calcium 40 MG TABLET PO (20:34)
[2022-11-17] MEDS: Gabapentin 600 MG TABLET PO (20:35)
[2022-11-17] MEDS: dexmedeTOMIDidine HCL/NS 400 MCG/100 ML INFUS..BTL 40.65 MCG IVCONT ×2 (21:45→23:50)
[2022-11-18] VITALS (63 sets, daily range): BP systolic 71–155; BP diastolic 26–117; PULSE 34–115; RESP 22–46; TEMP 3–38.6; O2SAT 88–94; BMI 38.4
[2022-11-18] MEDS: Furosemide 40 MG/4 ML VIAL IVPUSH (01:12)
[2022-11-18] MEDS: dexmedeTOMIDidine HCL/NS 400 MCG/100 ML INFUS..BTL 40.65 MCG IVCONT (01:57)
[2022-11-18] MEDS: vancomycin HCL 1,250 MG in 0.9 % Sodium Chloride 250 ML 166.67 MG IV (02:56)
[2022-11-18] MEDS: propofoL 1,000 MG/100 ML VIAL 19.51 MG IVCONT (03:03)
[2022-11-18] MEDS: propofoL 1,000 MG/100 ML VIAL 21.78 MG IVCONT ×2 (03:09→06:11)
[2022-11-18] MEDS: dexmedeTOMIDidine HCL/NS 400 MCG/100 ML INFUS..BTL 32.52 MCG IVCONT ×2 (04:16→06:13)
--- NOTE | 2022-11-18 04:27 | PC.NURSE ---
Addendum entered by Mandeep Dye RN 11/18/22 06:26: DIURESED APPROX 3.4 LITERS THROUGH 6AM POST-LASIX.....BP 109/65...RR DECREASED FROM 30-32 TO CURRENTLY RR 24-25...FIO2 WEANED TO 90%..CURRENTLY SAO2 91% Original Note: CARE ASSUMED 23:15...REMAINS INTUBATED...PCV VENT SUPPORT...PRECIDEX 1.5 MCG/KG/HR AT HS...WEAKLY MARTIN...(+) GAG AND COUGH REFLEXES...ASSISTS VENT TO RR 30-32...DOES NOT FOLLOW COMMANDS...SAO2 87-88% AT HS WITH PEEP 7.5/FIO2 100%...REPOSITIONED FROM RIGHT SIDE DOWN TO LEFT SIDE DOWN AND SAO2 88-89%...SUCTIONED SMALL AMOUNT LAW-YELLOW SPUTUM VIA ETT...NG-TUBE CLAMPED..ASPIRATED 30ML BILIOUS ASPIRATE....FLUID BALANCE DESPITE LASIX 11/16 8PM REMAINS (+) 4.5 LITERS SINCE TRANSFER TO ICU....LASIX 40MG IV GIVEN 1AM...DIURESED 2600ml PALE YELLOW URINE OVER 3 HOURS...SAO2 90-91%....IRRITABLE WITH CARE....PROPOFOL RESTARTED 30 MCG/KG/MIN PER ICU PA AND PRECIDEX WEANED TO 1.2 MCG/KG/HR...IP TITRATED TO 14 BY RT...CURRENTLY SAO2 91%...Ve= 11 l/m...
[2022-11-18 04:50] LABS: VBG Base Excess 6.8 mmol/L; VBG HCO3 30 mmol/L (22-26); VBG pCO2 40 mmHg; VBG pH 7.48 (7.32-7.43); VBG pO2 43 mmHg
[2022-11-18 04:58] LABS: Venous Blood Gas Refer to POC result
[2022-11-18 05:07] LABS: MANUAL DIFF FLAG NO
[2022-11-18 05:08] LABS: Basophils Absolute Auto 0.1 X10*3/uL (0.0-0.2); Basophils Percent Auto 0.3 % (0-2); Eosinophils Absolute Auto 0.3 X10*3/uL (0.0-0.4); Hematocrit 33.4 % (42.0-52.0); Imm Gran Abs Auto 0.75 X10*3/uL (0.00-0.03); Imm Gran Pct Auto 4.6 % (0.0-0.4); Lymphocytes Percent Auto 6.2 % (20-40); Mean Corpuscular HGB Conc 32.9 g/dl (31.0-36.0); Mean Corpuscular Hemoglobin 29.6 pg (27.0-33.0); Mean Platelet Volume 10.3 fL (9.4-12.4); Monocytes Absolute Auto 1.1 X10*3/uL (0.1-1.2); Monocytes Percent Auto 6.9 % (2-11); Neutrophils Absolute Auto 12.9 x10*3/uL (2.0-8.3); Platelet Count 211 X10*3/uL (160-400); Red Blood Count 3.71 X10*6/uL (4.60-5.80); Red Cell Distribution Width 14.7 % (11.0-16.0); White Blood Count 16.2 X10*3/uL (4.8-10.8)
[2022-11-18 05:28] LABS: Anion Gap 16 (12-20); Blood Urea Nitrogen 18 mg/dL (9-16); Calcium 8.8 mg/dL (8.4-10.2); Carbon Dioxide 27 mmol/L (22-29); Chloride 112 mmol/L (96-108); Creatinine Clr Calc Pharmacy 85.3; Estimated Glomerular Filt Rate > 60; Glucose Random 102 mg/dL (60-115); Potassium 2.9 mmol/L (3.3-5.1); Sodium 152 mmol/L (135-145)
[2022-11-18] MEDS: Piperacillin Sodium/Tazobactam 4.5 GM in 0.9 % Sodium Chloride 100 ML IV ×3 (05:36→17:46)
[2022-11-18] MEDS: Pantoprazole Sodium 40 MG/10 ML VIAL IVPUSH ×2 (05:36→15:41)
[2022-11-18 05:53] LABS: Magnesium 2.2 mg/dL (1.6-2.6); Phosphorus 2.4 mg/dL (2.7-4.5)
--- NOTE | 2022-11-18 07:39 | P.PNCC_ITS ---
Subjective Subjective Date of Service: 11/18/22 Interval History: agitation overnight Critical Care Time (minutes): 90 Physical Exam 2 Vital Signs: Vital Signs: Last Vital Signs Temp 100.9 F H 11/18/22 07:00 Pulse 83 11/18/22 07:00 Resp 24 H 11/18/22 07:00 BP 110/70 11/18/22 07:00 Pulse Ox 91 L 11/18/22 07:00 O2 Del Method Mechanical Ventil ation 11/18/22 07:00 O2 Flow Rate 30 11/15/22 10:00 FiO2 25 11/18/22 07:00 BMI result Body Mass Index 38.4 Const: Other: intubated, currently not sedated, intermittently agitated General: well developed HEENT: Head: Yes normal to inspection, Yes normocephalic and Yes atraumatic Eyes: General: appearance normal, both eyes and all related structures P upils: Equal, round and reactive pupils present Neck: Neck: Yes full ROM and Yes supple Chest: Chest palpation & inspection: normal inspection of the chest Resp: Other: decreased breath sounds throughout; some rhonchi left greater than right; no rales, wheezing Cardio: Rate: regular rate Rhythm: abnormal rhythm GI: Other: hypoactive bowel sounds; distended, though compressible Palpation (GI): not firm, nontender, no guarding and not rigid Skin: General skin exam: no rashes or lesions noted Neuro: General: moves all extremities and no focal motor deficits Cranial nerves: Yes Equal, round and reactive pupils present Extrem: General: Yes normal to inspection and Yes no clubbing, cyanosis or edema Objective Data Labs 11/18/22 04:38 11/18/22 04:38 Labs: Laboratory Results - last 24 hr 11/17/22 11/17/22 11/17/22 09:58 13:30 17:34 WBC RBC Hgb 10.5 L Hct 33.3 L MCV MCH MCHC RDW Plt Count MPV Immature Gran % (Auto) Neut % (Auto) Lymph % (Auto) [place] % (Auto) Eos % (Auto) Baso % (Auto) Lymph # (Auto) [place] # (Auto) Eos # (Auto) Baso # (Auto) Abs Immat Gran (auto) Absolute Neuts (auto) Absolute Nucleated RBC Nucleated RBC % (auto) VBG pH VBG pCO2 VBG pO2 VBG HCO3 VBG O2 Saturation VBG Base Excess Sodium 153 H Potassium 3.1 L Chloride 115 H Carbon Dioxide 24 Anion Gap 17 BUN 16 Creatinine 1.09 Estim Creat Clear Calc 83.3 Estimated GFR > 60 Random Glucose 119 H Calcium 8.4 Phosphorus 3.7 Magnesium Nasal Screen MRSA (PCR) NEGATIVE Nasal S. aureus Screen NEGATIVE Nasal MRSA/S.aureus Interp SEE NOTE Random Vancomycin 13.2 L 11/18/22 11/18/22 04:38 04:45 WBC 16.2 H RBC 3.71 L Hgb 11.0 L Hct 33.4 L MCV 90.0 MCH 29.6 MCHC 32.9 RDW 14.7 Plt Count 211 MPV 10.3 Immature Gran % (Auto) 4.6 H Neut % (Auto) 80.0 H Lymph % (Auto) 6.2 L [place] % (Auto) 6.9 Eos % (Auto) 2.0 Baso % (Auto) 0.3 Lymph # (Auto) 1.0 L [place] # (Auto) 1.1 Eos # (Auto) 0.3 Baso # (Auto) 0.1 Abs Immat Gran (auto) 0.75 H Absolute Neuts (auto) 12.9 H Absolute Nucleated RBC 0.000 Nucleated RBC % (auto) 0.0 VBG pH 7.48 H VBG pCO2 40 VBG pO2 43 VBG HCO3 30 H VBG O2 Saturation 66.0 VBG Base Excess 6.8 Sodium 152 H Potassium 2.9 L Chloride 112 H Carbon Dioxide 27 Anion Gap 16 BUN 18 H Creatinine 1.05 Estim Creat Clear Calc 85.3 Estimated GFR > 60 Random Glucose 102 Calcium 8.8 Phosphorus 2.4 L Magnesium 2.2 Nasal Screen MRSA (PCR) Nasal S. aureus Screen Nasal MRSA/S.aureus Interp Random Vancomycin Microbiology Microbiology Results: Microbiology 11/15/22 11:50 Blood - Venous Blood Culture - Preliminary No growth after 48 hours. 11/15/22 10:39 Blood - Venous Blood Culture - Preliminary No growth after 48 hours. 11/16/22 11:41 Sputum - Suctioned Gram Stain - Final 11/16/22 11:41 Sputum - Suctioned Routine Culture - Preliminary Gram negative paramjit Progress Note: A&P Assessment and plan (1) Ileus following gastrointestinal surgery: Status: Acute (2) Atrial flutter: Status: Acute (3) Acute respiratory failure with hypoxia: Status: Acute (4) Antithrombin 3 deficiency: Status: Acute (5) Chronic pulmonary embolism: Status: Acute (6) COPD (chronic obstructive pulmonary disease): Status: Acute Plan Assessment: Patient is a 66 Y M, antithrombin III deficiency, complicated by DVT, PE, portal vein thrombosis, on warfarin, as well as atrial fibrillation, DANNY, presenting on 11/11 for elective biopsy of mass on small intestine; hospital course complicated by ileus, aspiration complicated by acute hypoxic respiratory failure, and atrial flutter with rapid ventricular response N: intubated, on propofol gtt; plan for sedation vacation for neurological exam; ideally dexmedetomidine gtt as tolerated; given improvement of gastric output, to continue home regimen CV: atrial flutter with rapid ventricular response, previously on diltiazem gtt, now on diltiazem PO; to monitor electrolytes; hypotension, likely multifactorial including hypovolemia, sedation, and SIRS from aspiration pneumonia, norepinephrine gtt R: acute hypoxic respiratory failure, due to aspiration pneumonia; intubated on 11/15; sputum cultures with enterobacter; on zosyn GI: status post biopsy of mass on small intestine; ileus, NG tube in place with minimal output, recent bowel movements; PO meds and tube feeds as tolerated; general surgery following : baseline creatinine 1; monitor electrolytes H: antithrombin III deficiency, complicated by prior DVT, PE; on enoxaparin SQ ID: concern for aspiration pneumonia, on vancomycin, zosyn; given no interval improvement of hypoxia and intermittent hypotension, to continue vancomycin E: insulin sliding scale Quality Stroke Does the patient have a stroke diagnosis?: No VTE Prior VTE?: Yes VTE Risk Level:: Surgical - high VTE Device Contraindication: N/A - Device Ordered VTE Drug Contraindication: N/A - Med Ordered
[2022-11-18] MEDS: dexmedeTOMIDidine HCL/NS 400 MCG/100 ML INFUS..BTL 27.1 MCG IVCONT (09:15)
[2022-11-18] MEDS: Potassium Phosphate/NS 15 MMOL/250 ML PLAST..BAG 62.5 MMOL IV ×3 (09:22→23:06)
[2022-11-18] MEDS: Furosemide 20 MG/2 ML VIAL IVPUSH (09:24)
[2022-11-18] MEDS: Docusate Sodium 100 MG/10 ML LIQUID PO ×2 (09:24→20:55)
[2022-11-18] MEDS: Gabapentin 100 MG CAPSULE 200 MG PO ×2 (09:24→15:42)
[2022-11-18] MEDS: dilTIAZem HCL CD 180 MG CAP.ER.24H PO (09:25)
[2022-11-18] MEDS: Sertraline HCL 50 MG TABLET 150 MG PO (09:25)
[2022-11-18] MEDS: Memantine HCl 10 MG TABLET PO (09:25)
[2022-11-18] MEDS: Donepezil HCl 10 MG TABLET PO (09:25)
[2022-11-18] MEDS: oxyBUTYnin chloride 5 MG TABLET 10 MG PO (09:25)
[2022-11-18] MEDS: Enoxaparin Sodium 100 MG/ML SYRINGE 170 MG SUBCUT (09:26)
--- NOTE | 2022-11-18 09:36 | MHC.CLN ---
F/U PT REMAINS INTUBATED AND SEDATED DISCUSSED AT ROUNDS WITH MD-TO START TF TODAY RECOMMEND PROMOTE AT MAX GOAL RATE 55ML/HR WITH 300ML FREE WATER FLUSHES Q 6 HRS TO PROVIDE 1320KCALS (1895KCALS WITH SEDATION; 21KCALS/KG), 82.5G PROTEIN (.9G/KG), 2307ML TOTAL WATER FROM FORMULA AND FLUSHES (26ML/KG) MONITOR TOLERANCE, RESIDUALS, AND LYTES FOLLOWING WITH TEAM
[2022-11-18] MEDS: fentaNYL citrate/PF 100 MCG/2 ML VIAL 50 MCG IVPUSH (10:40)
[2022-11-18] MEDS: 0.9 % Sodium Chloride Flush 3 ML SYRINGE IVFLUSH ×2 (10:51→15:41)
[2022-11-18] MEDS: Acetaminophen 1,000 MG/100 ML PIGGYBACK 400 MG IV (10:56)
[2022-11-18] MEDS: propofoL 1,000 MG/100 ML VIAL 29.04 MG IVCONT ×3 (11:06→22:30)
[2022-11-18] MEDS: Norepinephrine Bitartrate/D5W 8 MG/250 ML PLAST..BAG 10.16 MG IV (11:15)
--- NOTE | 2022-11-18 13:04 | P.PNGS_ITS ---
Subjective Subjective Date of Service: 11/18/22 Interval history: Remains intubated, on pressors. Had bowel movement. NGT output minimal. Physical Exam 2 Vital Signs: Vital Signs: Last Vital Signs Temp 101.2 F H 11/18/22 12:00 Pulse 98 11/18/22 12:10 Resp 25 H 11/18/22 12:00 BP 135/75 11/18/22 12:10 Pulse Ox 93 11/18/22 12:00 O2 Del Method Mechanical Ventil ation 11/18/22 12:00 O2 Flow Rate 30 11/15/22 10:00 FiO2 90 11/18/22 12:28 BMI result Body Mass Index 38.4 Resp: Other: intubated on vent GI: Other: abdomen remains distended but softer Inspection: Yes incision (clean) Skin: General skin exam: no rashes or lesions noted Objective Data Active Medications Albuterol Sulfate (Albuterol Sulfate (0.083%) 2.5 Mg/3 Ml Vial.Neb) 2.5 mg INHALE QID PRN PRN Reason: Shortness Of Breath Or Wheezing Atorvastatin Calcium (Atorvastatin Calcium 40 Mg Tablet) 40 mg PO BEDTIME [facility] Last Admin: 11/17/22 20:34 Dose: 40 mg Documented By: MILKA Diltiazem HCl (Diltiazem Hcl Cd 180 Mg Cap.Er.24h) 180 mg PO DAILY [facility]; Protocol Last Admin: 11/18/22 09:25 Dose: 180 mg Documented By: AMINAH Docusate Sodium (Docusate Sodium 100 Mg/10 Ml Liquid) 100 mg PO BID [facility] Last Admin: 11/18/22 09:24 Dose: 100 mg Documented By: AMINAH Donepezil HCl (Donepezil Hcl 10 Mg Tablet) 10 mg PO DAILY [facility] Last Admin: 11/18/22 09:25 Dose: 10 mg Documented By: AMINAH Enoxaparin Sodium (Enoxaparin Sodium 100 Mg/Ml Syringe) 170 mg 1.5 mg/kg (170 mg) SUBCUT Q24H [facility] Last Admin: 11/18/22 09:26 Dose: 170 mg Documented By: AMINAH Finasteride (Finasteride 5 Mg Tablet) 5 mg PO DAILY [facility] Last Admin: 11/17/22 08:27 Dose: 5 mg Documented By: JACOB Fluticasone Propionate (Fluticasone Propionate Nasal 16 Gm [place]) 2 spray NOSTRIL-B DAILY [facility] Last Admin: 11/18/22 09:25 Dose: Not Given Documented By: AMINAH Non-Admin Reason: No Access Furosemide (Furosemide 20 Mg/2 Ml Vial) 20 mg IVPUSH DAILY [facility]; Protocol Last Admin: 11/18/22 09:24 Dose: 20 mg Documented By: AMINAH Gabapentin (Gabapentin 100 Mg Capsule) 200 mg PO BID@0800,1500 [facility] Last Admin: 11/18/22 09:24 Dose: 200 mg Documented By: AMINAH Gabapentin (Gabapentin 300 Mg Capsule) 600 mg PO BEDTIME [facility] Piperacillin Sod/Tazobactam (Sod 4.5 gm/ Sodium Chloride) 100 mls @ 200 mls/hr IV Q6H [facility] Last Infusion: 11/18/22 06:14 Dose: Infused Documented By: DIONICIO Dexmedetomidine HCl (Precedex) 400 mcg in 100 mls @ 0 mls/hr IVCONT .Q0M [facility]; Protocol Last Titration: 11/18/22 11:26 Dose: 0 mcg/kg/hr, 0 mls/hr Documented By: AMINAH Norepinephrine Bitartrate (Levophed) 8 mg in 250 mls @ 0 mls/hr IV .Q0M [facility]; Protocol Last Titration: 11/18/22 12:10 Dose: 0.04 mcg/kg/min, 8.13 mls/hr Documented By: AMINAH Acetaminophen (Ofirmev) 1,000 mg in 100 mls @ 400 mls/hr IV Q6H PRN PRN Reason: Fever Last Infusion: 11/18/22 11:26 Dose: Infused Documented By: AMINAH Vancomycin HCl 1,250 mg/ (Sodium Chloride) 250 mls @ 166.667 mls/hr IV Q12H [facility] Last Infusion: 11/18/22 04:36 Dose: Infused Documented By: DIONICIO Propofol (Diprivan) 1,000 mg in 100 mls @ 0 mls/hr IVCONT .Q0M [facility]; Protocol Last Titration: 11/18/22 12:11 Dose: 20 mcg/kg/min, 14.52 mls/hr Documented By: AMINAH Potassium Phosphate (Kphos) 15 mmol in 250 mls @ 62.5 mls/hr IV Q4H [facility] Stop: 11/18/22 15:59 Last Admin: 11/18/22 09:22 Dose: 62.5 mls/hr Documented By: AMINAH Meclizine HCl (Meclizine Hcl 25 Mg Tablet) 25 mg PO DAILY PRN PRN Reason: DIZZINESS Memantine (Memantine Hcl 10 Mg Tablet) 10 mg PO DAILY [facility] Last Admin: 11/18/22 09:25 Dose: 10 mg Documented By: AMINAH Pt Own Armodafinil (150 Mg Tablet) 150 mg PO DAILY [facility] Last Admin: 11/18/22 10:50 Dose: Not Given Documented By: AMINAH Non-Admin Reason: No Access Ondansetron HCl (Ondansetron Hcl 4 Mg/2 Ml Vial) 4 mg IVPUSH Q8H PRN PRN Reason: Nausea and Vomiting Last Admin: 11/14/22 14:20 Dose: 4 mg Documented By: ERIKASCANTHONY Oxybutynin Chloride (Oxybutynin Chloride 5 Mg Tablet) 10 mg PO DAILY [facility] Last Admin: 11/18/22 09:25 Dose: 10 mg Documented By: AMINAH Oxycodone HCl (Oxycodone Hcl Immed Release 5 Mg Tablet) 5 mg PO Q4H PRN PRN Reason: Pain, Moderate(Pain Scale 4-6) Last Admin: 11/13/22 13:37 Dose: 5 mg Documented By: COTFRANCIS Oxycodone HCl (Oxycodone Hcl Immed Release 5 Mg Tablet) 10 mg PO Q4H PRN PRN Reason: Pain, Severe (Pain Scale 7-10) Last Admin: 11/12/22 21:23 Dose: 10 mg Documented By: AVIS Pantoprazole Sodium (Pantoprazole Sodium 40 Mg/10 Ml Vial) 40 mg IVPUSH BID@0630,1630 [facility] Last Admin: 11/18/22 05:36 Dose: 40 mg Documented By: DIONICIO Pharmacy Consult (Consult Rx Vancomycin Dosing) 1 each MISCELLANE DAILY PRN PRN Reason: Consult order Primidone (Primidone 50 Mg Tablet) 100 mg PO BEDTIME [facility] Last Admin: 11/14/22 22:55 Dose: Not Given Documented By: RAMIRO Non-Admin Reason: NPO Sertraline HCl (Sertraline Hcl 50 Mg Tablet) 150 mg PO DAILY [facility] Last Admin: 11/18/22 09:25 Dose: 150 mg Documented By: AMINAH Sodium Biphosphate/Sodium Phosphate (Sodium Phosphate,Gates-Dibasic 133 Ml Enema) 133 ml [place] ONCE [facility] Sodium Chloride (0.9 % Sodium Chloride Flush 3 Ml Syringe) 3 ml IVFLUSH QSHIFT [facility] Last Admin: 11/18/22 10:51 Dose: 3 ml Documented By: AMINAH Tamsulosin HCl (Tamsulosin Hcl 0.4 Mg Capsule) 0.4 mg PO DAILY@1700 [facility] Last Admin: 11/17/22 16:53 Dose: 0.4 mg Documented By: PERICO Labs 11/18/22 04:38 11/18/22 04:38 Labs: Laboratory Results - last 24 hr 11/17/22 11/17/22 11/18/22 13:30 17:34 04:38 MCV 90.0 MCH 29.6 MCHC 32.9 RDW 14.7 Plt Count 211 MPV 10.3 Immature Gran % (Auto) 4.6 H Neut % (Auto) 80.0 H Lymph % (Auto) 6.2 L [place] % (Auto) 6.9 Eos % (Auto) 2.0 Baso % (Auto) 0.3 Lymph # (Auto) 1.0 L [place] # (Auto) 1.1 Eos # (Auto) 0.3 Baso # (Auto) 0.1 Abs Immat Gran (auto) 0.75 H Absolute Neuts (auto) 12.9 H Absolute Nucleated RBC 0.000 Nucleated RBC % (auto) 0.0 VBG pH VBG pCO2 VBG pO2 VBG HCO3 VBG O2 Saturation VBG Base Excess Anion Gap 17 16 Estim Creat Clear Calc 83.3 85.3 Estimated GFR > 60 > 60 Random Glucose 119 H 102 Calcium 8.4 8.8 Phosphorus 3.7 2.4 L Magnesium 2.2 Random Vancomycin 13.2 L 11/18/22 04:45 MCV MCH MCHC RDW Plt Count MPV Immature Gran % (Auto) Neut % (Auto) Lymph % (Auto) [place] % (Auto) Eos % (Auto) Baso % (Auto) Lymph # (Auto) [place] # (Auto) Eos # (Auto) Baso # (Auto) Abs Immat Gran (auto) Absolute Neuts (auto) Absolute Nucleated RBC Nucleated RBC % (auto) VBG pH 7.48 H VBG pCO2 40 VBG pO2 43 VBG HCO3 30 H VBG O2 Saturation 66.0 VBG Base Excess 6.8 Anion Gap Estim Creat Clear Calc Estimated GFR Random Glucose Calcium Phosphorus Magnesium Random Vancomycin Microbiology Microbiology Results: Microbiology 11/16/22 11:41 Gram Stain - Final Sputum - Suctioned Routine Culture - Final Enterobacter cloacae complex 11/15/22 11:50 Blood Culture - Preliminary Blood - Venous No growth after 48 hours. 11/15/22 10:39 Blood Culture - Preliminary Blood - Venous No growth after 48 hours. Procedures Date of Service Date of Service: 11/18/22 Progress Note: A&P Assessment and plan (1) Ileus following gastrointestinal surgery: Status: Acute (2) S/P laparoscopy: Status: Acute (3) Mesenteric mass: Status: Acute Plan Remains intubated in ICU on pressors. With evidence of return of GI function. To begin tube feeds. Time Spent With Patient Time: Total time managing care of this patient today ____ minutes. Quality Stroke Does the patient have a stroke diagnosis?: No VTE Prior VTE?: Yes VTE Risk Level:: Surgical - high VTE Device Contraindication: N/A - Device Ordered VTE Drug Contraindication: N/A - Med Ordered
[2022-11-18 13:33] LABS: Vancomycin Random 17.6 mcg/mL (15-20)
--- NOTE | 2022-11-18 13:53 | HE.PHANOTE ---
JOLANTA MATTHEWS CHANGED DOSE BACK TO 1 GRAM Q12H NOW PUT IS THERAPUETIC. NEXT RANDOM DUE 11/19 @ 1300 MALIKA
[2022-11-18] MEDS: propofoL 1,000 MG/100 ML VIAL 14.52 MG IVCONT (15:36)
[2022-11-18] MEDS: vancomycin HCL 1,000 MG in 0.9 % Sodium Chloride 250 ML 270 MG IV (15:41)
[2022-11-18] MEDS: Tamsulosin HCL 0.4 MG CAPSULE PO (16:06)
[2022-11-18] MEDS: HYDROmorphone HCl 1 MG/ML SYRINGE IVPUSH (16:15)
[2022-11-18] MEDS: Chlorhexidine Gluc Oral Rinse 15 ML MOUTHWASH BUCCAL (17:47)
--- NOTE | 2022-11-18 20:44 | PC.NURSE ---
Addendum entered by Gee Saravia RN 11/18/22 21:15: Tmax was 101.3 today, tylenol given IV this morning, applied ice packs, and also applied cooling blanket with target temp 98.6, Temperature lowered to 99.9 this evening. Addendum entered by Gee Saravia RN 11/18/22 20:57: repleted phos and K today with 2 x 15 mmol of kphos, Patient also iwth runs of atrial tachycardia today with increasing frequency, rates 140's-150's MD aware. Original Note: Care assumed at 07:00. Patient initially on precedex and propofol gtts, Sedation Vacation per MD at 09:55 after weaning down both gtts. Patient tolerated poorly with RR increasing to 40's-50's, restarted sedation and per MD titrated to just propofol for sedation--MD indicated choosing one or the other. Patient given IVP fentanyl 50 mcg with effect for tachypnea. Later episode of tachypnea and increased WOB as well despite sedation with propofol determined need for IVP dilaudid 1 mg given with effect, discussed continued tachypnea with MD and new order for fentanyl gtt. Patient did not need fentanyl gtt. Continuing to monitor. Patient responds to voice or sometimes light tactile stim with increased sedation, follows commands, answers simple questions on light sedation with squeeze of hand or nod of head. in afternoon clearly nodded head yes when asked if he felt ok. Patient does become restless and kick legs with oral care especially. Dyspnea with exertion. Patient started TF at 12:00, increased as per orders to 30 cc/hour by 16:00, free water flushes were increased today to 300cc Q 4 hours related to hyernatremia, and patient has tolerated with no gastric residual. Free water flushes were at 12:00 and 18:00. Moderate loose dark brown BM this evening. Diurested substantially, over a liter in the few hours immediately after lasix this morning. Lavaged and suctioned three times today for ledezma/white thin scretions. Family has been in today and updated about details of care by MD and RN, they are struggling with patient's clinical condition.
[2022-11-18] MEDS: Atorvastatin Calcium 40 MG TABLET PO (20:55)
[2022-11-18] MEDS: Gabapentin 300 MG CAPSULE 600 MG PO (20:55)
[2022-11-18 22:00] LABS: Anion Gap 18 (12-20)
[2022-11-18 22:03] LABS: Alanine Aminotransferase 18 U/L (0-40); Albumin Level 3.3 g/dL (3.5-5.0); Alkaline Phosphatase 71 U/L (39-117); Aspartate Amino Transferase 50 U/L (5-37); Bilirubin Total 0.9 mg/dL (0.0-1.0); Blood Urea Nitrogen 19 mg/dL (9-16); Calcium 8.5 mg/dL (8.4-10.2); Carbon Dioxide 24 mmol/L (22-29); Chloride 111 mmol/L (96-108); Creatinine Clr Calc Pharmacy 87.9; Estimated Glomerular Filt Rate > 60; Glucose Random 122 mg/dL (60-115); Magnesium 2.2 mg/dL (1.6-2.6); Phosphorus 2.2 mg/dL (2.7-4.5); Potassium 2.8 mmol/L (3.3-5.1); Sodium 150 mmol/L (135-145); Total Protein 6.2 g/dL (6.5-8.0)
[2022-11-18] MEDS: Potassium Chloride/H20 40 MEQ/100 ML PIGGYBACK 100 MEQ IV (22:58)
[2022-11-18] MEDS: Norepinephrine Bitartrate/D5W 8 MG/250 ML PLAST..BAG 20.33 MG IV (23:07)
[2022-11-19] VITALS (25 sets, daily range): BP systolic 88–145; BP diastolic 48–90; PULSE 83–180; RESP 14–40; TEMP 34.7–38.2; O2SAT 87–93; BMI 39.6
[2022-11-19] MEDS: 0.9 % Sodium Chloride Flush 3 ML SYRINGE IVFLUSH ×2 (00:31→07:29)
[2022-11-19] MEDS: Piperacillin Sodium/Tazobactam 4.5 GM in 0.9 % Sodium Chloride 100 ML IV ×2 (00:31→05:48)
[2022-11-19] MEDS: HYDROmorphone HCl 1 MG/ML SYRINGE IVPUSH ×4 (00:40→13:48)
[2022-11-19] MEDS: dilTIAZem HCL 50 MG/10 ML VIAL 20 MG IVPUSH (01:00)
[2022-11-19] MEDS: propofoL 1,000 MG/100 ML VIAL 36.3 MG IVCONT ×4 (01:17→09:19)
[2022-11-19] MEDS: Metoprolol Tartrate 5 MG/5 ML VIAL IVPUSH ×2 (02:40→05:07)
[2022-11-19] MEDS: Potassium Phosphate/NS 15 MMOL/250 ML PLAST..BAG 62.5 MMOL IV (03:24)
[2022-11-19] MEDS: vancomycin HCL 1,000 MG in 0.9 % Sodium Chloride 250 ML 270 MG IV (03:32)
[2022-11-19] MEDS: Albuterol Sulfate (0.083%) 2.5 MG/3 ML VIAL.NEB INHALE (03:33)
[2022-11-19] MEDS: Furosemide 20 MG/2 ML VIAL IVPUSH (04:58)
--- NOTE | 2022-11-19 05:17 | PC.NURSE ---
CARE ASSUMED 23:15....REMAINS TUBED/VENTED...VCV VENT SUPPORT.....INITIALLY SINUS TACH WITH FREQUENT ATRIAL ECTOPY AND BURSTS OF ATRIAL FIB HR 120'S-130'S...DEVELOPED SUSTAINED ATRIAL FIB HR 120'S-130'S...CARDIZEM 20 MG IV X1 PER ICU PA...REVERTED TO SINUS TACH WITH FREQUENT PAC'S...RAPID ATRIAL FIB RECURRED WITH HR 120'S-130'S...LOPRESSOR 5 MG IV X1 GIVEN...REVERTED TO NSR HR 90'S WITH FREQUENT PAC'S....OCCASSIONAL BURSTS OF ATRIAL FIB WITH SPONTANEOUS CONVERSION TO NSR/S.TACH WITH FREQUENT PAC'S....RAPID ATRIAL FIB SUSTAINED HR 120'S-130'S THIS AM...REPEAT LOPRESSOR 5MG IV X1 THIS AM PER ICU PA....ISSUES WITH SAO2...INITIALLY FIO2 90% AND PEEP 7CM...SAO2 87-88%...LAVAGED/SUCTIONED FOR SMALL AMOUNT LAW SECRETIONS...FIO2 TO 100% WITH SAO2 89-90% FOR 2 HOURS...DECREASED SAO2 TO 86-87%...PER PA PEEP TITRATED BY RT TO 8CM AND THEN TO 10CM...SAO2 90%...(+) JVD THIS AM..LUNGS DIMINISHED...FLUID BALANCE 10PM-5AM APPROX 1.6 LITERS (+)...AM LASIX 20MG IV GIVEN EARLY PER PA...CURRENTLY DIURESING...ATRIAL FIB HR 90'S-100'S...SAO2 92%
[2022-11-19 05:33] LABS: VBG Base Excess 5.6 mmol/L; VBG HCO3 30 mmol/L (22-26); VBG pCO2 44 mmHg; VBG pH 7.44 (7.32-7.43); VBG pO2 43 mmHg
[2022-11-19 05:36] LABS: Venous Blood Gas Refer to POC result
[2022-11-19 05:47] LABS: Hematocrit 37.6 % (42.0-52.0); Mean Corpuscular HGB Conc 31.9 g/dl (31.0-36.0); Mean Corpuscular Hemoglobin 29.3 pg (27.0-33.0); Mean Corpuscular Volume 91.9 fL (80.0-98.0); Platelet Count 294 X10*3/uL (160-400); Red Blood Count 4.09 X10*6/uL (4.60-5.80); Red Cell Distribution Width 14.9 % (11.0-16.0)
[2022-11-19] MEDS: Pantoprazole Sodium 40 MG/10 ML VIAL IVPUSH (05:48)
[2022-11-19 05:56] LABS: WBC ABN SCTR FOR CBC 1; White Blood Count 22.3 X10*3/uL (4.8-10.8)
[2022-11-19 06:05] LABS: Alanine Aminotransferase 19 U/L (0-40); Albumin Level 3.4 g/dL (3.5-5.0); Alkaline Phosphatase 81 U/L (39-117); Anion Gap 20 (12-20); Aspartate Amino Transferase 53 U/L (5-37); Bilirubin Total 0.9 mg/dL (0.0-1.0); Blood Urea Nitrogen 16 mg/dL (9-16); Calcium 8.6 mg/dL (8.4-10.2); Carbon Dioxide 24 mmol/L (22-29); Chloride 107 mmol/L (96-108); Creatinine Clr Calc Pharmacy 91.1; Estimated Glomerular Filt Rate > 60; Glucose Random 168 mg/dL (60-115); Magnesium 2.1 mg/dL (1.6-2.6); Phosphorus 3.1 mg/dL (2.7-4.5); Sodium 148 mmol/L (135-145); Total Protein 6.8 g/dL (6.5-8.0)
[2022-11-19] MEDS: Potassium Chloride Packet 20 MEQ PACKET 40 MEQ PO (06:31)
[2022-11-19] MEDS: Potassium Chloride/H20 40 MEQ/100 ML PIGGYBACK 50 MEQ IV (06:31)
[2022-11-19 06:32] LABS: Band Neutrophils Percent 3 % (3-5); Basophils Abs Manual 0.2 X10*3/uL (0.0-0.2); Basophils Percent Manual 1 % (0-2); Lymphocytes Absolute Manual 3.6 X10*3/uL (1.2-4.9); Lymphocytes Percent Manual 16 % (20-40); Metamyelocytes Absolute 0.2 X10*3/uL; Metamyelocytes Percent 1 %; Monocytes Absolute Manual 1.8 X10*3/uL (0.1-1.2); Monocytes Percent Manual 8 % (2-11); Neutrophils Absolute Manual 16.5 X10*3/uL (2.0-8.3); Neutrophils Percent Manual 71 % (45-73)
[2022-11-19 06:35] LABS: Burr Cells 1+ (0-2) /OIF; Ovalocytes 1+ (5-14) /OIF; RBC Morphology NOTED
[2022-11-19 06:36] LABS: Dohle Bodies PRES; Large Platelet PRESENT; Platelet Estimate NORMAL (NORMAL); Platelet Morphology Comment NOTED; Smudge Cells PRESENT
[2022-11-19] MEDS: Gabapentin 100 MG CAPSULE 200 MG PO (07:28)
[2022-11-19] MEDS: dilTIAZem HCL CD 180 MG CAP.ER.24H PO (07:28)
--- NOTE | 2022-11-19 07:44 | PM.CCPN ---
Subjective Subjective Date of Service: 11/19/22 Interval History: continues to require maximal ventilator support; intermittently tachypneic, necessitating increasing sedation; continues to have atrial flutter with intermittent rapid ventricular response Critical Care Time (minutes): 120 Physical Exam Vital Signs: Vital Signs: Last Vital Signs Temp 99.2 F 11/19/22 07:00 Pulse 98 11/19/22 07:38 Resp 26 H 11/19/22 07:00 BP 145/89 H 11/19/22 07:38 Pulse Ox 90 L 11/19/22 07:00 O2 Del Method Mechanical Ventil ation 11/19/22 07:00 O2 Flow Rate 30 11/15/22 10:00 FiO2 100 11/19/22 07:00 BMI result Body Mass Index 39.6 Const: Other: intubated, sedated; intermittently agitated, tachypneic General: in distress HEENT: Head: Yes normal to inspection, Yes normocephalic and Yes atraumatic Eyes: General: appearance normal, both eyes and all related structures Pupils: Equal, round and reactive pupils present Neck: Neck: Yes normal visual inspection, Yes full ROM and Yes supple Chest: Chest palpation & inspection: normal inspection of the chest Cardio: Rate: tachycardic Rhythm: abnormal rhythm GI: Other: distended, though compressible; hypoactive bowel sounds; no guarding, rebound Skin: General skin exam: no rashes or lesions noted Neuro: Other: intubated; answers yes-no questions General: moves all extremities and no focal motor deficits Cranial nerves: Yes Equal, round and reactive pupils present Extrem: Other: trace pitting edema to bilateral knees, hands General: Yes normal to inspection and Yes capillary refill normal Psych: Other: intermittently agitated Objective Data Labs 11/19/22 05:30 11/19/22 05:30 Labs: Laboratory Results - last 24 hr 11/18/22 11/18/22 11/19/22 13:03 21:19 05:28 WBC RBC Hgb Hct MCV MCH MCHC RDW Plt Count MPV Immature Gran % (Auto) Neut % (Auto) Lymph % (Auto) Mcculloch % (Auto) Eos % (Auto) Baso % (Auto) Lymph # (Auto) M[place]ulloch # (Auto) Eos # (Auto) Baso # (Auto) Abs Immat Gran (auto) Absolute Neuts (auto) Absolute Nucleated RBC Nucleated RBC % (auto) Neutrophils % (Manual) Band Neutrophils % Lymphocytes % (Manual) Monocytes % (Manual) Basophils % (Manual) Metamyelocytes % Abs Neuts (Manual) Lymphocytes # (Manual) Monocytes # (Manual) Basophils # (Manual) Metamyelocytes # Smudge Cells Dohle Bodies Platelet Estimate Large Platelets Plt Morphology Comment RBC Morphology Ovalocytes Paguate Cells VBG pH 7.44 H VBG pCO2 44 VBG pO2 43 VBG HCO3 30 H VBG O2 Saturation 68.0 VBG Base Excess 5.6 Sodium 150 H Potassium 2.8 L Chloride 111 H Carbon Dioxide 24 Anion Gap 18 BUN 19 H Creatinine 1.02 Estim Creat Clear Calc 87.9 Estimated GFR > 60 Random Glucose 122 H Calcium 8.5 Phosphorus 2.2 L Magnesium 2.2 Total Bilirubin 0.9 AST 50 H ALT 18 Alkaline Phosphatase 71 Total Protein 6.2 L Albumin 3.3 L Random Vancomycin 17.6 11/19/22 05:30 WBC 22.3 H RBC 4.09 L Hgb 12.0 L Hct 37.6 L MCV 91.9 MCH 29.3 MCHC 31.9 RDW 14.9 Plt Count 294 D MPV 10.0 Immature Gran % (Auto) Cancelled Neut % (Auto) Cancelled Lymph % (Auto) Cancelled Mcculloch % (Auto) Cancelled Eos % (Auto) Cancelled Baso % (Auto) Cancelled Lymph # (Auto) Cancelled Mcculloch # (Auto) Cancelled Eos # (Auto) Cancelled Baso # (Auto) Cancelled Abs Immat Gran (auto) Cancelled Absolute Neuts (auto) Cancelled Absolute Nucleated RBC 0.000 Nucleated RBC % (auto) 0.0 Neutrophils % (Manual) 71 Band Neutrophils % 3 Lymphocytes % (Manual) 16 L Monocytes % (Manual) 8 Basophils % (Manual) 1 Metamyelocytes % 1 Abs Neuts (Manual) 16.5 H Lymphocytes # (Manual) 3.6 Monocytes # (Manual) 1.8 H Basophils # (Manual) 0.2 Metamyelocytes # 0.2 Smudge Cells PRESENT Dohle Bodies PRES Platelet Estimate NORMAL Large Platelets PRESENT Plt Morphology Comment NOTED RBC Morphology NOTED Ovalocytes 1+ (5-14) Bradley Cells 1+ (0-2) VBG pH VBG pCO2 VBG pO2 VBG HCO3 VBG O2 Saturation VBG Base Excess Sodium 148 H Potassium 3.0 L Chloride 107 Carbon Dioxide 24 Anion Gap 20 BUN 16 Creatinine 1.00 Estim Creat Clear Calc 91.1 Estimated GFR > 60 Random Glucose 168 H Calcium 8.6 Phosphorus 3.1 Magnesium 2.1 Total Bilirubin 0.9 AST 53 H ALT 19 Alkaline Phosphatase 81 Total Protein 6.8 Albumin 3.4 L Random Vancomycin Microbiology Microbiology Results: Microbiology 11/16/22 11:41 Sputum - Suctioned Gram Stain - Final 11/16/22 11:41 Sputum - Suctioned Routine Culture - Final Enterobacter cloacae complex 11/15/22 11:50 Blood - Venous Blood Culture - Preliminary No growth after 48 hours. 11/15/22 10:39 Blood - Venous Blood Culture - Preliminary No growth after 48 hours. Progress Note: A&P Assessment and plan (1) Ileus following gastrointestinal surgery: Status: Acute (2) Atrial flutter: Status: Acute (3) Acute respiratory failure with hypoxia: Status: Acute (4) Antithrombin 3 deficiency: Status: Acute (5) Chronic pulmonary embolism: Status: Acute (6) COPD (chronic obstructive pulmonary disease): Status: Acute Plan Assessment: Patient is a 66 Y M, antithrombin III deficiency, complicated by DVT, PE, portal vein thrombosis, on warfarin, as well as atrial fibrillation, DANNY, presenting on 11/11 for elective biopsy of mass on small intestine; hospital course complicated by ileus, aspiration complicated by acute hypoxic respiratory failure, and atrial flutter with rapid ventricular response N: intubated, on propofol gtt; continued agitation, resulting in tachypnea and dysynchrony with ventilator; to add fentanyl gtt CV: atrial flutter with rapid ventricular response, previously on diltiazem gtt, now on diltiazem PO, though more frequent episodes of rapid ventricular response; to monitor electrolytes, consider diltiazem gtt if persistent rapid ventricular response; hypotension, likely multifactorial including sedation and SIRS from aspiration pneumonia, norepinephrine gtt R: acute hypoxic respiratory failure, due to aspiration pneumonia; intubated on 11/15; sputum cultures with enterobacter; on zosyn; now on maximum ventilator settings GI: status post biopsy of mass on small intestine, complicated by ileus, improving, tolerating PO meds and tube feeds with free water flushes; general surgery following : renal function intact; to monitor electrolytes close given diuresis and arrhythmia H: antithrombin III deficiency, complicated by prior DVT, PE; on enoxaparin SQ ID: concern for aspiration pneumonia, on vancomycin, zosyn; given no interval improvement of hypoxia and intermittent hypotension, to continue vancomycin E: insulin sliding scale S: plan for family meeting today at 10:00 Quality Stroke Does the patient have a stroke diagnosis?: No VTE Prior VTE?: Yes VTE Risk Level:: Surgical - high VTE Device Contraindication: N/A - Device Ordered VTE Drug Contraindication: N/A - Med Ordered
[2022-11-19] MEDS: Norepinephrine Bitartrate/D5W 8 MG/250 ML PLAST..BAG 24.39 MG IV (07:54)
[2022-11-19] MEDS: fentaNYL citrate/NS 1,000 MCG/100 ML PLAST..BAG 2.5 MCG IVCONT (08:05)
--- NOTE | 2022-11-19 10:01 | W.MHC.ACPN ---
Advanced Care Planning Note Advanced Care Planning Note Time spent (in minutes): 30 Narrative: Mr. Flores's sons, Christian and Yohannes, and daughter, Miladys, as well as sister, were present. I offered updates and clarifications. We discussed Mr. Caballeros critical clinical status, which unfortunately is not improving. Specifically, we discussed Mr. Flores's ventilator and sedation requirements, which are increasing. We discussed the potential need for paralysis, which Mr. Flores's family made clear Mr. Flores would not want. We then discussed comfort-focused care. Mr. Flores's family expressed they wish to wean sedation with the hopes of communicating with him, before transitioning to comfort-focused care. Mr. Flores's code status was changed from full code to DNR. Mr. Flores's family also asked for streaming media specialist services. Problems Discussed (1) Ileus following gastrointestinal surgery: (2) Atrial flutter: (3) Acute respiratory failure with hypoxia: (4) Antithrombin 3 deficiency: (5) Chronic pulmonary embolism: (6) COPD (chronic obstructive pulmonary disease):
--- NOTE | 2022-11-19 10:04 | MHC.CLN ---
F/U PT REMAINS INTUBATED AND SEDATED DISCUSSED AT ROUNDS WITH MD-TOLERATING TF WITH LOW RESIDUALS PER NSG PT RECEIVING PROMOTE AT MAX GOAL RATE 55ML/HR WITH 300ML FREE WATER FLUSHES Q 6 HRS TO PROVIDE 1320KCALS (1895KCALS WITH SEDATION; 21KCALS/KG), 82.5G PROTEIN (.9G/KG), 2307ML TOTAL WATER FROM FORMULA AND FLUSHES (26ML/KG) CONTINUE TO MONITOR TOLERANCE, RESIDUALS, AND LYTES
[2022-11-19] MEDS: Enoxaparin Sodium 100 MG/ML SYRINGE 170 MG SUBCUT (10:31)
[2022-11-19] MEDS: Docusate Sodium 100 MG/10 ML LIQUID PO (10:31)
[2022-11-19] MEDS: Chlorhexidine Gluc Oral Rinse 15 ML MOUTHWASH BUCCAL (10:31)
[2022-11-19] MEDS: oxyBUTYnin chloride 5 MG TABLET 10 MG PO (10:32)
[2022-11-19] MEDS: Memantine HCl 10 MG TABLET PO (10:32)
[2022-11-19] MEDS: Sertraline HCL 50 MG TABLET 150 MG PO (10:32)
[2022-11-19] MEDS: Donepezil HCl 10 MG TABLET PO (10:33)
[2022-11-19] MEDS: Scopolamine 1.5 MG PATCH.TD.3 EAR-BEHIND (11:00)
--- NOTE | 2022-11-19 12:41 | P.DN_ITS ---
Discharge Sum: Prov Provider Primary care physician: Dionicio Coe MD Admitting clinician: Rajinder Casillas Attending physician on admission: Rajinder Casillas Pronouncing clinician: Johanna De La Cruz Discharge Sum: Diag PCOD Cause of : Pneumonia due to Enterobacter cloacae Contributing Factors (1) Ileus following gastrointestinal surgery: (2) Acute respiratory failure with hypoxia: (3) COPD (chronic obstructive pulmonary disease): (4) Antithrombin 3 deficiency: (5) Chronic pulmonary embolism: (6) Atrial flutter: Discharge Sum: Summary Date and Time Date of admission: 11/12/22 11:45 Date of : 11/19/22 Time of : 15:55 Summary Details: Mr. Flores is a 66 Y M with antithrombin III deficiency, complicated by DVT, PE, portal vein thrombosis, on warfarin, as well as atrial fibrillation, DANNY, who presented on 11/11 for biopsy of a mass on small intestine. Mr. Flores's hospita l course was complicated by an ileus, furthermore complicated by aspiration and acute hypoxic respiratory failure, as well as atrial flutter with rapid ventricular response. His ICU course was complicated by persistent and worsening acute hypoxic respiratory failure due to enterobacter. Mr. Flores was transitioned to comfort-focused care on 11/19. Additional Data Confirmation of as documented by pronouncing clinician: no pulse, no respirations, no heart sounds and pupils fixed and dilated Family: at bedside Additional persons at bedside: power project manager and social media executive Attending/PCP notified?: Yes Attending physician: Rajinder Casillas MD Was code activated?: No Autopsy requested?: No commercial title examiner notified?: No
[2022-11-19] MEDS: LORazepam 2 MG/ML VIAL 0.5 MG IVPUSH (13:13)
[2022-11-19] MEDS: fentaNYL citrate/NS 1,000 MCG/100 ML PLAST..BAG 20 MCG IVCONT (14:38)
[2022-11-24 17:09] LABS: Hydroindolacetic Acid,5- 3.6 mg/24 h (< OR = 6.0); Total Volume 3700 mL
--- NOTE | 2022-12-16 14:35 | MHC.PR.MWT ---
[address] [phone] F: [phone] Pulmonary Rehabilitation 6 Minute Walk Test Test Type: Supplemental Oxygen O2 L/min: FiO2: Resting Vitals SpO2: % BP: mmHg HR: bpm Total Distance (ft) Number/ Time of Rests (sec) HALI RPD (0-10) Walk Vitals SpO2: HR: Walk METS METS: Walk Miles per Hour MPH: Walk Meters/Minute Meters/Minute: Post-Walk Vitals SpO2: BP: HR: Performance Observations Thank you.
== END 2022-11-19 17:20 | disposition expired | DRG 353 ==
LOC: HO.SSS 12:17 → HO.S3 12:17 → HO.IMC 11-14 03:54 → HO.ICU 11-15 09:38
PROVIDERS: Internal Medicine Critical Care Medicine; Nurse Practitioner; Physician Assistant Medical; Physician Assistant Surgical; Student in an Organized Health Care Education/Training Program; Admitting Provider Surgery; PCP Internal Medicine; Visit Provider Surgery
PROC: 0WQF0ZZ Repair Abdominal Wall, Open Approach (ICD-10-PCS; principal; 2022-11-11 08:20)
PROC: 0WQF0ZZ Repair Abdominal Wall, Open Approach (ICD-10-PCS; CPT 49320; 2022-11-11 08:20)
DX: K42.0 Umbilical hernia with obstruction, without gangrene (principal); J69.0 Pneumonitis due to inhalation of food and vomit; J95.821 Acute postprocedural respiratory failure; D68.59 Other primary thrombophilia; I48.92 Unspecified atrial flutter; K91.89 Other postprocedural complications and disorders of digestive system; K56.7 Ileus, unspecified; G93.40 Encephalopathy, unspecified; R65.10 Systemic inflammatory response syndrome (SIRS) of non-infectious origin without acute organ dysfunction; R00.0 Tachycardia, unspecified; J44.9 Chronic obstructive pulmonary disease, unspecified; K66.9 Disorder of peritoneum, unspecified; E66.01 Morbid (severe) obesity due to excess calories; I48.91 Unspecified atrial fibrillation; E86.1 Hypovolemia; I10 Essential (primary) hypertension; Z68.35 Body mass index [BMI] 35.0-35.9, adult; Z66 Do not resuscitate; I95.9 Hypotension, unspecified; G47.33 Obstructive sleep apnea (adult) (pediatric); Z20.822 Contact with and (suspected) exposure to COVID-19; Z87.891 Personal history of nicotine dependence; Z86.718 Personal history of other venous thrombosis and embolism; Z86.711 Personal history of pulmonary embolism; Z79.01 Long term (current) use of anticoagulants; Z79.51 Long term (current) use of inhaled steroids; Z79.899 Other long term (current) drug therapy
CPT/HCPCS: 36415; 71045; 71275; 74177; 80048; 80053; 80202; 81001; 81003; 81050; 82272; 82803; 83497; 83605; 83735; 84100; 84145; 84443; 84484; 85007; 85014; 85018; 85025; 85027; 85610; 85730; 86850; 86900; 86901; 87040; 87070; 87077; 87186; 87205; 87635; 87640; 87641; 88184; 88185; 88304; 88307; 92950; 93005; 93306; 94002; 94003; 94640; 94660; 94799; C1758; J0131; J0295; J0690; J1160; J1170; J1643; J1650; J1940; J2060; J2270; J2405; J2543; J2550; J2765; J2795; J3010; J3370; J3371; J3475; P9047; Q9967

== ENCOUNTER 2022-11-12 11:45 | Outpatient (BNV) | payer MEDICARE, MEDICAID, SELFPAY | END 2022-11-15 07:00 | PROVIDERS: Admitting Provider Surgery; PCP Internal Medicine; Visit Provider Internal Medicine Cardiovascular Disease | DX: I48.92 Unspecified atrial flutter (principal) | CPT/HCPCS: 93306 ==

== ENCOUNTER → 2022-11-12 11:45 | Outpatient (BNV) | payer MEDICARE, MEDICAID, SELFPAY | PROVIDERS: Admitting Provider Surgery; PCP Internal Medicine; Visit Provider Physician Assistant Medical | DX: J96.01 Acute respiratory failure with hypoxia (principal); D68.59 Other primary thrombophilia; K63.89 Other specified diseases of intestine; I48.92 Unspecified atrial flutter | CPT/HCPCS: 99223; 99233; 99499 ==

== ENCOUNTER → 2022-11-12 11:45 | Outpatient (BNV) | payer MEDICARE, MEDICAID, SELFPAY | PROVIDERS: Admitting Provider Surgery; PCP Internal Medicine; Visit Provider Internal Medicine Cardiovascular Disease | DX: I48.92 Unspecified atrial flutter (principal) | CPT/HCPCS: 99222; 99233 ==